=== PATIENT | male | born 1945 | race Caucasian/White ===

== ENCOUNTER 2019-03-30 11:44 | Outpatient (RCR) | payer OTHER, MEDICARE, SELFPAY ==
[2019-03-30 12:45] LABS: Basophils # 0.1 10^3/uL (0.0-0.1); Basophils % 0.5 %; Eosinophils # 0.1 10^3/uL (0.0-0.8); Eosinophils % 1.1 %; Hematocrit 30.8 % (42.0-52.0); Hemoglobin 9.2 g/dL (11.7-16.6); Lymphocytes # 1.3 10^3/uL (0.8-4.8); Lymphocytes % 14.6 %; Mean Corpuscular HGB Conc 29.9 g/dL (30.0-36.0); Mean Corpuscular Hemoglobin 26.1 pg (28.0-34.0); Mean Corpuscular Volume 87.3 fL (80-94); Mean Platelet Volume 10.4 fL (7.4-10.4); Monocytes # 0.7 10^3/uL (0.2-0.9); Neutrophils # 6.9 10^3/uL (1.8-7.7); Neutrophils % 75.3 %; Nucleated Red Blood Cells % 0 %; Platelet Count 170 10^3/cmm (130-400); Red Blood Count 3.53 10^6/uL (4.1-5.3); Red Cell Distribution Width 16.7 % (12.1-15.1); White Blood Count 9.2 10^3/uL (4.0-10.0)
[2019-03-30 13:06] LABS: Ferritin 44 ng/mL (30-400); Iron 27 ug/dL (59-158); Percent Saturation 8.9 % (20-50); Total Iron Binding Capacity 303 mg/dL; Unsaturated Iron Binding 276 ug/dL (112-347)
--- NOTE | 2019-03-30 16:27 | ONC FU_ITS ---
Maddy Briseno Patient Note Patient: Jamaal Sanchez Unit #: [id number]: 1945 Dictated By: Bev DunneDate of Visit: Mar 30, 2019 Onc MED Follow-Up/Prog Note Chief Complaint: Iron deficiency anemia due to GI blood loss History of Present Illness: Mr. Sanchez is a 73-year-old gentleman with history of iron deficiency anemia due to chronic GI blood loss. 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 As per patient in 2016, he started feeling weak and tired and found to have severe anemia. His hemoglobin was around 5 g. He was given 2 units of packed RBCs and underwent EGD and colonoscopy. The EGD showed some blood in his stomach and he was diagnosed with gave syndrome. He was referred to [facility] in [place], as per patient crop roller there told him he didn't have gave syndrome. He also underwent capsule endoscopy which showed some bleeders. He underwent cauterization of AVMs ???2. Mr. Sanchez was found to be anemic and iron deficient on his 09/15/2018 labs. His hemoglobin at that time was 10.2 and his iron saturation was 7.1% and ferritin was 22 and iron level was 22. Received 2 doses of IV replacement iron with Injectafer first on 09/24/2018 and again on 10/01/2018. and on 11/12/[address] Zaidi on 12/09/2017 and underwent double balloon endoscopy for persistent AVMs/questionable polyp, as per patient those bleeders were out of reach from upper end and a colonoscopy to evaluate lower part of small bowel and capsule endoscopy was Scheduled for 02/05/2019. Mr. Sanchez presented in December 2018 with recurrent iron deficiency anemia and was given 2 doses of Injectafer. The first one was on 02/16/2019 and the second was 02/23/2019. His Hgb on 02/16/2019 was 10.5. He is here today for post Injectafer followup. He presents weak, extremely short of breath with just minimal exertion and states he is having chest pain and his head is pounding . He states he has chest discomfort with just walking across the room. He does have a history of CAD and an several stents. He is only been taking his lisinopril approximately every other day because his blood pressure has been low. He denies any falls or syncope. He states he is just completely exhausted and feels that he probably needs some blood. He states he continues to have loose stools with blood noted in them. He has seen his crop roller recently and they are sending me to [place] and I am just waiting for an appointment there . He denies any other concerns. He has had no nausea or vomiting. He states his appetite is fair. He states his energy is just gone. He is having trouble walking out to his dog pin which is certainly new for him. His ECOG is 2. Past Medical History: Anxiety Depression Gastroesophageal reflux disease Hyperlipidemia Hypertension Insomnia Osteoarthrosis Post traumatic stress disorder Past Surgical History: Cataract excision Coronary stents Allergies: Haldol Medications: Aspirin 1 Tablet (of 81 mg) Oral daily Atorvastatin Calcium 0.5 Tablet (of 80 mg) Oral daily B-12 1 Tablet (of 1000 mcg) Oral daily Docusate Sodium 1 Capsule (of 100 mg) Tablet Oral b.i.d. Gabapentin 1 Capsule (of 300 mg) Oral t.i.d. hydroCHLOROthiazide 1 Tablet (of 25 mg) Oral daily HYDROcodone-Acetaminophen 1 Tablet (of 10-325 mg) Oral four times a day Lisinopril 1 Tablet (of 2.5 mg) Oral daily Mirtazapine 1 Tablet (of 45 mg) Oral daily Pantoprazole Sodium 1 Tablet (of 40 mg) Tablet, enteric coated Oral daily Sertraline HCl 0.5 Tablet (of 100 mg) Oral daily Family History: Mr. Sanchez's mother at age 80. Mr. Sanchez's father at age 98: congestive heart failure. Mr. Sanchez has 2 brothers: 2 . Mr. Sanchez's first brother's type ii diabetes. Another brother's type ii diabetes. He has 1 sister who is : congestive heart failure, and type ii diabetes. Social History: Mr. Sanchez is and he is retired. Mr. Sanchez quit smoking 6 years ago but had smoked 1.0 pack/day for 51 years. He has no history of drinking. Mr. Sanchez reports the following support systems: lives alone and lives in own house. His diet consists of regular meals. He indicates his activity level as: daily activities. Review Of Symptoms: Constitutional Denies fevers, chills, night sweats, excessive fatigue or weight loss. Feels no better overall and is still short of breath. He is now having chest pain and palpitations. Allergic/Immunologic No reactions. Eyes Denies significant visual changes. No diplopia. No amaurosis. ENMT Denies changes in hearing, sore throat, mouth sores, difficulty or changes in swallowing ability, and/or sinus drainage. Endocrine No diabetes, thyroid disease or hormone replacement. Denies hot flashes or night sweats. Hematologic/Lymphatic Denies easy bruising or bleeding. The patient denies any tender or palpable lymph nodes. Respiratory Has dyspnea on exertion, and chest pain with minimal exertion. He denies cough or hemoptysis. Denies orthopnea. Cardiovascular He states he is having chest pain, palpitations with minimal exertion but denies lower extremity edema or orthopnea. Gastrointestinal Denies nausea, vomiting, or constipation. He states he is having blood in his stools and they are loose. He states this is not new and he has seen his GI doctor in [place] and is now being referred to [place] but does not have an actual appointment Genitourinary (M) Denies hematuria, dysuria, increased frequency, urgency, hesitancy or incontinence. Musculoskeletal Denies joint pain, swelling or redness. No decreased range of motion. Integumentary Denies chronic rashes, inflammation, ulcerations or skin changes. Neurologic Denies headache, blurred vision, and no areas of focal weakness or numbness. Normal gait. No sensory problems. Psychiatric Denies insomnia, depression, tatianna or mood swings. Vital Signs: Performed on Mar 30, 2019 14:17 Height - 74.00 in Weight - 286.4 lbs (HIGH) BSA - 2.53 sq.m BMI - 36.77 (HIGH) Temperature - 99.2 F (HIGH) Pulse - 79 /min Respiration - 24 /min BP - 134/66 mm(hg) O2 Sat - 95 % (LOW) Pain - 7,2 - Ambulatory/capable of all self-care, unable to perform any work activities. Up and about more than 50% of waking hours. (ECOG) Physical Examination: Constitutional Alert, oriented, no acute distress. Skin pink, warm and dry. Head Normocephalic; atraumatic. Eyes Conjunctivae and sclerae are clear and without icterus. Pupils are reactive and equal. Neck Supple without masses or thyromegaly. No jugular venous distension. Hematologic/Lymphatic No petechiae or purpura. No tender or palpable lymph nodes in the cervical or supraclavicular areas. Respiratory Lungs are clear to auscultation without rhonchi or wheezing. Cardiovascular Regular rate and rhythm of heart without murmurs,clicks, gallops or rubs. Abdomen Non-tender, non-distended, no masses, ascites. Back/Spine Non-tender to palpation. Extremities No visible deformities, no cyanosis, clubbing or edema. Pulses 4+ and equal bilaterally. Musculoskeletal No tenderness or swelling, normal range of motion without obvious weakness. Integumentary No rashes or lesions. Neurologic No sensory or motor deficits, normal cerebellar function, normal gait. Psychiatric Alert and oriented times three. Coherent speech. Verbalizes understanding of our discussions today. Laboratory:Test performed on Mar 30, 2019 14:52 Ferritin 44 ng/mL % Iron Saturation 8.9 % Iron, Total 27 mcg/dL TIBC 303 mcg/dL WBC 9.2 10^9/L RBC 3.53 10^12/L HGB 9.2 g/dL HCT 30.8 % MCV 87.3 fl MCH 26.1 pg MCHC 29.9 g/dL RDW 16.7 % Platelet Count 170 10^9/L MPV 10.4 fL Neutrophils (Gran) 6.9 10^9/L Lymphocytes 1.3 10^9/L Monocytes 0.7 10^9/L Eosinophils 0.1 10^9/L Basophils 0.1 10^9/L Manual Lymphocytes 14.6 % Manual Monocytes 8.0 % Manual Eosinophils 1.1 % Manual Basophils 0.5 % NRBCs 0.0 /100 WBC 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 AVMs Status post cauterization ???2 since 2016. Intolerance to oral iron. IV iron replacement with Injectafer on 09/24/2018 and 10/01/2018. Mr. Sanchez presents today for follow-up post Injectafer. He has continued to be iron deficient and anemic. His hemoglobin has dropped from 10.5 on February 16 2019-9.2 today. He is followed with Dr. Zaidi in [place] and states that they have referred him to [facility]. He is awaiting for an appointment there. He is extremely symptomatic with his anemia today and that he is having significant shortness of breath, chest pain and palpitations head and heart pounding and fatigue. Plan: 1. Labs from today were reviewed in detail and discussed with Mr. Sanchez. A copy was given to him. WBC 9.2, hemoglobin 9.2, platelets 1 are 70,000 ANC is 6900 his iron saturation is 8.9 ferritin is 44 and his iron level is 27. He did have 2 doses of Injectafer approximately 4 weeks ago. He continues to be iron deficient. 2. We will plan to resume his Injectafer for 2 doses???1 week apart. 3. We will set him up for 1 unit of packed red blood cells due to his severe shortness of breath, chest pain, fatigue and his history of CAD. 4. We will plan to recheck his CBC and type and next next week. And then we will plan to see him back 5 weeks after his first Injectafer dose with CBC CMP and type and ask. 5. He states he has been referred to [facility] from [place] for further evaluation. He is not certain when that will happen as he does not have an appointment yet. 6. Mr. Sanchez was instructed to contact us in the interim should questions or problems arise. Signed By: Renee DunnePTam-ANTHONY, AOLEXI Hoang MD <<Signature on File>>
== END 2019-04-24 23:59 | disposition home or self-care (01) ==
LOC: ONCMED 11:44
PROVIDERS: Family Provider Internal Medicine; PCP Internal Medicine; Visit Provider Internal Medicine Hematology & Oncology
DX: D50.0 Iron deficiency anemia secondary to blood loss (chronic) (principal); K92.2 Gastrointestinal hemorrhage, unspecified; I25.10 Atherosclerotic heart disease of native coronary artery without angina pectoris; F41.8 Other specified anxiety disorders; K21.9 Gastro-esophageal reflux disease without esophagitis; E78.5 Hyperlipidemia, unspecified; I10 Essential (primary) hypertension; G47.00 Insomnia, unspecified; M19.90 Unspecified osteoarthritis, unspecified site; F43.10 Post-traumatic stress disorder, unspecified; Z79.82 Long term (current) use of aspirin; Z79.891 Long term (current) use of opiate analgesic; Z95.5 Presence of coronary angioplasty implant and graft; Z87.891 Personal history of nicotine dependence
CPT/HCPCS: 36415; 82728; 83540; 83550; 85025; 86850; 86900; 96365; 99214; J1439; P9016

== ENCOUNTER 2019-03-31 09:59 | Outpatient (RCR) | payer OTHER, MEDICARE, SELFPAY ==
[2019-03-31] MEDS: acetaminophen 325 mg Tablet 650 MG PO (10:50)
[2019-03-31] MEDS: diphenhydrAMINE 25 mg Capsule PO (10:50)
[2019-03-31] MEDS: sodium chloride 0.9% 250 ML 50 ML IV (11:00)
[2019-03-31 12:45] VITALS: BP 116/70; PULSE 70; RESP 18; TEMP 36.8; O2SAT 95
== END 2019-04-24 23:59 | disposition home or self-care (01) ==
LOC: ONCMED 09:59
PROVIDERS: Family Provider Internal Medicine; PCP Internal Medicine; Visit Provider Nurse Practitioner
DX: D50.9 Iron deficiency anemia, unspecified (principal)
CPT/HCPCS: J7050

== ENCOUNTER 2019-04-07 05:55 | Outpatient (RCR) | payer OTHER, MEDICARE, SELFPAY | END 2019-04-24 23:59 | disposition home or self-care (01) | LOC: ONCMED 05:55 | PROVIDERS: Family Provider Internal Medicine; PCP Internal Medicine; Visit Provider Nurse Practitioner | DX: D50.0 Iron deficiency anemia secondary to blood loss (chronic) (principal) | CPT/HCPCS: 96365 ==

== ENCOUNTER → 2019-04-14 16:04 | Outpatient (BNVA) | payer OTHER, MEDICARE, SELFPAY | PROVIDERS: Family Provider Internal Medicine; PCP Internal Medicine; Visit Provider Urology | DX: N40.1 Benign prostatic hyperplasia with lower urinary tract symptoms (principal) | CPT/HCPCS: 81001 ==

== ENCOUNTER 2019-05-11 | Outpatient (RCR) | payer OTHER, SELFPAY ==
--- NOTE | 2019-05-11 15:34 | ONC FU_ITS ---
Maddy Briseno Patient Note Patient: Jamaal Sanchez Unit #: [id number]: 1945 Dictated By: Bev DunneDate of Visit: May 11, 2019 Onc MED Follow-Up/Prog Note Chief Complaint: Iron deficiency anemia due to GI blood loss History of Present Illness: Mr. Sanchez is a 73-year-old gentleman with history of iron deficiency anemia due to chronic GI blood loss. 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 As per patient in 2016, he started feeling weak and tired and found to have severe anemia. His hemoglobin was around 5 g. He was given 2 units of packed RBCs and underwent EGD and colonoscopy. The EGD showed some blood in his stomach and he was diagnosed with gave syndrome. He was referred to [facility] in [place], as per patient [place] there told him he didn't have gave syndrome. He also underwent capsule endoscopy which showed some bleeders. He underwent cauterization of AVMs ???2. Mr. Sanchez was found to be anemic and iron deficient on his 09/15/2018 labs. His hemoglobin at that time was 10.2 and his iron saturation was 7.1% and ferritin was 22 and iron level was 22. Received 2 doses of IV replacement iron with Injectafer first on 09/24/2018 and again on 10/01/2018. and on 11/12/[address] Zaidi on 12/09/2017 and underwent double balloon endoscopy for persistent AVMs/questionable polyp, as per patient those bleeders were out of reach from upper end and a colonoscopy to evaluate lower part of small bowel and capsule endoscopy was Scheduled for 02/05/2019. Mr. Sanchez presented in December 2018 with recurrent iron deficiency anemia and was given 2 doses of Injectafer. The first one was on 02/16/2019 and the second was 02/23/2019. His Hgb on 02/16/2019 was 10.5. He came in March 2019 for post Injectafer followup. He presented weak, extremely short of breath with just minimal exertion and states he is having chest pain and his head is pounding . He states he has chest discomfort with just walking across the room. He does have a history of CAD and an several stents. He was just completely exhausted and feels that he probably needs some blood. He received 2 more doses on Injectafer on 03/30/2019 and 04/07/2019. He is here today for followup. He states overall he feels really good. He has not noted any blood in his stools. He states he has a good appetite. He states he is trying to watch his diet some and lose little bit of weight. His able to do all of his ADLs with some exertion but he recovers well with rest. He is now able to walk out to his dog pin without the shortness of breath and chest pain he was having before. He denies any palpitations. He denies any orthopnea. He has had no fever or chills. He denies any diarrhea or constipation. He had no rash or skin changes. He states his only complaint today is his left knee pain which is due to arthritis. He states this is chronic and ongoing. If truly no worse than what it normally is. He states he generally has injections every 3 months and is getting close to time for that. He will follow-up with the [facility] for that. He also states that he saw Dr. Durbin and Dr. Cordova put him on Flomax and he is feeling much better after that. He has also been consuming 1 teaspoon of lemon juice and 2 to 3 ounces of wine every night and feels that since doing this or the Flomax or both he is feeling much better. He states he is sleeping good. His knee pain does respond to his pain medication but states it just does not relieve it completely. He states he was originally set up for knee surgery but then they were he was found to be anemic and that is been postponed. His ECOG is 1 more so due to the limited mobility due to the knee pain. Past Medical History: Anxiety Depression Gastroesophageal reflux disease Hyperlipidemia Hypertension Insomnia Osteoarthrosis Post traumatic stress disorder Past Surgical History: Cataract excision Coronary stents Allergies: Haldol Medications: Aspirin 1 Tablet (of 81 mg) Oral daily Atorvastatin Calcium 0.5 Tablet (of 80 mg) Oral daily B-12 1 Tablet (of 1000 mcg) Oral daily Docusate Sodium 1 Capsule (of 100 mg) Tablet Oral b.i.d. Flomax 1 Tablet (of 0.4 mg) Capsule Oral daily Gabapentin 1 Capsule (of 300 mg) Oral t.i.d. hydroCHLOROthiazide 1 Tablet (of 25 mg) Oral daily HYDROcodone-Acetaminophen 1 Tablet (of 10-325 mg) Oral four times a day Lisinopril 1 Tablet (of 2.5 mg) Oral daily Mirtazapine 1 Tablet (of 45 mg) Oral daily Pantoprazole Sodium 1 Tablet (of 40 mg) Tablet, enteric coated Oral daily Sertraline HCl 0.5 Tablet (of 100 mg) Oral daily Family History: Mr. Sanchez's mother at age 80. Mr. Sanchez's father at age 98: congestive heart failure. Mr. Sanchez has 2 brothers: 2 . Mr. Sanchez's first brother's type ii diabetes. Another brother's type ii diabetes. He has 1 sister who is : congestive heart failure, and type ii diabetes. Social History: Mr. Sanchez is and he is retired. Mr. Sanchez quit smoking 6 years ago but had smoked 1.0 pack/day for 51 years. He has no history of drinking. Mr. Sanchez reports the following support systems: lives alone and lives in own house. His diet consists of regular meals. He indicates his activity level as: daily activities. Review Of Symptoms: Constitutional Denies fevers, chills, night sweats, excessive fatigue or weight loss. Feels better overall and shortness of breath is better. Allergic/Immunologic No reactions. Eyes Denies significant visual changes. No diplopia. No amaurosis. ENMT Denies changes in hearing, sore throat, mouth sores, difficulty or changes in swallowing ability, and/or sinus drainage. Endocrine No diabetes, thyroid disease or hormone replacement. Denies hot flashes or night sweats. Hematologic/Lymphatic Denies easy bruising or bleeding. The patient denies any tender or palpable lymph nodes. Respiratory He denies cough or hemoptysis. Denies orthopnea. Cardiovascular Denies anginal chest pain, palpitations or orthopnea. Gastrointestinal Denies nausea, vomiting, or constipation. He states his bowels are better and he has not had any blood that he has noticed. Genitourinary (M) Denies hematuria, dysuria, increased frequency, urgency, hesitancy or incontinence since starting Flomax per Dr Durbin. Musculoskeletal Left knee arthritis is acting up today. Pain meds help but don't relieve it completely. Almost time for knee injection . Integumentary Denies chronic rashes, inflammation, ulcerations or skin changes. Neurologic Denies headache, blurred vision, and no areas of focal weakness or numbness. Normal gait. No sensory problems. Psychiatric Denies insomnia, depression, tatianna or mood swings. Vital Signs: Performed on May 11, 2019 14:53 Height - 74.00 in Temperature - 98.0 F (LOW) Pulse - 60 /min Respiration - 18 /min BP - 140/74 mm(hg) O2 Sat - 96 % Pain - 5 Fatigue - 2,1 - No physically strenuous activity, but ambulatory and able to carry out light or sedentary work (e.g. office work, light house work). (ECOG) Physical Examination: Constitutional Alert, oriented, no acute distress. Skin pink, warm and dry. Head Normocephalic; atraumatic. Eyes Conjunctivae and sclerae are clear and without icterus. Pupils are reactive and equal. Neck Supple without masses or thyromegaly. No jugular venous distension. Hematologic/Lymphatic No petechiae or purpura. No tender or palpable lymph nodes in the cervical or supraclavicular areas. Respiratory Lungs are clear to auscultation without rhonchi or wheezing. Cardiovascular Regular rate and rhythm of heart without murmurs,clicks, gallops or rubs. Abdomen Non-tender, non-distended, no masses, ascites. Back/Spine Non-tender to palpation. Extremities No visible deformities, no cyanosis, clubbing or edema. Pulses 4+ and equal bilaterally. Musculoskeletal No tenderness or swelling, normal range of motion without obvious weakness. Integumentary No rashes or lesions. Neurologic No sensory or motor deficits, normal cerebellar function, normal gait. Psychiatric Alert and oriented times three. Coherent speech. Verbalizes understanding of our discussions today. Laboratory:Test performed on May 11, 2019 11:50 Ferritin 77 ng/mL Iron 37 ug/dL Sodium 143 mmol/L Potassium 4.2 mmol/L Chloride 106 mmol/L CO2 26 mmol/L UIBC 178 ug/dL Anion Gap 15.2 BUN 18 mg/dL Creatinine 1.1 mg/dL Cr Clearance (Est) 106.6200 mL/min Glucose 109 mg/dL Calcium 9.7 mg/dL Protein, Total 7.7 g/dL Albumin 4.0 g/dL Globulin 3.7 g/dL Bilirubin, Total 0.4 mg/dL ALT (SGPT) 17 U/L AST (SGOT) 16 U/L Alkaline Phosphatase 160 IU/L WBC 9.1 10 3/uL RBC 4.42 10 6/uL HGB 11.5 g/dL HCT 38.1 % MCV 86.2 fL MCH 26.0 pg MCHC 30.2 g/dL RDW 15.3 % Platelet Count 235 10 3/cmm MPV 10.0 fL Neutrophils 6.9 10 3/uL Lymphocytes 1.5 10 3/uL Monocytes 0.6 10 3/uL Eosinophils 0.0 10 3/uL Basophils 0.1 10 3/uL Neutrophil % 75.8 % Lymphocyte % 16.6 % Monocyte % 6.2 % Eosinophil % 0.4 % Basophils % 0.7 % Test performed on Mar 30, 2019 14:52 % Iron Saturation 8.9 % TIBC 303 mcg/dL Manual Lymphocytes 14.6 % Manual Monocytes 8.0 % Manual Eosinophils 1.1 % Manual Basophils 0.5 % NRBCs 0.0 /100 WBC 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 AVMs Status post cauterization ???2 since 2016. Intolerance to oral iron. IV iron replacement with Injectafer on 09/24/2018 and 10/01/2018. Mr. Sanchez presented in March 2019 for follow-up post Injectafer. He continued to be iron deficient and anemic. His hemoglobin had dropped from 10.5 on February 16 2019-9.2 on 03/30/2019. He is following with Dr. Zaidi in [place] and states that they have referred him to [facility]. He is awaiting for an appointment there. He was extremely symptomatic with his anemia in March with significant shortness of breath, chest pain and palpitations head and heart pounding and fatigue. He did have 1 unit of blood and received 2 doses of Injectafer in March 2019. He had had Injectafer on 02/17/2020 and 02/24/2020 prior to his March dosing. His last dose of Injectafer was on 04/07/2019. Plan: 1. Labs from today were reviewed in detail and discussed with Mr. Sanchez. A copy was given to him. WBC 9.1, hemoglobin 11.5, platelets 235,000 ANC is 6900 his iron saturation is improved from 8.9 to 17.2% today. The ferritin was 44 and is now 77 and his iron level was 27 and is 37 today. He has had a total of 4 doses of Injectafer since 02/17/2020. The last one was on 04/07/2019. 2. Clinically he is better and he thinks his bleeding is much better . He has added 1 teaspoon of lemon juice and 2-3 ounces of wine daily. 3. Flomax recently added per Dr Durbin per patient report. 4. We will plan for followup with Dr Hoang and to recheck his CBC, CMP and type/screen in 1 month. 5. He states he has been referred to [facility] from [place] for further evaluation. He is not certain when that will happen as he does not have an appointment yet. 6. Mr. Sanchez was instructed to contact us in the interim should questions or problems arise. 7. He states he does have an appointment to see Dr Campos-classifier soon. Signed By: Bev Dunne-, [facility] MEDICAL CENTERTyrese Hoang MD <<Signature on File>>
== END 2019-06-04 | disposition home or self-care (01) ==
LOC: ONCMED
PROVIDERS: PCP Internal Medicine; Visit Provider Internal Medicine Hematology & Oncology
DX: D50.0 Iron deficiency anemia secondary to blood loss (chronic) (principal); K31.811 Angiodysplasia of stomach and duodenum with bleeding; Z87.891 Personal history of nicotine dependence
CPT/HCPCS: 99214

== ENCOUNTER 2019-05-11 05:53 | Outpatient (RCR) | payer OTHER, MEDICARE, SELFPAY ==
[2019-05-11 12:21] LABS: Basophils # 0.1 10^3/uL (0.0-0.1); Basophils % 0.7 %; Eosinophils % 0.4 %; Hematocrit 38.1 % (42.0-52.0); Hemoglobin 11.5 g/dL (11.7-16.6); Lymphocytes # 1.5 10^3/uL (0.8-4.8); Lymphocytes % 16.6 %; Mean Corpuscular HGB Conc 30.2 g/dL (30.0-36.0); Mean Corpuscular Volume 86.2 fL (80-94); Monocytes # 0.6 10^3/uL (0.2-0.9); Monocytes % 6.2 %; Neutrophils # 6.9 10^3/uL (1.8-7.7); Neutrophils % 75.8 %; Nucleated Red Blood Cells % 0 %; Platelet Count 235 10^3/cmm (130-400); Red Blood Count 4.42 10^6/uL (4.1-5.3); Red Cell Distribution Width 15.3 % (12.1-15.1); White Blood Count 9.1 10^3/uL (4.0-10.0)
[2019-05-11 12:29] LABS: Alanine Aminotransferase 17 U/L (0-41); Alkaline Phosphatase 160 IU/L (40-130); Anion Gap 15.2 (5-19); Aspartate Amino Transferase 16 U/L (0-40); Blood Urea Nitrogen 18 mg/dL (8-23); Calcium 9.7 mg/dL (8.5-10.5); Carbon Dioxide 26 mmol/L (22-29); Chloride 106 mmol/L (98-107); Ferritin 77 ng/mL (30-400); Globulin 3.7 g/dL (1.3-4.6); Glucose 109 mg/dL (65-115); Iron 37 ug/dL (59-158); Percent Saturation 17.2 % (20-50); Potassium 4.2 mmol/L (3.5-5.1); Sodium 143 mmol/L (136-145); Total Bilirubin 0.4 mg/dL (0.15-1.2); Total Iron Binding Capacity 215 mcg/dl; Total Protein 7.7 g/dL (6.6-8.7); Unsaturated Iron Binding 178 ug/dL (112-347)
== END 2019-05-23 23:59 | disposition home or self-care (01) ==
LOC: ONCMED 05:53
PROVIDERS: Family Provider Internal Medicine; PCP Internal Medicine; Visit Provider Nurse Practitioner
DX: D50.0 Iron deficiency anemia secondary to blood loss (chronic) (principal); I25.10 Atherosclerotic heart disease of native coronary artery without angina pectoris; F41.8 Other specified anxiety disorders; K21.9 Gastro-esophageal reflux disease without esophagitis; E78.5 Hyperlipidemia, unspecified; I10 Essential (primary) hypertension; G47.00 Insomnia, unspecified; M19.90 Unspecified osteoarthritis, unspecified site; F43.10 Post-traumatic stress disorder, unspecified; Z79.82 Long term (current) use of aspirin; Z79.891 Long term (current) use of opiate analgesic; Z79.899 Other long term (current) drug therapy; Z95.5 Presence of coronary angioplasty implant and graft; Z87.891 Personal history of nicotine dependence
CPT/HCPCS: 36415; 80053; 82728; 83540; 83550; 85025; 99214

== ENCOUNTER 2019-06-08 06:07 | Outpatient (RCR) | payer OTHER, MEDICARE, SELFPAY ==
[2019-06-08 10:05] LABS: Basophils # 0.1 10^3/uL (0.0-0.1); Basophils % 0.7 %; Eosinophils # 0.1 10^3/uL (0.0-0.8); Eosinophils % 0.9 %; Hematocrit 39.5 % (42.0-52.0); Hemoglobin 11.9 g/dL (11.7-16.6); Lymphocytes # 1.4 10^3/uL (0.8-4.8); Lymphocytes % 15.9 %; Mean Corpuscular HGB Conc 30.1 g/dL (30.0-36.0); Mean Corpuscular Hemoglobin 25.6 pg (28.0-34.0); Mean Corpuscular Volume 85.1 fL (80-94); Monocytes # 0.6 10^3/uL (0.2-0.9); Monocytes % 6.4 %; Neutrophils # 6.7 10^3/uL (1.8-7.7); Neutrophils % 75.8 %; Nucleated Red Blood Cells % 0 %; Platelet Count 247 10^3/cmm (130-400); Red Blood Count 4.64 10^6/uL (4.1-5.3); Red Cell Distribution Width 14.7 % (12.1-15.1); White Blood Count 8.9 10^3/uL (4.0-10.0)
[2019-06-08 10:46] LABS: Alanine Aminotransferase 19 U/L (0-41); Albumin Level 4.1 g/dL (3.5-5.2); Alkaline Phosphatase 157 IU/L (40-130); Aspartate Amino Transferase 21 U/L (0-40); Blood Urea Nitrogen 13 mg/dL (8-23); Calcium 9.7 mg/dL (8.5-10.5); Carbon Dioxide 32 mmol/L (22-29); Chloride 104 mmol/L (98-107); Ferritin 42 ng/mL (30-400); Globulin 3.7 g/dL (1.3-4.6); Glucose 135 mg/dL (65-115); Iron 42 ug/dL (59-158); Osmolality Calculated 292 mOsm/kg (285-295); Percent Saturation 13.8 % (20-50); Sodium 142 mmol/L (136-145); Total Bilirubin 0.4 mg/dL (0.15-1.2); Total Iron Binding Capacity 304 mcg/dl; Total Protein 7.8 g/dL (6.6-8.7); Unsaturated Iron Binding 262 ug/dL (112-347)
--- NOTE | 2019-06-08 13:00 | ONC FU_ITS ---
Dr. Hoang follow up note Patient: Jamaal Sanchez Unit #: [id number]: 1945 Dicatated By: Tomas Hoang M.D.Date of Visit:Jun 08, 2019 Onc Med Follow-up/Prog Note History of Present Illness: Mr. Sanchez is a 73-year-old gentleman with history of iron deficiency anemia due to chronic GI blood loss. 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 As per patient in 2016, he started feeling weak and tired and found to have severe anemia. His hemoglobin was around 5 g. He was given 2 units of packed RBCs and underwent EGD and colonoscopy. The EGD showed some blood in his stomach and he was diagnosed with gave syndrome. He was referred to [facility] in [place], as per patient records management assistant there told him he didn't have gave syndrome. He also underwent capsule endoscopy which showed some bleeders. He underwent cauterization of AVMs ???2. Mr. Sanchez was found to be anemic and iron deficient on his 09/15/2018 labs. His hemoglobin at that time was 10.2 and his iron saturation was 7.1% and ferritin was 22 and iron level was 22. Received 2 doses of IV replacement iron with Injectafer first on 09/24/2018 and again on 10/01/2018. and on 11/12/[address] Zaidi on 12/09/2017 and underwent double balloon endoscopy for persistent AVMs/questionable polyp, as per patient those bleeders were out of reach from upper end and a colonoscopy to evaluate lower part of small bowel and capsule endoscopy was Scheduled for 02/05/2019. Mr. Sanchez presented in December 2018 with recurrent iron deficiency anemia and was given 2 doses of Injectafer. The first one was on 02/16/2019 and the second was 02/23/2019. His Hgb on 02/16/2019 was 10.5. He came in March 2019 for post Injectafer followup. He presented weak, extremely short of breath with just minimal exertion and states he is having chest pain and his head is pounding . He states he has chest discomfort with just walking across the room. He does have a history of CAD and an several stents. He was just completely exhausted and feels that he probably needs some blood. He received 2 more doses on Injectafer on 03/30/2019 and 04/07/2019. He states overall he feels really good. He has not noted any blood in his stools. He states he has a good appetite. He states he is trying to watch his diet some and lose little bit of weight. His able to do all of his ADLs with some exertion but he recovers well with rest. He is now able to walk out to his dog pin without the shortness of breath and chest pain he was having before. He denies any palpitations. He denies any orthopnea. He has had no fever or chills. He denies any diarrhea or constipation. He had no rash or skin changes. He states his only complaint today is his left knee pain which is due to arthritis. He states this is chronic and ongoing. If truly no worse than what it normally is. He states he generally has injections every 3 months and is getting close to time for that. He will follow-up with the [facility] for that. He also states that he saw Dr. Durbin and Dr. Cordova put him on Flomax and he is feeling much better after that. He has also been consuming 1 teaspoon of lemon juice and 2 to 3 ounces of wine every night and feels that since doing this or the Flomax or both he is feeling much better. He states he is sleeping good. His knee pain does respond to his pain medication but states it just does not relieve it completely. He states he was originally set up for knee surgery but then they were he was found to be anemic and that is been postponed. His ECOG is 1 more so due to the limited mobility due to the knee pain. Came for follow-up, patient said his records management assistant in [place] has referred him to records management assistant in [place] as bleeders in his small bowel were out of reach. And patient has appointment with records management assistant in [place] in November 2019. Patient denies any fresh blood per rectum but off and on dark tarry colored stools. No hemoptysis or hematemesis, no jaundice, no shortness of breath or palpitation at rest or on exertion. Medications: Aspirin 1 Tablet (of 81 mg) Oral daily, Atorvastatin Calcium 0.5 Tablet (of 80 mg) Oral daily, B-12 1 Tablet (of 1000 mcg) Oral daily, Docusate Sodium 1 Capsule (of 100 mg) Tablet Oral b.i.d., Flomax 1 Tablet (of 0.4 mg) Capsule Oral daily, Gabapentin 1 Capsule (of 300 mg) Oral t.i.d., hydroCHLOROthiazide 1 Tablet (of 25 mg) Oral daily, HYDROcodone-Acetaminophen 1 Tablet (of 10-325 mg) Oral four times a day, Lisinopril 1 Tablet (of 2.5 mg) Oral daily, Mirtazapine 1 Tablet (of 45 mg) Oral daily, Pantoprazole Sodium 1 Tablet (of 40 mg) Tablet, enteric coated Oral daily, Sertraline HCl 0.5 Tablet (of 100 mg) Oral daily Allergies: Haldol Review of Systems: Constitutional - Appetite is good and weight is stable. No fever, chills, hot flashes, or night sweats. Energy level is fair, ENMT - No sinus congestion/drainage. No mouth sores. No sore throat, no difficulty swallowing, Hematologic/Lymphatic - Pt reports frequent nosebleeds, Respiratory - Negative for shortness of breath and cough, Cardiovascular - No angina pain. No palpitations, Gastrointestinal - Negative for nausea and vomiting. No heartburn or acid reflux. No diarrhea. Positive for constipation and black tarry stool, Genitourinary (M) - No dysuria or hematuria. No urinary frequency. No urgency. Positive for incontinence. Positive for nocturia, Musculoskeletal - Positive for joint and back pain, Neurologic - No headache, no dizziness. Positive for numbness/tingling, Psychiatric - Positive for anxiety and depression. No insomnia. Vital Signs: Performed on Jun 08, 2019 12:22 Height - 74.00 in Weight - 278.6 lbs (LOW) BSA - 2.50 sq.m BMI - 35.77 (HIGH) Temperature - 98.6 F Pulse - 74 /min Respiration - 17 /min BP - 139/65 mm(hg) O2 Sat - 93 % (LOW) Pain - 6 Performance Status: 0 - Fully active, able to carry on all predisease activities without restrictions. (ECOG) Physical Examination: ENMT - No oral exudates, ulcers, masses, thrush or mucositis. Oropharynx clear. Tongue normal, Respiratory - Lungs are clear to auscultation without rhonchi or wheezing, Cardiovascular - Regular rate and rhythm of heart, Abdomen - Non-tender, non-distended,. Good bowel sounds. No guarding or rebound tenderness. No pulsatile masses, Extremities - no edema. Lab/Imaging: Test performed on May 11, 2019 11:50 Ferritin 77 ng/mL Iron 37 ug/dL Sodium 143 mmol/L Potassium 4.2 mmol/L Chloride 106 mmol/L CO2 26 mmol/L UIBC 178 ug/dL Anion Gap 15.2 BUN 18 mg/dL Creatinine 1.1 mg/dL Cr Clearance (Est) 106.6200 mL/min Glucose 109 mg/dL Calcium 9.7 mg/dL Protein, Total 7.7 g/dL Albumin 4.0 g/dL Globulin 3.7 g/dL Bilirubin, Total 0.4 mg/dL ALT (SGPT) 17 U/L AST (SGOT) 16 U/L Alkaline Phosphatase 160 IU/L WBC 9.1 10 3/uL RBC 4.42 10 6/uL HGB 11.5 g/dL HCT 38.1 % MCV 86.2 fL MCH 26.0 pg MCHC 30.2 g/dL RDW 15.3 % Platelet Count 235 10 3/cmm MPV 10.0 fL Neutrophils 6.9 10 3/uL Lymphocytes 1.5 10 3/uL Monocytes 0.6 10 3/uL Eosinophils 0.0 10 3/uL Basophils 0.1 10 3/uL Neutrophil % 75.8 % Lymphocyte % 16.6 % Monocyte % 6.2 % Eosinophil % 0.4 % Basophils % 0.7 % Test performed on Mar 30, 2019 14:52 % Iron Saturation 8.9 % TIBC 303 mcg/dL Manual Lymphocytes 14.6 % Manual Monocytes 8.0 % Manual Eosinophils 1.1 % Manual Basophils 0.5 % NRBCs 0.0 /100 WBC 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 AVMs Status post cauterization ???2 since 2016. Intolerance to oral iron. IV iron replacement with Injectafer on 09/24/2018 and 10/01/2018. Mr. Sanchez presented in March 2019 for follow-up post Injectafer. He continued to be iron deficient and anemic. His hemoglobin had dropped from 10.5 on February 16 2019-9.2 on 03/30/2019. He is following with Dr. Zaidi in [place] and states that they have referred him to [facility]. He is awaiting for an appointment there. He was extremely symptomatic with his anemia in March with significant shortness of breath, chest pain and palpitations head and heart pounding and fatigue. He did have 1 unit of blood and received 2 doses of Injectafer in March 2019. He had had Injectafer on 02/17/2020 and 02/24/2020 prior to his March dosing. His last dose of Injectafer was on 04/07/2019. Plan: Discussed with patient regarding his labs white blood count 8.9 hemoglobin 11.9 hematocrit 39.5 platelets 247,000 , CMP within normal limits iron studies shows iron 42, TIBC 304 ferritin 42 Clinically, patient doing reasonably well, follow-up lab showed hemoglobin in normal range iron stores in lower side of normal range. Patient is complaining of off and on dark tarry color stools e.g. upper GI bleeding, has seen records management assistant in [place] but as per patient, he was referred to [place] for further evaluation as his bleeders in small bowel were 'out of reach ' for records management assistant in [place]. We'll continue to monitor he will return to clinic in one month with CBC and iron studies, is a drop in his hemoglobin or iron stores will consider parenteral Injectafer infusion. Signed By: Tomas Hoang M.D. <<Signature on File>>
== END 2019-06-23 23:59 | disposition home or self-care (01) ==
LOC: ONCMED 06:07
PROVIDERS: Family Provider Internal Medicine; PCP Internal Medicine; Visit Provider Internal Medicine Hematology & Oncology
DX: D50.0 Iron deficiency anemia secondary to blood loss (chronic) (principal); Z79.82 Long term (current) use of aspirin; Z79.899 Other long term (current) drug therapy; Z79.891 Long term (current) use of opiate analgesic
CPT/HCPCS: 36415; 80053; 82728; 83540; 83550; 85025; G0463

== ENCOUNTER 2019-07-17 06:46 | Outpatient (RCR) | payer OTHER, MEDICARE, SELFPAY ==
[2019-07-09 20:25] LABS: Basophils # 0.1 10^3/uL (0.0-0.1); Basophils % 0.5 %; Eosinophils # 0.2 10^3/uL (0.0-0.8); Eosinophils % 1.7 %; Hematocrit 35.1 % (42.0-52.0); Hemoglobin 10.4 g/dL (11.7-16.6); Lymphocytes # 1.6 10^3/uL (0.8-4.8); Lymphocytes % 14.9 %; Mean Corpuscular HGB Conc 29.6 g/dL (30.0-36.0); Mean Corpuscular Hemoglobin 25.4 pg (28.0-34.0); Mean Corpuscular Volume 85.6 fL (80-94); Mean Platelet Volume 10.3 fL (7.4-10.4); Monocytes # 0.7 10^3/uL (0.2-0.9); Monocytes % 6.2 %; Neutrophils # 8.4 10^3/uL (1.8-7.7); Neutrophils % 76.2 %; Nucleated Red Blood Cells % 0 %; Platelet Count 256 10^3/cmm (130-400); Red Cell Distribution Width 15.5 % (12.1-15.1)
[2019-07-09 20:45] LABS: Ferritin 27 ng/mL (30-400); Iron 25 ug/dL (59-158); Percent Saturation 7.2 % (20-50); Total Iron Binding Capacity 346 mcg/dl; Unsaturated Iron Binding 321 ug/dL (112-347)
[2019-07-10] MEDS: ferric carboxy (PYXIS) 750 mg/15 mL INJ IV (13:27)
[2019-07-10] MEDS: sodium chloride 0.9% 100 mL Bag IV (13:27)
--- NOTE | 2019-07-10 16:13 | ONC FU_ITS ---
Dr. Hoang follow up note Patient: Jamaal Sanchez Unit #: [id number]: [id number] Dicatated By: Tomas Hoang M.D.Date of Visit:Jul 10, 2019 Onc Med Follow-up/Prog Note History of Present Illness: Mr. Sanchez is a 73-year-old gentleman with history of iron deficiency anemia due to chronic GI blood loss. 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 As per patient in 2016, he started feeling weak and tired and found to have severe anemia. His hemoglobin was around 5 g. He was given 2 units of packed RBCs and underwent EGD and colonoscopy. The EGD showed some blood in his stomach and he was diagnosed with gave syndrome. He was referred to [facility] in [place], as per patient pushcart peddler there told him he didn't have gave syndrome. He also underwent capsule endoscopy which showed some bleeders. He underwent cauterization of AVMs ???2. Mr. Sanchez was found to be anemic and iron deficient on his 09/15/2018 labs. His hemoglobin at that time was 10.2 and his iron saturation was 7.1% and ferritin was 22 and iron level was 22. Received 2 doses of IV replacement iron with Injectafer first on 09/24/2018 and again on 10/01/2018. and on 11/12/[address] Zaidi on 12/09/2017 and underwent double balloon endoscopy for persistent AVMs/questionable polyp, as per patient those bleeders were out of reach from upper end and a colonoscopy to evaluate lower part of small bowel and capsule endoscopy was Scheduled for 02/05/2019. Mr. Sanchez presented in December 2018 with recurrent iron deficiency anemia and was given 2 doses of Injectafer. The first one was on 02/16/2019 and the second was 02/23/2019. His Hgb on 02/16/2019 was 10.5. He came in March 2019 for post Injectafer followup. He presented weak, extremely short of breath with just minimal exertion and states he is having chest pain and his head is pounding . He states he has chest discomfort with just walking across the room. He does have a history of CAD and an several stents. He was just completely exhausted and feels that he probably needs some blood. He received 2 more doses on Injectafer on 03/30/2019 and 04/07/2019. He states overall he feels really good. He has not noted any blood in his stools. He states he has a good appetite. He states he is trying to watch his diet some and lose little bit of weight. His able to do all of his ADLs with some exertion but he recovers well with rest. He is now able to walk out to his dog pin without the shortness of breath and chest pain he was having before. He denies any palpitations. He denies any orthopnea. He has had no fever or chills. He denies any diarrhea or constipation. He had no rash or skin changes. He states his only complaint today is his left knee pain which is due to arthritis. He states this is chronic and ongoing. If truly no worse than what it normally is. He states he generally has injections every 3 months and is getting close to time for that. He will follow-up with the [facility] for that. He also states that he saw Dr. Durbin and Dr. Cordova put him on Flomax and he is feeling much better after that. He has also been consuming 1 teaspoon of lemon juice and 2 to 3 ounces of wine every night and feels that since doing this or the Flomax or both he is feeling much better. He states he is sleeping good. His knee pain does respond to his pain medication but states it just does not relieve it completely. He states he was originally set up for knee surgery but then they were he was found to be anemic and that is been postponed. His ECOG is 1 more so due to the limited mobility due to the knee pain. patient said his pushcart peddler in [place] has referred him to pushcart peddler in [place] as bleeders in his small bowel were out of reach. And patient has appointment with pushcart peddler in [place] in November 2019. Came for follow-up, denies any specific complaints, no fever or chills, no nausea or vomiting, no diarrhea constipation, no melena or hematochezia, no jaundice, no shortness of breath or palpitation at rest but generalized weakness and fatigue on exertion. Medications: Aspirin 1 Tablet (of 81 mg) Oral daily, Atorvastatin Calcium 0.5 Tablet (of 80 mg) Oral daily, B-12 1 Tablet (of 1000 mcg) Oral daily, Docusate Sodium 1 Capsule (of 100 mg) Tablet Oral b.i.d., Flomax 1 Tablet (of 0.4 mg) Capsule Oral daily, Gabapentin 1 Capsule (of 300 mg) Oral t.i.d., hydroCHLOROthiazide 1 Tablet (of 25 mg) Oral daily, HYDROcodone-Acetaminophen 1 Tablet (of 10-325 mg) Oral four times a day, Lisinopril 1 Tablet (of 2.5 mg) Oral daily, Mirtazapine 1 Tablet (of 45 mg) Oral daily, Pantoprazole Sodium 1 Tablet (of 40 mg) Tablet, enteric coated Oral daily, Sertraline HCl 0.5 Tablet (of 100 mg) Oral daily Allergies: Haldol Review of Systems: Review of Systems is not available for this patient. Vital Signs: Performed on Jul 10, 2019 12:42 Height - 74.00 in Weight - 284.6 lbs (HIGH) BSA - 2.52 sq.m BMI - 36.54 (HIGH) Temperature - 99.7 F (HIGH) Pulse - 61 /min Respiration - 18 /min BP - 138/66 mm(hg) O2 Sat - 94 % (LOW) Pain - 5 Performance Status: 0 - Fully active, able to carry on all predisease activities without restrictions. (ECOG) Physical Examination: ENMT - . No oral exudates, ulcers, masses, thrush or mucositis. Oropharynx clear. Tongue normal.no jaundice, Respiratory - Lungs are clear to auscultation, Cardiovascular - Regular rate and rhythm of heart, Abdomen - no abdominal pain or fullness, Extremities - no edema or rash. Lab/Imaging: Test performed on Jun 08, 2019 09:40 Ferritin 42 ng/mL Iron 42 mcg/dL Sodium 142 mmol/L Iron Binding Capacity (TIBC) 304 mcg/dl Potassium 4.0 mmol/L % Iron Saturation 13.8 % Chloride 104 mmol/L CO2 32 mmol/L UIBC 262 mcg/dL Anion Gap 10.0 BUN 13 mg/dL Creatinine 0.9 mg/dL Cr Clearance (Est) 126.76 mL/min Glucose 135 mg/dL Calcium 9.7 mg/dL Protein, Total 7.8 g/dL Albumin 4.1 g/dL Globulin 3.7 g/dL Bilirubin, Total 0.4 mg/dL ALT (SGPT) 19 U/L AST (SGOT) 21 U/L Alkaline Phosphatase 157 IU/L WBC 8.9 10 3/uL RBC 4.64 10 6/uL HGB 11.9 g/dL HCT 39.5 % MCV 85.1 fL MCH 25.6 pg MCHC 30.1 g/dL RDW 14.7 % Platelet Count 247 10 3/cmm MPV 10.0 fL Neutrophils 6.7 10 3/uL Lymphocytes 1.4 10 3/uL Monocytes 0.6 10 3/uL Eosinophils 0.1 10 3/uL Basophils 0.1 10 3/uL Neutrophil % 75.8 % Lymphocyte % 15.9 % Monocyte % 6.4 % Eosinophil % 0.9 % Basophils % 0.7 % Test performed on Mar 30, 2019 14:52 Manual Lymphocytes 14.6 % Manual Monocytes 8.0 % Manual Eosinophils 1.1 % Manual Basophils 0.5 % NRBCs 0.0 /100 WBC 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 AVMs Status post cauterization ???2 since 2016. Intolerance to oral iron. IV iron replacement with Injectafer on 09/24/2018 and 10/01/2018. Mr. Sanchez presented in March 2019 for follow-up post Injectafer. He continued to be iron deficient and anemic. His hemoglobin had dropped from 10.5 on February 16 2019-9.2 on 03/30/2019. He is following with Dr. Zaidi in [place] and states that they have referred him to [facility]. He is awaiting for an appointment there. He was extremely symptomatic with his anemia in March with significant shortness of breath, chest pain and palpitations head and heart pounding and fatigue. He did have 1 unit of blood and received 2 doses of Injectafer in March 2019. He had had Injectafer on 02/17/2020 and 02/24/2020 prior to his March dosing. His last dose of Injectafer was on 04/07/2019. Plan: Discussed with patient regarding his labs white blood count 11 hemoglobin 10.4 crit 35.1 platelets 256,000 and iron studies shows iron saturation 7.2 ferritin 27, iron 25 Clinically, patient is doing well with compensated anemia but now progressive drop in his hemoglobin, today 10.4 g compared to 11.9 g on 06/08/2019 and further drop in iron stores. At this point we'll proceed with Injectafer 750 mg IV today and then repeat in week and then patient return to clinic in one month after second dose of Injectafer with CBC and iron studies. Patient has been referred to gastroenterology in [place], by his pushcart peddler in [place], for further studies as far as chronic blood loss from GI tract is concern. Signed By: Tomas Hoang M.D. <<Signature on File>>
== END 2019-07-23 23:59 | disposition home or self-care (01) ==
LOC: ONCMED 06:46
PROVIDERS: Family Provider Internal Medicine; PCP Internal Medicine; Visit Provider Internal Medicine Hematology & Oncology
DX: D50.0 Iron deficiency anemia secondary to blood loss (chronic) (principal); F41.9 Anxiety disorder, unspecified; F32.9 Major depressive disorder, single episode, unspecified; K21.9 Gastro-esophageal reflux disease without esophagitis; E78.5 Hyperlipidemia, unspecified; I10 Essential (primary) hypertension; G47.00 Insomnia, unspecified; M19.90 Unspecified osteoarthritis, unspecified site; F43.12 Post-traumatic stress disorder, chronic
CPT/HCPCS: 82728; 83540; 83550; 85025; 96365; 99214; J1439

== ENCOUNTER 2019-08-21 08:05 | Outpatient (CLI) | payer OTHER, MEDICARE, SELFPAY ==
[2019-08-21 08:33] LABS: Basophils # 0.1 10^3/uL (0.0-0.1); Basophils % 0.6 %; Eosinophils # 0.1 10^3/uL (0.0-0.8); Eosinophils % 1.2 %; Hemoglobin 10.5 g/dL (11.7-16.6); Lymphocytes # 1.1 10^3/uL (0.8-4.8); Lymphocytes % 13.6 %; Mean Corpuscular Volume 86.6 fL (80-94); Mean Platelet Volume 9.8 fL (7.4-10.4); Monocytes # 0.6 10^3/uL (0.2-0.9); Monocytes % 7.4 %; Neutrophils # 6.4 10^3/uL (1.8-7.7); Neutrophils % 76.8 %; Nucleated Red Blood Cells % 0 %; Platelet Count 213 10^3/cmm (130-400); Red Blood Count 4.04 10^6/uL (4.1-5.3); White Blood Count 8.4 10^3/uL (4.0-10.0)
[2019-08-21 08:50] LABS: Ferritin 64 ng/mL (30-400); Iron 35 ug/dL (59-158); Percent Saturation 11.4 % (20-50); Total Iron Binding Capacity 305 mcg/dl; Unsaturated Iron Binding 270 ug/dL (112-347)
--- NOTE | 2019-08-21 12:29 | ONC FU_ITS ---
Dr. Hoang follow up note Patient: Jamaal Sanchez Unit #: [id number]: 1945 Dicatated By: Tomas Hoang M.D.Date of Visit:August 21, 2019 Onc Med Follow-up/Prog Note History of Present Illness: Mr. Sanchez is a 73-year-old gentleman with history of iron deficiency anemia due to chronic GI blood loss. 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 As per patient in 2016, he started feeling weak and tired and found to have severe anemia. His hemoglobin was around 5 g. He was given 2 units of packed RBCs and underwent EGD and colonoscopy. The EGD showed some blood in his stomach and he was diagnosed with gave syndrome. He was referred to [facility] in [place], as per patient dermatology sales representative there told him he didn't have gave syndrome. He also underwent capsule endoscopy which showed some bleeders. He underwent cauterization of AVMs ???2. Mr. Sanchez was found to be anemic and iron deficient on his 09/15/2018 labs. His hemoglobin at that time was 10.2 and his iron saturation was 7.1% and ferritin was 22 and iron level was 22. Received 2 doses of IV replacement iron with Injectafer first on 09/24/2018 and again on 10/01/2018. and on 11/12/[address] Zaidi on 12/09/2017 and underwent double balloon endoscopy for persistent AVMs/questionable polyp, as per patient those bleeders were out of reach from upper end and a colonoscopy to evaluate lower part of small bowel and capsule endoscopy was Scheduled for 02/05/2019. Mr. Sanchez presented in December 2018 with recurrent iron deficiency anemia and was given 2 doses of Injectafer. The first one was on 02/16/2019 and the second was 02/23/2019. His Hgb on 02/16/2019 was 10.5. He came in March 2019 for post Injectafer followup. He presented weak, extremely short of breath with just minimal exertion and states he is having chest pain and his head is pounding . He states he has chest discomfort with just walking across the room. He does have a history of CAD and an several stents. He was just completely exhausted and feels that he probably needs some blood. He received 2 more doses on Injectafer on 03/30/2019 and 04/07/2019. He states overall he feels really good. He has not noted any blood in his stools. He states he has a good appetite. He states he is trying to watch his diet some and lose little bit of weight. His able to do all of his ADLs with some exertion but he recovers well with rest. He is now able to walk out to his dog pin without the shortness of breath and chest pain he was having before. He denies any palpitations. He denies any orthopnea. He has had no fever or chills. He denies any diarrhea or constipation. He had no rash or skin changes. He states his only complaint today is his left knee pain which is due to arthritis. He states this is chronic and ongoing. If truly no worse than what it normally is. He states he generally has injections every 3 months and is getting close to time for that. He will follow-up with the [place] for that. He also states that he saw Dr. Durbin and Dr. Cordova put him on Flomax and he is feeling much better after that. He has also been consuming 1 teaspoon of lemon juice and 2 to 3 ounces of wine every night and feels that since doing this or the Flomax or both he is feeling much better. He states he is sleeping good. His knee pain does respond to his pain medication but states it just does not relieve it completely. He states he was originally set up for knee surgery but then they were he was found to be anemic and that is been postponed. His ECOG is 1 more so due to the limited mobility due to the knee pain. patient said his dermatology sales representative in [place] has referred him to dermatology sales representative in [place] as bleeders in his small bowel were out of reach. And patient has appointment with dermatology sales representative in [place] in November 2019. Came for follow-up, denies any specific complaints except generalized weakness and fatigue but no palpitation, no shortness of breath, no jaundice but darker stools, patient has follow-up appointment with gastroenterology in [place] in October 2019. Medications: Aspirin 1 Tablet (of 81 mg) Oral daily, Atorvastatin Calcium 0.5 Tablet (of 80 mg) Oral daily, B-12 1 Tablet (of 1000 mcg) Oral daily, Docusate Sodium 1 Capsule (of 100 mg) Tablet Oral b.i.d., Flomax 1 Tablet (of 0.4 mg) Capsule Oral b.i.d., Gabapentin 1 Capsule (of 300 mg) Oral t.i.d., hydroCHLOROthiazide 1 Tablet (of 25 mg) Oral daily, HYDROcodone-Acetaminophen 1 Tablet (of 10-325 mg) Oral four times a day, Lisinopril 1 Tablet (of 2.5 mg) Oral daily on Every Other Day, Mirtazapine 1 Tablet (of 45 mg) Oral daily, Pantoprazole Sodium 1 Tablet (of 40 mg) Tablet, enteric coated Oral daily, Sertraline HCl 0.5 Tablet (of 100 mg) Oral daily Allergies: Haldol Review of Systems: Constitutional - Appetite is good and weight is stable. No fever, chills, hot flashes, or night sweats. Energy level is fair, ENMT - No sinus congestion/drainage. No mouth sores. No sore throat, no difficulty swallowing, Hematologic/Lymphatic - No unusualy bruising or bleeding, Respiratory - Positive for shortness of breath. No cough, Cardiovascular - No angina pain. No palpitations, Gastrointestinal - Negative for nausea and vomiting. No heartburn. Positive for acid reflux. Positive for diarrhea. Negative for constipation. Positive for black tarry stool, Genitourinary (M) - No dysuria or hematuria. No urinary frequency. No urgency. Positive for incontinence. Positive for nocturia, Musculoskeletal - Positive for joint and back pain, Neurologic - No headache, Positive for recent dizziness. Positive for numbness/tingling in left shoulder (Pt states its muscles spams), Psychiatric - Negative for anxiety, depression and insomnia. Vital Signs: Performed on August 21, 2019 11:53 Height - 74.00 in Weight - 281.8 lbs (LOW) BSA - 2.51 sq.m BMI - 36.18 (HIGH) Temperature - 97.8 F (LOW) Pulse - 72 /min Respiration - 18 /min BP - 136/69 mm(hg) O2 Sat - 93 % (LOW) Pain - 3 Performance Status: 0 - Fully active, able to carry on all predisease activities without restrictions. (ECOG) Physical Examination: ENMT - no thrush, no mouth sores, no jaundice, Respiratory - Lungs are clear, Cardiovascular - Regular rate and rhythm of heart, Abdomen - soft, bowel sounds present, Extremities - no visible edema or rash. Lab/Imaging: Test performed on August 21, 2019 08:18 Ferritin 64 ng/mL Iron 35 mcg/dL Iron Binding Capacity (TIBC) 305 mcg/dl % Iron Saturation 11.4 % UIBC 270 mcg/dL WBC 8.4 10 3/uL RBC 4.04 10 6/uL HGB 10.5 g/dL HCT 35.0 % MCV 86.6 fL MCH 26.0 pg MCHC 30.0 g/dL RDW 17.0 % Platelet Count 213 10 3/cmm MPV 9.8 fL Neutrophils 6.4 10 3/uL Lymphocytes 1.1 10 3/uL Monocytes 0.6 10 3/uL Eosinophils 0.1 10 3/uL Basophils 0.1 10 3/uL Neutrophil % 76.8 % Lymphocyte % 13.6 % Monocyte % 7.4 % Eosinophil % 1.2 % Basophils % 0.6 % Test performed on Jun 08, 2019 09:40 Sodium 142 mmol/L Potassium 4.0 mmol/L Chloride 104 mmol/L CO2 32 mmol/L Anion Gap 10.0 BUN 13 mg/dL Creatinine 0.9 mg/dL Cr Clearance (Est) 126.76 mL/min Glucose 135 mg/dL Calcium 9.7 mg/dL Protein, Total 7.8 g/dL Albumin 4.1 g/dL Globulin 3.7 g/dL Bilirubin, Total 0.4 mg/dL ALT (SGPT) 19 U/L AST (SGOT) 21 U/L Alkaline Phosphatase 157 IU/L Test performed on Mar 30, 2019 14:52 Manual Lymphocytes 14.6 % Manual Monocytes 8.0 % Manual Eosinophils 1.1 % Manual Basophils 0.5 % NRBCs 0.0 /100 WBC 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 AVMs Status post cauterization ???2 since 2016. Intolerance to oral iron. IV iron replacement with Injectafer on 09/24/2018 and 10/01/2018. Mr. Sanchez presented in March 2019 for follow-up post Injectafer. He continued to be iron deficient and anemic. His hemoglobin had dropped from 10.5 on February 16 2019-9.2 on 03/30/2019. He is following with Dr. Zaidi in [place] and states that they have referred him to [facility]. He is awaiting for an appointment there. He was extremely symptomatic with his anemia in March with significant shortness of breath, chest pain and palpitations head and heart pounding and fatigue. He did have 1 unit of blood and received 2 doses of Injectafer in March 2019. He had had Injectafer on 02/17/2020 and 02/24/2020 prior to his March dosing. His last dose of Injectafer was on 04/07/2019. Plan: Discussed with patient regarding his labs white blood count 8.4 hemoglobin 10.5 hematocrit 35 platelets 213,000 iron saturation 11.4%, ferritin 64, iron 35, Clinically, patient is doing reasonably well now with mild symptoms due to persistent mild/moderate anemia due to iron deficiency due to chronic GI blood loss. Now being treated with parenteral iron, last time, Injectafer was given on 07/10/2019 and 07/17/2019 and follow-up labs in one month showed no significant improvement in hemoglobin as well as and iron stores indicating persistent chronic GI blood loss. At this point we'll consider repeating parenteral iron Injectafer 750 mg IV weekly ???2 and will obtain approval from [place] system prior to the infusion and the patient return to clinic 1 month after second dose with CBC and iron studies. Signed By: Tomas Hoang M.D. <<Signature on File>>
== END 2019-08-21 08:06 | disposition home or self-care (01) ==
LOC: ONCMED 08:06
PROVIDERS: PCP Internal Medicine; Visit Provider Internal Medicine Hematology & Oncology
DX: D50.0 Iron deficiency anemia secondary to blood loss (chronic) (principal); K31.811 Angiodysplasia of stomach and duodenum with bleeding; Q27.33 Arteriovenous malformation of digestive system vessel; K64.9 Unspecified hemorrhoids
CPT/HCPCS: 36415; 82728; 83540; 83550; 85025; 99214

== ENCOUNTER 2019-08-25 13:33 | Outpatient (CLI) | payer OTHER, MEDICARE, SELFPAY ==
[2019-08-25] MEDS: ferric carboxy (IVPB) 750 MG in sodium chloride 0.9% (100 ml) 100 ML 460 MG IV (14:05)
== END 2019-08-25 13:34 | disposition home or self-care (01) ==
LOC: ONCMED 13:37
PROVIDERS: PCP Internal Medicine; Visit Provider Internal Medicine Hematology & Oncology
DX: D50.0 Iron deficiency anemia secondary to blood loss (chronic) (principal)
CPT/HCPCS: 96365; J1439

== ENCOUNTER 2019-09-01 07:23 | Outpatient (RCR) | payer OTHER, MEDICARE, SELFPAY ==
[2019-09-01] MEDS: ferric carboxy (IVPB) 750 MG in sodium chloride 0.9% (100 ml) 100 ML 460 MG IV (11:07)
== END 2019-09-22 23:59 | disposition home or self-care (01) ==
LOC: ONCMED 07:23
PROVIDERS: PCP Internal Medicine; Visit Provider Nurse Practitioner
DX: D50.0 Iron deficiency anemia secondary to blood loss (chronic) (principal); F41.9 Anxiety disorder, unspecified; F32.9 Major depressive disorder, single episode, unspecified; K21.9 Gastro-esophageal reflux disease without esophagitis; E78.5 Hyperlipidemia, unspecified; I10 Essential (primary) hypertension; G47.00 Insomnia, unspecified; M19.90 Unspecified osteoarthritis, unspecified site; F43.10 Post-traumatic stress disorder, unspecified
CPT/HCPCS: 96365; J1439

== ENCOUNTER 2019-10-13 06:49 | Outpatient (RCR) | payer OTHER, MEDICARE, SELFPAY ==
[2019-10-06 13:54] LABS: Basophils # 0.1 10^3/uL (0.0-0.1); Basophils % 0.8 %; Eosinophils # 0.1 10^3/uL (0.0-0.8); Eosinophils % 1.1 %; Hematocrit 32.3 % (42.0-52.0); Hemoglobin 9.8 g/dL (11.7-16.6); Lymphocytes # 1.5 10^3/uL (0.8-4.8); Lymphocytes % 14.7 %; Mean Corpuscular HGB Conc 30.3 g/dL (30.0-36.0); Mean Corpuscular Hemoglobin 26.7 pg (28.0-34.0); Mean Platelet Volume 9.6 fL (7.4-10.4); Monocytes # 0.7 10^3/uL (0.2-0.9); Monocytes % 6.5 %; Neutrophils # 7.97 10^3/uL (1.8-7.7); Neutrophils % 76.3 %; Nucleated Red Blood Cells % 0 %; Platelet Count 272 10^3/cmm (130-400); Red Blood Count 3.67 10^6/uL (4.1-5.3); Red Cell Distribution Width 15.5 % (12.1-15.1); White Blood Count 10.4 10^3/uL (4.0-10.0)
[2019-10-06 14:12] LABS: Ferritin 83 ng/mL (30-400); Iron 33 ug/dL (59-158); Percent Saturation 11.7 % (20-50); Total Iron Binding Capacity 280 mcg/dl; Unsaturated Iron Binding 247 ug/dL (112-347)
[2019-10-06] MEDS: sodium chloride 0.9% (100 ml) 100 ML 400 ML (15:10)
--- NOTE | 2019-10-06 15:14 | ONC FU_ITS ---
Dr. Hoang follow up note Patient: Jamaal Sanchez Unit #: [id number]: [id number] Dicatated By: Tomas Hoang M.D.Date of Visit:Oct 06, 2019 Onc Med Follow-up/Prog Note History of Present Illness: Mr. Sanchez is a 73-year-old gentleman with history of iron deficiency anemia due to chronic GI blood loss. 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 As per patient in 2016, he started feeling weak and tired and found to have severe anemia. His hemoglobin was around 5 g. He was given 2 units of packed RBCs and underwent EGD and colonoscopy. The EGD showed some blood in his stomach and he was diagnosed with gave syndrome. He was referred to [facility] in [place], as per patient control and recovery special tactics there told him he didn't have gave syndrome. He also underwent capsule endoscopy which showed some bleeders. He underwent cauterization of AVMs ???2. Mr. Sanchez was found to be anemic and iron deficient on his 09/15/2018 labs. His hemoglobin at that time was 10.2 and his iron saturation was 7.1% and ferritin was 22 and iron level was 22. Received 2 doses of IV replacement iron with Injectafer first on 09/24/2018 and again on 10/01/2018. and on 11/12/[address] Zaidi on 12/09/2017 and underwent double balloon endoscopy for persistent AVMs/questionable polyp, as per patient those bleeders were out of reach from upper end and a colonoscopy to evaluate lower part of small bowel and capsule endoscopy was Scheduled for 02/05/2019. Mr. Sanchez presented in December 2018 with recurrent iron deficiency anemia and was given 2 doses of Injectafer. The first one was on 02/16/2019 and the second was 02/23/2019. His Hgb on 02/16/2019 was 10.5. He came in March 2019 for post Injectafer followup. He presented weak, extremely short of breath with just minimal exertion and states he is having chest pain and his head is pounding . He states he has chest discomfort with just walking across the room. He does have a history of CAD and an several stents. He was just completely exhausted and feels that he probably needs some blood. He received 2 more doses on Injectafer on 03/30/2019 and 04/07/2019. He states overall he feels really good. He has not noted any blood in his stools. He states he has a good appetite. He states he is trying to watch his diet some and lose little bit of weight. His able to do all of his ADLs with some exertion but he recovers well with rest. He is now able to walk out to his dog pin without the shortness of breath and chest pain he was having before. He denies any palpitations. He denies any orthopnea. He has had no fever or chills. He denies any diarrhea or constipation. He had no rash or skin changes. He states his only complaint today is his left knee pain which is due to arthritis. He states this is chronic and ongoing. If truly no worse than what it normally is. He states he generally has injections every 3 months and is getting close to time for that. He will follow-up with the [place] for that. He also states that he saw Dr. Durbin and Dr. Cordova put him on Flomax and he is feeling much better after that. He has also been consuming 1 teaspoon of lemon juice and 2 to 3 ounces of wine every night and feels that since doing this or the Flomax or both he is feeling much better. He states he is sleeping good. His knee pain does respond to his pain medication but states it just does not relieve it completely. He states he was originally set up for knee surgery but then they were he was found to be anemic and that is been postponed. His ECOG is 1 more so due to the limited mobility due to the knee pain. patient said his control and recovery special tactics in [place] has referred him to control and recovery special tactics in [place] as bleeders in his small bowel were out of reach. And patient has appointment with control and recovery special tactics in [place] in November 2019. Came for follow-up, denies any specific complaint except dark-colored stools but no fresh blood per rectum, no shortness of breath or palpitation. No jaundice, no hemoptysis met emesis, no chest pain Medications: Aspirin 1 Tablet (of 81 mg) Oral daily, Atorvastatin Calcium 0.5 Tablet (of 80 mg) Oral daily, B-12 1 Tablet (of 1000 mcg) Oral daily, Docusate Sodium 1 Capsule (of 100 mg) Tablet Oral b.i.d., Flomax 1 Tablet (of 0.4 mg) Capsule Oral b.i.d., Gabapentin 1 Capsule (of 300 mg) Oral t.i.d., hydroCHLOROthiazide 1 Tablet (of 25 mg) Oral daily, HYDROcodone-Acetaminophen 1 Tablet (of 10-325 mg) Oral four times a day, Lisinopril 1 Tablet (of 2.5 mg) Oral daily on Every Other Day, Mirtazapine 1 Tablet (of 45 mg) Oral daily, Pantoprazole Sodium 1 Tablet (of 40 mg) Tablet, enteric coated Oral daily, Sertraline HCl 0.5 Tablet (of 100 mg) Oral daily Allergies: Haldol Review of Systems: Constitutional - Appetite is good and weight is stable. No fever, chills, hot flashes, or night sweats. Energy level is fair, ENMT - No sinus congestion/drainage. No mouth sores. No sore throat, no difficulty swallowing, Hematologic/Lymphatic - No unusualy bruising or bleeding, Respiratory - Positive for shortness of breath. No cough, Cardiovascular - No angina pain. No palpitations, Gastrointestinal - Negative for nausea and vomiting. No heartburn. Positive for acid reflux. Positive for diarrhea. Negative for constipation. Positive for black tarry stool, Genitourinary (M) - No dysuria or hematuria. No urinary frequency. No urgency. Positive for incontinence. Positive for nocturia, Musculoskeletal - Positive for joint and back pain, Neurologic - No headache, Positive for recent dizziness. Positive for numbness/tingling in left shoulder (Pt states its muscles spams), Psychiatric - Negative for anxiety, depression and insomnia. Vital Signs: Performed on Oct 06, 2019 14:40 Height - 74.00 in Weight - 282.0 lbs (HIGH) BSA - 2.51 sq.m BMI - 36.21 (HIGH) Temperature - 99.1 F (HIGH) Pulse - 67 /min Respiration - 24 /min BP - 134/65 mm(hg) O2 Sat - 94 % (LOW) Pain - 0 Performance Status: 0 - Fully active, able to carry on all predisease activities without restrictions. (ECOG) Physical Examination: ENMT - No mouth sores, no thrush, no jaundice, Respiratory - Lungs are clear, Cardiovascular - Regular rate and rhythm of heart, Abdomen - Soft, bowel sounds present, Extremities - No visible edema. Lab/Imaging: Test performed on August 21, 2019 08:18 Ferritin 64 ng/mL Iron 35 mcg/dL Iron Binding Capacity (TIBC) 305 mcg/dl % Iron Saturation 11.4 % UIBC 270 mcg/dL WBC 8.4 10 3/uL RBC 4.04 10 6/uL HGB 10.5 g/dL HCT 35.0 % MCV 86.6 fL MCH 26.0 pg MCHC 30.0 g/dL RDW 17.0 % Platelet Count 213 10 3/cmm MPV 9.8 fL Neutrophils 6.4 10 3/uL Lymphocytes 1.1 10 3/uL Monocytes 0.6 10 3/uL Eosinophils 0.1 10 3/uL Basophils 0.1 10 3/uL Neutrophil % 76.8 % Lymphocyte % 13.6 % Monocyte % 7.4 % Eosinophil % 1.2 % Basophils % 0.6 % Test performed on Jun 08, 2019 09:40 Sodium 142 mmol/L Potassium 4.0 mmol/L Chloride 104 mmol/L CO2 32 mmol/L Anion Gap 10.0 BUN 13 mg/dL Creatinine 0.9 mg/dL Cr Clearance (Est) 126.76 mL/min Glucose 135 mg/dL Calcium 9.7 mg/dL Protein, Total 7.8 g/dL Albumin 4.1 g/dL Globulin 3.7 g/dL Bilirubin, Total 0.4 mg/dL ALT (SGPT) 19 U/L AST (SGOT) 21 U/L Alkaline Phosphatase 157 IU/L 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 AVMs Status post cauterization ???2 since 2016. Intolerance to oral iron. IV iron replacement with Injectafer on 09/24/2018 and 10/01/2018. Mr. Sanchez presented in March 2019 for follow-up post Injectafer. He continued to be iron deficient and anemic. His hemoglobin had dropped from 10.5 on February 16 2019-9.2 on 03/30/2019. He is following with Dr. Zaidi in [place] and states that they have referred him to [place]. He is awaiting for an appointment there. He was extremely symptomatic with his anemia in March with significant shortness of breath, chest pain and palpitations head and heart pounding and fatigue. He did have 1 unit of blood and received 2 doses of Injectafer in March 2019. He had had Injectafer on 02/17/2020 and 02/24/2020 prior to his March dosing. His last dose of Injectafer was on 04/07/2019. Plan: Discussed with patient regarding his labs white blood count 10.4 hemoglobin 9.8 hematocrit 32.3 platelets 272,000 iron saturation 11.7 iron 33, ferritin 83, TIBC 280 Clinically, patient is doing reasonably well, no new signs symptom but his follow-up labs shows persistent moderate Iron deficiency anemia in fact hemoglobin has gone down further compared to 10.5 g on August 21, 2019, since then patient has received Injectafer 750 mg IV weekly x2 in the first week of August, his iron studies shows persistent iron deficiency and the patient is having dark-colored stools indicative of chronic GI blood loss. Patient has appointment at [facility] in November 2019. Because of COVID-19, could not get it earlier. In the meantime, we will repeat his parenteral iron Injectafer 750 g IV today and then repeat in 1 week and then he will return to clinic in 1 month with a CBC and iron studies, we will continue to monitor his blood counts in case hemoglobin drops further to below 8 g, will consider blood transfusion. Signed By: Tomas Hoang M.D. <<Signature on File>>
[2019-10-06] MEDS: ferric carboxy (IVPB) 750 MG in sodium chloride 0.9% (100 ml) 100 ML 345 MG IV (15:15)
== END 2019-10-23 23:59 | disposition home or self-care (01) ==
LOC: ONCMED 06:49
PROVIDERS: PCP Internal Medicine; Visit Provider Internal Medicine Hematology & Oncology
DX: D50.0 Iron deficiency anemia secondary to blood loss (chronic) (principal); K31.819 Angiodysplasia of stomach and duodenum without bleeding; Z79.82 Long term (current) use of aspirin; Z79.891 Long term (current) use of opiate analgesic
CPT/HCPCS: 36415; 82728; 83540; 83550; 85025; 96365; 99214; J1439

== ENCOUNTER 2019-12-18 05:42 | Outpatient (RCR) | payer OTHER, MEDICARE, SELFPAY ==
[2019-11-24 12:01] LABS: Basophils # 0.1 10^3/uL (0.0-0.1); Basophils % 0.6 %; Eosinophils # 0.1 10^3/uL (0.0-0.8); Eosinophils % 1.1 %; Hematocrit 34.7 % (42.0-52.0); Hemoglobin 10.4 g/dL (11.7-16.6); Lymphocytes # 1.7 10^3/uL (0.8-4.8); Lymphocytes % 14.4 %; Mean Corpuscular Hemoglobin 26.2 pg (28.0-34.0); Mean Corpuscular Volume 87.4 fL (80-94); Mean Platelet Volume 9.7 fL (7.4-10.4); Monocytes # 0.6 10^3/uL (0.2-0.9); Monocytes % 5.5 %; Neutrophils # 8.99 10^3/uL (1.8-7.7); Neutrophils % 77.6 %; Nucleated Red Blood Cells % 0 %; Platelet Count 306 10^3/cmm (130-400); Red Blood Count 3.97 10^6/uL (4.1-5.3); Red Cell Distribution Width 15.7 % (12.1-15.1); White Blood Count 11.6 10^3/uL (4.0-10.0)
[2019-11-24 12:22] LABS: Ferritin 91 ng/mL (30-400); Iron 32 ug/dL (59-158); Percent Saturation 10.8 % (20-50); Total Iron Binding Capacity 294 mcg/dl; Unsaturated Iron Binding 262 ug/dL (112-347)
--- NOTE | 2019-11-24 15:21 | ONC FU_ITS ---
Maddy Briseno Patient Note Patient: Jamaal Sanchez Unit #: [id number]: 1945 Dictated By: Bev DunneDate of Visit: Nov 24, 2019 Onc MED Follow-Up/Prog Note Chief Complaint: Iron deficiency anemia due to GI blood loss History of Present Illness: Mr. Sanchez is a 73-year-old gentleman with history of iron deficiency anemia due to chronic GI blood loss. 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 As per patient in 2016, he started feeling weak and tired and found to have severe anemia. His hemoglobin was around 5 g. He was given 2 units of packed RBCs and underwent EGD and colonoscopy. The EGD showed some blood in his stomach and he was diagnosed with gave syndrome. He was referred to [facility] in [place], as per patient multi line claims adjuster there told him he didn't have gave syndrome. He also underwent capsule endoscopy which showed some bleeders. He underwent cauterization of AVMs ???2. Mr. Sanchez was found to be anemic and iron deficient on his 09/15/2018 labs. His hemoglobin at that time was 10.2 and his iron saturation was 7.1% and ferritin was 22 and iron level was 22. Received 2 doses of IV replacement iron with Injectafer first on 09/24/2018 and again on 10/01/2018. and on 11/12/[address] Zaidi on 12/09/2017 and underwent double balloon endoscopy for persistent AVMs/questionable polyp, as per patient those bleeders were out of reach from upper end and a colonoscopy to evaluate lower part of small bowel and capsule endoscopy was Scheduled for 02/05/2019. Mr. Sanchez presented in December 2018 with recurrent iron deficiency anemia and was given 2 doses of Injectafer. The first one was on 02/16/2019 and the second was 02/23/2019. His Hgb on 02/16/2019 was 10.5. He came in March 2019 for post Injectafer followup. He presented weak, extremely short of breath with just minimal exertion and states he is having chest pain and his head is pounding . He states he has chest discomfort with just walking across the room. He does have a history of CAD and an several stents. He was just completely exhausted and feels that he probably needs some blood. He received 2 more doses on Injectafer on 03/30/2019 and 04/07/2019. He states overall he feels really good. He has not noted any blood in his stools. He states he has a good appetite. patient said his multi line claims adjuster in [place] has referred him to multi line claims adjuster in [place] as bleeders in his small bowel were out of reach. And patient has appointment with multi line claims adjuster in [place] in November 2019. Mr. Sanchez is here today for follow-up post Injectafer. His last doses of Injectafer were on October 06, 2019 and October 13, 2019. He states he does not feel much better overall. He states he is no worse but does not feel as good as it is when I get blood . Is noted that his hemoglobin is improved today at 10.4. He states he has had some chest tightness and some belching. He states he was not sure if this was related to his heart or some acid reflux. When I asked him whether he was taking his Protonix or not, he was really uncertain. I suspect that he has not taken the Protonix but he will check in if not he will start taking it now. He states his follow-up with [facility] on December 07 with a GI doctor will see what they say about his gut. He states his neuropathy is stable. He has chronic swelling in his feet and left lower leg. He states the left lower leg just comes and goes. He has some pain with walking but states is circulation related and not new. He denies any new concerns. He denies any fever or chills. He has had no complaints of diarrhea or constipation. He states his bladder is normal for him. He states he is eating good. He states he just cannot do as much as he used to as he does get tired. He is able do all his ADLs without assistance. His ECOG is 1. Past Medical History: Anxiety Depression Gastroesophageal reflux disease Hyperlipidemia Hypertension Insomnia Osteoarthrosis Post traumatic stress disorder Past Surgical History: Cataract excision Coronary stents Allergies: Haldol Medications: Aspirin 1 Tablet (of 81 mg) Oral daily Atorvastatin Calcium 0.5 Tablet (of 80 mg) Oral daily B-12 1 Tablet (of 1000 mcg) Oral daily Docusate Sodium 1 Capsule (of 100 mg) Tablet Oral b.i.d. Flomax 1 Tablet (of 0.4 mg) Capsule Oral b.i.d. Gabapentin 1 Capsule (of 300 mg) Oral t.i.d. hydroCHLOROthiazide 1 Tablet (of 25 mg) Oral daily HYDROcodone-Acetaminophen 1 Tablet (of 10-325 mg) Oral four times a day Lisinopril 1 Tablet (of 2.5 mg) Oral daily on Every Other Day Mirtazapine 1 Tablet (of 45 mg) Oral daily Pantoprazole Sodium 1 Tablet (of 40 mg) Tablet, enteric coated Oral daily Sertraline HCl 0.5 Tablet (of 100 mg) Oral daily Family History: Mr. Sanchez's mother at age 80. Mr. Sanchez's father at age 98: congestive heart failure. Mr. Sanchez has 2 brothers: 2 . Mr. Sanchez's first brother's type ii diabetes. Another brother's type ii diabetes. He has 1 sister who is : congestive heart failure, and type ii diabetes. Social History: Mr. Sanchez is and he is retired. Mr. Sanchez quit smoking 6 years ago but had smoked 1.0 pack/day for 51 years. He has no history of drinking. Mr. Sanchez reports the following support systems: lives alone and lives in own house. His diet consists of regular meals. He indicates his activity level as: daily activities. Review Of Symptoms: Constitutional Denies fevers, chills, night sweats, excessive fatigue or weight loss. Feels some better overall and shortness of breath is stable. Allergic/Immunologic No reactions. Eyes Denies significant visual changes. No diplopia. No amaurosis. ENMT Denies changes in hearing, sore throat, mouth sores, difficulty or changes in swallowing ability, and/or sinus drainage. Endocrine No diabetes, thyroid disease or hormone replacement. Denies hot flashes or night sweats. Hematologic/Lymphatic Denies easy bruising or bleeding. The patient denies any tender or palpable lymph nodes. Respiratory He denies cough or hemoptysis. Denies orthopnea. Cardiovascular Denies anginal chest pain, palpitations or orthopnea. Gastrointestinal Denies nausea, vomiting, or constipation. He states his bowels are normal and he has not had any blood that he has noticed. Some increase in belching (? acid reflux). Genitourinary (M) Denies hematuria, dysuria, increased frequency, urgency, hesitancy or incontinence since starting Flomax per Dr Durbin. Musculoskeletal Left knee arthritis is acting up today. Pain meds help but don't relieve it completely. Integumentary Denies chronic rashes, inflammation, ulcerations or skin changes. Neurologic Denies headache, blurred vision, and no areas of focal weakness or numbness. Normal slow gait. No sensory problems. Psychiatric Denies insomnia, depression, tatianna or mood swings. Vital Signs: Performed on Nov 24, 2019 14:16 Height - 74.00 in Weight - 279.0 lbs (LOW) BSA - 2.50 sq.m BMI - 35.82 (HIGH) Temperature - 99.0 F (HIGH) Pulse - 66 /min Respiration - 20 /min BP - 152/73 mm(hg) (HIGH) O2 Sat - 98 % Pain - 6,1 - No physically strenuous activity, but ambulatory and able to carry out light or sedentary work (e.g. office work, light house work). (ECOG) Physical Examination: Constitutional Alert, oriented, no acute distress. Skin pink, warm and dry. Head Normocephalic; atraumatic. Eyes Conjunctivae and sclerae are clear and without icterus. Pupils are reactive and equal. Neck Supple without masses or thyromegaly. No jugular venous distension. Hematologic/Lymphatic No petechiae or purpura. No tender or palpable lymph nodes in the cervical or supraclavicular areas. Respiratory Lungs are clear to auscultation without rhonchi or wheezing. Cardiovascular Regular rate and rhythm of heart without murmurs,clicks, gallops or rubs. Abdomen Non-tender, non-distended, no masses, ascites. Back/Spine Non-tender to palpation. Extremities No visible deformities, no cyanosis, clubbing or edema. Pulses 4+ and equal bilaterally. Musculoskeletal No tenderness or swelling, normal range of motion without obvious weakness. Integumentary No rashes or lesions. Neurologic No sensory or motor deficits, normal cerebellar function, normal gait. Psychiatric Alert and oriented times three. Coherent speech. Verbalizes understanding of our discussions today. Laboratory:Test performed on Nov 24, 2019 11:20 Ferritin 91 ng/mL Iron 32 mcg/dL Iron Binding Capacity (TIBC) 294 mcg/dl % Iron Saturation 10.8 % UIBC 262 mcg/dL WBC 11.6 10 3/uL RBC 3.97 10 6/uL HGB 10.4 g/dL HCT 34.7 % MCV 87.4 fL MCH 26.2 pg MCHC 30.0 g/dL RDW 15.7 % Platelet Count 306 10 3/cmm MPV 9.7 fL Neutrophils 8.99 10 3/uL Lymphocytes 1.7 10 3/uL Monocytes 0.6 10 3/uL Eosinophils 0.1 10 3/uL Basophils 0.1 10 3/uL Neutrophil % 77.6 % Lymphocyte % 14.4 % Monocyte % 5.5 % Eosinophil % 1.1 % Basophils % 0.6 % NRBC % 0 % Test performed on Jun 08, 2019 09:40 Sodium 142 mmol/L Potassium 4.0 mmol/L Chloride 104 mmol/L CO2 32 mmol/L Anion Gap 10.0 BUN 13 mg/dL Creatinine 0.9 mg/dL Cr Clearance (Est) 126.76 mL/min Glucose 135 mg/dL Calcium 9.7 mg/dL Protein, Total 7.8 g/dL Albumin 4.1 g/dL Globulin 3.7 g/dL Bilirubin, Total 0.4 mg/dL ALT (SGPT) 19 U/L AST (SGOT) 21 U/L Alkaline Phosphatase 157 IU/L Impression: Microscopic hypochromic anemia due to iron deficiency due to chronic GI blood loss 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 AVMs Status post cauterization ???2 since 2016. Intolerance to oral iron. IV iron replacement with Injectafer on 09/24/2018 and 10/01/2018. Mr. Sanchez presented in March 2019 for follow-up post Injectafer. He continued to be iron deficient and anemic. His hemoglobin had dropped from 10.5 on February 16 2019-9.2 on 03/30/2019. He is following with Dr. Ziadi in [place] and states that they have referred him to [facility]. He is awaiting for an appointment there. He was extremely symptomatic with his anemia in March with significant shortness of breath, chest pain and palpitations head and heart pounding and fatigue. He did have 1 unit of blood and received 2 doses of Injectafer in March 2019. He had had Injectafer on 02/17/2020 and 02/24/2020 prior to his March dosing. He has had Injectafer on , 07/17/2019, 08/25/2019, 09/01/2019 and 10/06/2019. His last dose of Injectafer was on 10/13/2019. His Hgb has remained in the 9.8 to 11.9 range since June 08, 2019. His iron levels have ranged from 25-42 since May, despite all the Injectafer infusions. His iron saturations have ranged from 7.2-13.8 since June 08, 2019 as well. His ferritin levels have been from 27 to a high of 91. He scheduled to see the GI specialist at [facility] on December 08, 2019. Plan: 1. Today's labs were reviewed with Mr. Sanchez and a copy was given to him a copy was also provided for him to take to [facility] for his appointment there. His WBCs today are 11.6 hemoglobin is 10.4 platelets are 306,000 ANC is 9000. His iron saturation is 10.8, ferritin 91, iron level is 32 his TIBC is 94. 2. I have asked him to check to make sure he is taking his pantoprozole 40 mg daily. If not he will resume it, if he is taking it, he may increase to twice daily until he is evaluated by the GI specialist at [facility]. He will call us if he needs refills. 3. I have not made a followup visit yet as I have asked him t o call us when he returns from his evaluation at [facility] so we can formulate a plan of care at that time. 4. Mr Sanchez was encouraged to call us in the interim if questions or problems arise. Signed By: Bev Dunne-, [facility] Tomas Hoang MD <<Signature on File>>
[2019-12-18 08:29] LABS: Basophils # 0.1 10^3/uL (0.0-0.1); Basophils % 0.6 %; Eosinophils # 0.2 10^3/uL (0.0-0.8); Eosinophils % 2.3 %; Hematocrit 29.4 % (42.0-52.0); Hemoglobin 8.5 g/dL (11.7-16.6); Lymphocytes # 1.3 10^3/uL (0.8-4.8); Lymphocytes % 15.5 %; Mean Corpuscular HGB Conc 28.9 g/dL (30.0-36.0); Mean Corpuscular Hemoglobin 23.8 pg (28.0-34.0); Mean Corpuscular Volume 82.4 fL (80-94); Mean Platelet Volume 9.1 fL (7.4-10.4); Monocytes # 0.7 10^3/uL (0.2-0.9); Monocytes % 8.3 %; Neutrophils # 5.99 10^3/uL (1.8-7.7); Neutrophils % 72.5 %; Nucleated Red Blood Cells % 0 %; Platelet Count 239 10^3/cmm (130-400); Red Blood Count 3.57 10^6/uL (4.1-5.3); Red Cell Distribution Width 15.8 % (12.1-15.1); White Blood Count 8.3 10^3/uL (4.0-10.0)
[2019-12-18 08:57] LABS: Alanine Aminotransferase 19 U/L (0-41); Albumin Level 3.9 g/dL (3.5-5.2); Alkaline Phosphatase 172 IU/L (40-130); Anion Gap 12.7 (5-19); Aspartate Amino Transferase 25 U/L (0-40); Blood Urea Nitrogen 14 mg/dL (8-23); Calcium 8.7 mg/dL (8.5-10.5); Carbon Dioxide 28 mmol/L (22-29); Chloride 102 mmol/L (98-107); Ferritin 27 ng/mL (30-400); Globulin 2.9 g/dL (1.3-4.6); Glucose 197 mg/dL (65-115); Iron 24 ug/dL (59-158); Osmolality Calculated 294 mOsm/kg (285-295); Percent Saturation 8.2 % (20-50); Potassium 3.7 mmol/L (3.5-5.1); Sodium 139 mmol/L (136-145); Total Bilirubin 0.2 mg/dL (0.15-1.2); Total Iron Binding Capacity 292 mcg/dl; Total Protein 6.8 g/dL (6.6-8.7); Unsaturated Iron Binding 268 ug/dL (112-347)
[2019-12-18] MEDS: ferric carboxy (IVPB) 750 MG in sodium chloride 0.9% (100 ml) 100 ML 460 MG IV (10:52)
--- NOTE | 2019-12-18 11:04 | ONC FU_ITS ---
Dr. Hoang follow up note Patient: Jamaal Sanchez Unit #: [id number]: [id number] Dicatated By: Tomsa Hoang M.D.Date of Visit:Dec 18, 2019 Onc Med Follow-up/Prog Note History of Present Illness: Mr. Sanchez is a 73-year-old gentleman with history of iron deficiency anemia due to chronic GI blood loss. 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 As per patient in 2016, he started feeling weak and tired and found to have severe anemia. His hemoglobin was around 5 g. He was given 2 units of packed RBCs and underwent EGD and colonoscopy. The EGD showed some blood in his stomach and he was diagnosed with gave syndrome. He was referred to [facility] in [place], as per patient lockstitch front maker there told him he didn't have gave syndrome. He also underwent capsule endoscopy which showed some bleeders. He underwent cauterization of AVMs ???2. Mr. Sanchez was found to be anemic and iron deficient on his 09/15/2018 labs. His hemoglobin at that time was 10.2 and his iron saturation was 7.1% and ferritin was 22 and iron level was 22. Received 2 doses of IV replacement iron with Injectafer first on 09/24/2018 and again on 10/01/2018. and on 11/12/[address] Zaidi on 12/09/2017 and underwent double balloon endoscopy for persistent AVMs/questionable polyp, as per patient those bleeders were out of reach from upper end and a colonoscopy to evaluate lower part of small bowel and capsule endoscopy was Scheduled for 02/05/2019. Mr. Sanchez presented in December 2018 with recurrent iron deficiency anemia and was given 2 doses of Injectafer. The first one was on 02/16/2019 and the second was 02/23/2019. His Hgb on 02/16/2019 was 10.5. He came in March 2019 for post Injectafer followup. He presented weak, extremely short of breath with just minimal exertion and states he is having chest pain and his head is pounding . He states he has chest discomfort with just walking across the room. He does have a history of CAD and an several stents. He was just completely exhausted and feels that he probably needs some blood. He received 2 more doses on Injectafer on 03/30/2019 and 04/07/2019. He states overall he feels really good. He has not noted any blood in his stools. He states he has a good appetite. patient said his lockstitch front maker in [place] has referred him to lockstitch front maker in [place] as bleeders in his small bowel were out of reach. And he was seen by Dr. Ezra Craft, interventional lockstitch front maker for small bowel AVM cauterization on December 08, 2019 as per patient he had scheduled him for MRI scan of the abdomen to look for polyps or other pathology and small bowel and scheduled for that in December. And he will see him back in 6 months in the meantime, as per patient he was suggested to continue with parenteral iron on as-needed basis. Came for follow-up denies any specific complaint except generalized weakness and fatigue but no chest pain or palpitation, no shortness of breath at rest but dyspnea on exertion. Denies any fresh blood per rectum but sometime darker stools. No jaundice no hemoptysis or hematemesis. Medications: Aspirin 1 Tablet (of 81 mg) Oral daily, Atorvastatin Calcium 0.5 Tablet (of 80 mg) Oral daily, B-12 1 Tablet (of 1000 mcg) Oral daily, Docusate Sodium 1 Capsule (of 100 mg) Tablet Oral b.i.d., Flomax 1 Tablet (of 0.4 mg) Capsule Oral b.i.d., Gabapentin 1 Capsule (of 300 mg) Oral t.i.d., hydroCHLOROthiazide 1 Tablet (of 25 mg) Oral daily, HYDROcodone-Acetaminophen 1 Tablet (of 10-325 mg) Oral four times a day, Lisinopril 1 Tablet (of 2.5 mg) Oral daily on Every Other Day, Mirtazapine 1 Tablet (of 45 mg) Oral daily, Pantoprazole Sodium 1 Tablet (of 40 mg) Tablet, enteric coated Oral daily, Sertraline HCl 0.5 Tablet (of 100 mg) Oral daily Allergies: Haldol Review of Systems: Review of Systems is not available for this patient. Vital Signs: Performed on Dec 18, 2019 09:58 Height - 74.00 in Weight - 292.0 lbs (HIGH) BSA - 2.55 sq.m BMI - 37.49 (HIGH) Temperature - 99.0 F (HIGH) Pulse - 69 /min Respiration - 24 /min BP - 123/61 mm(hg) O2 Sat - 94 % (LOW) Pain - 8 Performance Status: 0 - Fully active, able to carry on all predisease activities without restrictions. (ECOG) Physical Examination: ENMT - No mouth sores, no thrush, no jaundice, Respiratory - Lungs are clear to auscultation, Cardiovascular - Regular rate and rhythm of heart, Abdomen - Soft, bowel sounds present, Extremities - No visible edema. Lab/Imaging: Test performed on Nov 24, 2019 11:20 Ferritin 91 ng/mL Iron 32 mcg/dL Iron Binding Capacity (TIBC) 294 mcg/dl % Iron Saturation 10.8 % UIBC 262 mcg/dL WBC 11.6 10 3/uL RBC 3.97 10 6/uL HGB 10.4 g/dL HCT 34.7 % MCV 87.4 fL MCH 26.2 pg MCHC 30.0 g/dL RDW 15.7 % Platelet Count 306 10 3/cmm MPV 9.7 fL Neutrophils 8.99 10 3/uL Lymphocytes 1.7 10 3/uL Monocytes 0.6 10 3/uL Eosinophils 0.1 10 3/uL Basophils 0.1 10 3/uL Neutrophil % 77.6 % Lymphocyte % 14.4 % Monocyte % 5.5 % Eosinophil % 1.1 % Basophils % 0.6 % NRBC % 0 % 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 AVMs Status post cauterization ???2 since 2016. Intolerance to oral iron. IV iron replacement with Injectafer on 09/24/2018 and 10/01/2018. Mr. Sanchez presented in March 2019 for follow-up post Injectafer. He continued to be iron deficient and anemic. His hemoglobin had dropped from 10.5 on February 16 2019-9.2 on 03/30/2019. He is following with Dr. Zaidi in [place] and states that they have referred him to [facility]. He is awaiting for an appointment there. He was extremely symptomatic with his anemia in March with significant shortness of breath, chest pain and palpitations head and heart pounding and fatigue. He did have 1 unit of blood and received 2 doses of Injectafer in March 2019. He had had Injectafer on 02/17/2020 and 02/24/2020 prior to his March dosing. He has had Injectafer on , 07/17/2019, 08/25/2019, 09/01/2019 and 10/06/2019. His last dose of Injectafer was on 10/13/2019. His Hgb has remained in the 9.8 to 11.9 range since June 08, 2019. His iron levels have ranged from 25-42 since May, despite all the Injectafer infusions. His iron saturations have ranged from 7.2-13.8 since June 08, 2019 as well. His ferritin levels have been from 27 to a high of 91. He scheduled to see the GI specialist at [facility] on December 08, 2019. Plan: Discussed with patient regarding his labs white blood count 8.3 hemoglobin 8.5 compared to 10.4 g on November 24, 2019 after Injectafer infusion and hematocrit 29.4 platelets 239,000 CMP within normal limit except glucose 197 and iron studies shows ferritin 27 compared to 91 on November 24, 2019 iron 24 iron saturation 8.2% Clinically, patient is doing reasonably well now with progressive generalized weakness and fatigue his follow-up labs shows progressive drop in his hemoglobin as well as iron stores due to chronic GI bleeding from small bowel AVMs, patient has seen interventional lockstitch front maker at [facility] and now small bowel evaluation including cauterization is under consideration patient is scheduled for MRI scan of abdomen December and he will see in 6 months. Because of symptomatic iron deficiency anemia, will proceed with Injectafer 750 mg intravenously today and then in a week then he will return to clinic in one 1 month with CBC and iron studies. We will continue to monitor his blood counts and consider Injectafer on as-needed basis. Patient was advised in case, there is a worsening of symptoms he need to call us or go to hospital. Signed By: Tomas Hoang M.D. <<Signature on File>>
== END 2019-12-23 23:59 | disposition home or self-care (01) ==
LOC: ONCMED 05:42
PROVIDERS: Nurse Practitioner; PCP Internal Medicine; Visit Provider Internal Medicine Hematology & Oncology
DX: D50.0 Iron deficiency anemia secondary to blood loss (chronic) (principal)
CPT/HCPCS: 80053; 82728; 83540; 83550; 85025; 96365; 99214; J1439

== ENCOUNTER 2019-12-28 06:19 | Outpatient (RCR) | payer OTHER, MEDICARE, SELFPAY ==
[2019-12-28] MEDS: ferric carboxy (IVPB) 750 MG in sodium chloride 0.9% (100 ml) 100 ML 460 MG IV (11:58)
== END 2020-01-23 23:59 | disposition home or self-care (01) ==
LOC: ONCMED 06:19
PROVIDERS: PCP Internal Medicine; Visit Provider Internal Medicine Hematology & Oncology
DX: D50.0 Iron deficiency anemia secondary to blood loss (chronic) (principal)
CPT/HCPCS: 96365; J1439

== ENCOUNTER 2020-02-01 05:35 | Outpatient (RCR) | payer OTHER, SELFPAY ==
[2020-01-25 12:41] LABS: Basophils # 0.1 10^3/uL (0.0-0.1); Eosinophils # 0.1 10^3/uL (0.0-0.8); Eosinophils % 0.9 %; Hemoglobin 9.3 g/dL (11.7-16.6); Lymphocytes # 1.3 10^3/uL (0.8-4.8); Lymphocytes % 16.9 %; Mean Corpuscular Hemoglobin 24.8 pg (28.0-34.0); Mean Corpuscular Volume 82.7 fL (80-94); Mean Platelet Volume 9.9 fL (7.4-10.4); Monocytes # 0.4 10^3/uL (0.2-0.9); Monocytes % 5.2 %; Neutrophils # 6.02 10^3/uL (1.8-7.7); Neutrophils % 75.9 %; Nucleated Red Blood Cells % 0 %; Platelet Count 261 10^3/cmm (130-400); Red Blood Count 3.75 10^6/uL (4.1-5.3); Red Cell Distribution Width 17.6 % (12.1-15.1); White Blood Count 7.9 10^3/uL (4.0-10.0)
[2020-01-25 12:58] LABS: Ferritin 61 ng/mL (30-400); Iron 24 ug/dL (59-158); Percent Saturation 8.1 % (20-50); Total Iron Binding Capacity 296 mcg/dl; Unsaturated Iron Binding 272 ug/dL (112-347)
--- NOTE | 2020-01-25 15:21 | ONC FU_ITS ---
Dr. Hoang follow up note Patient: Jamaal Sanchez Unit #: [id number]: 1945 Dicatated By: Tomas Hoang M.D.Date of Visit:Jan 25, 2020 Onc Med Follow-up/Prog Note History of Present Illness: Mr. Sanchez is a 74-year-old gentleman with history of iron deficiency anemia due to chronic GI blood loss. 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 As per patient in 2016, he started feeling weak and tired and found to have severe anemia. His hemoglobin was around 5 g. He was given 2 units of packed RBCs and underwent EGD and colonoscopy. The EGD showed some blood in his stomach and he was diagnosed with gave syndrome. He was referred to [facility] in [place], as per patient ambulance driver paramedic there told him he didn't have gave syndrome. He also underwent capsule endoscopy which showed some bleeders. He underwent cauterization of AVMs ???2. Mr. Sanchez was found to be anemic and iron deficient on his 09/15/2018 labs. His hemoglobin at that time was 10.2 and his iron saturation was 7.1% and ferritin was 22 and iron level was 22. Received 2 doses of IV replacement iron with Injectafer first on 09/24/2018 and again on 10/01/2018. and on 11/12/[address] Zaidi on 12/09/2017 and underwent double balloon endoscopy for persistent AVMs/questionable polyp, as per patient those bleeders were out of reach from upper end and a colonoscopy to evaluate lower part of small bowel and capsule endoscopy was Scheduled for 02/05/2019. Mr. Sanchez presented in December 2018 with recurrent iron deficiency anemia and was given 2 doses of Injectafer. The first one was on 02/16/2019 and the second was 02/23/2019. His Hgb on 02/16/2019 was 10.5. He came in March 2019 for post Injectafer followup. He presented weak, extremely short of breath with just minimal exertion and states he is having chest pain and his head is pounding . He states he has chest discomfort with just walking across the room. He does have a history of CAD and an several stents. He was just completely exhausted and feels that he probably needs some blood. He received 2 more doses on Injectafer on 03/30/2019 and 04/07/2019. He states overall he feels really good. He has not noted any blood in his stools. He states he has a good appetite. patient said his ambulance driver paramedic in [place] has referred him to ambulance driver paramedic in [place] as bleeders in his small bowel were out of reach. And he was seen by Dr. Ezra Craft, interventional ambulance driver paramedic for small bowel AVM cauterization on December 08, 2019 as per patient he had scheduled him for MRI scan of the abdomen to look for polyps or other pathology and small bowel, As per patient it was done on January 07, 2020 Came for follow-up, complaining of generalized weakness and fatigue,, palpitation on exertion, no chest pain, no fever chills, no nausea or vomiting, no hematemesis or hemoptysis, no melena or hematochezia. Patient said he has seen Dr. Vail, interventional ambulance driver paramedic at [facility], as per patient his MRI scan of abdomen was done on January 07, 2020 and he was told that he may be bleeding from there and the earliest time available for intervention is in May 2020. And he was told to continue with iron infusion on as-needed basis. Medications: Aspirin 1 Tablet (of 81 mg) Oral daily, Atorvastatin Calcium 0.5 Tablet (of 80 mg) Oral daily, B-12 1 Tablet (of 1000 mcg) Oral daily, Docusate Sodium 1 Capsule (of 100 mg) Tablet Oral b.i.d., Flomax 1 Tablet (of 0.4 mg) Capsule Oral b.i.d., Gabapentin 1 Capsule (of 300 mg) Oral t.i.d., hydroCHLOROthiazide 1 Tablet (of 25 mg) Oral daily, HYDROcodone-Acetaminophen 1 Tablet (of 10-325 mg) Oral four times a day, Lisinopril 1 Tablet (of 2.5 mg) Oral daily on Every Other Day, Mirtazapine 1 Tablet (of 45 mg) Oral daily, Pantoprazole Sodium 1 Tablet (of 40 mg) Tablet, enteric coated Oral daily, Sertraline HCl 0.5 Tablet (of 100 mg) Oral daily Allergies: Haldol Review of Systems: Constitutional - Appetite is good and weight is stable. No fever, chills, hot flashes, or night sweats. Energy level is fair, ENMT - No sinus congestion/drainage. No mouth sores. No sore throat, no difficulty swallowing, Hematologic/Lymphatic - No unusualy bruising or bleeding, Respiratory - Positive for shortness of breath. No cough, Cardiovascular - No angina pain. No palpitations, Gastrointestinal - Negative for nausea and vomiting. No heartburn. Positive for acid reflux. Positive for diarrhea. Negative for constipation, Genitourinary (M) - No dysuria or hematuria. No urinary frequency. No urgency. Positive for incontinence. Positive for nocturia, Musculoskeletal - Positive for joint and back pain, Neurologic - No headache, Positive for recent dizziness. Positive for numbness/tingling in left shoulder (Pt states its muscles spams), Psychiatric - Negative for anxiety, depression and insomnia. Vital Signs: Performed on Jan 25, 2020 14:42 Height - 74.00 in Weight - 284.2 lbs (LOW) BSA - 2.52 sq.m BMI - 36.49 (HIGH) Temperature - 99.4 F (HIGH) Pulse - 86 /min Respiration - 18 /min BP - 155/72 mm(hg) (HIGH) O2 Sat - 95 % (LOW) Pain - 7 Performance Status: 1 - No physically strenuous activity, but ambulatory and able to carry out light or sedentary work (e.g. office work, light house work). (ECOG) Physical Examination: ENMT - No mouth sores, no thrush, no jaundice, Respiratory - Lungs are clear to auscultation, Cardiovascular - Regular rate and rhythm of heart, Abdomen - Soft, bowel sounds present, Extremities - No visible edema. Lab/Imaging: Test performed on Dec 18, 2019 08:15 Ferritin 27 ng/mL Iron 24 mcg/dL Sodium 139 mmol/L Iron Binding Capacity (TIBC) 292 mcg/dl Potassium 3.7 mmol/L % Iron Saturation 8.2 % Chloride 102 mmol/L CO2 28 mmol/L UIBC 268 mcg/dL Anion Gap 12.7 BUN 14 mg/dL Creatinine 0.9 mg/dL Cr Clearance (Est) 130.82 mL/min Glucose 197 mg/dL Osmolality - Calculated 294 mOsm/kg Calcium 8.7 mg/dL Protein, Total 6.8 g/dL Albumin 3.9 g/dL Globulin 2.9 g/dL Bilirubin, Total 0.2 mg/dL ALT (SGPT) 19 U/L AST (SGOT) 25 U/L Alkaline Phosphatase 172 IU/L WBC 8.3 10 3/uL RBC 3.57 10 6/uL HGB 8.5 g/dL HCT 29.4 % MCV 82.4 fL MCH 23.8 pg MCHC 28.9 g/dL RDW 15.8 % Platelet Count 239 10 3/cmm MPV 9.1 fL Neutrophils 5.99 10 3/uL Lymphocytes 1.3 10 3/uL Monocytes 0.7 10 3/uL Eosinophils 0.2 10 3/uL Basophils 0.1 10 3/uL Neutrophil % 72.5 % Lymphocyte % 15.5 % Monocyte % 8.3 % Eosinophil % 2.3 % Basophils % 0.6 % NRBC % 0 % 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 AVMs Status post cauterization ???2 since 2016. Intolerance to oral iron. IV iron replacement with Injectafer on 09/24/2018 and 10/01/2018. Mr. Sanchez presented in March 2019 for follow-up post Injectafer. He continued to be iron deficient and anemic. His hemoglobin had dropped from 10.5 on February 16 2019-9.2 on 03/30/2019. He is following with Dr. Zaidi in [place] and states that they have referred him to [facility]. He is awaiting for an appointment there. He was extremely symptomatic with his anemia in March with significant shortness of breath, chest pain and palpitations head and heart pounding and fatigue. He did have 1 unit of blood and received 2 doses of Injectafer in March 2019. He had had Injectafer on 02/17/2020 and 02/24/2020 prior to his Elayne dosing. He has had Injectafer on , 07/17/2019, 08/25/2019, 09/01/2019 and 10/06/2019. His last dose of Injectafer was on 10/13/2019. His Hgb has remained in the 9.8 to 11.9 range since June 08, 2019. His iron levels have ranged from 25-42 since May, despite all the Injectafer infusions. His iron saturations have ranged from 7.2-13.8 since June 08, 2019 as well. His ferritin levels have been from 27 to a high of 91. He scheduled to see the GI specialist at [facility] on December 08, 2019. Plan: Discussed with patient regarding his labs white blood count 7.9 hemoglobin 9.3 g compared to 8.5 g on December 18, 2019, since then he has received weekly Injectafer x2 and today's iron studies showed iron saturation 8.1%, ferritin 61, iron 24, TIBC 296 compared to iron saturation 8.2%, ferritin 27, iron 24 on December 18, 2019 e.g. prior to Injectafer infusion. Clinically, patient is symptomatic from progressive iron deficiency anemia most likely due to persistent/recurrent bleeding from small bowel and patient has seen at [facility] and intervention with small bowel AVM cauterization was under consideration but as per patient he was told earliest it can be done in May 2020. At this point we will proceed with Injectafer 750 mg IV weekly x2 and then have him come back in a month with CBC and iron studies in the meantime patient was advised in case there is a worsening of his symptoms he need to call us as if his hemoglobin drop below 8 g, will consider blood transfusion Signed By: Tomas Hoang M.D. <<Signature on File>>
[2020-01-25] MEDS: ferric carboxy (IVPB) 750 MG in sodium chloride 0.9% (100 ml) 100 ML 460 MG IV (15:23)
[2020-02-01] MEDS: ferric carboxy (IVPB) 750 MG in sodium chloride 0.9% (100 ml) 100 ML 460 MG IV (11:23)
== END 2020-02-22 23:59 | disposition home or self-care (01) ==
LOC: ONCMED 05:35
PROVIDERS: PCP Internal Medicine; Visit Provider Internal Medicine Hematology & Oncology
DX: D50.0 Iron deficiency anemia secondary to blood loss (chronic) (principal); K31.819 Angiodysplasia of stomach and duodenum without bleeding; K64.8 Other hemorrhoids; Q27.33 Arteriovenous malformation of digestive system vessel; Z79.899 Other long term (current) drug therapy
CPT/HCPCS: 36415; 82728; 83540; 83550; 85025; 96365; 99214; J1439

== ENCOUNTER → 2020-03-16 13:58 | Outpatient (BNVA) | payer OTHER, SELFPAY | PROVIDERS: PCP Internal Medicine; Visit Provider Urology | DX: N40.1 Benign prostatic hyperplasia with lower urinary tract symptoms (principal); R39.12 Poor urinary stream; N39.41 Urge incontinence | CPT/HCPCS: 81003 ==

== ENCOUNTER 2020-03-21 05:20 | Outpatient (RCR) | payer OTHER, SELFPAY ==
[2020-03-07 13:38] LABS: Basophils # 0.1 10^3/uL (0.0-0.1); Eosinophils # 0.2 10^3/uL (0.0-0.8); Eosinophils % 1.8 %; Hematocrit 31.2 % (42.0-52.0); Hemoglobin 9.1 g/dL (11.7-16.6); Lymphocytes # 1.5 10^3/uL (0.8-4.8); Lymphocytes % 17.2 %; Mean Corpuscular HGB Conc 29.2 g/dL (30.0-36.0); Mean Corpuscular Hemoglobin 24.6 pg (28.0-34.0); Mean Corpuscular Volume 84.3 fL (80-94); Monocytes # 0.6 10^3/uL (0.2-0.9); Monocytes % 6.3 %; Neutrophils # 6.35 10^3/uL (1.8-7.7); Neutrophils % 73.4 %; Nucleated Red Blood Cells % 0 %; Platelet Count 264 10^3/cmm (130-400); Red Cell Distribution Width 16.5 % (12.1-15.1); White Blood Count 8.7 10^3/uL (4.0-10.0)
[2020-03-07 13:40] LABS: Ferritin 55 ng/mL (30-400); Iron 22 ug/dL (59-158); Percent Saturation 7.5 % (20-50); Total Iron Binding Capacity 292 mcg/dl; Unsaturated Iron Binding 270 ug/dL (112-347)
--- NOTE | 2020-03-07 15:51 | ONC FU_ITS ---
Dr. Hoang follow up note Patient: Jamaal Sanchez Unit #: [id number]: [id number] Dicatated By: Tomas Hoang M.D.Date of Visit:Mar 07, 2020 Onc Med Follow-up/Prog Note History of Present Illness: Mr. Sanchez is a 74-year-old gentleman with history of iron deficiency anemia due to chronic GI blood loss. 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 As per patient in 2016, he started feeling weak and tired and found to have severe anemia. His hemoglobin was around 5 g. He was given 2 units of packed RBCs and underwent EGD and colonoscopy. The EGD showed some blood in his stomach and he was diagnosed with gave syndrome. He was referred to [facility] in [place], as per patient furnace setter there told him he didn't have gave syndrome. He also underwent capsule endoscopy which showed some bleeders. He underwent cauterization of AVMs ???2. Mr. Sanchez was found to be anemic and iron deficient on his 09/15/2018 labs. His hemoglobin at that time was 10.2 and his iron saturation was 7.1% and ferritin was 22 and iron level was 22. Received 2 doses of IV replacement iron with Injectafer first on 09/24/2018 and again on 10/01/2018. and on 11/12/[address] Zaidi on 12/09/2017 and underwent double balloon endoscopy for persistent AVMs/questionable polyp, as per patient those bleeders were out of reach from upper end and a colonoscopy to evaluate lower part of small bowel and capsule endoscopy was Scheduled for 02/05/2019. Mr. Sanchez presented in December 2018 with recurrent iron deficiency anemia and was given 2 doses of Injectafer. The first one was on 02/16/2019 and the second was 02/23/2019. His Hgb on 02/16/2019 was 10.5. He came in March 2019 for post Injectafer followup. He presented weak, extremely short of breath with just minimal exertion and states he is having chest pain and his head is pounding . He states he has chest discomfort with just walking across the room. He does have a history of CAD and an several stents. He was just completely exhausted and feels that he probably needs some blood. He received 2 more doses on Injectafer on 03/30/2019 and 04/07/2019. He states overall he feels really good. He has not noted any blood in his stools. He states he has a good appetite. patient said his furnace setter in [place] has referred him to furnace setter in [place] as bleeders in his small bowel were out of reach. And he was seen by Dr. Ezra Craft, interventional furnace setter for small bowel AVM cauterization on December 08, 2019 as per patient he had scheduled him for MRI scan of the abdomen to look for polyps or other pathology and small bowel, As per patient it was done on January 07, 2020 Came for follow-up, complaining of generalized weakness and fatigue, dyspnea and palpitation on exertion. No hematemesis or hemoptysis, no jaundice but melena, and no fresh bleeding per rectum. No chest pain, no shortness of breath at rest. Tolerated parenteral iron in first week of January well Medications: Aspirin 1 Tablet (of 81 mg) Oral daily, Atorvastatin Calcium 0.5 Tablet (of 80 mg) Oral daily, B-12 1 Tablet (of 1000 mcg) Oral daily, Docusate Sodium 1 Capsule (of 100 mg) Tablet Oral b.i.d., Flomax 1 Tablet (of 0.4 mg) Capsule Oral b.i.d., Gabapentin 1 Capsule (of 300 mg) Oral t.i.d., hydroCHLOROthiazide 1 Tablet (of 25 mg) Oral daily, HYDROcodone-Acetaminophen 1 Tablet (of 10-325 mg) Oral four times a day, Lisinopril 1 Tablet (of 2.5 mg) Oral daily on Every Other Day, Mirtazapine 1 Tablet (of 45 mg) Oral daily, Pantoprazole Sodium 1 Tablet (of 40 mg) Tablet, enteric coated Oral daily, Sertraline HCl 0.5 Tablet (of 100 mg) Oral daily Allergies: Haldol Review of Systems: Constitutional - Appetite is good and weight is stable. No fever, chills, hot flashes, or night sweats. Energy level is poor, ENMT - No sinus congestion/drainage. No mouth sores. No sore throat, no difficulty swallowing, Hematologic/Lymphatic - No unusualy bruising or bleeding, Respiratory - Positive for shortness of breath. No cough, Cardiovascular - No angina pain. No palpitations, Gastrointestinal - Negative for nausea and vomiting. No heartburn. Positive for acid reflux. Positive for diarrhea. Negative for constipation, Genitourinary (M) - No dysuria or hematuria. No urinary frequency. No urgency. Positive for incontinence. Positive for nocturia, Musculoskeletal - Positive for joint and back pain, Neurologic - No headache, Positive for recent dizziness. Positive for numbness/tingling in left shoulder (Pt states its muscles spams), Psychiatric - Negative for anxiety, depression and insomnia. Vital Signs: Performed on Mar 07, 2020 15:17 Height - 74.00 in Weight - 279.4 lbs (LOW) BSA - 2.50 sq.m BMI - 35.87 (HIGH) Temperature - 98.8 F Pulse - 72 /min Respiration - 20 /min BP - 135/61 mm(hg) O2 Sat - 93 % (LOW) Pain - 0 Performance Status: 1 - No physically strenuous activity, but ambulatory and able to carry out light or sedentary work (e.g. office work, light house work). (ECOG) Physical Examination: ENMT - No mouth sores, no thrush, no jaundice, Respiratory - Lungs are clear to auscultation, Cardiovascular - Regular rate and rhythm of heart, Abdomen - Soft, bowel sounds present, Extremities - No visible edema or rash. Lab/Imaging: Test performed on Jan 25, 2020 12:22 Ferritin 61 ng/mL Iron 24 mcg/dL Iron Binding Capacity (TIBC) 296 mcg/dl % Iron Saturation 8.1 % UIBC 272 mcg/dL WBC 7.9 10 3/uL RBC 3.75 10 6/uL HGB 9.3 g/dL HCT 31.0 % MCV 82.7 fL MCH 24.8 pg MCHC 30.0 g/dL RDW 17.6 % Platelet Count 261 10 3/cmm MPV 9.9 fL Neutrophils 6.02 10 3/uL Lymphocytes 1.3 10 3/uL Monocytes 0.4 10 3/uL Eosinophils 0.1 10 3/uL Basophils 0.1 10 3/uL Neutrophil % 75.9 % Lymphocyte % 16.9 % Monocyte % 5.2 % Eosinophil % 0.9 % Basophils % 1.0 % NRBC % 0 % Test performed on Dec 18, 2019 08:15 Sodium 139 mmol/L Potassium 3.7 mmol/L Chloride 102 mmol/L CO2 28 mmol/L Anion Gap 12.7 BUN 14 mg/dL Creatinine 0.9 mg/dL Cr Clearance (Est) 130.82 mL/min Glucose 197 mg/dL Osmolality - Calculated 294 mOsm/kg Calcium 8.7 mg/dL Protein, Total 6.8 g/dL Albumin 3.9 g/dL Globulin 2.9 g/dL Bilirubin, Total 0.2 mg/dL ALT (SGPT) 19 U/L AST (SGOT) 25 U/L Alkaline Phosphatase 172 IU/L 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 AVMs Status post cauterization ???2 since 2016. Intolerance to oral iron. IV iron replacement with Injectafer on 09/24/2018 and 10/01/2018. Mr. Sanchez presented in March 2019 for follow-up post Injectafer. He continued to be iron deficient and anemic. His hemoglobin had dropped from 10.5 on February 16 2019-9.2 on 03/30/2019. He is following with Dr. Zaidi in [place] and states that they have referred him to [facility]. He is awaiting for an appointment there. He was extremely symptomatic with his anemia in March with significant shortness of breath, chest pain and palpitations head and heart pounding and fatigue. He did have 1 unit of blood and received 2 doses of Injectafer in March 2019. He had had Injectafer on 02/17/2020 and 02/24/2020 prior to his Elayne dosing. He has had Injectafer on , 07/17/2019, 08/25/2019, 09/01/2019 and 10/06/2019. His last dose of Injectafer was on 10/13/2019. His Hgb has remained in the 9.8 to 11.9 range since June 08, 2019. His iron levels have ranged from 25-42 since May, despite all the Injectafer infusions. His iron saturations have ranged from 7.2-13.8 since June 08, 2019 as well. His ferritin levels have been from 27 to a high of 91. He scheduled to see the GI specialist at [facility] on December 08, 2019. Plan: Discussed with patient regarding his labs white blood count 8.7 hemoglobin 9.1 hematocrit 31.2 platelets 264,000 iron studies shows iron saturation 7.5% ferritin 55, iron 22 and TIBC 292 Clinically, patient is doing reasonably well now with symptomatic iron deficiency anemia, clinically appears patient may be having significant bleeding from small bowel as in the past he responded reasonably well to parenteral iron but now no significant improvement and persistent iron deficiency, his case was discussed with furnace setter at [facility] and capsule endoscopy was under consideration to assess small bowel AVMs. Patient said he did get a call from [facility] regarding capsule endoscopy but somehow it was not scheduled. At this point we will proceed with Injectafer 750 mg IV and continue weekly x4, and return to clinic in 1 month with CBC and iron studies Patient was advised to take it easy and not to exert until unless his hemoglobin improves. Signed By: Tomas Hoang M.D. <<Signature on File>>
[2020-03-07] MEDS: ferric carboxy (IVPB) 750 MG in sodium chloride 0.9% (100 ml) 100 ML 460 MG IV (16:00)
[2020-03-14] MEDS: ferric carboxy (IVPB) 750 MG in sodium chloride 0.9% (100 ml) 100 ML 460 MG IV (13:07)
[2020-03-14 13:51] LABS: Basophils # 0.1 10^3/uL (0.0-0.1); Basophils % 0.9 %; Eosinophils # 0.1 10^3/uL (0.0-0.8); Eosinophils % 1.2 %; Hematocrit 31.9 % (42.0-52.0); Hemoglobin 9.3 g/dL (11.7-16.6); Lymphocytes # 1.3 10^3/uL (0.8-4.8); Mean Corpuscular HGB Conc 29.2 g/dL (30.0-36.0); Mean Corpuscular Hemoglobin 25.3 pg (28.0-34.0); Mean Corpuscular Volume 86.7 fL (80-94); Mean Platelet Volume 10.3 fL (7.4-10.4); Monocytes # 0.5 10^3/uL (0.2-0.9); Monocytes % 5.6 %; Neutrophils # 7.25 10^3/uL (1.8-7.7); Neutrophils % 77.9 %; Nucleated Red Blood Cells % 0 %; Platelet Count 236 10^3/cmm (130-400); Red Blood Count 3.68 10^6/uL (4.1-5.3); Red Cell Distribution Width 18.7 % (12.1-15.1); White Blood Count 9.3 10^3/uL (4.0-10.0)
[2020-03-21] MEDS: ferric carboxy (IVPB) 750 MG in sodium chloride 0.9% (100 ml) 100 ML 460 MG IV (12:35)
[2020-03-21 12:47] LABS: Basophils # 0.1 10^3/uL (0.0-0.1); Basophils % 0.6 %; Eosinophils # 0.2 10^3/uL (0.0-0.8); Eosinophils % 2.1 %; Hematocrit 34.1 % (42.0-52.0); Hemoglobin 10.1 g/dL (11.7-16.6); Lymphocytes # 1.3 10^3/uL (0.8-4.8); Mean Corpuscular HGB Conc 29.6 g/dL (30.0-36.0); Mean Corpuscular Hemoglobin 26.4 pg (28.0-34.0); Mean Corpuscular Volume 89.3 fL (80-94); Monocytes # 0.5 10^3/uL (0.2-0.9); Neutrophils # 5.99 10^3/uL (1.8-7.7); Neutrophils % 74.9 %; Nucleated Red Blood Cells % 0 %; Platelet Count 219 10^3/cmm (130-400); Red Blood Count 3.82 10^6/uL (4.1-5.3); Red Cell Distribution Width 19.9 % (12.1-15.1)
== END 2020-03-24 23:59 | disposition home or self-care (01) ==
LOC: ONCMED 05:20
PROVIDERS: Nurse Practitioner; PCP Internal Medicine; Visit Provider Internal Medicine Hematology & Oncology
DX: D50.0 Iron deficiency anemia secondary to blood loss (chronic) (principal); K31.819 Angiodysplasia of stomach and duodenum without bleeding; K64.8 Other hemorrhoids; Z79.899 Other long term (current) drug therapy
CPT/HCPCS: 82728; 83540; 83550; 85025; 96365; 99214; J1439

== ENCOUNTER 2020-03-28 12:21 | Outpatient (RCR) | payer OTHER, SELFPAY ==
[2020-03-28] MEDS: ferric carboxy (IVPB) 750 MG in sodium chloride 0.9% (100 ml) 100 ML 460 MG IV (12:55)
== END 2020-03-30 09:00 | disposition home or self-care (01) ==
LOC: ONCMED 12:21
PROVIDERS: PCP Internal Medicine; Visit Provider Internal Medicine Hematology & Oncology
DX: D50.0 Iron deficiency anemia secondary to blood loss (chronic) (principal)
CPT/HCPCS: 96365; J1439

== ENCOUNTER 2020-04-21 05:32 | Outpatient (RCR) | payer OTHER, MEDICARE, SELFPAY ==
[2020-04-05 10:47] LABS: Basophils # 0.1 10^3/uL (0.0-0.1); Basophils % 0.9 %; Eosinophils # 0.1 10^3/uL (0.0-0.8); Eosinophils % 0.9 %; Hemoglobin 10.7 g/dL (11.7-16.6); Lymphocytes # 0.7 10^3/uL (0.8-4.8); Lymphocytes % 10.5 %; Mean Corpuscular HGB Conc 30.6 g/dL (30.0-36.0); Mean Corpuscular Hemoglobin 27.8 pg (28.0-34.0); Mean Corpuscular Volume 90.9 fL (80-94); Mean Platelet Volume 9.6 fL (7.4-10.4); Monocytes # 0.5 10^3/uL (0.2-0.9); Monocytes % 6.7 %; Neutrophils # 5.69 10^3/uL (1.8-7.7); Neutrophils % 80.7 %; Nucleated Red Blood Cells % 0 %; Platelet Count 166 10^3/cmm (130-400); Red Blood Count 3.85 10^6/uL (4.1-5.3); Red Cell Distribution Width 18.6 % (12.1-15.1)
[2020-04-05 11:25] LABS: Ferritin 546 ng/mL (30-400); Iron 56 ug/dL (59-158); Percent Saturation 21.7 % (20-50); Total Iron Binding Capacity 257 mcg/dl; Unsaturated Iron Binding 201 ug/dL (112-347)
--- NOTE | 2020-04-05 13:16 | ONC FU_ITS ---
Dr. Hoang follow up note Patient: Jamaal Sanchez Unit #: [id number]: 1945 Dicatated By: Tomas Hoang M.D.Date of Visit:Apr 05, 2020 Onc Med Follow-up/Prog Note History of Present Illness: Mr. Sanchez is a 74-year-old gentleman with history of iron deficiency anemia due to chronic GI blood loss. 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 As per patient in 2016, he started feeling weak and tired and found to have severe anemia. His hemoglobin was around 5 g. He was given 2 units of packed RBCs and underwent EGD and colonoscopy. The EGD showed some blood in his stomach and he was diagnosed with gave syndrome. He was referred to [facility] in [place], as per patient truck guard there told him he didn't have gave syndrome. He also underwent capsule endoscopy which showed some bleeders. He underwent cauterization of AVMs ???2. Mr. Sanchez was found to be anemic and iron deficient on his 09/15/2018 labs. His hemoglobin at that time was 10.2 and his iron saturation was 7.1% and ferritin was 22 and iron level was 22. Received 2 doses of IV replacement iron with Injectafer first on 09/24/2018 and again on 10/01/2018. and on 11/12/[address] Zaidi on 12/09/2017 and underwent double balloon endoscopy for persistent AVMs/questionable polyp, as per patient those bleeders were out of reach from upper end and a colonoscopy to evaluate lower part of small bowel and capsule endoscopy was Scheduled for 02/05/2019. Mr. Sanchez presented in December 2018 with recurrent iron deficiency anemia and was given 2 doses of Injectafer. The first one was on 02/16/2019 and the second was 02/23/2019. His Hgb on 02/16/2019 was 10.5. He came in March 2019 for post Injectafer followup. He presented weak, extremely short of breath with just minimal exertion and states he is having chest pain and his head is pounding . He states he has chest discomfort with just walking across the room. He does have a history of CAD and an several stents. He was just completely exhausted and feels that he probably needs some blood. He received 2 more doses on Injectafer on 03/30/2019 and 04/07/2019. He states overall he feels really good. He has not noted any blood in his stools. He states he has a good appetite. patient said his truck guard in [place] has referred him to truck guard in [place] as bleeders in his small bowel were out of reach. And he was seen by Dr. Ezra Craft, interventional truck guard for small bowel AVM cauterization on December 08, 2019 as per patient he had scheduled him for MRI scan of the abdomen to look for polyps or other pathology and small bowel, As per patient it was done on January 07, 2020 on parenteral Injectafer since December 18, 2019 initially he was given every 2 weeks but since March 07, 2020 he received weekly x4 and last dose was given on March 28, 2020 Came for follow-up, denies any specific complaints except generalized weakness and fatigue but much better now, less dyspnea on exertion. No chest pain, no palpitation, no fever chills, no nausea or vomiting, no melena or hematochezia. No jaundice, tolerated parenteral Injectafer well Medications: Aspirin 1 Tablet (of 81 mg) Oral daily, Atorvastatin Calcium 0.5 Tablet (of 80 mg) Oral daily, B-12 1 Tablet (of 1000 mcg) Oral daily, Docusate Sodium 1 Capsule (of 100 mg) Tablet Oral b.i.d., Flomax 1 Tablet (of 0.4 mg) Capsule Oral b.i.d., Gabapentin 1 Capsule (of 300 mg) Oral t.i.d., hydroCHLOROthiazide 1 Tablet (of 25 mg) Oral daily, HYDROcodone-Acetaminophen 1 Tablet (of 10-325 mg) Oral four times a day, Lisinopril 1 Tablet (of 2.5 mg) Oral daily on Every Other Day, Mirtazapine 1 Tablet (of 45 mg) Oral daily, Pantoprazole Sodium 1 Tablet (of 40 mg) Tablet, enteric coated Oral daily, Sertraline HCl 0.5 Tablet (of 100 mg) Oral daily Allergies: Haldol Review of Systems: Review of Systems is not available for this patient. Vital Signs: Performed on Apr 05, 2020 12:50 Height - 74.00 in Weight - 285.4 lbs (HIGH) BSA - 2.53 sq.m BMI - 36.64 (HIGH) Temperature - 99.4 F (HIGH) Pulse - 76 /min Respiration - 22 /min BP - 142/54 mm(hg) (HIGH) O2 Sat - 95 % (LOW) Pain - 6 Performance Status: 1 - No physically strenuous activity, but ambulatory and able to carry out light or sedentary work (e.g. office work, light house work). (ECOG) Physical Examination: ENMT - No mouth sores, no thrush, no jaundice, Respiratory - Lungs are clear to auscultation, Cardiovascular - Regular rate and rhythm of heart, Abdomen - Soft, bowel sounds present, Extremities - No visible edema. Lab/Imaging: Test performed on Mar 21, 2020 12:25 WBC 8.0 10 3/uL RBC 3.82 10 6/uL HGB 10.1 g/dL HCT 34.1 % MCV 89.3 fL MCH 26.4 pg MCHC 29.6 g/dL RDW 19.9 % Platelet Count 219 10 3/cmm MPV 10.0 fL Neutrophils 5.99 10 3/uL Lymphocytes 1.3 10 3/uL Monocytes 0.5 10 3/uL Eosinophils 0.2 10 3/uL Basophils 0.1 10 3/uL Neutrophil % 74.9 % Lymphocyte % 16.0 % Monocyte % 6.0 % Eosinophil % 2.1 % Basophils % 0.6 % NRBC % 0 % Test performed on Mar 07, 2020 13:04 Ferritin 55 ng/mL Iron 22 mcg/dL Iron Binding Capacity (TIBC) 292 mcg/dl % Iron Saturation 7.5 % UIBC 270 mcg/dL Test performed on Dec 18, 2019 08:15 Sodium 139 mmol/L Potassium 3.7 mmol/L Chloride 102 mmol/L CO2 28 mmol/L Anion Gap 12.7 BUN 14 mg/dL Creatinine 0.9 mg/dL Cr Clearance (Est) 130.82 mL/min Glucose 197 mg/dL Osmolality - Calculated 294 mOsm/kg Calcium 8.7 mg/dL Protein, Total 6.8 g/dL Albumin 3.9 g/dL Globulin 2.9 g/dL Bilirubin, Total 0.2 mg/dL ALT (SGPT) 19 U/L AST (SGOT) 25 U/L Alkaline Phosphatase 172 IU/L 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 AVMs Status post cauterization ???2 since 2016. Intolerance to oral iron. IV iron replacement with Injectafer on 09/24/2018 and 10/01/2018. Mr. Sanchez presented in March 2019 for follow-up post Injectafer. He continued to be iron deficient and anemic. His hemoglobin had dropped from 10.5 on February 16 2019-9.2 on 03/30/2019. He is following with Dr. Zaidi in [place] and states that they have referred him to [facility]. He is awaiting for an appointment there. He was extremely symptomatic with his anemia in March with significant shortness of breath, chest pain and palpitations head and heart pounding and fatigue. He did have 1 unit of blood and received 2 doses of Injectafer in March 2019. He had had Injectafer on 02/17/2020 and 02/24/2020 prior to his Elayne dosing. He has had Injectafer on , 07/17/2019, 08/25/2019, 09/01/2019 and 10/06/2019. His last dose of Injectafer was on 10/13/2019. His Hgb has remained in the 9.8 to 11.9 range since June 08, 2019. His iron levels have ranged from 25-42 since May, despite all the Injectafer infusions. His iron saturations have ranged from 7.2-13.8 since June 08, 2019 as well. His ferritin levels have been from 27 to a high of 91. He scheduled to see the GI specialist at [place] on December 08, 2019. Plan: Discussed with patient regarding his labs white blood count 7 hemoglobin 10.7 hematocrit 35 platelets 166,000 iron saturation 21.7% compared to 7.5% on March 07, 2020 ferritin 546 compared to 55 previously iron 56 compared to 22 previously Clinically, patient is doing reasonably well, his hemoglobin and iron stores have improved with parenteral Injectafer. Overall feeling much better, more energetic, will continue to monitor and he will return to clinic in 2 weeks with CBC and iron studies if there is a drop, will consider weekly parenteral iron again. Signed By: Tomas Hoang M.D. <<Signature on File>>
[2020-04-21 14:27] LABS: Basophils # 0.1 10^3/uL (0.0-0.1); Basophils % 0.6 %; Eosinophils # 0.1 10^3/uL (0.0-0.8); Eosinophils % 0.3 %; Hematocrit 35.2 % (42.0-52.0); Hemoglobin 10.9 g/dL (11.7-16.6); Lymphocytes # 1.5 10^3/uL (0.8-4.8); Lymphocytes % 10.7 %; Mean Corpuscular Hemoglobin 27.5 pg (28.0-34.0); Mean Corpuscular Volume 88.7 fL (80-94); Mean Platelet Volume 9.7 fL (7.4-10.4); Monocytes # 0.9 10^3/uL (0.2-0.9); Monocytes % 6.2 %; Neutrophils # 11.72 10^3/uL (1.8-7.7); Neutrophils % 81.6 %; Nucleated Red Blood Cells % 0 %; Platelet Count 311 10^3/cmm (130-400); Red Blood Count 3.97 10^6/uL (4.1-5.3); Red Cell Distribution Width 16.2 % (12.1-15.1); White Blood Count 14.4 10^3/uL (4.0-10.0)
[2020-04-21 14:50] LABS: Ferritin 259 ng/mL (30-400); Iron 51 ug/dL (59-158); Percent Saturation 18.4 % (20-50); Total Iron Binding Capacity 276 mcg/dl; Unsaturated Iron Binding 225 ug/dL (112-347)
--- NOTE | 2020-04-22 10:40 | ONC FU_ITS ---
Dr. Hoang follow up note Patient: Jamaal Sanchez Unit #: [id number]: [id number] Dicatated By: Tomas Hoang M.D.Date of Visit:Apr 21, 2020 Onc Med Follow-up/Prog Note History of Present Illness: Mr. Sanchez is a 74-year-old gentleman with history of iron deficiency anemia due to chronic GI blood loss. 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 As per patient in 2016, he started feeling weak and tired and found to have severe anemia. His hemoglobin was around 5 g. He was given 2 units of packed RBCs and underwent EGD and colonoscopy. The EGD showed some blood in his stomach and he was diagnosed with gave syndrome. He was referred to [facility] in [place], as per patient assembly inspector helper there told him he didn't have gave syndrome. He also underwent capsule endoscopy which showed some bleeders. He underwent cauterization of AVMs ???2. Mr. Sanchez was found to be anemic and iron deficient on his 09/15/2018 labs. His hemoglobin at that time was 10.2 and his iron saturation was 7.1% and ferritin was 22 and iron level was 22. Received 2 doses of IV replacement iron with Injectafer first on 09/24/2018 and again on 10/01/2018. and on 11/12/[address] Zaidi on 12/09/2017 and underwent double balloon endoscopy for persistent AVMs/questionable polyp, as per patient those bleeders were out of reach from upper end and a colonoscopy to evaluate lower part of small bowel and capsule endoscopy was Scheduled for 02/05/2019. Mr. Sanchez presented in December 2018 with recurrent iron deficiency anemia and was given 2 doses of Injectafer. The first one was on 02/16/2019 and the second was 02/23/2019. His Hgb on 02/16/2019 was 10.5. He came in March 2019 for post Injectafer followup. He presented weak, extremely short of breath with just minimal exertion and states he is having chest pain and his head is pounding . He states he has chest discomfort with just walking across the room. He does have a history of CAD and an several stents. He was just completely exhausted and feels that he probably needs some blood. He received 2 more doses on Injectafer on 03/30/2019 and 04/07/2019. He states overall he feels really good. He has not noted any blood in his stools. He states he has a good appetite. patient said his assembly inspector helper in [place] has referred him to assembly inspector helper in [place] as bleeders in his small bowel were out of reach. And he was seen by Dr. Ezra Craft, interventional assembly inspector helper for small bowel AVM cauterization on December 08, 2019 as per patient he had scheduled him for MRI scan of the abdomen to look for polyps or other pathology and small bowel, As per patient it was done on January 07, 2020 on parenteral Injectafer since December 18, 2019 initially he was given every 2 weeks but since March 07, 2020 he received weekly x4 and last dose was given on March 28, 2020 Came for follow-up, denies any specific complaint, more energetic, as per patient bleeding per rectum is also slowing down, no jaundice, no hemoptysis or hematemesis, no shortness of breath at rest or with mild exertion. And said he supposed to see interventional gastrologist at [place] in May 2020. Tolerating Injectafer well, otherwise Medications: Aspirin 1 Tablet (of 81 mg) Oral daily, Atorvastatin Calcium 0.5 Tablet (of 80 mg) Oral daily, B-12 1 Tablet (of 1000 mcg) Oral daily, Docusate Sodium 1 Capsule (of 100 mg) Tablet Oral b.i.d., Flomax 1 Tablet (of 0.4 mg) Capsule Oral b.i.d., Gabapentin 1 Capsule (of 300 mg) Oral t.i.d., hydroCHLOROthiazide 1 Tablet (of 25 mg) Oral daily, HYDROcodone-Acetaminophen 1 Tablet (of 10-325 mg) Oral four times a day, Lisinopril 1 Tablet (of 2.5 mg) Oral daily on Every Other Day, Mirtazapine 1 Tablet (of 45 mg) Oral daily, Pantoprazole Sodium 1 Tablet (of 40 mg) Tablet, enteric coated Oral daily, Sertraline HCl 0.5 Tablet (of 100 mg) Oral daily Allergies: Haldol Review of Systems: Constitutional - Appetite is good and weight is stable. No fever, chills, hot flashes, or night sweats. Energy level is poor, ENMT - No sinus congestion/drainage. No mouth sores. No sore throat, no difficulty swallowing, Hematologic/Lymphatic - No unusualy bruising or bleeding, Respiratory - Positive for shortness of breath. No cough, Cardiovascular - No angina pain. No palpitations, Gastrointestinal - Negative for nausea and vomiting. No heartburn. Positive for acid reflux. Positive for diarrhea. Negative for constipation, Genitourinary (M) - No dysuria or hematuria. No urinary frequency. No urgency. Positive for incontinence. Positive for nocturia, Musculoskeletal - Positive for joint and back pain, Neurologic - No headache, Positive for recent dizziness. Positive for numbness/tingling in left shoulder (Pt states its muscles spams), Psychiatric - Negative for anxiety, depression and insomnia. Vital Signs: Performed on Apr 21, 2020 16:22 Height - 74.00 in Weight - 287.0 lbs (HIGH) BSA - 2.53 sq.m BMI - 36.85 (HIGH) Temperature - 97.3 F (LOW) Pulse - 72 /min Respiration - 18 /min BP - 196/89 mm(hg) (HIGH) O2 Sat - 94 % (LOW) Pain - 9 Performance Status: 1 - No physically strenuous activity, but ambulatory and able to carry out light or sedentary work (e.g. office work, light house work). (ECOG) Physical Examination: ENMT - No mouth sores, no thrush, no jaundice, Respiratory - Lungs are clear to auscultation, Cardiovascular - Regular rate and rhythm of heart, Abdomen - Soft, bowel sounds present, Extremities - No visible edema. Lab/Imaging: Test performed on Apr 05, 2020 10:36 Ferritin 546 ng/mL Iron 56 mcg/dL Iron Binding Capacity (TIBC) 257 mcg/dl % Iron Saturation 21.7 % UIBC 201 mcg/dL WBC 7.0 10 3/uL RBC 3.85 10 6/uL HGB 10.7 g/dL HCT 35.0 % MCV 90.9 fL MCH 27.8 pg MCHC 30.6 g/dL RDW 18.6 % Platelet Count 166 10 3/cmm MPV 9.6 fL Neutrophils 5.69 10 3/uL Lymphocytes 0.7 10 3/uL Monocytes 0.5 10 3/uL Eosinophils 0.1 10 3/uL Basophils 0.1 10 3/uL Neutrophil % 80.7 % Lymphocyte % 10.5 % Monocyte % 6.7 % Eosinophil % 0.9 % Basophils % 0.9 % NRBC % 0 % Test performed on Dec 18, 2019 08:15 Sodium 139 mmol/L Potassium 3.7 mmol/L Chloride 102 mmol/L CO2 28 mmol/L Anion Gap 12.7 BUN 14 mg/dL Creatinine 0.9 mg/dL Cr Clearance (Est) 130.82 mL/min Glucose 197 mg/dL Osmolality - Calculated 294 mOsm/kg Calcium 8.7 mg/dL Protein, Total 6.8 g/dL Albumin 3.9 g/dL Globulin 2.9 g/dL Bilirubin, Total 0.2 mg/dL ALT (SGPT) 19 U/L AST (SGOT) 25 U/L Alkaline Phosphatase 172 IU/L 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 AVMs Status post cauterization ???2 since 2016. Intolerance to oral iron. IV iron replacement with Injectafer on 09/24/2018 and 10/01/2018. Mr. Sanchez presented in March 2019 for follow-up post Injectafer. He continued to be iron deficient and anemic. His hemoglobin had dropped from 10.5 on February 16 2019-9.2 on 03/30/2019. He is following with Dr. Zaidi in [place] and states that they have referred him to [place]. He is awaiting for an appointment there. He was extremely symptomatic with his anemia in March with significant shortness of breath, chest pain and palpitations head and heart pounding and fatigue. He did have 1 unit of blood and received 2 doses of Injectafer in March 2019. He had had Injectafer on 02/17/2020 and 02/24/2020 prior to his Elayne dosing. He has had Injectafer on , 07/17/2019, 08/25/2019, 09/01/2019 and 10/06/2019. His last dose of Injectafer was on 10/13/2019. His Hgb has remained in the 9.8 to 11.9 range since June 08, 2019. His iron levels have ranged from 25-42 since May, despite all the Injectafer infusions. His iron saturations have ranged from 7.2-13.8 since June 08, 2019 as well. His ferritin levels have been from 27 to a high of 91. He scheduled to see the GI specialist at [place] in may Plan: Discussed with patient regarding his labs white blood count 14.4 hemoglobin 10.9 compared to 10.1 on March 21, 2020 and platelets 311 iron studies shows iron saturation 18.4%, low, ferritin 259 compared to 546 on April 05, 2020 iron 51, low. Clinically, patient doing reasonably well, now tolerating Injectafer well with improvement in his iron deficiency anemia, repeat lab work-up shows further improvement in his hemoglobin but further drop in his iron stores e.g. ferritin dropped to 259 from 546 2 weeks ago and now iron and iron saturation is in low range. At this point we will proceed with Injectafer 750 mg x 1 and then he will return to clinic in 3 weeks with CBC and iron studies. Signed By: Tomas Hoang M.D. <<Signature on File>>
== END 2020-04-24 23:59 | disposition home or self-care (01) ==
LOC: ONCMED 05:32
PROVIDERS: PCP Internal Medicine; Visit Provider Internal Medicine Hematology & Oncology
DX: D50.0 Iron deficiency anemia secondary to blood loss (chronic) (principal); K31.811 Angiodysplasia of stomach and duodenum with bleeding; K64.9 Unspecified hemorrhoids; Z79.899 Other long term (current) drug therapy
CPT/HCPCS: 36415; 82728; 83540; 83550; 85025; 99214

== ENCOUNTER 2020-05-02 05:33 | Outpatient (RCR) | payer OTHER, MEDICARE, SELFPAY ==
[2020-04-25] MEDS: ferric carboxy (IVPB) 750 MG in sodium chloride 0.9% (100 ml) 100 ML 460 MG IV (11:30)
[2020-05-02] MEDS: ferric carboxy (IVPB) 750 MG in sodium chloride 0.9% (100 ml) 100 ML 460 MG IV (11:48)
== END 2020-05-22 23:59 | disposition home or self-care (01) ==
LOC: ONCMED 05:33
PROVIDERS: PCP Internal Medicine; Visit Provider Internal Medicine Hematology & Oncology
DX: D50.0 Iron deficiency anemia secondary to blood loss (chronic) (principal)
CPT/HCPCS: 96365; J1439

== ENCOUNTER 2020-06-06 05:32 | Outpatient (RCR) | payer OTHER, MEDICARE, SELFPAY ==
[2020-05-30 11:17] LABS: Basophils # 0.1 10^3/uL (0.0-0.1); Basophils % 0.8 %; Eosinophils # 0.1 10^3/uL (0.0-0.8); Eosinophils % 0.9 %; Hematocrit 35.2 % (42.0-52.0); Lymphocytes % 11.7 %; Mean Corpuscular HGB Conc 31.3 g/dL (30.0-36.0); Mean Corpuscular Hemoglobin 27.8 pg (28.0-34.0); Mean Corpuscular Volume 89.1 fL (80-94); Mean Platelet Volume 9.9 fL (7.4-10.4); Monocytes # 0.5 10^3/uL (0.2-0.9); Monocytes % 6.1 %; Neutrophils # 6.95 10^3/uL (1.8-7.7); Neutrophils % 79.8 %; Nucleated Red Blood Cells % 0 %; Platelet Count 214 10^3/cmm (130-400); Red Blood Count 3.95 10^6/uL (4.1-5.3); Red Cell Distribution Width 14.6 % (12.1-15.1); White Blood Count 8.7 10^3/uL (4.0-10.0)
[2020-05-30 11:39] LABS: Ferritin 204 ng/mL (30-400); Iron 41 ug/dL (59-158); Percent Saturation 15.6 % (20-50); Total Iron Binding Capacity 262 mcg/dl; Unsaturated Iron Binding 221 ug/dL (112-347)
[2020-05-30] MEDS: ferric carboxy (IVPB) 750 MG in sodium chloride 0.9% (100 ml) 100 ML 460 MG IV (13:38)
--- NOTE | 2020-05-30 16:44 | ONC FU_ITS ---
Dr. Hoang follow up note Patient: Jamaal Sanchez Unit #: [id number]: 1945 Dicatated By: Tomas Hoang M.D.Date of Visit:May 30, 2020 Onc Med Follow-up/Prog Note History of Present Illness: Mr. Sanchez is a 74-year-old gentleman with history of iron deficiency anemia due to chronic GI blood loss. 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 As per patient in 2016, he started feeling weak and tired and found to have severe anemia. His hemoglobin was around 5 g. He was given 2 units of packed RBCs and underwent EGD and colonoscopy. The EGD showed some blood in his stomach and he was diagnosed with gave syndrome. He was referred to [facility] in [place], as per patient meat service team member there told him he didn't have gave syndrome. He also underwent capsule endoscopy which showed some bleeders. He underwent cauterization of AVMs ???2. Mr. Sanchez was found to be anemic and iron deficient on his 09/15/2018 labs. His hemoglobin at that time was 10.2 and his iron saturation was 7.1% and ferritin was 22 and iron level was 22. Received 2 doses of IV replacement iron with Injectafer first on 09/24/2018 and again on 10/01/2018. and on 11/12/[address] Zaidi on 12/09/2017 and underwent double balloon endoscopy for persistent AVMs/questionable polyp, as per patient those bleeders were out of reach from upper end and a colonoscopy to evaluate lower part of small bowel and capsule endoscopy was Scheduled for 02/05/2019. Mr. Sanchez presented in December 2018 with recurrent iron deficiency anemia and was given 2 doses of Injectafer. The first one was on 02/16/2019 and the second was 02/23/2019. His Hgb on 02/16/2019 was 10.5. He came in March 2019 for post Injectafer followup. He presented weak, extremely short of breath with just minimal exertion and states he is having chest pain and his head is pounding . He states he has chest discomfort with just walking across the room. He does have a history of CAD and an several stents. He was just completely exhausted and feels that he probably needs some blood. He received 2 more doses on Injectafer on 03/30/2019 and 04/07/2019. He states overall he feels really good. He has not noted any blood in his stools. He states he has a good appetite. patient said his meat service team member in [place] has referred him to meat service team member in [place] as bleeders in his small bowel were out of reach. And he was seen by Dr. Ezra Craft, interventional meat service team member for small bowel AVM cauterization on December 08, 2019 as per patient he had scheduled him for MRI scan of the abdomen to look for polyps or other pathology and small bowel, As per patient it was done on January 07, 2020 on parenteral Injectafer since December 18, 2019 initially he was given every 2 weeks but since March 07, 2020 he received weekly x4 and last dose was given on March 28, 2020 Again repeated on April 25 and May 02, 2020 Came for follow-up, denies any specific complaint except bilateral knee pain since COVID-19 vaccine,, no fever chills, no nausea or vomiting no diarrhea or constipation slight right leg swelling now improving, using walking stick but overall feeling much better more energetic denies any melena hematochezia denies any hemoptysis hematemesis denies any shortness of breath or palpitation at rest or on mild exertion Medications: Aspirin 1 Tablet (of 81 mg) Oral daily, Atorvastatin Calcium 0.5 Tablet (of 80 mg) Oral daily, B-12 1 Tablet (of 1000 mcg) Oral daily, Docusate Sodium 1 Capsule (of 100 mg) Tablet Oral b.i.d., Flomax 1 Tablet (of 0.4 mg) Capsule Oral b.i.d., Gabapentin 1 Capsule (of 300 mg) Oral t.i.d., hydroCHLOROthiazide 1 Tablet (of 25 mg) Oral daily, HYDROcodone-Acetaminophen 1 Tablet (of 10-325 mg) Oral four times a day, Lisinopril 1 Tablet (of 2.5 mg) Oral daily on Every Other Day, Mirtazapine 1 Tablet (of 45 mg) Oral daily, Pantoprazole Sodium 1 Tablet (of 40 mg) Tablet, enteric coated Oral daily, Sertraline HCl 0.5 Tablet (of 100 mg) Oral daily Allergies: Haldol Review of Systems: Review of Systems is not available for this patient. Vital Signs: Performed on May 30, 2020 13:11 Height - 74.00 in Weight - 280 lbs (LOW) BSA - 2.51 sq.m BMI - 35.95 (HIGH) Temperature - 99.6 F (HIGH) Pulse - 74 /min Respiration - 20 /min BP - 129/72 mm(hg) O2 Sat - 93 % (LOW) Pain - 7 Fatigue - 0 Performance Status: 1 - No physically strenuous activity, but ambulatory and able to carry out light or sedentary work (e.g. office work, light house work). (ECOG) Physical Examination: ENMT - No mouth sores, no thrush, no jaundice, Respiratory - Lungs are clear to auscultation, Cardiovascular - Regular rate and rhythm of heart, Abdomen - Soft, bowel sounds present, Extremities - Trace edema right leg mild discomfort in bilateral knees with some puffiness. Lab/Imaging: Test performed on Apr 21, 2020 13:50 Ferritin 259 ng/mL Iron 51 mcg/dL Iron Binding Capacity (TIBC) 276 mcg/dl % Iron Saturation 18.4 % UIBC 225 mcg/dL WBC 14.4 10 3/uL RBC 3.97 10 6/uL HGB 10.9 g/dL HCT 35.2 % MCV 88.7 fL MCH 27.5 pg MCHC 31.0 g/dL RDW 16.2 % Platelet Count 311 10 3/cmm MPV 9.7 fL Neutrophils 11.72 10 3/uL Lymphocytes 1.5 10 3/uL Monocytes 0.9 10 3/uL Eosinophils 0.1 10 3/uL Basophils 0.1 10 3/uL Neutrophil % 81.6 % Lymphocyte % 10.7 % Monocyte % 6.2 % Eosinophil % 0.3 % Basophils % 0.6 % NRBC % 0 % Test performed on Dec 18, 2019 08:15 Sodium 139 mmol/L Potassium 3.7 mmol/L Chloride 102 mmol/L CO2 28 mmol/L Anion Gap 12.7 BUN 14 mg/dL Creatinine 0.9 mg/dL Cr Clearance (Est) 130.82 mL/min Glucose 197 mg/dL Osmolality - Calculated 294 mOsm/kg Calcium 8.7 mg/dL Protein, Total 6.8 g/dL Albumin 3.9 g/dL Globulin 2.9 g/dL Bilirubin, Total 0.2 mg/dL ALT (SGPT) 19 U/L AST (SGOT) 25 U/L Alkaline Phosphatase 172 IU/L Impression: Microscopic hypochromic anemia due to iron deficiency due to chronic GI blood loss 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 AVMs Status post cauterization ???2 since 2016. Intolerance to oral iron. IV iron replacement with Injectafer on 09/24/2018 and 10/01/2018. Mr. Sanchez presented in March 2019 for follow-up post Injectafer. He continued to be iron deficient and anemic. His hemoglobin had dropped from 10.5 on February 16 2019-9.2 on 03/30/2019. He is following with Dr. Zaidi in [place] and states that they have referred him to [facility]. He is awaiting for an appointment there. He was extremely symptomatic with his anemia in March with significant shortness of breath, chest pain and palpitations head and heart pounding and fatigue. He did have 1 unit of blood and received 2 doses of Injectafer in March 2019. He had had Injectafer on 02/17/2020 and 02/24/2020 prior to his March dosing. He has had Injectafer on , 07/17/2019, 08/25/2019, 09/01/2019 and 10/06/2019. His last dose of Injectafer was on 10/13/2019. His Hgb has remained in the 9.8 to 11.9 range since June 08, 2019. His iron levels have ranged from 25-42 since May, despite all the Injectafer infusions. His iron saturations have ranged from 7.2-13.8 since June 08, 2019 as well. His ferritin levels have been from 27 to a high of 91. He scheduled to see the GI specialist at [place] in may Plan: Discussed with patient regarding his labs white blood count 8.7 hemoglobin 11 g hematocrit 35.2 platelets 214,000 iron saturation 15.6% which is low, iron 41 again, low, ferritin 204 Clinically, patient is doing well, tolerating Injectafer well but persistent iron deficiency as iron studies shows low iron saturation and iron but ferritin normal range could be due to acute phase reactant, at this point we will proceed with Injectafer 750 and then repeat in 1 week then he will return to clinic 1 month after second dose of Injectafer with CBC and iron studies. Patient is scheduled to see meat service team member for follow-up at [place] in the last week of May 2020 Signed By: Tomas Hoang M.D. <<Signature on File>>
[2020-06-06] MEDS: ferric carboxy (IVPB) 750 MG in sodium chloride 0.9% (100 ml) 100 ML 460 MG IV (11:53)
== END 2020-06-22 23:59 | disposition home or self-care (01) ==
LOC: ONCMED 05:32
PROVIDERS: Internal Medicine Hematology & Oncology; PCP Internal Medicine; Visit Provider Nurse Practitioner
DX: D50.0 Iron deficiency anemia secondary to blood loss (chronic) (principal); K31.819 Angiodysplasia of stomach and duodenum without bleeding; K64.9 Unspecified hemorrhoids; Z79.899 Other long term (current) drug therapy
CPT/HCPCS: 82728; 83540; 83550; 85025; 96365; 99214; J1439

== ENCOUNTER 2020-07-25 12:52 | Outpatient (CLI) | payer OTHER, MEDICARE, SELFPAY ==
--- NOTE | 2020-07-25 13:16 | USCV_ITS ---
Jamaal Sanchez Age: 74 Gender: M : 1945 Exam Date: 07/25/2020 13:34 Ordering Phys: Dane Clancy MD ([email or web address]) Technologist: Johnny Harris [place] [facility] [place]: CAD Risk Factors: Previous Vascular Surgery: Right Brachial BP: / Left Brachial BP: / Right Left Velocity (cm/s) Spectral Plaque Velocity (cm/s) Spectral Plaque Syst/Diast Broadening Syst/Diast Broadening 79.40/ 16.50 Prox CCA 113.80/ 19.70 83.00/ 17.00 Mid CCA 126.00/ 16.30 92.60/ 17.60 Distal CCA 85.30 / 14.90 121.20/18.60 Prox ICA 119.20/ 13.50 110.60/20.00 Mid ICA 119.20/ 14.90 97.20/ 16.00 Distal ICA 94.80 / 19.00 170.50 ECA 128.70 1.31 ICA/CCA 0.95 Antegrade Vertebral Antegrade 30.40/ 4.60 cm/s 73.10/ 16.30 cm/s Tri Subclavian Tri 95.70 163.0 0 FINDINGS Mild to moderate plaques at the bifurcations bilaterally. Intimal thickening in the common carotid arteries bilaterally. Antegrade flow in the vertebral arteries bilaterally. Normal Doppler flow velocities in the external carotid and subclavian arteries bilaterally CONCLUSIONS Mild to moderate plaques at the bifurcations bilaterally with velocity elevation, consistent with less than 50% stenosis. Intimal thickening in the common carotid arteries bilaterally. No significant stenosis in the external carotid, vertebral and subclavian arteries, based on the velocity measurements Dr Dane Clancy MD [facility] (Electronically Signed) Final Date: 27 Jul 2020 07:59 S
== END 2020-07-25 12:53 | disposition home or self-care (01) ==
PROVIDERS: PCP Internal Medicine; Visit Provider Internal Medicine Cardiovascular Disease
DX: I65.23 Occlusion and stenosis of bilateral carotid arteries (principal); I25.10 Atherosclerotic heart disease of native coronary artery without angina pectoris
CPT/HCPCS: 93880

== ENCOUNTER 2020-08-01 10:27 | Outpatient (CLI) | payer OTHER, MEDICARE, SELFPAY ==
[2020-08-01 11:18] LABS: Basophils # 0.1 10^3/uL (0.0-0.1); Basophils % 0.7 %; Eosinophils # 0.1 10^3/uL (0.0-0.8); Eosinophils % 0.7 %; Hematocrit 36.7 % (42.0-52.0); Hemoglobin 11.1 g/dL (11.7-16.6); Lymphocytes # 1.2 10^3/uL (0.8-4.8); Lymphocytes % 11.6 %; Mean Corpuscular HGB Conc 30.2 g/dL (30.0-36.0); Mean Corpuscular Hemoglobin 26.4 pg (28.0-34.0); Mean Corpuscular Volume 87.2 fL (80-94); Mean Platelet Volume 9.6 fL (7.4-10.4); Monocytes # 0.7 10^3/uL (0.2-0.9); Monocytes % 6.9 %; Neutrophils # 8.23 10^3/uL (1.8-7.7); Neutrophils % 79.5 %; Nucleated Red Blood Cells % 0 %; Platelet Count 219 10^3/cmm (130-400); Red Blood Count 4.21 10^6/uL (4.1-5.3); Red Cell Distribution Width 14.5 % (12.1-15.1); White Blood Count 10.3 10^3/uL (4.0-10.0)
[2020-08-01 11:31] LABS: Ferritin 102 ng/mL (30-400); Iron 41 ug/dL (59-158); Percent Saturation 12.2 % (20-50); Total Iron Binding Capacity 336 mcg/dl; Unsaturated Iron Binding 295 ug/dL (112-347)
--- NOTE | 2020-08-01 14:44 | ONC FU_ITS ---
Dr. Hoang follow up note Patient: Jamaal Sanchez Unit #: [id number]: 1945 Dicatated By: Tomas Hoang M.D.Date of Visit:August 01, 2020 Onc Med Follow-up/Prog Note History of Present Illness: Mr. Sanchez is a 74-year-old gentleman with history of iron deficiency anemia due to chronic GI blood loss. 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 As per patient in 2016, he started feeling weak and tired and found to have severe anemia. His hemoglobin was around 5 g. He was given 2 units of packed RBCs and underwent EGD and colonoscopy. The EGD showed some blood in his stomach and he was diagnosed with gave syndrome. He was referred to [facility] in [place], as per patient general medical practitioner there told him he didn't have gave syndrome. He also underwent capsule endoscopy which showed some bleeders. He underwent cauterization of AVMs ???2. Mr. Sanchez was found to be anemic and iron deficient on his 09/15/2018 labs. His hemoglobin at that time was 10.2 and his iron saturation was 7.1% and ferritin was 22 and iron level was 22. Received 2 doses of IV replacement iron with Injectafer first on 09/24/2018 and again on 10/01/2018. and on 11/12/[address] Zaidi on 12/09/2017 and underwent double balloon endoscopy for persistent AVMs/questionable polyp, as per patient those bleeders were out of reach from upper end and a colonoscopy to evaluate lower part of small bowel and capsule endoscopy was Scheduled for 02/05/2019. Mr. Sanchez presented in December 2018 with recurrent iron deficiency anemia and was given 2 doses of Injectafer. The first one was on 02/16/2019 and the second was 02/23/2019. His Hgb on 02/16/2019 was 10.5. He came in March 2019 for post Injectafer followup. He presented weak, extremely short of breath with just minimal exertion and states he is having chest pain and his head is pounding . He states he has chest discomfort with just walking across the room. He does have a history of CAD and an several stents. He was just completely exhausted and feels that he probably needs some blood. He received 2 more doses on Injectafer on 03/30/2019 and 04/07/2019. He states overall he feels really good. He has not noted any blood in his stools. He states he has a good appetite. patient said his general medical practitioner in [place] has referred him to general medical practitioner in [place] as bleeders in his small bowel were out of reach. And he was seen by Dr. Ezra Craft, interventional general medical practitioner for small bowel AVM cauterization on December 08, 2019 as per patient he had scheduled him for MRI scan of the abdomen to look for polyps or other pathology and small bowel, As per patient it was done on January 07, 2020 And showed extensive colonic diverticulosis without evidence of acute diverticulitis. No other findings to explain patient's symptoms. Of note, this exam is suboptimal for detection of small polyps follow-up subtle angiodysplasia on parenteral Injectafer since December 18, 2019 initially he was given every 2 weeks but since March 07, 2020 he received weekly x4 and last dose was given on March 28, 2020 Again repeated on April 25 and May 02, 2020 And then continued on a weekly basis x2 in May 2020 Came for follow-up, denies any specific complaint except off and on bloatedness after heavy meal but no melena or hematochezia, no hemoptysis hematemesis, no jaundice, no shortness of breath, no palpitation, as per patient physician from [place] told him that he has bleeding mass or polyps in the small bowel for which he is scheduled for biopsy on September 12, 2020 at [place]. Medications: Aspirin 1 Tablet (of 81 mg) Oral daily, Atorvastatin Calcium 0.5 Tablet (of 80 mg) Oral daily, B-12 1 Tablet (of 1000 mcg) Oral daily, Docusate Sodium 1 Capsule (of 100 mg) Tablet Oral b.i.d., Flomax 1 Tablet (of 0.4 mg) Capsule Oral b.i.d., Gabapentin 1 Capsule (of 300 mg) Oral t.i.d., hydroCHLOROthiazide 1 Tablet (of 25 mg) Oral daily, HYDROcodone-Acetaminophen 1 Tablet (of 10-325 mg) Oral four times a day, Lisinopril 1 Tablet (of 2.5 mg) Oral daily on Every Other Day, Mirtazapine 1 Tablet (of 45 mg) Oral daily, Pantoprazole Sodium 1 Tablet (of 40 mg) Tablet, enteric coated Oral daily, Sertraline HCl 0.5 Tablet (of 100 mg) Oral daily Allergies: Haldol Review of Systems: Review of Systems is not available for this patient. Vital Signs: Vitals are not available for this patient. Performance Status: 1 - No physically strenuous activity, but ambulatory and able to carry out light or sedentary work (e.g. office work, light house work). (ECOG) Physical Examination: ENMT - No visible edema no mouth sores, no thrush, Respiratory - Lungs are clear to auscultation, Cardiovascular - Regular rate and rhythm of heart, Abdomen - Soft, bowel sounds present, Extremities - No visible edema. Lab/Imaging: Test performed on Apr 21, 2020 13:50 Ferritin 259 ng/mL Iron 51 mcg/dL Iron Binding Capacity (TIBC) 276 mcg/dl % Iron Saturation 18.4 % UIBC 225 mcg/dL WBC 14.4 10 3/uL RBC 3.97 10 6/uL HGB 10.9 g/dL HCT 35.2 % MCV 88.7 fL MCH 27.5 pg MCHC 31.0 g/dL RDW 16.2 % Platelet Count 311 10 3/cmm MPV 9.7 fL Neutrophils 11.72 10 3/uL Lymphocytes 1.5 10 3/uL Monocytes 0.9 10 3/uL Eosinophils 0.1 10 3/uL Basophils 0.1 10 3/uL Neutrophil % 81.6 % Lymphocyte % 10.7 % Monocyte % 6.2 % Eosinophil % 0.3 % Basophils % 0.6 % NRBC % 0 % 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 AVMs Status post cauterization ???2 since 2016. Intolerance to oral iron. IV iron replacement with Injectafer on 09/24/2018 and 10/01/2018.Then continued off and on in February 2020 done weekly x4 in May 2020 Mr. Sanchez presented in March 2019 for follow-up post Injectafer. He continued to be iron deficient and anemic. His hemoglobin had dropped from 10.5 on February 16 2019-9.2 on 03/30/2019. He is following with Dr. Zaidi in [place] and states that they have referred him to [place]. He is awaiting for an appointment there. He was extremely symptomatic with his anemia in March with significant shortness of breath, chest pain and palpitations head and heart pounding and fatigue. He did have 1 unit of blood and received 2 doses of Injectafer in March 2019. He had had Injectafer on 02/17/2020 and 02/24/2020 prior to his March dosing. He has had Injectafer on , 07/17/2019, 08/25/2019, 09/01/2019 and 10/06/2019. His last dose of Injectafer was on 10/13/2019. His Hgb has remained in the 9.8 to 11.9 range since June 08, 2019. His iron levels have ranged from 25-42 since May, despite all the Injectafer infusions. His iron saturations have ranged from 7.2-13.8 since June 08, 2019 as well. His ferritin levels have been from 27 to a high of 91. He scheduled to see the GI specialist at [place] in may Plan: Discussed with patient regarding his labs white blood count 10.3 hemoglobin 11.1 hematocrit 36.7 platelets 219,000 iron studies shows iron saturation 12.2% ferritin 102, iron 41 Clinically, patient is doing reasonably well, with mild normocytic anemia with normal ferritin and low iron saturation, will continue to monitor return to clinic in 2 weeks with CBC and iron studies if there is a further drop in his hemoglobin will consider weekly Injectafer, patient, now being evaluated at [place] for possible small bowel polyp/mass biopsy, as per patient scheduled for September 12, 2020 As far as bloatedness with large meals concerned, patient was advised to try small meals but more often if recurred, may refer him to GI for evaluation Signed By: Tomas Hoang M.D. <<Signature on File>>
== END 2020-08-01 10:28 | disposition home or self-care (01) ==
PROVIDERS: PCP Internal Medicine; Visit Provider Internal Medicine Hematology & Oncology
DX: D50.0 Iron deficiency anemia secondary to blood loss (chronic) (principal); K31.819 Angiodysplasia of stomach and duodenum without bleeding; Z79.899 Other long term (current) drug therapy
CPT/HCPCS: 82728; 83540; 83550; 85025; 99214

== ENCOUNTER 2020-08-24 12:30 | Outpatient (CLI) | payer OTHER, MEDICARE, SELFPAY ==
[2020-08-24 13:39] LABS: Basophils # 0.1 10^3/uL (0.0-0.1); Basophils % 0.8 %; Eosinophils # 0.1 10^3/uL (0.0-0.8); Eosinophils % 1.2 %; Hematocrit 35.4 % (42.0-52.0); Hemoglobin 10.4 g/dL (11.7-16.6); Lymphocytes # 1.4 10^3/uL (0.8-4.8); Lymphocytes % 13.4 %; Mean Corpuscular HGB Conc 29.4 g/dL (30.0-36.0); Mean Corpuscular Hemoglobin 24.9 pg (28.0-34.0); Mean Corpuscular Volume 84.9 fL (80-94); Mean Platelet Volume 9.8 fL (7.4-10.4); Monocytes # 0.7 10^3/uL (0.2-0.9); Monocytes % 6.3 %; Neutrophils # 8.25 10^3/uL (1.8-7.7); Neutrophils % 77.7 %; Nucleated Red Blood Cells % 0 %; Platelet Count 277 10^3/cmm (130-400); Red Blood Count 4.17 10^6/uL (4.1-5.3); Red Cell Distribution Width 14.7 % (12.1-15.1); White Blood Count 10.6 10^3/uL (4.0-10.0)
[2020-08-24 14:04] LABS: Ferritin 43 ng/mL (30-400); Iron 30 ug/dL (59-158); Percent Saturation 9.4 % (20-50); Total Iron Binding Capacity 319 mcg/dl; Unsaturated Iron Binding 289 ug/dL (112-347)
[2020-08-24] MEDS: sodium chloride 0.9% 100 mL Bag IV (16:45)
[2020-08-24] MEDS: ferric carboxy (PYXIS) 750 mg/15 mL INJ IV (16:45)
--- NOTE | 2020-08-24 16:47 | ONC FU_ITS ---
Dr. Hoang follow up note Patient: Jamaal Sanchez Unit #: [id number]: 1945 Dicatated By: Tomas Hoang M.D.Date of Visit:Aug 24, 2020 Onc Med Follow-up/Prog Note History of Present Illness: Mr. Sanchez is a 74-year-old gentleman with history of iron deficiency anemia due to chronic GI blood loss. 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 As per patient in 2016, he started feeling weak and tired and found to have severe anemia. His hemoglobin was around 5 g. He was given 2 units of packed RBCs and underwent EGD and colonoscopy. The EGD showed some blood in his stomach and he was diagnosed with gave syndrome. He was referred to [facility] in [place], as per patient custom clothier there told him he didn't have gave syndrome. He also underwent capsule endoscopy which showed some bleeders. He underwent cauterization of AVMs ???2. Mr. Sanchez was found to be anemic and iron deficient on his 09/15/2018 labs. His hemoglobin at that time was 10.2 and his iron saturation was 7.1% and ferritin was 22 and iron level was 22. Received 2 doses of IV replacement iron with Injectafer first on 09/24/2018 and again on 10/01/2018. and on 11/12/[address] Zaidi on 12/09/2017 and underwent double balloon endoscopy for persistent AVMs/questionable polyp, as per patient those bleeders were out of reach from upper end and a colonoscopy to evaluate lower part of small bowel and capsule endoscopy was Scheduled for 02/05/2019. Mr. Sanchez presented in December 2018 with recurrent iron deficiency anemia and was given 2 doses of Injectafer. The first one was on 02/16/2019 and the second was 02/23/2019. His Hgb on 02/16/2019 was 10.5. He came in March 2019 for post Injectafer followup. He presented weak, extremely short of breath with just minimal exertion and states he is having chest pain and his head is pounding . He states he has chest discomfort with just walking across the room. He does have a history of CAD and an several stents. He was just completely exhausted and feels that he probably needs some blood. He received 2 more doses on Injectafer on 03/30/2019 and 04/07/2019. He states overall he feels really good. He has not noted any blood in his stools. He states he has a good appetite. patient said his custom clothier in [place] has referred him to custom clothier in [place] as bleeders in his small bowel were out of reach. And he was seen by Dr. Ezra Craft, interventional custom clothier for small bowel AVM cauterization on December 08, 2019 as per patient he had scheduled him for MRI scan of the abdomen to look for polyps or other pathology and small bowel, As per patient it was done on January 07, 2020 And showed extensive colonic diverticulosis without evidence of acute diverticulitis. No other findings to explain patient's symptoms. Of note, this exam is suboptimal for detection of small polyps follow-up subtle angiodysplasia on parenteral Injectafer since December 18, 2019 initially he was given every 2 weeks but since March 07, 2020 he received weekly x4 and last dose was given on March 28, 2020 Again repeated on April 25 and May 02, 2020 And then continued on a weekly basis x2 in May 2020 Came for follow-up, denies any specific complaint except generalized weakness and fatigue, patient said he had episode of dark-colored stools but no fresh blood per rectum, no hemoptysis hematemesis, no jaundice, no shortness of breath or chest pain at rest but mild to moderate dyspnea on exertion. Tolerating parenteral iron well, he is scheduled for further evaluation regarding chronic blood loss from small bowel at [facility] and now going there on September 12, 2020 Medications: Aspirin 1 Tablet (of 81 mg) Oral daily, Atorvastatin Calcium 0.5 Tablet (of 80 mg) Oral daily, B-12 1 Tablet (of 1000 mcg) Oral daily, Docusate Sodium 1 Capsule (of 100 mg) Tablet Oral b.i.d., Flomax 1 Tablet (of 0.4 mg) Capsule Oral b.i.d., Gabapentin 1 Capsule (of 300 mg) Oral t.i.d., hydroCHLOROthiazide 1 Tablet (of 25 mg) Oral daily, HYDROcodone-Acetaminophen 1 Tablet (of 10-325 mg) Oral four times a day, Lisinopril 1 Tablet (of 2.5 mg) Oral daily on Every Other Day, Mirtazapine 1 Tablet (of 45 mg) Oral daily, Pantoprazole Sodium 1 Tablet (of 40 mg) Tablet, enteric coated Oral daily, Sertraline HCl 0.5 Tablet (of 100 mg) Oral daily Allergies: Haldol Review of Systems: Review of Systems is not available for this patient. Vital Signs: Performed on Aug 24, 2020 15:41 Height - 74.00 in Weight - 289.2 lbs (HIGH) BSA - 2.54 sq.m BMI - 37.13 (HIGH) Temperature - 97.8 F (LOW) Pulse - 70 /min Respiration - 18 /min BP - 140/57 mm(hg) O2 Sat - 93 % (LOW) Pain - 5 Fatigue - 0 Performance Status: 1 - No physically strenuous activity, but ambulatory and able to carry out light or sedentary work (e.g. office work, light house work). (ECOG) Physical Examination: ENMT - No mouth sores, no thrush, no jaundice, Respiratory - Lungs are clear to auscultation, Cardiovascular - Regular rate and rhythm of heart , Abdomen - Soft, bowel sounds present, Extremities - No visible edema or rash. Lab/Imaging: Test performed on Apr 21, 2020 13:50 Ferritin 259 ng/mL Iron 51 mcg/dL Iron Binding Capacity (TIBC) 276 mcg/dl % Iron Saturation 18.4 % UIBC 225 mcg/dL WBC 14.4 10 3/uL RBC 3.97 10 6/uL HGB 10.9 g/dL HCT 35.2 % MCV 88.7 fL MCH 27.5 pg MCHC 31.0 g/dL RDW 16.2 % Platelet Count 311 10 3/cmm MPV 9.7 fL Neutrophils 11.72 10 3/uL Lymphocytes 1.5 10 3/uL Monocytes 0.9 10 3/uL Eosinophils 0.1 10 3/uL Basophils 0.1 10 3/uL Neutrophil % 81.6 % Lymphocyte % 10.7 % Monocyte % 6.2 % Eosinophil % 0.3 % Basophils % 0.6 % NRBC % 0 % 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 AVMs Status post cauterization ???2 since 2016. Intolerance to oral iron. IV iron replacement with Injectafer on 09/24/2018 and 10/01/2018.Then continued off and on in February 2020 done weekly x4 in May 2020 Mr. Sanchez presented in March 2019 for follow-up post Injectafer. He continued to be iron deficient and anemic. His hemoglobin had dropped from 10.5 on February 16 2019-9.2 on 03/30/2019. He is following with Dr. Zaidi in [place] and states that they have referred him to [facility]. He is awaiting for an appointment there. He was extremely symptomatic with his anemia in March with significant shortness of breath, chest pain and palpitations head and heart pounding and fatigue. He did have 1 unit of blood and received 2 doses of Injectafer in March 2019. He had had Injectafer on 02/17/2020 and 02/24/2020 prior to his Elayne dosing. He has had Injectafer on , 07/17/2019, 08/25/2019, 09/01/2019 and 10/06/2019. His last dose of Injectafer was on 10/13/2019. His Hgb has remained in the 9.8 to 11.9 range since June 08, 2019. His iron levels have ranged from 25-42 since May, despite all the Injectafer infusions. His iron saturations have ranged from 7.2-13.8 since June 08, 2019 as well. His ferritin levels have been from 27 to a high of 91. He scheduled to see the GI specialist at [facility] in may Plan: 7.1 g on August 01iscussed with patient regarding his labs white blood count 10.6 hemoglobin 10.4 g hematocrit 35.4 platelets 277,000 compared to, iron studies shows iron saturation 9.4%, ferritin 43 compared to 102 on August 01, 2020, iron 30, TIBC 319 Clinically, patient is doing reasonably well now with progressive iron deficiency anemia due to chronic GI blood loss, now being evaluated at [facility] in [place], will proceed with his next weekly dose of Injectafer 750 mg intravenously today then he will return to clinic in 1 week for another dose then we will see him 3 weeks with CBC and iron studies. Signed By: Tomas Hoang M.D. <<Signature on File>>
== END 2020-08-24 12:31 | disposition home or self-care (01) ==
LOC: ONCMED 12:31
PROVIDERS: PCP Internal Medicine; Visit Provider Internal Medicine Hematology & Oncology
DX: D50.8 Other iron deficiency anemias (principal); Q27.33 Arteriovenous malformation of digestive system vessel; K31.819 Angiodysplasia of stomach and duodenum without bleeding; Z79.899 Other long term (current) drug therapy
CPT/HCPCS: 36415; 82728; 83540; 83550; 85025; 96365; 99215; J1439

== ENCOUNTER → 2020-09-19 14:04 | Outpatient (BNVA) | payer OTHER, SELFPAY | PROVIDERS: PCP Internal Medicine; Referring Provider Family Medicine; Visit Provider Podiatrist Foot & Ankle Surgery | DX: M19.072 Primary osteoarthritis, left ankle and foot (principal); M77.32 Calcaneal spur, left foot; M79.671 Pain in right foot | CPT/HCPCS: 77077 ==

== ENCOUNTER 2020-09-22 10:21 | Outpatient (CLI) | payer OTHER, SELFPAY ==
[2020-09-22 10:51] LABS: Basophils # 0.1 10^3/uL (0.0-0.1); Basophils % 1.1 %; Eosinophils # 0.1 10^3/uL (0.0-0.8); Eosinophils % 0.9 %; Hematocrit 36.3 % (42.0-52.0); Hemoglobin 10.9 g/dL (11.7-16.6); Lymphocytes # 1.2 10^3/uL (0.8-4.8); Lymphocytes % 12.2 %; Mean Corpuscular Hemoglobin 25.2 pg (28.0-34.0); Mean Platelet Volume 9.9 fL (7.4-10.4); Monocytes # 0.7 10^3/uL (0.2-0.9); Monocytes % 7.6 %; Neutrophils # 7.37 10^3/uL (1.8-7.7); Neutrophils % 77.7 %; Nucleated Red Blood Cells % 0 %; Platelet Count 226 10^3/cmm (130-400); Red Blood Count 4.32 10^6/uL (4.1-5.3); Red Cell Distribution Width 16.1 % (12.1-15.1); White Blood Count 9.5 10^3/uL (4.0-10.0)
[2020-09-22 11:45] LABS: Ferritin 60 ng/mL (30-400); Iron 37 ug/dL (59-158); Percent Saturation 11.2 % (20-50); Total Iron Binding Capacity 330 mcg/dl; Unsaturated Iron Binding 293 ug/dL (112-347)
[2020-09-22 12:43] LABS: Folate Level 7.7 ng/mL (4.5-32.2)
--- NOTE | 2020-09-22 14:44 | ONC FU_ITS ---
Dr. Hoang follow up note Patient: Jamaal Sanchez Unit #: [id number]: 1945 Dicatated By: Tomas Hoang M.D.Date of Visit:Sep 22, 2020 Onc Med Follow-up/Prog Note History of Present Illness: Mr. Sanchez is a 74-year-old gentleman with history of iron deficiency anemia due to chronic GI blood loss. 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 As per patient in 2016, he started feeling weak and tired and found to have severe anemia. His hemoglobin was around 5 g. He was given 2 units of packed RBCs and underwent EGD and colonoscopy. The EGD showed some blood in his stomach and he was diagnosed with gave syndrome. He was referred to [facility] in [place], as per patient aquaculture farmer there told him he didn't have gave syndrome. He also underwent capsule endoscopy which showed some bleeders. He underwent cauterization of AVMs ???2. Mr. Sanchez was found to be anemic and iron deficient on his 09/15/2018 labs. His hemoglobin at that time was 10.2 and his iron saturation was 7.1% and ferritin was 22 and iron level was 22. Received 2 doses of IV replacement iron with Injectafer first on 09/24/2018 and again on 10/01/2018. and on 11/12/[address] Zaidi on 12/09/2017 and underwent double balloon endoscopy for persistent AVMs/questionable polyp, as per patient those bleeders were out of reach from upper end and a colonoscopy to evaluate lower part of small bowel and capsule endoscopy was Scheduled for 02/05/2019. Mr. Sanchez presented in December 2018 with recurrent iron deficiency anemia and was given 2 doses of Injectafer. The first one was on 02/16/2019 and the second was 02/23/2019. His Hgb on 02/16/2019 was 10.5. He came in March 2019 for post Injectafer followup. He presented weak, extremely short of breath with just minimal exertion and states he is having chest pain and his head is pounding . He states he has chest discomfort with just walking across the room. He does have a history of CAD and an several stents. He was just completely exhausted and feels that he probably needs some blood. He received 2 more doses on Injectafer on 03/30/2019 and 04/07/2019. He states overall he feels really good. He has not noted any blood in his stools. He states he has a good appetite. patient said his aquaculture farmer in [place] has referred him to aquaculture farmer in [place] as bleeders in his small bowel were out of reach. And he was seen by Dr. Ezra Craft, interventional aquaculture farmer for small bowel AVM cauterization on December 08, 2019 as per patient he had scheduled him for MRI scan of the abdomen to look for polyps or other pathology and small bowel, As per patient it was done on January 07, 2020 And showed extensive colonic diverticulosis without evidence of acute diverticulitis. No other findings to explain patient's symptoms. Of note, this exam is suboptimal for detection of small polyps follow-up subtle angiodysplasia on parenteral Injectafer since December 18, 2019 initially he was given every 2 weeks but since March 07, 2020 he received weekly x4 and last dose was given on March 28, 2020 Again repeated on April 25 and May 02, 2020 And then continued on a weekly basis x2 in Maynd then on August 24, 2020 Came for follow-up, denies any specific complaints, no melena or hematochezia, no nausea or vomiting, no diarrhea constipation, no jaundice as per patient last week he went to [place] where he underwent EGD with push enteroscopy for small bowel AVM cauterization, as per patient it was not successful so now rescheduled for another attempt next week and as per patient he may be referred to [facility] if needed for small bowel AVMs management. Medications: Aspirin 1 Tablet (of 81 mg) Oral daily, Atorvastatin Calcium 0.5 Tablet (of 80 mg) Oral daily, B-12 1 Tablet (of 1000 mcg) Oral daily, Docusate Sodium 1 Capsule (of 100 mg) Tablet Oral b.i.d., Flomax 1 Tablet (of 0.4 mg) Capsule Oral b.i.d., Gabapentin 1 Capsule (of 300 mg) Oral t.i.d., hydroCHLOROthiazide 1 Tablet (of 25 mg) Oral daily, HYDROcodone-Acetaminophen 1 Tablet (of 10-325 mg) Oral four times a day, Lisinopril 1 Tablet (of 2.5 mg) Oral daily on Every Other Day, Mirtazapine 1 Tablet (of 45 mg) Oral daily, Pantoprazole Sodium 1 Tablet (of 40 mg) Tablet, enteric coated Oral daily, Sertraline HCl 0.5 Tablet (of 100 mg) Oral daily Allergies: Haldol Review of Systems: Review of Systems is not available for this patient. Vital Signs: Performed on Sep 22, 2020 13:36 Height - 74.00 in Weight - 286.8 lbs (LOW) BSA - 2.53 sq.m BMI - 36.82 (HIGH) Temperature - 98.2 F (LOW) Pulse - 76 /min Respiration - 18 /min BP - 148/74 mm(hg) (HIGH) O2 Sat - 94 % (LOW) Pain - 6 Fatigue - 7 Performance Status: 0 - Fully active, able to carry on all predisease activities without restrictions. (ECOG) Physical Examination: ENMT - No mouth sores, no thrush, no jaundice, Respiratory - Lungs are clear to auscultation, Cardiovascular - Regular rate and rhythm of heart, Abdomen - Soft, bowel sounds present, Extremities - No visible edema. Lab/Imaging: Test performed on Apr 21, 2020 13:50 Ferritin 259 ng/mL Iron 51 mcg/dL Iron Binding Capacity (TIBC) 276 mcg/dl % Iron Saturation 18.4 % UIBC 225 mcg/dL WBC 14.4 10 3/uL RBC 3.97 10 6/uL HGB 10.9 g/dL HCT 35.2 % MCV 88.7 fL MCH 27.5 pg MCHC 31.0 g/dL RDW 16.2 % Platelet Count 311 10 3/cmm MPV 9.7 fL Neutrophils 11.72 10 3/uL Lymphocytes 1.5 10 3/uL Monocytes 0.9 10 3/uL Eosinophils 0.1 10 3/uL Basophils 0.1 10 3/uL Neutrophil % 81.6 % Lymphocyte % 10.7 % Monocyte % 6.2 % Eosinophil % 0.3 % Basophils % 0.6 % NRBC % 0 % 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 AVMs Status post cauterization ???2 since 2016. Intolerance to oral iron. IV iron replacement with Injectafer on 09/24/2018 and 10/01/2018.Then continued off and on in February 2020 done weekly x4 in May 2020 Mr. Sanchez presented in March 2019 for follow-up post Injectafer. He continued to be iron deficient and anemic. His hemoglobin had dropped from 10.5 on February 16 2019-9.2 on 03/30/2019. He is following with Dr. Zaidi in [place] and states that they have referred him to [place]. He is awaiting for an appointment there. He was extremely symptomatic with his anemia in March with significant shortness of breath, chest pain and palpitations head and heart pounding and fatigue. He did have 1 unit of blood and received 2 doses of Injectafer in March 2019. He had had Injectafer on 02/17/2020 and 02/24/2020 prior to his Elayne dosing. He has had Injectafer on , 07/17/2019, 08/25/2019, 09/01/2019 and 10/06/2019. His last dose of Injectafer was on 10/13/2019. His Hgb has remained in the 9.8 to 11.9 range since June 08, 2019. His iron levels have ranged from 25-42 since May, despite all the Injectafer infusions. His iron saturations have ranged from 7.2-13.8 since June 08, 2019 as well. His ferritin levels have been from 27 to a high of 91. He scheduled to see the GI specialist at [place] in may Plan: Discussed with patient regarding his labs white blood count 9.5 hemoglobin 10.9 g compared to 10.4 g hematocrit 36.3 platelets 226,000 iron studies showed iron saturation 11.2% compared to 9.4% ferritin 60 compared to 43 previously iron 37 TIBC 330 Clinically, patient doing reasonably well, no new signs symptoms, tolerating parenteral iron on as-needed basis well patient was scheduled to receive 2 weekly dose of Injectafer in the first week of August 2020 but patient received 1 dose only, with that his hemoglobin has improved to 10.9 g compared to 10.4 previously, iron stores stable but still on the low side of normal, will proceed with Injectafer 750 mg weekly x2 and then return to clinic in 1 month with CBC and iron studies As far as small bowel AVM is concerned, patient is being treated at [place], as per patient he recently underwent EGD/push enteroscopy for cauterization and now rescheduled for another attempt next week. Signed By: Tomas Hoang M.D. <<Signature on File>>
== END 2020-09-22 10:22 | disposition home or self-care (01) ==
PROVIDERS: PCP Internal Medicine; Visit Provider Internal Medicine Hematology & Oncology
DX: D50.0 Iron deficiency anemia secondary to blood loss (chronic) (principal); Z87.19 Personal history of other diseases of the digestive system; K55.21 Angiodysplasia of colon with hemorrhage; Z79.899 Other long term (current) drug therapy
CPT/HCPCS: 36415; 82728; 82746; 83540; 83550; 85025; 99214

== ENCOUNTER 2020-10-04 06:30 | Outpatient (CLI) | payer OTHER, MEDICARE, SELFPAY ==
[2020-10-04] MEDS: ferric carboxy (IVPB) 750 MG in sodium chloride 0.9% (100 ml) 100 ML 460 MG IV (11:30)
== END 2020-10-04 06:31 | disposition home or self-care (01) ==
PROVIDERS: PCP Family Medicine; Visit Provider Nurse Practitioner
DX: D50.9 Iron deficiency anemia, unspecified (principal)
CPT/HCPCS: 96365; J1439

== ENCOUNTER → 2020-10-05 14:54 | Outpatient (BNVA) | payer OTHER, MEDICARE, SELFPAY | PROVIDERS: PCP Family Medicine; Visit Provider Urology | DX: R39.12 Poor urinary stream (principal); N40.1 Benign prostatic hyperplasia with lower urinary tract symptoms | CPT/HCPCS: 81003 ==

== ENCOUNTER 2020-10-06 08:02 | Outpatient (CLI) | payer OTHER, MEDICARE, SELFPAY ==
[2020-10-06 08:36] VITALS: BMI 36.6
--- NOTE | 2020-10-06 08:44 | ECG_ITS ---
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 Interpretive Statements NAME OF STUDY: LEXISCAN SESTAMIBI STRESS TEST INDICATION: ASHD PROCEDURE: At the baseline, the EKG revealed sinus bradycardia at a rate of 58 bpm. Incomplete right bundle branch block.. The baseline blood pressure was 167/74 mm Hg with a heart rate of 55 beats/min. Lexiscan was infused over a period of 20 seconds. A total of 0.4 milligrams of Lexiscan was infused. The stress phase was continued for a total of 5 minutes. Heart rate at the end of the stress phase was 67 with a blood pressure 167/74. The EKG at the peak infusion revealed no significant changes. Sestamibi was injected 20 seconds after the Lexiscan infusion. Blood pressure at the end of the recovery phase was 158/75 with a heart rate of 68 per minute. CONCLUSION: 1. No significant EKG changes with the LexiScan infusion 2. No LexiScan induced chest pain or cardiac arrhythmia 3. Normal blood pressure and heart rate response 4. Sestamibi/sestamibi perfusion scan pending; see separate report. Electronically Signed On 10-13-2020 7:06:21 CDT by Dane Clancy M.D. [id number]
--- NOTE | 2020-10-06 08:44 | NMCV_ITS ---
NM lucina perf SPECT r/s* [id number] Jamaal Sanchez Age: 74 Gender: M : 1945 Exam Date: 10/06/2020 08:44 Ordering Phys: Dane Clancy MD ([email or web address]) Technologist: GRISELDA Villarreal Exam Location: [facility] Indications: SHORTNESS OF BREATH STRESS TEST Please see separate stress test report in [facility] for full findings IMAGE PROTOCOL Rest/Stress 1 Lexiscan Day Radiopharmaceutical Dose (mCi) Administration Site Administered by Rest: Tc-99m 10.9 IV - left GRISELDA De Leon Sestamiozzy antecubital Stress:Tc-99m 32.4 IV GRISELDA Villarreal Sestamiozzy Rest: 06-Oct-2020 60 Discovery 630 Stress: 06-Oct-2020 30 Discovery 630 0.4mg Lexiscan. Images obtained in supine and prone position. SPECT RESULTS Technical Quality: Excellent Raw Data Analysis: Normal Image Corrections: No attenuation or motion correction applied Summed Stress Score: 0 Summed Rest Score: 2 Summed Difference Score: 0 PERFUSION FINDINGS A small area of decreased tracer uptake was noted in the inferior wall region, with no significant reversibility. FUNCTIONAL RESULTS (calculated via Gated SPECT) Stress Image LV EF (%): 74 Stress EDV (mL):136 TID: 0.87 Stress ESV (mL):35 FUNCTIONAL FINDINGS: Segmental wall motion analysis revealing no gross wall motion normalities. IMPRESSIONS 1. Myocardial perfusion imaging revealing small area of persistent decreased tracer uptake in the inferior wall region, suggestive of myocardial scarring versus attenuation artifact. 2. Normal LV ejection fraction 74%. 3. LV wall motion analysis revealing no gross wall motion normalities. 4. Normal LV volume No significant coronary ischemia, based on the above findings. Dr Dane Clancy MD [facility] (Electronically Signed) Final Date: 07 October 2020 08:54 S
[2020-10-06] MEDS: regadenoson 0.4 Mg/5 ml Syringe IVP (11:09)
[2020-10-06 11:23] VITALS: BP 158/75; PULSE 66
== END 2020-10-06 08:03 | disposition home or self-care (01) ==
PROVIDERS: PCP Family Medicine; Visit Provider Internal Medicine Cardiovascular Disease
DX: I25.10 Atherosclerotic heart disease of native coronary artery without angina pectoris (principal); R06.02 Shortness of breath
CPT/HCPCS: 78452; 93017; A9500; J2785

== ENCOUNTER 2020-10-11 06:14 | Outpatient (CLI) | payer OTHER, MEDICARE, SELFPAY ==
[2020-10-11] MEDS: ferric carboxy (IVPB) 750 MG in sodium chloride 0.9% (100 ml) 100 ML 460 MG IV (11:00)
== END 2020-10-11 06:15 | disposition home or self-care (01) ==
LOC: ONCMED 06:16
PROVIDERS: PCP Family Medicine; Visit Provider Nurse Practitioner
DX: D50.9 Iron deficiency anemia, unspecified (principal)
CPT/HCPCS: 96365; J1439

== ENCOUNTER 2020-11-02 10:05 | Outpatient (CLI) | payer OTHER, MEDICARE, SELFPAY ==
[2020-11-02 10:26] LABS: Basophils # 0.1 10^3/uL (0.0-0.1); Eosinophils # 0.1 10^3/uL (0.0-0.8); Eosinophils % 0.6 %; Hematocrit 38.2 % (42.0-52.0); Hemoglobin 11.4 g/dL (11.7-16.6); Lymphocytes # 1.1 10^3/uL (0.8-4.8); Lymphocytes % 11.6 %; Mean Corpuscular HGB Conc 29.8 g/dL (30.0-36.0); Mean Corpuscular Hemoglobin 26.4 pg (28.0-34.0); Mean Corpuscular Volume 88.4 fL (80-94); Mean Platelet Volume 9.8 fL (7.4-10.4); Monocytes # 0.6 10^3/uL (0.2-0.9); Monocytes % 6.5 %; Neutrophils # 7.54 10^3/uL (1.8-7.7); Nucleated Red Blood Cells % 0 %; Platelet Count 195 10^3/cmm (130-400); Red Blood Count 4.32 10^6/uL (4.1-5.3); Red Cell Distribution Width 18.8 % (12.1-15.1); White Blood Count 9.4 10^3/uL (4.0-10.0)
[2020-11-02 10:43] LABS: Ferritin 153 ng/mL (30-400); Iron 48 ug/dL (59-158); Total Iron Binding Capacity 282 mcg/dl; Unsaturated Iron Binding 234 ug/dL (112-347)
--- NOTE | 2020-11-02 13:25 | ONC FU_ITS ---
Dr. Hoang follow up note Patient: Jamaal Sanchez Unit #: [id number]: 1945 Dicatated By: Tomas Hoang M.D.Date of Visit:Nov 02, 2020 Onc Med Follow-up/Prog Note History of Present Illness: Mr. Sanchez is a 75-year-old gentleman with history of iron deficiency anemia due to chronic GI blood loss. 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 As per patient in 2016, he started feeling weak and tired and found to have severe anemia. His hemoglobin was around 5 g. He was given 2 units of packed RBCs and underwent EGD and colonoscopy. The EGD showed some blood in his stomach and he was diagnosed with gave syndrome. He was referred to [facility] in [place], as per patient acetone button paster there told him he didn't have gave syndrome. He also underwent capsule endoscopy which showed some bleeders. He underwent cauterization of AVMs ???2. Mr. Sanchez was found to be anemic and iron deficient on his 09/15/2018 labs. His hemoglobin at that time was 10.2 and his iron saturation was 7.1% and ferritin was 22 and iron level was 22. Received 2 doses of IV replacement iron with Injectafer first on 09/24/2018 and again on 10/01/2018. and on 11/12/[address] Zaidi on 12/09/2017 and underwent double balloon endoscopy for persistent AVMs/questionable polyp, as per patient those bleeders were out of reach from upper end and a colonoscopy to evaluate lower part of small bowel and capsule endoscopy was Scheduled for 02/05/2019. Mr. Sanchez presented in December 2018 with recurrent iron deficiency anemia and was given 2 doses of Injectafer. The first one was on 02/16/2019 and the second was 02/23/2019. His Hgb on 02/16/2019 was 10.5. He came in March 2019 for post Injectafer followup. He presented weak, extremely short of breath with just minimal exertion and states he is having chest pain and his head is pounding . He states he has chest discomfort with just walking across the room. He does have a history of CAD and an several stents. He was just completely exhausted and feels that he probably needs some blood. He received 2 more doses on Injectafer on 03/30/2019 and 04/07/2019. He states overall he feels really good. He has not noted any blood in his stools. He states he has a good appetite. patient said his acetone button paster in [place] has referred him to acetone button paster in [place] as bleeders in his small bowel were out of reach. And he was seen by Dr. Ezra Craft, interventional acetone button paster for small bowel AVM cauterization on December 08, 2019 as per patient he had scheduled him for MRI scan of the abdomen to look for polyps or other pathology and small bowel, As per patient it was done on January 07, 2020 And showed extensive colonic diverticulosis without evidence of acute diverticulitis. No other findings to explain patient's symptoms. 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 No fever chills, no nausea or vomiting, no shortness of breath at rest no palpitation, no chest pain, tolerating parenteral iron well, denies any hematochezia but off and on dark stools Medications: Aspirin 1 Tablet (of 81 mg) Oral daily, Atorvastatin Calcium 0.5 Tablet (of 80 mg) Oral daily, B-12 1 Tablet (of 1000 mcg) Oral daily, Docusate Sodium 1 Capsule (of 100 mg) Tablet Oral b.i.d., Flomax 1 Tablet (of 0.4 mg) Capsule Oral b.i.d., Gabapentin 1 Capsule (of 300 mg) Oral t.i.d., hydroCHLOROthiazide 1 Tablet (of 25 mg) Oral daily, HYDROcodone-Acetaminophen 1 Tablet (of 10-325 mg) Oral four times a day, Lisinopril 1 Tablet (of 2.5 mg) Oral daily on Every Other Day, Mirtazapine 1 Tablet (of 45 mg) Oral daily, Pantoprazole Sodium 1 Tablet (of 40 mg) Tablet, enteric coated Oral daily, Sertraline HCl 0.5 Tablet (of 100 mg) Oral daily Allergies: Haldol Review of Systems: Review of Systems is not available for this patient. Vital Signs: Vitals are not available for this patient. Performance Status: 0 - Fully active, able to carry on all predisease activities without restrictions. (ECOG) Physical Examination: ENMT - No mouth sores, no thrush, no jaundice, Respiratory - Lungs are clear to auscultation, Cardiovascular - Regular rate and rhythm of heart, Abdomen - Soft, bowel sounds present, Extremities - No visible edema. Lab/Imaging: Most recent lab results are not available for this patient. 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 AVMs Status post cauterization ???2 since 2016. Intolerance to oral iron. IV iron replacement with Injectafer on 09/24/2018 and 10/01/2018.Then continued off and on in February 2020 done weekly x4 in May 2020 Mr. Sanchez presented in March 2019 for follow-up post Injectafer. He continued to be iron deficient and anemic. His hemoglobin had dropped from 10.5 on February 16 2019-9.2 on 03/30/2019. He is following with Dr. Zaidi in [place] and states that they have referred him to [place]. He is awaiting for an appointment there. He was extremely symptomatic with his anemia in March with significant shortness of breath, chest pain and palpitations head and heart pounding and fatigue. He did have 1 unit of blood and received 2 doses of Injectafer in March 2019. He had had Injectafer on 02/17/2020 and 02/24/2020 prior to his March dosing. He has had Injectafer on , 07/17/2019, 08/25/2019, 09/01/2019 and 10/06/2019. His last dose of Injectafer was on 10/13/2019. His Hgb has remained in the 9.8 to 11.9 range since June 08, 2019. His iron levels have ranged from 25-42 since May, despite all the Injectafer infusions. His iron saturations have ranged from 7.2-13.8 since June 08, 2019 as well. His ferritin levels have been from 27 to a high of 91. He scheduled to see the GI specialist at [place] in may Plan: . Discussed with patient regarding his labs white blood count 9.4 hemoglobin 11.4 g compared to 10.9 g on September 22, 2020, hematocrit 38.2 platelets 195,000 iron studies shows iron saturation 17% compared to 11.2% prior to Injectafer infusion, ferritin 153, iron 48 Clinically, patient is doing reasonably well, his follow-up CBC shows improvement in his iron deficiency anemia and iron stores but still shows deficiency, at this point we will proceed with Injectafer 750 mg IV weekly x2 As per patient, he is scheduled for surgical evaluation for possible resection of involved small bowel segment causing chronic GI bleeding due to AVMs Return to clinic 2 weeks after surgical intervention with CBC and iron studies Signed By: Tomas Hoang M.D. <<Signature on File>>
[2020-11-02] MEDS: ferric carboxy (IVPB) 750 MG in sodium chloride 0.9% (100 ml) 100 ML 460 MG IV (14:35)
== END 2020-11-02 10:06 | disposition home or self-care (01) ==
LOC: ONCMED 10:08
PROVIDERS: PCP Family Medicine; Visit Provider Internal Medicine Hematology & Oncology
DX: D50.0 Iron deficiency anemia secondary to blood loss (chronic) (principal); K31.819 Angiodysplasia of stomach and duodenum without bleeding; Z79.899 Other long term (current) drug therapy
CPT/HCPCS: 36415; 82728; 83540; 83550; 85025; 96365; 99215; J1439

== ENCOUNTER 2020-11-09 06:22 | Outpatient (CLI) | payer OTHER, MEDICARE, SELFPAY ==
[2020-11-09] MEDS: ferric carboxy (IVPB) 750 MG in sodium chloride 0.9% (100 ml) 100 ML 460 MG IV (14:10)
== END 2020-11-09 06:23 | disposition home or self-care (01) ==
LOC: ONCMED 06:24
PROVIDERS: PCP Family Medicine; Visit Provider Nurse Practitioner
DX: D50.9 Iron deficiency anemia, unspecified (principal); Z79.899 Other long term (current) drug therapy
CPT/HCPCS: 96365; J1439

== ENCOUNTER 2020-12-07 11:11 | Outpatient (CLI) | payer OTHER, MEDICARE, SELFPAY ==
[2020-12-07 13:45] LABS: Basophils # 0.1 10^3/uL (0.0-0.1); Basophils % 0.8 %; Eosinophils # 0.2 10^3/uL (0.0-0.8); Eosinophils % 1.8 %; Hematocrit 39.9 % (42.0-52.0); Hemoglobin 12.6 g/dL (11.7-16.6); Lymphocytes # 1.1 10^3/uL (0.8-4.8); Lymphocytes % 11.3 %; Mean Corpuscular HGB Conc 31.6 g/dL (30.0-36.0); Mean Corpuscular Hemoglobin 28.3 pg (28.0-34.0); Mean Corpuscular Volume 89.7 fl (80-94); Mean Platelet Volume 9.7 fL (7.4-10.4); Monocytes # 0.8 10^3/uL (0.2-0.9); Neutrophils # 7.46 10^3/uL (1.8-7.7); Neutrophils % 77.2 %; Nucleated Red Blood Cells % 0 %; Platelet Count 228 10^3/cmm (130-400); Red Blood Count 4.45 10^6/uL (4.1-5.3); Red Cell Distribution Width 16.5 % (12.1-15.1); White Blood Count 9.7 10^3/uL (4.0-10.0)
[2020-12-07 14:20] LABS: Ferritin 373 ng/mL (30-400); Iron 46 ug/dL (59-158); Total Iron Binding Capacity 242 mcg/dl; Unsaturated Iron Binding 196 ug/dL (112-347)
--- NOTE | 2020-12-08 08:15 | ONC FU_ITS ---
Dr. Hoang follow up note Patient: Jamaal Sanchez Unit #: [id number]: 1945 Dicatated By: Tomas Hoang M.D.Date of Visit:Dec 07, 2020 Onc Med Follow-up/Prog Note History of Present Illness: Mr. Sanchez is a 75-year-old gentleman with history of iron deficiency anemia due to chronic GI blood loss. 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 As per patient in 2016, he started feeling weak and tired and found to have severe anemia. His hemoglobin was around 5 g. He was given 2 units of packed RBCs and underwent EGD and colonoscopy. The EGD showed some blood in his stomach and he was diagnosed with gave syndrome. He was referred to [facility] in [place], as per patient sales agent trading stamps there told him he didn't have gave syndrome. He also underwent capsule endoscopy which showed some bleeders. He underwent cauterization of AVMs ???2. Mr. Sanchez was found to be anemic and iron deficient on his 09/15/2018 labs. His hemoglobin at that time was 10.2 and his iron saturation was 7.1% and ferritin was 22 and iron level was 22. Received 2 doses of IV replacement iron with Injectafer first on 09/24/2018 and again on 10/01/2018. and on 11/12/[address] Zaidi on 12/09/2017 and underwent double balloon endoscopy for persistent AVMs/questionable polyp, as per patient those bleeders were out of reach from upper end and a colonoscopy to evaluate lower part of small bowel and capsule endoscopy was Scheduled for 02/05/2019. Mr. Snachez presented in December 2018 with recurrent iron deficiency anemia and was given 2 doses of Injectafer. The first one was on 02/16/2019 and the second was 02/23/2019. His Hgb on 02/16/2019 was 10.5. He came in March 2019 for post Injectafer followup. He presented weak, extremely short of breath with just minimal exertion and states he is having chest pain and his head is pounding . He states he has chest discomfort with just walking across the room. He does have a history of CAD and an several stents. He was just completely exhausted and feels that he probably needs some blood. He received 2 more doses on Injectafer on 03/30/2019 and 04/07/2019. He states overall he feels really good. He has not noted any blood in his stools. He states he has a good appetite. patient said his sales agent trading stamps in [place] has referred him to sales agent trading stamps in [place] as bleeders in his small bowel were out of reach. And he was seen by Dr. Ezra Craft, interventional sales agent trading stamps for small bowel AVM cauterization on December 08, 2019 as per patient he had scheduled him for MRI scan of the abdomen to look for polyps or other pathology and small bowel, As per patient it was done on January 07, 2020 And showed extensive colonic diverticulosis without evidence of acute diverticulitis. No other findings to explain patient's symptoms. Of note, this exam is suboptimal for detection of small polyps follow-up subtle angiodysplasia on parenteral Injectafer since December 18, 2019 initially he was given every 2 weeks but since March 07, 2020 he received weekly x4 and last dose was given on March 28, 2020 Again repeated on April 25 and May 02, 2020 And then continued on a weekly basis x2 in Maynd then on August 24, 2020 Came for follow-up, denies any specific complaints, no fever chills, no nausea or vomiting, no diarrhea or constipation, patient underwent partial small bowel resection for persistent AVMs on November 30, 2020 at [facility]. Tolerated procedure well, now recovering from surgery. Denies any melena or hematochezia denies any hemoptysis or hematemesis denies any fever or chills Medications: Aspirin 1 Tablet (of 81 mg) Oral daily, Atorvastatin Calcium 0.5 Tablet (of 80 mg) Oral daily, B-12 1 Tablet (of 1000 mcg) Oral daily, Docusate Sodium 1 Capsule (of 100 mg) Tablet Oral b.i.d., Flomax 1 Tablet (of 0.4 mg) Capsule Oral b.i.d., Gabapentin 1 Capsule (of 300 mg) Oral t.i.d., hydroCHLOROthiazide 1 Tablet (of 25 mg) Oral daily, HYDROcodone-Acetaminophen 1 Tablet (of 10-325 mg) Oral four times a day, Mirtazapine 1 Tablet (of 45 mg) Oral daily, Pantoprazole Sodium 1 Tablet (of 40 mg) Tablet, enteric coated Oral daily, Sertraline HCl 0.5 Tablet (of 100 mg) Oral daily Allergies: Haldol Review of Systems: Review of Systems is not available for this patient. Vital Signs: Performed on Dec 07, 2020 15:03 Height - 74.00 in Weight - 278.6 lbs (LOW) BSA - 2.50 sq.m BMI - 35.77 (HIGH) Temperature - 98.2 F (LOW) Pulse - 79 /min Respiration - 18 /min BP - 152/76 mm(hg) (HIGH) O2 Sat - 93 % (LOW) Pain - 9 Fatigue - 10 Performance Status: 0 - Fully active, able to carry on all predisease activities without restrictions. (ECOG) Physical Examination: ENMT - No mouth sores, no thrush, no jaundice, no cervical lymphadenopathy, Respiratory - Lungs are clear to auscultation, Cardiovascular - Regular rate and rhythm of heart without murmurs, gallops or rubs, Abdomen - Soft, bowel sounds present status post recent surgery for small bowel AVM, Extremities - No visible edema. Lab/Imaging: Most recent lab results are not available for this patient. 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 AVMs Status post cauterization ???2 since 2016. Intolerance to oral iron. IV iron replacement with Injectafer on 09/24/2018 and 10/01/2018.Then continued off and on in February 2020 done weekly x4 in May 2020 Mr. Sanchez presented in March 2019 for follow-up post Injectafer. He continued to be iron deficient and anemic. His hemoglobin had dropped from 10.5 on February 16 2019-9.2 on 03/30/2019. He is following with Dr. Zaidi in [place] and states that they have referred him to [facility]. He is awaiting for an appointment there. He was extremely symptomatic with his anemia in March with significant shortness of breath, chest pain and palpitations head and heart pounding and fatigue. He did have 1 unit of blood and received 2 doses of Injectafer in March 2019. He had had Injectafer on 02/17/2020 and 02/24/2020 prior to his March dosing. He has had Injectafer on , 07/17/2019, 08/25/2019, 09/01/2019 and 10/06/2019. His last dose of Injectafer was on 10/13/2019. His Hgb has remained in the 9.8 to 11.9 range since June 08, 2019. His iron levels have ranged from 25-42 since May, despite all the Injectafer infusions. His iron saturations have ranged from 7.2-13.8 since June 08, 2019 as well. His ferritin levels have been from 27 to a high of 91. He scheduled to see the GI specialist at [facility] in may Plan: Discussed with patient regarding his labs white blood count 9.7 hemoglobin 12.6 hematocrit 39.9 platelets 228,000 iron studies shows iron saturation 19% ferritin 373 iron 46 Clinically, patient is doing well with no new signs symptom, his follow-up CBC shows hemoglobin normal range, patient recently underwent partial small bowel resection for persistent, bleeding AVMs, now recovering well from the surgery., His iron stores on the lower side of normal. Considering his body weight patient has underlying sleep apnea, normalizing iron stores and absence of active bleeding, may cause reactive polycythemia so at this point his hemoglobin in normal range, iron stores with mild deficiency, will monitor him, return to clinic in 1 month with CBC and iron stores, and continue to monitor as long as hemoglobin is in the normal range and no significant drop in his iron stores. Signed By: Tomas Hoang M.D. <<Signature on File>>
== END 2020-12-07 11:12 | disposition home or self-care (01) ==
PROVIDERS: PCP Family Medicine; Visit Provider Internal Medicine Hematology & Oncology
DX: D50.0 Iron deficiency anemia secondary to blood loss (chronic) (principal); K31.811 Angiodysplasia of stomach and duodenum with bleeding; Z79.82 Long term (current) use of aspirin; Z79.899 Other long term (current) drug therapy
CPT/HCPCS: 82728; 83540; 83550; 85025; 96365; 99215

== ENCOUNTER 2020-12-09 14:55 | Emergency (ER) | payer OTHER, MEDICARE, SELFPAY ==
[2020-12-09] VITALS (48 sets, daily range): BP systolic 130–162; BP diastolic 59–88; PULSE 61–82; RESP 4–25; TEMP 36.4; O2SAT 88–97; BMI 35.2
--- NOTE | 2020-12-09 15:36 | ECG_ITS ---
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 Measurements Intervals [place] Rate: 70 P: -24 DE: 159 QRS: 31 QRSD: 96 T: 82 QT: 396 QTc: 427 Interpretive Statements SINUS RHYTHM WITH OCCASIONAL VENTRICULAR PREMATURE COMPLEXES POSSIBLE RIGHT VENTRICULAR CONDUCTION DELAY [RSR (QR) IN V1/V2] NONSPECIFIC T-WAVE ABNORMALITY Compared to ECG 08/29/2018 14:55:01 Ventricular premature complex(es) now present T-wave abnormality now present Electronically Signed On 12-09-2020 18:23:52 CDT by Shayy Hoang M.D. [id number]
--- NOTE | 2020-12-09 15:42 | W.ED.WEAKNES ---
HPI - Weakness General: Chief complaint: Weakness Stated complaint: WEAK, BROWN VOMIT Time Seen by Provider: 12/09/20 15:35 History of Present Illness: HPI Narrative: Patient is a 75-year-old male with a past medical history of COPD hypertension coronary disease small bowel AVM. He is status post small bowel resection with reanastomosis on the eighth of this month at [facility]. He is here with complaints of weakness and vomiting. Also shortness of breath. He stated last night he had episode of vomiting. Stated it was brown material. Since then he has not been able to eat or drink any fluids. Has had mild generalized abdominal pain. Did have a bowel movement yesterday and a small one today. Of note he is required some oxygen since he has been here to keep him at appropriate saturations. Was placed on 2 L of oxygen as he was 90% triage Denies fevers chills c chest pain diarrhea constipation altered mental status rash. Review of Systems General: Reports: 10 or more systems reviewed and unremarkable except in HPI and below PFSH ED PFSH: Medical History Anemia Benign prostatic hyperplasia with lower urinary tract symptoms Bilateral carotid artery stenosis 12/2018 Minimal plaques at the bifurcation and internal carotid arteries bilaterally. No significant stenosis, based on the above findings. CAD (coronary artery disease) COPD (chronic obstructive pulmonary disease) GERD (gastroesophageal reflux disease) H/O: GI bleed Hypertension Mixed hyperlipidemia Osteoarthritis Presence of arterial stent PTSD (post-traumatic stress disorder) Family History Family/Other Diabetes CAD (coronary artery disease) Cancer Father , at age 98 CHF (congestive heart failure) CAD (coronary artery disease) Mother , at age 80 Stroke Brother Diabetes Sister Diabetes Denies family history of Clotting disorder Dementia Chronic kidney disease (CKD) Suicide Anesthesia complication Bleeding disorder Lung disease Social History Alcohol intake: never Marital status: Current occupational status: retired History of recent travel: No Physical Exam Const: COMMON NORMALS: no acute distress, average body habitus, patient oriented x3, no limitations, healthy appearing, alert and well nourished HENMT: COMMON NORMALS: normocephalic, atraumatic, hearing grossly normal bilaterally, external ears normal, EAC's normal, TM's normal bilaterally, Normal external nose present, Normal nasal mucous membranes and turbinates present, moist oral mucous membranes, oropharynx normal, dentition normal and gingiva normal HEAD & SCALP: normocephalic and atraumatic NOSE: Normal external nose present and Normal nasal mucous membranes and turbinates present EXTERNAL EAR: Yes external ears normal EXTERNAL AUDITORY CANAL: EAC's normal TYMPANIC MEMBRANE: TM's normal bilaterally Eye: COMMON NORMALS: Equal, round and reactive pupils present and EOMs intact bilaterally PUPIL: Yes Equal, round and reactive pupils present Neck/C-Spine: COMMON NORMALS: no JVD Resp: COMMON NORMALS: normal respiratory effort, No retractions, No use of accessory muscles and clear to auscultation bilaterally AUSCULTATION: clear to auscultation bilaterally Cardio: COMMON NORMALS: no JVD, regular rate, regular rhythm, S1 normal heart sound present, S2 normal heart sound present, No gallops present (Cardio), No clicks present (Cardio), No murmurs present (Cardio), No rub (Cardio) and Peripheral pulses 2+ throughout RATE: regular rate RHYTHM: regular rhythm HEART SOUNDS: S1 normal heart sound present and S2 normal heart sound present PERIPHERAL PULSES: Peripheral pulses 2+ throughout GI: INSPECTION: Yes abdominal wall ecchymosis, No Abdominal wall edema, Yes abdominal distension, No central obesity, Yes scar (Surgical scar clean dry and intact), No visible herniation and Yes other AUSCULTATION: Yes normoactive bowel sounds and Yes High-pitched bowel sounds present PALPATION: Yes Tenderness to palpation present (GI), No Guarding due to palpation present (GI) and No Rigid due to palpation PERCUSSION: normal to percussion Extremity: COMMON NORMALS: normal to inspection, full ROM and capillary refill normal Neuro: COMMON NORMALS: patient oriented x3 SENSORIUM/ORIENTATION: Yes alert Psych: COMMON NORMALS: mental status grossly normal, Normal thought process present, cooperative, normal affect, speech normal, activity/motor behavior normal, denies hallucinations, denies homicidal ideation and denies suicidal ideation SPEECH: Yes normal speech THOUGHT PROCESS: Normal thought process present Course ED course: Patient has a small bowel obstruction high-grade close to the anastomosis. Will place an NG tube per surgery place him HOWELL start him on lactated Ringer's. Dr. Durant has accepted and will transfer him by air. Patient is currently stable on requiring small amount of oxygen vital signs are normal he is stable to a stay in the floor for now Vital Signs: Vital signs: Vital Signs Temperature 97.5 F L 12/09/20 15:04 Pulse Rate 73 12/09/20 18:15 Respiratory Rate 18 12/09/20 18:15 Blood Pressure 135/62 12/09/20 18:15 Pulse Oximetry 94 12/09/20 18:15 MDM - Weakness MDM Narrative: Medical decision making narrative: Patient is a 75-year-old male status post bowel resection with nausea vomiting and hypoxia. [place] includes postoperative complication bowel obstruction failure reanastomosis abscess pneumonia pulmonary embolism Patient's Wells score is 1.5. This is based upon his recent surgery. Do not think that this is PE well score puts him at [place]annon low risk. We will get a CT abdomen pelvis is as well as chest to look for any post surgical issues or pneumonia causing his increase in oxygen requirement. He states he uses a CPAP at home and is laying flat so his pickwickian body habitus may have something to do with him needing some oxygen while he is here. Does not have any fever vital signs are normal other than nodding some oxygen will get basic labs on him EKG and troponin Lab Data: Labs: Lab Results 12/09/20 12/09/20 12/09/20 Range/Units 15:30 15:30 15:30 WBC 14.6 H (4.0-10.0) 10^3/ uL RBC 4.90 (4.1-5.3) 10^6/u L Hgb 13.6 (11.7-16.6) g/dL Hct 43.2 (42.0-52.0) % MCV 88.2 (80-94) fl MCH 27.8 L (28.0-34.0) pg MCHC 31.5 (30.0-36.0) g/dL RDW 16.3 H (12.1-15.1) % Plt Count 250 (130-400) 10^3/c mm MPV 9.6 (7.4-10.4) fL Neut % (Auto) 89.6 % Lymph % (Auto) 3.4 % [place] % (Auto) 6.2 % Eos % (Auto) 0.3 % Baso % (Auto) 0.2 % Neut # (Auto) 13.04 H (1.8-7.7) 10^3/u L Lymph # (Auto) 0.5 L (0.8-4.8) 10^3/u L [place] # (Auto) 0.9 (0.2-0.9) 10^3/u L Eos # (Auto) 0.1 (0.0-0.8) 10^3/u L Baso # (Auto) 0.0 (0.0-0.1) 10^3/u L Nucleated RBC % (a uto) 0 % Nucleated RBCs # 0.0 /100WBC Sodium 142 (136-145) mmol/L Potassium 3.9 (3.5-5.1) mmol/L Chloride 99 (98-107) mmol/L Carbon Dioxide 29 (22-29) mmol/L Anion Gap 17.9 (5-19) BUN 23 (8-23) mg/dL Creatinine 1.0 (0.7-1.2) mg/dL GFR Calculation Not Reportable Glucose 173 H (65-115) mg/dL Calculated Osmolal ity 302 H (285-295) mOsm/k g Lactate Cancelled Calcium 9.3 (8.5-10.5) mg/dL Magnesium 2.4 H (1.7-2.3) mg/dL Total Bilirubin 0.5 (0.15-1.2) mg/dL AST 16 (0-40) U/L ALT 17 (0-41) U/L Alkaline Phosphata se 160 H (40-130) IU/L Troponin T Baselin e (0-15) ng/L Troponin T 120 Min [place] (0-15) ng/L Total Protein 6.9 (6.6-8.7) g/dL Albumin 4.2 (3.5-5.2) g/dL Globulin 2.7 (1.3-4.6) g/dL 12/09/20 12/09/20 12/09/20 Range/Units 15:30 16:28 17:23 WBC (4.0-10.0) 10^3/ uL RBC (4.1-5.3) 10^6/u L Hgb (11.7-16.6) g/dL Hct (42.0-52.0) % MCV (80-94) fl MCH (28.0-34.0) pg MCHC (30.0-36.0) g/dL RDW (12.1-15.1) % Plt Count (130-400) 10^3/c mm MPV (7.4-10.4) fL Neut % (Auto) % Lymph % (Auto) % [place] % (Auto) % Eos % (Auto) % Baso % (Auto) % Neut # (Auto) (1.8-7.7) 10^3/u L Lymph # (Auto) (0.8-4.8) 10^3/u L [place] # (Auto) (0.2-0.9) 10^3/u L Eos # (Auto) (0.0-0.8) 10^3/u L Baso # (Auto) (0.0-0.1) 10^3/u L Nucleated RBC % (a uto) % Nucleated RBCs # /100WBC Sodium (136-145) mmol/L Potassium (3.5-5.1) mmol/L Chloride (98-107) mmol/L Carbon Dioxide (22-29) mmol/L Anion Gap (5-19) BUN (8-23) mg/dL Creatinine (0.7-1.2) mg/dL GFR Calculation Glucose (65-115) mg/dL Calculated Osmolal ity (285-295) mOsm/k g Lactate 1.6 1.6 Calcium (8.5-10.5) mg/dL Magnesium (1.7-2.3) mg/dL Total Bilirubin (0.15-1.2) mg/dL AST (0-40) U/L ALT (0-41) U/L Alkaline Phosphata se (40-130) IU/L Troponin T Baselin e 13 (0-15) ng/L Troponin T 120 Min [place] (0-15) ng/L Total Protein (6.6-8.7) g/dL Albumin (3.5-5.2) g/dL Globulin (1.3-4.6) g/dL 12/09/20 Range/Units 17:51 WBC (4.0-10.0) 10^3/ uL RBC (4.1-5.3) 10^6/u L Hgb (11.7-16.6) g/dL Hct (42.0-52.0) % MCV (80-94) fl MCH (28.0-34.0) pg MCHC (30.0-36.0) g/dL RDW (12.1-15.1) % Plt Count (130-400) 10^3/c mm MPV (7.4-10.4) fL Neut % (Auto) % Lymph % (Auto) % [place] % (Auto) % Eos % (Auto) % Baso % (Auto) % Neut # (Auto) (1.8-7.7) 10^3/u L Lymph # (Auto) (0.8-4.8) 10^3/u L [place] # (Auto) (0.2-0.9) 10^3/u L Eos # (Auto) (0.0-0.8) 10^3/u L Baso # (Auto) (0.0-0.1) 10^3/u L Nucleated RBC % (a uto) % Nucleated RBCs # /100WBC Sodium (136-145) mmol/L Potassium (3.5-5.1) mmol/L Chloride (98-107) mmol/L Carbon Dioxide (22-29) mmol/L Anion Gap (5-19) BUN (8-23) mg/dL Creatinine (0.7-1.2) mg/dL GFR Calculation Glucose (65-115) mg/dL Calculated Osmolal ity (285-295) mOsm/k g Lactate Calcium (8.5-10.5) mg/dL Magnesium (1.7-2.3) mg/dL Total Bilirubin (0.15-1.2) mg/dL AST (0-40) U/L ALT (0-41) U/L Alkaline Phosphata se (40-130) IU/L Troponin T Baselin e (0-15) ng/L Troponin T 120 Min [place] 12.98 (0-15) ng/L Total Protein (6.6-8.7) g/dL Albumin (3.5-5.2) g/dL Globulin (1.3-4.6) g/dL Discharge Plan Discharge Patient Disposition: Xfer Short-Term Hosp Clinical Impression: SBO (small bowel obstruction) Condition: Stable Referrals: Shawna England MD [Primary Care Provider] - Coding Level of Care Code ED Osteopathic Medicine Teacher for Chg Fwd Exam Comprehensive
[2020-12-09 15:44] LABS: Basophils % 0.2 %; Eosinophils # 0.1 10^3/uL (0.0-0.8); Eosinophils % 0.3 %; Hematocrit 43.2 % (42.0-52.0); Hemoglobin 13.6 g/dL (11.7-16.6); Lymphocytes # 0.5 10^3/uL (0.8-4.8); Lymphocytes % 3.4 %; Mean Corpuscular HGB Conc 31.5 g/dL (30.0-36.0); Mean Corpuscular Hemoglobin 27.8 pg (28.0-34.0); Mean Corpuscular Volume 88.2 fl (80-94); Mean Platelet Volume 9.6 fL (7.4-10.4); Monocytes # 0.9 10^3/uL (0.2-0.9); Monocytes % 6.2 %; Neutrophils # 13.04 10^3/uL (1.8-7.7); Neutrophils % 89.6 %; Nucleated Red Blood Cells % 0 %; Platelet Count 250 10^3/cmm (130-400); Red Cell Distribution Width 16.3 % (12.1-15.1); White Blood Count 14.6 10^3/uL (4.0-10.0)
--- NOTE | 2020-12-09 15:48 | CTR_ITS ---
PROCEDURE INFORMATION: Exam: CT Chest With Contrast; Diagnostic Exam date and time: 12/09/2020 3:48 PM Age: 75 years old Clinical indication: Nausea and vomiting; Shortness of breath; Prior surgery; Surgery date: 3-7 days post-operative; Surgery type: Sb resection 11/30 w reanastamosis 12/07; Patient HX: C/O n/v weakness and SOB; Additional info: Small bowel resection/reanastamosis 12/07 - vomiting, o2 req, PT unable to tolerate oral contrast TECHNIQUE: Imaging protocol: Diagnostic computed tomography of the chest with contrast. Total images: 571 Radiation optimization: All CT scans at this facility use at least one of these dose optimization techniques: automated exposure control; mA and/or kV adjustment per patient size (includes targeted exams where dose is matched to clinical indication); or iterative reconstruction. Contrast material: OMNI 300; Contrast volume: 95 ml; Contrast route: INTRAVENOUS (IV); COMPARISON: CR Chest 1 [place] [id number] 08/29/2018 3:31 PM RADIATION DOSE METRICS: Total DLP (mGy-cm): 2738.71 FINDINGS: Thyroid: Small left thyroid nodules all measuring under 5 mm. No follow-up recommended. Lungs: No visible active interstitial or alveolar airspace disease. Pleural spaces: No pneumothorax. No pleural effusion. Heart: No cardiomegaly. No visible pericardial effusion. Moderately advanced coronary artery disease. Mediastinal space: Small simple fluid collection superoposterior mediastinum measuring approximately 46 mm x 28 mm x 29 mm probable enteric cyst. Doubt of clinical significance. Aorta: The thoracic aorta is nonaneurysmal. No visible intimal flap or dissection. Mild arteriosclerosis. Lymph nodes: Few benign-appearing mediastinal hilar lymph nodes. Calcified complexes of antecedent granulomatous disease. No findings raising suspicion for active mediastinal or hilar lymphadenopathy. Bones/joints: No visible active or acute osseous pathology. Old bilateral rib fractures. Mild scoliotic curvature. Degenerative disease of the mid and distal thoracic spine with spondylosis deformans. Soft tissues: Male gynecomastia. Other findings: Obesity. IMPRESSION: 1. No visible evidence of acute cardiopulmonary/cardiothoracic pathologic process. 2. Moderately advanced coronary artery disease. 3. Male gynecomastia. 4. Evidence of antecedent granulomatous disease. COMMENTS: Consistent with the [employer]'s Incidental Findings Committee white paper (J Am Ayla Radiol 2015): In patients aged 35 years and older with an incidental thyroid nodule equal to or greater than 1.[address], MRI or extrathyroidal US, further evaluation with dedicated thyroid US is recommended for patients with normal life expectancy and without comorbidities. For smaller nodules without suspicious features, no further evaluation or follow up is recommended. PROCEDURE INFORMATION: Exam: CT Abdomen And Pelvis With Contrast Exam date and time: 12/09/2020 3:48 PM Age: 75 years old Clinical indication: Nausea and vomiting; Shortness of breath; Prior surgery; Surgery date: 3-7 days post-operative; Surgery type: Sb resection 11/30 w reanastamosis 12/07; Patient HX: C/O n/v weakness and SOB; Additional info: Small bowel resection/reanastamosis 12/07 - vomiting, o2 req, PT unable to tolerate oral contrast TECHNIQUE: Imaging protocol: Computed tomography of the abdomen and pelvis with contrast. Radiation optimization: All CT scans at this facility use at least one of these dose optimization techniques: automated exposure control; mA and/or kV adjustment per patient size (includes targeted exams where dose is matched to clinical indication); or iterative reconstruction. Contrast material: OMNI 300; Contrast volume: 95 ml; Contrast route: INTRAVENOUS (IV); COMPARISON: CR Chest 1 [place] [id number] 08/29/2018 3:31 PM RADIATION DOSE METRICS: Total DLP (mGy-cm): 2738.71 FINDINGS: Liver: Hepatomegaly. No visible hepatic mass or cystic structure. Gallbladder and bile ducts: Normal. No calcified stones. No ductal dilation. Pancreas: Pancreas is unremarkable. No visible pancreatic ductal ectasia. Spleen: Spleen unremarkable. Adrenal glands: Adrenal glands unremarkable. Kidneys and ureters: No hydronephrosis or perinephric fluid. No visible nephrolithiasis. Stomach and bowel: Distended fluid-filled proximal small bowel loops with associated asynchronous air-fluid levels with concern for moderately high-grade distal small-bowel obstruction. Decompressed ileal bowel loops. Transition zone appears to be mid anterior abdomen distal jejunal bowel loop (series 3, image 57). Transition zone near the anastomotic sutures. Suspected adhesions as etiology. Moderately distended stomach. Diverticulosis coli, primarily the sigmoid colon, without visible evidence of acute diverticulitis. Appendix: The appendix is visualized and appears noninflamed. Intraperitoneal space: Tiny amount of free fluid in the pouch of Ap. Small amount of perihepatic and perisplenic ascites. Mild mesenteric edema at the operative bed site. No visible loculated fluid collection to suggest the presence of an abscess, seroma, or hematoma. No visible pneumoperitoneum. Vasculature: Portal vein patent. The abdominal aorta is nonaneurysmal. Mild arterial sclerotic disease. Lymph nodes: No visible enlarged lymph nodes. Urinary bladder: Urinary bladder unremarkable. Reproductive: Mild prostate hypertrophy. Bones/joints: No visible active or acute osseous pathology. Soft tissues: Suggestion of a recent infraumbilical laparotomy/laparoscopy site. Supraumbilical laparoscopic instrument entrance site also identified. Obesity. CT/CT chest abd pel w con* IMPRESSION: 1. Distended fluid-filled proximal small bowel loops with associated asynchronous air-fluid levels with concern for moderately high-grade distal small-bowel obstruction. 2. Transition zone appears to be mid anterior abdomen distal jejunal bowel loop (series 3, image 57). Transition zone near the anastomotic sutures. Suspected adhesions as etiology. 3. Small amount of perihepatic and perisplenic ascites with a tiny amount of free fluid the pouch of Percy. 4. Mild mesenteric edema at the operative bed site. 5. Other nonurgent, nonemergent, chronic, postoperative, and age related findings as detailed in text above. Radiation Dose CTDIVOL = (mGy): DLP = 2738.71~2738.71 (mGy-cm)
[2020-12-09] MEDS: ondansetron 2 mg/ML SDV 2 mL 4 MG IVP ×2 (15:49→21:18)
[2020-12-09] MEDS: morphine 4 mg/mL SDV 1 mL IVP ×2 (16:07→21:18)
--- NOTE | 2020-12-09 16:13 | PC.PHAR ---
pt states he takes care of his own medications-pts [facility] med [facility] has lisinopril 2.5mg daily as active pt states this has been dced pt states not taken for 3-4 months-pt states he takes gabapentin 300mg bid pts va med list has 300mg tid-pt states since he had surgery he has norco 10-325mg states he was told to take 1/2 tab bid pts [facility] med list has 1 tab po qid prn-notes are made in the pharmacy comments
[2020-12-09 16:16] LABS: Troponin(5th) Baseline 13 ng/L (0-15)
[2020-12-09 16:17] LABS: Alanine Aminotransferase 17 U/L (0-41); Albumin Level 4.2 g/dL (3.5-5.2); Alkaline Phosphatase 160 IU/L (40-130); Anion Gap 17.9 (5-19); Aspartate Amino Transferase 16 U/L (0-40); Blood Urea Nitrogen 23 mg/dL (8-23); Calcium 9.3 mg/dL (8.5-10.5); Carbon Dioxide 29 mmol/L (22-29); Chloride 99 mmol/L (98-107); Globulin 2.7 g/dL (1.3-4.6); Glucose 173 mg/dL (65-115); Magnesium 2.4 mg/dL (1.7-2.3); Osmolality Calculated 302 mOsm/kg (285-295); Potassium 3.9 mmol/L (3.5-5.1); Sodium 142 mmol/L (136-145); Total Bilirubin 0.5 mg/dL (0.15-1.2); Total Protein 6.9 g/dL (6.6-8.7)
[2020-12-09 16:51] LABS: Lactate (Lactic Acid level) 1.6 mmol/L (0.5-2.2)
[2020-12-09] MEDS: iohexol 300 mg/mL 100 mL Btl IV (17:11)
--- NOTE | 2020-12-09 17:36 | ECG_ITS ---
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 Measurements Intervals [place] Rate: 70 P: -24 ND: 159 QRS: 31 QRSD: 96 T: 82 QT: 396 QTc: 427 Interpretive Statements SINUS RHYTHM WITH OCCASIONAL VENTRICULAR PREMATURE COMPLEXES POSSIBLE RIGHT VENTRICULAR CONDUCTION DELAY [RSR (QR) IN V1/V2] NONSPECIFIC T-WAVE ABNORMALITY Compared to ECG 08/29/2018 14:55:01 Ventricular premature complex(es) now present T-wave abnormality now present Electronically Signed On 12-10-2020 8:38:58 CDT by Shayy Hoang M.D. [id number]
[2020-12-09 17:41] LABS: Lactate (Lactic Acid level) 1.6 mmol/L (0.5-2.2)
[2020-12-09 18:18] LABS: Reflex Lactate Order REFLEX LACTIC ORDERD
[2020-12-09] MEDS: lactated ringers 1,000 ML 125 ML IV (18:24)
[2020-12-09 18:29] LABS: Troponin 5 2HR 12.98 ng/L (0-15)
--- NOTE | 2020-12-09 18:32 | XRR_ITS ---
PROCEDURE INFORMATION: Exam: XR Chest Exam date and time: 12/09/2020 6:32 PM Age: 75 years old Clinical indication: Device placement; Ng tube; Additional info: Post ng TECHNIQUE: Imaging protocol: XR of the chest. Views: 1 view. Total images: 1 COMPARISON: CT chest abd pel w con* 12/09/2020 5:05 PM FINDINGS: Tubes, catheters and devices: Feeding tube tip below the diaphragm tip at the level of the body of the stomach. Lungs: No visible active interstitial or alveolar airspace disease. Calcified granulomas of antecedent disease. Pleural spaces: Unremarkable. No pleural effusion. No pneumothorax. Heart/Mediastinum: Unremarkable. No cardiomegaly. Bones/joints: Unremarkable. XR/XR chest 1V portable [id number] IMPRESSION: Feeding tube tip below the diaphragm tip at the level of the body of the stomach.
[2020-12-09 18:35] LABS: Troponin 5 2HR Delta -0.02 ABS# (0-10)
[2020-12-09 19:00] LABS: SARS Covid-2 Antigen Negative (Negative)
--- NOTE | 2020-12-09 21:36 | ECG_ITS ---
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 Measurements Intervals [place] Rate: 75 P: -29 LA: 161 QRS: 21 QRSD: 95 T: 75 QT: 375 QTc: 421 Interpretive Statements SINUS RHYTHM POSSIBLE RIGHT VENTRICULAR CONDUCTION DELAY [RSR (QR) IN V1/V2] NONSPECIFIC T-WAVE ABNORMALITY Compared to ECG 12/09/2020 15:51:45 Ventricular premature complex(es) no longer present T-wave abnormality still present Electronically Signed On 12-10-2020 8:38:41 CDT by Shayy Hoang M.D. [id number]
== END 2020-12-09 22:16 | disposition short-term general hospital (02) ==
PROVIDERS: Emergency Provider Family Medicine; PCP Family Medicine
DX: K56.609 Unspecified intestinal obstruction, unspecified as to partial versus complete obstruction (principal); I25.10 Atherosclerotic heart disease of native coronary artery without angina pectoris; J44.9 Chronic obstructive pulmonary disease, unspecified; I10 Essential (primary) hypertension; E78.2 Mixed hyperlipidemia; Z20.822 Contact with and (suspected) exposure to COVID-19
CPT/HCPCS: 36415; 71045; 71260; 74177; 80053; 83605; 83735; 84484; 85025; 87426; 93005; 96361; 96374; 96375; 96376; 99285; J2270; J2405; Q9967

== ENCOUNTER 2020-12-23 12:36 | Inpatient (IN) | payer OTHER, MEDICARE, SELFPAY ==
[2020-12-23] VITALS (7 sets, daily range): BP systolic 117–159; BP diastolic 53–73; PULSE 64–72; RESP 17–28; TEMP 36.2–36.7; O2SAT 87–95; BMI 34.0
--- NOTE | 2020-12-23 12:46 | W.ED.NAVMDI ---
HPI - Nausea/Vomiting/Diarrhea General: Chief complaint: Nausea/Vomiting/Diarrhea Stated complaint: N/V Time Seen by Provider: 12/23/20 12:46 History of Present Illness: HPI Narrative: Mr. Sanchez is a 75-year-old gentleman with history of CAD, hypertension, hyperlipidemia, and recent hospitalization with surgical resection of small bowel obstruction who presents emergency department due to nausea, vomiting, generalized malaise, shortness of breath. Symptom onset was gradual approximately 5 days ago. Since that time he has had increased intensity of symptoms. Cough is nonproductive. He does endorse increased oxygen requirement from his baseline which is rare use of oxygen at home. He has had multiple episodes of nonbloody emesis. He does have decreased stool output however he is still passing gas. He has generalized abdominal discomfort which is aching in quality. Symptoms are worse with exertion and movement. No other new specific changes in health, exacerbating, or alleviating factors identified. Review of Systems General: Reports: 10 or more systems reviewed and unremarkable except in HPI and below PFSH ED PFSH: Medical History Anemia Benign prostatic hyperplasia with lower urinary tract symptoms Bilateral carotid artery stenosis 12/2018 Minimal plaques at the bifurcation and internal carotid arteries bilaterally. No significant stenosis, based on the above findings. CAD (coronary artery disease) COPD (chronic obstructive pulmonary disease) GERD (gastroesophageal reflux disease) H/O: GI bleed Hypertension Mixed hyperlipidemia Osteoarthritis Presence of arterial stent PTSD (post-traumatic stress disorder) Family History Family/Other Diabetes CAD (coronary artery disease) Cancer Father , at age 98 CHF (congestive heart failure) CAD (coronary artery disease) Mother , at age 80 Stroke Brother Diabetes Sister Diabetes Denies family history of Clotting disorder Dementia Chronic kidney disease (CKD) Suicide Anesthesia complication Bleeding disorder Lung disease Social History Alcohol intake: never Marital status: Current occupational status: retired History of recent travel: No Physical Exam Narrative: EXAM NARRATIVE: GENERAL/CONSTITUTIONAL -moderately ill-appearing. No acute distress. Eyes - PERRL, no conjunctival injection ENMT - Atraumatic external nose and ears. Dry mucous membranes NECK - supple. trachea midline CARDIOVASCULAR - regular rate and rhythm. Peripheral pulses 2+ and equal RESPIRATORY -coarse to auscultation bilaterally. No retractions or accessory muscle use. ABDOMEN/GI - generalized tenderness to palpation. Nondistended. No tenderness to percussion or evidence of peritonitis. Surgical incisions appear well-healing, skin glue overlying. MSK - Extremities without obvious deformity or tenderness to palpation SKIN - Warm, Dry NEURO - alert and appropriately oriented. Cranial nerve II through XII intact as tested moves all extremities equally. PSYCH - Appropriate mood and affect Course ED course: - Patient was seen and evaluated by me at bedside - Patient placed on cardiac monitors, IV access obtained - Initial evaluation notable for somewhat ill appearance, otherwise exam as noted, no acute distress. -Symptom treatment ordered - Labs notable for No leukocytosis, metabolic panel near baseline. Given squamous epithelial contamination urinalysis not concerning for urinary tract infection. Covid positive. - Imaging notable for no acute postsurgical complication appreciated on CT abdomen pelvis, chest x-ray with likely Covid pneumonia. - Upon serial reexamination after treatment the patient was mildly improved - Based on patient history, evaluation, labs, and imaging as interpreted the most likely cause of the patient's condition is Covid pneumonia with increased oxygen requirement and the patient with significant recent comorbidities. - The results of ED evaluation were discussed with the patient including plan for admission due to requirement for level of care not available if discharged to prevent significant worsening/deterioration. -Hospitalist service contacted and agreed admit the patient. - Patient was admitted without further deterioration or significant events. Vital Signs: Vital signs: Vital Signs Temperature 98.4 F 12/24/20 11:58 Pulse Rate 60 12/24/20 11:58 Respiratory Rate 16 12/24/20 11:58 Blood Pressure 137/71 12/24/20 11:58 Pulse Oximetry 92 12/24/20 11:58 MDM - Nausea/Vomiting/Diarrhea Medical Records: Attestation: I reviewed the patient's medical records. Lab Data: Attestation: I reviewed the patient's lab results. Labs: Lab Results 12/23/20 12/23/20 12/23/20 13:02 13:02 13:02 WBC 7.3 10^3/uL 10^3/ uL (4.0-10.0) RBC 4.56 10^6/uL 10^6 /uL (4.1-5.3) Hgb 12.5 g/dL g/dL (11.7-16.6) Hct 38.5 % L % (42.0-52.0) MCV 84.4 fl fl (80-94) MCH 27.4 pg L pg (28.0-34.0) MCHC 32.5 g/dL g/dL (30.0-36.0) RDW 15.4 % H % (12.1-15.1) Plt Count 228 10^3/cmm 10^3 /cmm (130-400) MPV 9.4 fL fL (7.4-10.4) Neut % (Auto) 82.4 % % Lymph % (Auto) 8.3 % % Archer % (Auto) 8.8 % % Eos % (Auto) 0.0 % % Baso % (Auto) 0.1 % % Neut # (Auto) 6.02 10^3/uL 10^3 /uL (1.8-7.7) Lymph # (Auto) 0.6 10^3/uL L 10^ 3/uL (0.8-4.8) Archer # (Auto) 0.6 10^3/uL 10^3/ uL (0.2-0.9) Eos # (Auto) 0.0 10^3/uL 10^3/ uL (0.0-0.8) Baso # (Auto) 0.0 10^3/uL 10^3/ uL (0.0-0.1) Nucleated RBC % (a uto) 0 % % Nucleated RBCs # 0.0 /100WBC /100W BC Sodium 134 mmol/L L mmol /L (136-145) Potassium 3.0 mmol/L L mmol /L (3.5-5.1) Chloride 94 mmol/L L mmol/ L (98-107) Carbon Dioxide 28 mmol/L mmol/L (22-29) Anion Gap 15.0 (5-19) BUN 16 mg/dL mg/dL (8-23) Creatinine 0.8 mg/dL mg/dL (0.7-1.2) GFR Calculation Not Reportable Glucose 139 mg/dL H mg/dL (65-115) Calculated Osmolal ity 281 mOsm/kg L mOs m/kg (285-295) Lactic Acid 0.9 mmol/L mmol/L (0.5-2.2) Calcium 8.7 mg/dL mg/dL (8.5-10.5) Total Bilirubin 0.6 mg/dL mg/dL (0.15-1.2) AST 40 U/L U/L (0-40) ALT 37 U/L U/L (0-41) Alkaline Phosphata se 110 IU/L IU/L (40-130) Troponin T Baselin e Troponin T 120 Min [place] Delta Troponin T C-Reactive Protein Total Protein 6.8 g/dL g/dL (6.6-8.7) Albumin 3.4 g/dL L g/dL (3.5-5.2) Globulin 3.4 g/dL g/dL (1.3-4.6) Lipase 49 U/L U/L (13-60) Procalcitonin Urine Color Urine Appearance Urine pH Ur Specific Gravit y Urine Protein Urine Glucose (UA) Urine Ketones Urine Blood Urine Nitrate Urine Bilirubin Urine Urobilinogen Ur Leukocyte Margaret ase Urine RBC Urine WBC Ur Squamous Epith Cells Ur Renal Epithelia l Cell Amorphous Sediment Urine Bacteria Hyaline Casts Urine Mucus SARS-CoV-2 Ag (Rap id) 12/23/20 12/23/20 12/23/20 13:02 13:02 13:32 WBC RBC Hgb Hct MCV MCH MCHC RDW Plt Count MPV Neut % (Auto) Lymph % (Auto) Archer % (Auto) Eos % (Auto) Baso % (Auto) Neut # (Auto) Lymph # (Auto) Archer # (Auto) Eos # (Auto) Baso # (Auto) Nucleated RBC % (a uto) Nucleated RBCs # Sodium Potassium Chloride Carbon Dioxide Anion Gap BUN Creatinine GFR Calculation Glucose Calculated Osmolal ity Lactic Acid Calcium Total Bilirubin AST ALT Alkaline Phosphata se Troponin T Baselin e 19 ng/L H ng/L (0-15) Troponin T 120 Min [place] Delta Troponin T C-Reactive Protein 90.3 mg/L H mg/L (0.0-4.9) Total Protein Albumin Globulin Lipase Procalcitonin 0.11 ng/mL ng/mL (0-0.5) Urine Color Dark yellow (Yellow) Urine Appearance Hazy A (CLEAR) Urine pH 5 (5-7) Ur Specific Gravit y 1.015 (1.005-1.030) Urine Protein 1+ H (Negative) Urine Glucose (UA) Norm (Normal) Urine Ketones 1+ H (Negative) Urine Blood Neg (Negative) Urine Nitrate Negative (Negative) Urine Bilirubin 1+ H (Negative) Urine Urobilinogen 1 mg/dL H mg/dL (Negative) Ur Leukocyte Margaret ase Negative (Negative) Urine RBC 0-4 /hpf H /hpf (0-2) Urine WBC 0-4 /hpf H /hpf (0-5) Ur Squamous Epith Cells 5-10 /hpf H /hpf (0-5) Ur Renal Epithelia l Cell 0 /hpf /hpf Amorphous Sediment Not Reportable Urine Bacteria 1+ /hpf H /hpf (NONE) Hyaline Casts 0-4 /lpf H /lpf Urine Mucus 3+ /hpf /hpf SARS-CoV-2 Ag (Rap id) 12/23/20 12/23/20 13:32 15:12 WBC RBC Hgb Hct MCV MCH MCHC RDW Plt Count MPV Neut % (Auto) Lymph % (Auto) Archer % (Auto) Eos % (Auto) Baso % (Auto) Neut # (Auto) Lymph # (Auto) Archer # (Auto) Eos # (Auto) Baso # (Auto) Nucleated RBC % (a uto) Nucleated RBCs # Sodium Potassium Chloride Carbon Dioxide Anion Gap BUN Creatinine GFR Calculation Glucose Calculated Osmolal ity Lactic Acid Calcium Total Bilirubin AST ALT Alkaline Phosphata se Troponin T Baselin e Troponin T 120 Min [place] 18.83 ng/L H ng/L (0-15) Delta Troponin T -0.17 ABS# L ABS# (0-10) C-Reactive Protein Total Protein Albumin Globulin Lipase Procalcitonin Urine Color Urine Appearance Urine pH Ur Specific Gravit y Urine Protein Urine Glucose (UA) Urine Ketones Urine Blood Urine Nitrate Urine Bilirubin Urine Urobilinogen Ur Leukocyte Margaret ase Urine RBC Urine WBC Ur Squamous Epith Cells Ur Renal Epithelia l Cell Amorphous Sediment Urine Bacteria Hyaline Casts Urine Mucus SARS-CoV-2 Ag (Rap id) Positive H (Negative) EKG Data^: EKG 1: Attestation: I personally reviewed and interpreted this EKG as follows: EKG interpretation date: 12/23/20 EKG interpretation time: 13:21 Interpretation: Twelve-lead EKG shows a regular rhythm at a rate of 68. RI interval 167. QRS duration 87. QTc 415. Normal [place]. Interpretation: Sinus rhythm. Discharge Plan Discharge Patient Disposition: Admitted As Inpatient Admit Provider: Jason Roman Coding Level of Care Code ED Cutter In for Maxi Clayton
[2020-12-23 13:07] LABS: Basophils % 0.1 %; Hematocrit 38.5 % (42.0-52.0); Hemoglobin 12.5 g/dL (11.7-16.6); Lymphocytes # 0.6 10^3/uL (0.8-4.8); Lymphocytes % 8.3 %; Mean Corpuscular HGB Conc 32.5 g/dL (30.0-36.0); Mean Corpuscular Hemoglobin 27.4 pg (28.0-34.0); Mean Corpuscular Volume 84.4 fl (80-94); Mean Platelet Volume 9.4 fL (7.4-10.4); Monocytes # 0.6 10^3/uL (0.2-0.9); Monocytes % 8.8 %; Neutrophils # 6.02 10^3/uL (1.8-7.7); Neutrophils % 82.4 %; Nucleated Red Blood Cells % 0 %; Platelet Count 228 10^3/cmm (130-400); Red Blood Count 4.56 10^6/uL (4.1-5.3); Red Cell Distribution Width 15.4 % (12.1-15.1); White Blood Count 7.3 10^3/uL (4.0-10.0)
--- NOTE | 2020-12-23 13:07 | ECG_ITS ---
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 Measurements Intervals [place] Rate: 68 P: 97 MO: 167 QRS: 41 QRSD: 87 T: 67 QT: 397 QTc: 424 Interpretive Statements SINUS RHYTHM Compared to ECG 12/09/2020 19:00:53 T-wave abnormality no longer present Electronically Signed On 12-23-2020 21:05:13 CDT by Panda Rubio M.D. [id number]
--- NOTE | 2020-12-23 13:07 | XR_ITS ---
WS: [id number] Exam: XR chest 1V portable [id number] Date/Time of Exam: 12/23/2020 1:07 PM Reason For Exam: hypoxemia Comparison 12/09/2020. Pulmonary infiltrates are noted throughout both lungs. Heart size is normal for technique. The medias tinum is not widened. The lungs are fully inflated. No pleural effusions. Regional bony elements are intact. XR/XR chest 1V portable [id number] IMPRESSION: 1. Widespread bilateral pulmonary infiltrates suggesting pneumonia.
--- NOTE | 2020-12-23 13:07 | CT_ITS ---
WS: [id number] CT ABDOMEN AND PELVIS WITH CONTRAST HISTORY: n/v/d post op TECHNIQUE: Imaging performed of the abdomen and pelvis with IV contrast. Single phase imaging of the abdomen. Coronal and sagittal reformats are submitted. All CT scans at [facility] use at [facility] st one of these dose optimization techniques: automated exposure control; mA and/or kV adjustment per patient size (includes targeted exams where dose is matched to clinical indication); or iterative re construction. IV CONTRAST: Omnipaque 300; 95 mL IV. Oral contrast: No DLP: 2.17 mGy.cm COMPARISON: 12/09/2020 Lower thorax: Scattered ill-defined opacifications at the lung bases are new since 12/09/2020. Heart i s normal size. No hiatal hernia. Liver/biliary system: Normal size liver with hepatic steatosis. Gallbladder: Mildly contracted gallbladder. No adjacent inflammation or bile duct dilatation. Pancreas: Normal size pancreas and pancreatic duct. No adjacent inflammation. Spleen: Normal size spleen. No mass or infarct. Adrenal glands: Normal. Right kidney: Mild perinephric stranding. No obstruction or solid mass. Left kidney: Mild perinephric stranding with no obstruction or solid mass. Aorta: Mild atherosclerosis with no aneurysm. Lymphadenopathy: None. Free fluid: None. GI tract: Small bowel anastomotic sutures are identified. There is some very minimal wall thickening near the anastomotic sutures but no obstruction. No small bowel or colon obstruction. Numerous divert icula throughout the visualized colon. Marked thickening of the sigmoid with narrowing of the lumen. Extensive diverticular disease with no acute diverticulitis. Abdominal wall: Fat containing umbilical hernia. Pelvis: No free fluid or adenopathy within the pelvis. Minimal prostate gland encroaching into the ur inary bladder. Bones: Mild LEFT curvature lumbar spine. No fractures. CT/CT abdomen pelvis w con* [id number] IMPRESSION: 1. Bilateral lower lobe scattered ill-defined opacifications. Consistent with pneumonitis. New since 12/09/2020. 2. No small bowel obstruction. 3. Extensive diverticulosis without acute diverticulitis.
[2020-12-23] MEDS: sodium chloride 0.9% 1,000 ML 999 ML IV (13:12)
[2020-12-23] MEDS: ondansetron 2 mg/ML SDV 2 mL 4 MG IVP (13:12)
--- NOTE | 2020-12-23 13:21 | PC.NURSE ---
PATIENT EKG PERFORMED BY THIS NURSE AND HANDED TO PROVIDER.
[2020-12-23 13:26] LABS: Lactic Sepsis W/Reflex 0.9 mmol/L (0.5-2.2)
[2020-12-23 13:31] LABS: Alanine Aminotransferase 37 U/L (0-41); Albumin Level 3.4 g/dL (3.5-5.2); Alkaline Phosphatase 110 IU/L (40-130); Aspartate Amino Transferase 40 U/L (0-40); Blood Urea Nitrogen 16 mg/dL (8-23); Calcium 8.7 mg/dL (8.5-10.5); Carbon Dioxide 28 mmol/L (22-29); Chloride 94 mmol/L (98-107); Globulin 3.4 g/dL (1.3-4.6); Glucose 139 mg/dL (65-115); Lipase 49 U/L (13-60); Osmolality Calculated 281 mOsm/kg (285-295); Sodium 134 mmol/L (136-145); Total Bilirubin 0.6 mg/dL (0.15-1.2); Total Protein 6.8 g/dL (6.6-8.7); Troponin(5th) Baseline 19 ng/L (0-15)
[2020-12-23] MEDS: potassium chloride oral liq 20 mEq/15 mL UDC 40 MEQ PO (13:38)
[2020-12-23 13:46] LABS: Add Urine Microscopic? YES; Bilirubin Urine 1+ (Negative); Blood Urine Neg (Negative); Glucose Urine UA Norm (Normal); Ketones Urine 1+ (Negative); Leukocyte Esterase Urine Negative (Negative); Nitrate Urine Negative (Negative); Protein Urine 1+ (Negative); Specific Gravity, Urine 1.015 (1.005-1.030); Urine Appearance Hazy (CLEAR); Urine Color Dark Yellow (Yellow); Urobilinogen Urine 1 mg/dL (Negative); pH Urine 5 (5-7)
[2020-12-23 13:47] LABS: Add Urine Culture? No; Bacteria Urine 1+ /hpf; Hyaline Casts Urine 0-4 /lpf; Mucus Urine 3+ /hpf; RBC Urine 0-4 /hpf (0-2); Renal Epithelial Cells Urine 0 /hpf; WBC Urine 0-4 /hpf (0-5)
[2020-12-23 13:59] LABS: SARS Covid-2 Antigen Positive (Negative)
[2020-12-23 14:16] LABS: C Reactive Protein 90.3 mg/L (0.0-4.9)
[2020-12-23 14:22] LABS: Procalcitonin 0.11 ng/mL (0-0.5)
--- NOTE | 2020-12-23 14:25 | PC.NURSE ---
ENTERED PATIENT ROOM. PATIENT HAD THROWN UP. PATIENT AND FLOOR CLEANED. PATIENT GIVEN NEW BLANKET. PHYSICIAN NOTIFIED.
[2020-12-23 15:47] LABS: Troponin 5 2HR 18.83 ng/L (0-15)
[2020-12-23 15:53] LABS: Troponin 5 2HR Delta -0.17 ABS# (0-10)
[2020-12-23] MEDS: iohexol 300 mg/mL 100 mL Btl IV (15:53)
--- NOTE | 2020-12-23 16:09 | PC.NURSE ---
PATIENT COMFORTABLE IN BED. PATIENT STATES THAT HE IS HUNGRY, BUT KNOWS HE ISN'T HOLDING ANYTHING DOWN. NURSE OFFERED BLAND FOODS AND PATIENT REFUSED. PATIENT HAS NO FURTHER NEEDS AT THIS TIME.
[2020-12-23] MEDS: lidocaine 1% 5 ML in potassium chloride premix 100 ML 25 ML IV (16:30)
--- NOTE | 2020-12-23 19:07 | ECG_ITS ---
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
[2020-12-23] MEDS: remdesivir 200 MG in sodium chloride 0.9% (100 ml) 60 ML 100 MG IV (19:32)
[2020-12-23] MEDS: enoxaparin 40 mg/0.4 mL Syringe SUBCUT (19:34)
[2020-12-23] MEDS: cefTRIAXone 1,000 MG in sodium chloride 0.9% (plus) 50 ML 100 MG IV (19:38)
[2020-12-23] MEDS: dexamethasone 4 mg/mL INJ 6 MG IVP (19:38)
[2020-12-23] MEDS: polyethylene glycol 3350 Pkt 17 gm PO (20:09)
[2020-12-23] MEDS: mirtazapine 15 mg Tablet 45 MG PO (20:09)
[2020-12-23] MEDS: azithromycin 500 MG in sodium chloride 0.9% 250 ML 250 MG IV (20:10)
[2020-12-23] MEDS: atorvastatin 40 mg Tablet PO (20:10)
--- NOTE | 2020-12-23 20:24 | PM.HP ---
Providers/Chief Complaint Admitting Physician: Jason Roman MD Primary Care Provider: Shawna England MD Chief Complaint: N/V History of Present Illness 75-year-old male with a past medical history of COPD on 2ls home oxygen , hypertension coronary disease small bowel AVM, status post small bowel resection with reanastomosis on the eighth of this month at [facility] came in with c/o progressively worsening shortness of breath,non productive cough, weakness, generalized malaise, nausea,non bloody vomiting, symptoms started 5 days back. Upon arrival in the Er he was worked up for above mention complain. Pertinent Imaging Studies: CT abdomen pelvis w con:No small bowel obstruction. Extensive diverticulosis without acute diverticulitis. Xray chest : Extensive b/l air space disease Pertinent Labs : WBC: 7.3 H&H: 12/38 PLT: 228 Serum Na: 134, Serum K: 3 BUN/SCR: 16/0.8 Procalcitonin: Normal Ddimer; LDH, ESR: CRP:90.3, Rapid COVID Antigen :Positive Review of Systems Card: Denies: palpitations, edema, swelling of feet/ankles, dyspnea on exertion, orthopnea or leg pain with exertion Resp: Denies: wheezing or pain on inspiration GI: Denies: abdominal pain, diarrhea or constipation : Denies: flank pain or difficulty urinating Musc: Denies: back pain, extremity pain or extremity swelling Neuro: Denies: difficulty walking or confusion Medications/Allergies Home Medications Medication Instructions Recorded Confirmed Last Taken Type aspirin 81 mg tablet,delayed 81 mg PO QAM tab 04/07/19 12/23/20 12/22/20 History release docusate sodium 100 mg capsule 100 mg PO DAILY PRN cap 04/07/19 12/23/20 Unknown History mirtazapine 45 mg tablet 45 mg PO BEDTIME tab 04/07/19 12/23/20 12/22/20 History sertraline 100 mg tablet 100 mg PO QAM tab 04/07/19 12/23/20 12/22/20 History atorvastatin 80 mg tablet 40 mg PO BEDTIME 04/14/19 12/23/20 12/22/20 History gabapentin 300 mg capsule 300 mg PO BID 04/14/19 12/23/20 12/09/20 07:00 History pantoprazole 40 mg tablet,delayed 40 mg PO DAILY 04/14/19 12/23/20 12/22/20 History release metoprolol tartrate 25 mg tablet 12.5 mg PO BID 30 Days #30 tab 08/31/19 12/23/20 12/22/20 Rx hydrocodone 10 mg-acetaminophen 1 tab PO QID PRN 03/16/20 12/23/20 12/09/20 History 325 mg tablet albuterol sulfate [ProAir HFA] 2 puff INHALATION Q4H PRN 12/09/20 12/23/20 Unknown History chlorthalidone 25 mg PO QAM 12/09/20 12/23/20 12/22/20 History cholecalciferol (vitamin D3) 50 mcg PO DAILY 12/09/20 12/23/20 12/22/20 History [Vitamin D3] cyanocobalamin (vitamin B-12) 25 mcg PO DAILY 12/09/20 12/23/20 12/22/20 History [Vitamin B-12] finasteride 5 mg PO QAM 12/09/20 12/23/20 12/22/20 History polyethylene glycol 3350 [Miralax] 17 g PO BEDTIME 12/09/20 12/23/20 12/22/20 History tamsulosin 0.4 mg PO BID 12/09/20 12/23/20 12/22/20 History calcium carbonate [Calcium 500] 500 mg PO DAILY 12/23/20 12/23/20 12/22/20 History potassium chloride 20 meq PO DAILY 12/23/20 12/23/20 12/22/20 History Allergies Allergy/AdvReac Type Severity Reaction Status Date / Time haloperidol [From Haldol] Allergy NA Verified 12/09/20 16:07 PFSH Acute PFSH: Medical History Anemia Benign prostatic hyperplasia with lower urinary tract symptoms Bilateral carotid artery stenosis 12/2018 Minimal plaques at the bifurcation and internal carotid arteries bilaterally. No significant stenosis, based on the above findings. CAD (coronary artery disease) COPD (chronic obstructive pulmonary disease) GERD (gastroesophageal reflux disease) H/O: GI bleed Hypertension Mixed hyperlipidemia Osteoarthritis Presence of arterial stent PTSD (post-traumatic stress disorder) Family History Family/Other Diabetes CAD (coronary artery disease) Cancer Father , at age 98 CHF (congestive heart failure) CAD (coronary artery disease) Mother , at age 80 Stroke Brother Diabetes Sister Diabetes Denies family history of Clotting disorder Dementia Chronic kidney disease (CKD) Suicide Anesthesia complication Bleeding disorder Lung disease Social History Alcohol intake: never Marital status: Current occupational status: retired History of recent travel: No Vitals/I&O/Wt Last Vital Signs Temp 97.4 F L 12/23/20 17:51 Pulse 64 12/23/20 17:51 Resp 28 H 12/23/20 17:51 BP 153/73 12/23/20 17:51 Pulse Ox 89 L 12/23/20 17:51 12/23/20 12/23/20 12/23/20 06:59 14:59 22:59 Intake Total 1110 / 1110 Balance 1110 / 1110 Weight last 48 hrs Weight 120.202 kg Physical Exam Const: COMMON NORMALS: patient oriented x3 HENMT: COMMON NORMALS: normocephalic and atraumatic HEAD & SCALP: normocephalic and atraumatic EXTERNAL EAR: Yes external ears normal Eye: GENERAL EYE: appearance normal, both eyes and all related structures Resp: COMMON NORMALS: clear to auscultation bilaterally AUSCULTATION: clear to auscultation bilaterally Cardio: COMMON NORMALS: regular rate, regular rhythm, S1 normal heart sound present, S2 normal heart sound present, No gallops present (Cardio), No murmurs present (Cardio), No rub (Cardio) and Peripheral pulses 2+ throughout RATE: regular rate RHYTHM: regular rhythm HEART SOUNDS: S1 normal heart sound present and S2 normal heart sound present PERIPHERAL PULSES: Peripheral pulses 2+ throughout GI: COMMON NORMALS: Normal to inspection, nondistended, normoactive bowel sounds present, Soft to palpation, non-tender, No hepatosplenomegaly present and no masses AUSCULTATION: Yes normoactive bowel sounds PALPATION: Yes Soft to palpation and Yes No hepatosplenomegaly present RECTAL EXAM: Yes deferred Extremity: COMMON NORMALS: no clubbing, cyanosis or edema and no pedal edema Neuro: COMMON NORMALS: patient oriented x3 Data : 12/23/20 13:02 12/23/20 13:02 A&P Assessment and plan (1) Pneumonia due to COVID-19 virus: Pneumonia due COVID -19 Virus : On COVID Protocol ESR CRP Ferritin LDH Didimer Procal Remdesivir for 5 days Dexamaethasone 6 mg I.V Daily Empirically on Cef and Azithromycin Ascorbic acid zinc Advair Inhaler Albuterol Inhaler I/S and Flutter Valve Status: Acute (2) CAD (coronary artery disease): Status: Acute Qualifiers: Associated angina: without angina Coronary Disease-Associated Artery/Lesion type: [place] artery [place] vs. transplanted heart: [place] heart Qualified Code(s): I25.10 - Atherosclerotic heart disease of [place] coronary artery without angina pectoris (3) Hypertension: Status: Acute Qualifiers: Hypertension type: essential hypertension Qualified Code(s): I10 - Essential (primary) hypertension (4) Bilateral carotid artery stenosis: Status: Acute (5) Benign prostatic hyperplasia with lower urinary tract symptoms: Status: Acute Qualifiers: Lower urinary tract symptom detail: weak urinary stream Qualified Code(s): N40.1 - Benign prostatic hyperplasia with lower urinary tract symptoms; R39.12 - Poor urinary stream (6) COPD (chronic obstructive pulmonary disease): Status: Acute Attestations Medical Necessity Statement*: Patient needs to be in hospital for the management of COVID PNA.Anticipated LOS greater then 2 midnights. Coding Level of Care Code Acute Tire Stripper for [facility] Fwd Exam Detailed Diagnoses Pneumonia due to COVID-19 virus U07.1; J12.82 CAD (coronary artery disease) I25.10 Associated angina: without angina Coronary Disease-Associated Artery/Lesion type: [place] artery [place] vs. transplanted heart: [place] heart Hypertension I10 Hypertension type: essential hypertension Bilateral carotid artery stenosis I65.23 Benign prostatic hyperplasia with lower urinary tract symptoms N40.1; R39.12 Lower urinary tract symptom detail: weak urinary stream COPD (chronic obstructive pulmonary disease) J44.9
[2020-12-23] MEDS: oxyCODONE-APAP 5-325 mg Tablet 1 TAB PO (23:29)
[2020-12-24] VITALS (12 sets, daily range): BP systolic 126–143; BP diastolic 60–76; PULSE 55–89; RESP 16–20; TEMP 36.5–36.9; O2SAT 90–97
[2020-12-24] MEDS: aspirin 81 mg EC Tablet PO (05:29)
[2020-12-24] MEDS: finasteride 5 mg Tablet PO (05:29)
[2020-12-24] MEDS: sertraline 100 mg Tablet PO (05:29)
[2020-12-24] MEDS: chlorthalidone 25 mg Tablet PO (05:29)
[2020-12-24 05:46] LABS: Hematocrit 38.7 % (42.0-52.0); Hemoglobin 12.3 g/dL (11.7-16.6); Lymphocytes # 0.4 10^3/uL (0.8-4.8); Lymphocytes % 9.1 %; Mean Corpuscular HGB Conc 31.8 g/dL (30.0-36.0); Mean Corpuscular Hemoglobin 27.4 pg (28.0-34.0); Mean Corpuscular Volume 86.2 fl (80-94); Mean Platelet Volume 9.8 fL (7.4-10.4); Monocytes # 0.3 10^3/uL (0.2-0.9); Monocytes % 6.6 %; Neutrophils # 3.69 10^3/uL (1.8-7.7); Neutrophils % 83.6 %; Nucleated Red Blood Cells % 0 %; Platelet Count 227 10^3/cmm (130-400); Red Blood Count 4.49 10^6/uL (4.1-5.3); Red Cell Distribution Width 15.3 % (12.1-15.1); White Blood Count 4.4 10^3/uL (4.0-10.0)
[2020-12-24 06:02] LABS: Alanine Aminotransferase 38 U/L (0-41); Albumin Level 3.2 g/dL (3.5-5.2); Alkaline Phosphatase 110 IU/L (40-130); Anion Gap 14.7 (5-19); Aspartate Amino Transferase 40 U/L (0-40); Blood Urea Nitrogen 16 mg/dL (8-23); Carbon Dioxide 29 mmol/L (22-29); Chloride 101 mmol/L (98-107); Globulin 3.9 g/dL (1.3-4.6); Glucose 169 mg/dL (65-115); Magnesium 2.2 mg/dL (1.7-2.3); Osmolality Calculated 297 mOsm/kg (285-295); Potassium 3.7 mmol/L (3.5-5.1); Sodium 141 mmol/L (136-145); Total Bilirubin 0.4 mg/dL (0.15-1.2); Total Protein 7.1 g/dL (6.6-8.7)
[2020-12-24 06:14] LABS: NT Pro B Type Natriuretic Pept 487 pg/mL (0-450)
[2020-12-24] MEDS: cholecalciferol (vitamin D3) 1,000 unit Tablet 2000 UNIT PO (09:09)
[2020-12-24] MEDS: ascorbic acid 500 mg Tablet 1000 MG PO ×2 (09:09→17:53)
[2020-12-24] MEDS: zinc gluconate 50 mg Tablet PO (09:10)
[2020-12-24] MEDS: tamsulosin 0.4 mg Capsule PO ×2 (09:10→17:53)
[2020-12-24] MEDS: pantoprazole DR 40 mg Tablet PO (09:10)
[2020-12-24] MEDS: metoprolol tartrate 25 mg Tablet 12.5 MG PO ×2 (09:10→17:53)
[2020-12-24] MEDS: gabapentin 300 mg Capsule PO ×2 (09:10→17:53)
[2020-12-24 09:32] LABS: Glucose Point of Care 150 mg/dL (70-110)
--- NOTE | 2020-12-24 13:08 | PM.PN ---
Subjective Subjective: Interval history: Patient was seen and examined this morning shortness of breath has improved, though he still continues to complain of generalized weakness. He has been afebrile. His other vitals and labs have been reviewed. Medications: Reviewed: Yes Vitals/I&O/Wt Last Vital Signs Temp 98.4 F 12/24/20 11:58 Pulse 60 12/24/20 11:58 Resp 16 12/24/20 11:58 BP 137/71 12/24/20 11:58 Pulse Ox 92 12/24/20 11:58 12/23/20 12/24/20 12/24/20 22:59 06:59 14:59 Intake Total 1465 / 1465 300 / 1765 Output Total 770 / 770 325 / 325 Balance 1465 / 1465 -470 / 995 -325 / -325 Weight last 48 hrs Weight 120.202 kg Weight 120.202 kg Physical Exam Const: COMMON NORMALS: patient oriented x3 HENMT: COMMON NORMALS: normocephalic, atraumatic and external ears normal HEAD & SCALP: normocephalic and atraumatic EXTERNAL EAR: Yes external ears normal Eye: GENERAL EYE: appearance normal, both eyes and all related structures Resp: COMMON NORMALS: clear to auscultation bilaterally AUSCULTATION: clear to auscultation bilaterally Cardio: COMMON NORMALS: regular rate, regular rhythm, S1 normal heart sound present, S2 normal heart sound present, No gallops present (Cardio), No murmurs present (Cardio), No rub (Cardio) and Peripheral pulses 2+ throughout RATE: regular rate RHYTHM: regular rhythm HEART SOUNDS: S1 normal heart sound present and S2 normal heart sound present PERIPHERAL PULSES: Peripheral pulses 2+ throughout GI: COMMON NORMALS: Normal to inspection, nondistended, normoactive bowel sounds present, Soft to palpation, non-tender, No hepatosplenomegaly present and no masses AUSCULTATION: Yes normoactive bowel sounds PALPATION: Yes Soft to palpation and Yes No hepatosplenomegaly present RECTAL EXAM: Yes deferred Extremity: COMMON NORMALS: no clubbing, cyanosis or edema and no pedal edema Neuro: COMMON NORMALS: patient oriented x3 Data : 12/24/20 05:30 12/24/20 05:30 A&P Assessment and plan (1) Pneumonia due to COVID-19 virus: Pneumonia due COVID -19 Virus : On COVID Protocol ESR: CRP Ferritin LDH Didimer : Procal:0.11 proBNP:487 Remdesivir for 5 days Dexamaethasone 6 mg I.V Daily Empirically on Cef and Azithromycin Ascorbic acid zinc Advair Inhaler Albuterol Inhaler I/S and Flutter Valve Status: Acute (2) Hypertension: Continue Chlorthalidone 25mg po daily Status: Acute Qualifiers: Hypertension type: essential hypertension Qualified Code(s): I10 - Essential (primary) hypertension (3) COPD (chronic obstructive pulmonary disease): Status: Acute (4) CAD (coronary artery disease): Status: Acute Qualifiers: Associated angina: without angina Coronary Disease-Associated Artery/Lesion type: [place] artery [place] vs. transplanted heart: [place] heart Qualified Code(s): I25.10 - Atherosclerotic heart disease of [place] coronary artery without angina pectoris (5) Bilateral carotid artery stenosis: Status: Acute (6) Benign prostatic hyperplasia with lower urinary tract symptoms: Status: Acute Qualifiers: Lower urinary tract symptom detail: weak urinary stream Qualified Code(s): N40.1 - Benign prostatic hyperplasia with lower urinary tract symptoms; R39.12 - Poor urinary stream Attestations Medical Necessity Statement*: Patient is to be in the hospital for management of Covid pneumonia. 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 transplanted heart: [place] heart Bilateral carotid artery stenosis I65.23 Benign prostatic hyperplasia with lower urinary tract symptoms N40.1; R39.12 Lower urinary tract symptom detail: weak urinary stream
[2020-12-24] MEDS: oxyCODONE-APAP 5-325 mg Tablet 1 TAB PO ×2 (15:34→20:30)
[2020-12-24] MEDS: remdesivir 100 MG in sodium chloride 0.9% (100 ml) 80 ML IV (18:04)
[2020-12-24] MEDS: cefTRIAXone 1,000 MG in sodium chloride 0.9% (plus) 50 ML 100 MG IV (20:29)
[2020-12-24] MEDS: mirtazapine 15 mg Tablet 45 MG PO (20:30)
[2020-12-24] MEDS: atorvastatin 40 mg Tablet PO (20:30)
[2020-12-24] MEDS: enoxaparin 40 mg/0.4 mL Syringe SUBCUT (20:30)
[2020-12-24] MEDS: polyethylene glycol 3350 Pkt 17 gm PO (20:30)
[2020-12-24] MEDS: dexamethasone 4 mg/mL INJ 6 MG IVP (20:30)
[2020-12-24] MEDS: azithromycin 500 MG in sodium chloride 0.9% 250 ML 250 MG IV (20:32)
[2020-12-25] VITALS (8 sets, daily range): BP systolic 126–146; BP diastolic 63–81; PULSE 49–86; RESP 17–20; TEMP 36.4–36.8; O2SAT 89–93
[2020-12-25] MEDS: finasteride 5 mg Tablet PO (05:38)
[2020-12-25] MEDS: chlorthalidone 25 mg Tablet PO (05:38)
[2020-12-25] MEDS: aspirin 81 mg EC Tablet PO (05:38)
[2020-12-25] MEDS: sertraline 100 mg Tablet PO (05:38)
[2020-12-25 05:49] LABS: Hematocrit 37.4 % (42.0-52.0); Lymphocytes # 0.4 10^3/uL (0.8-4.8); Lymphocytes % 9.2 %; Mean Corpuscular HGB Conc 32.1 g/dL (30.0-36.0); Mean Corpuscular Hemoglobin 27.8 pg (28.0-34.0); Mean Corpuscular Volume 86.6 fl (80-94); Mean Platelet Volume 9.7 fL (7.4-10.4); Monocytes # 0.3 10^3/uL (0.2-0.9); Monocytes % 5.5 %; Neutrophils # 3.85 10^3/uL (1.8-7.7); Neutrophils % 84.6 %; Nucleated Red Blood Cells % 0 %; Platelet Count 230 10^3/cmm (130-400); Red Blood Count 4.32 10^6/uL (4.1-5.3); Red Cell Distribution Width 14.8 % (12.1-15.1); White Blood Count 4.6 10^3/uL (4.0-10.0)
[2020-12-25 06:19] LABS: Alanine Aminotransferase 38 U/L (0-41); Albumin Level 3.1 g/dL (3.5-5.2); Alkaline Phosphatase 100 IU/L (40-130); Anion Gap 14.6 (5-19); Aspartate Amino Transferase 35 U/L (0-40); Blood Urea Nitrogen 20 mg/dL (8-23); C Reactive Protein 40.1 mg/L (0.0-4.9); Carbon Dioxide 28 mmol/L (22-29); Chloride 100 mmol/L (98-107); Fibrinogen 610 mg/dL (174-498); Globulin 3.3 g/dL (1.3-4.6); Glucose 176 mg/dL (65-115); Osmolality Calculated 295 mOsm/kg (285-295); Potassium 3.6 mmol/L (3.5-5.1); Sodium 139 mmol/L (136-145); Total Bilirubin 0.3 mg/dL (0.15-1.2); Total Protein 6.4 g/dL (6.6-8.7)
[2020-12-25 06:24] LABS: D Dimer 0.52 ug/mIFEU (0-0.59)
[2020-12-25 06:57] LABS: Ferritin 1946 ng/mL (30-400)
[2020-12-25] MEDS: zinc gluconate 50 mg Tablet PO (09:20)
[2020-12-25] MEDS: cholecalciferol (vitamin D3) 1,000 unit Tablet 2000 UNIT PO (09:20)
[2020-12-25] MEDS: ascorbic acid 500 mg Tablet 1000 MG PO ×2 (09:20→18:23)
[2020-12-25] MEDS: pantoprazole DR 40 mg Tablet PO (09:20)
[2020-12-25] MEDS: metoprolol tartrate 25 mg Tablet 12.5 MG PO ×2 (09:20→18:23)
[2020-12-25] MEDS: benzonatate 100 mg Capsule PO (09:20)
[2020-12-25] MEDS: tamsulosin 0.4 mg Capsule PO ×2 (09:20→18:23)
[2020-12-25] MEDS: gabapentin 300 mg Capsule PO ×2 (09:24→18:23)
--- NOTE | 2020-12-25 13:29 | PC.NURSE ---
AT APPROX. 1315 PT PRESSED CALL LIGHT, PT HAD TAKEN OFF HIS NC AND STATED HE GOT UP WITH OUT IT. OBTAINED A SET OF VS, PTS O2 WAS 92 ON 4L. PT STATED HIS REASON FOR GETTING UP WAS THAT THE TOLD HIM TO. I EDUCATED HIM THAT WE NEEDED TO HELP HIM AND NEEDED TO LEAVE HIS NC IN. PT VERBALIZED UNDERSTANDING. RN ASKED PT PRIOR TO LEAVING IF HE NEEDED ANYTHING ELSE OR WAS HURTING. 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 RN LEFT ROOM TO GET SCISSORS TO REMOVE THE DEPENDS FOR PT. VICE PRESIDENT INDUSTRIAL RELATIONS IN ROOM WITH PT, PT STATED THAT HE HAD REQUESTED PAIN MEDS 10-12 TIMES AND HAD NOT HAD ANY. PT HAD NOT REQUESTED MEDS AT ALL UNTIL RN LEFT ROOM.
--- NOTE | 2020-12-25 13:38 | P.PN_ITS ---
Subjective Subjective: Interval history: Patient was seen and examined this morning , continues to complain of generalized weakness, shortness of breath is slightly improved. Appetite has improved. Says that he still feels very weak and is not ready to go home. Medications: Reviewed: Yes Vitals/I&O/Wt Last Vital Signs Temp 98.3 F 12/25/20 12:00 Pulse 53 L 12/25/20 12:00 Resp 18 12/25/20 12:00 BP 138/81 12/25/20 12:00 Pulse Ox 90 12/25/20 12:00 12/24/20 12/25/20 12/25/20 22:59 06:59 14:59 Intake Total 980 / 1460 200 / 1660 Output Total 400 / 400 Balance 980 / 1135 200 / 1335 -400 / -400 Weight last 48 hrs Weight 120.202 kg Physical Exam Const: COMMON NORMALS: patient oriented x3 HENMT: COMMON NORMALS: normocephalic, atraumatic and external ears normal HEAD & SCALP: normocephalic and atraumatic EXTERNAL EAR: Yes external ears normal Eye: GENERAL EYE: appearance normal, both eyes and all related structures Resp: COMMON NORMALS: clear to auscultation bilaterally AUSCULTATION: clear to auscultation bilaterally Cardio: COMMON NORMALS: regular rate, regular rhythm, S1 normal heart sound present, S2 normal heart sound present, No gallops present (Cardio), No murmurs present (Cardio), No rub (Cardio) and Peripheral pulses 2+ throughout RATE: regular rate RHYTHM: regular rhythm HEART SOUNDS: S1 normal heart sound present and S2 normal heart sound present PERIPHERAL PULSES: Peripheral pulses 2+ throughout GI: COMMON NORMALS: Normal to inspection, nondistended, normoactive bowel sounds present, Soft to palpation, non-tender, No hepatosplenomegaly present and no masses AUSCULTATION: Yes normoactive bowel sounds PALPATION: Yes Soft to palpation and Yes No hepatosplenomegaly present RECTAL EXAM: Yes deferred Extremity: COMMON NORMALS: no clubbing, cyanosis or edema and no pedal edema Neuro: COMMON NORMALS: patient oriented x3 Data : 12/25/20 05:16 12/25/20 05:16 A&P Assessment and plan (1) Pneumonia due to COVID-19 virus: Pneumonia due COVID -19 Virus : On COVID Protocol ESR: CRP:90-40 Ferritin: 1946 LDH: Didimer :0.52 Procal:0.11 proBNP:487 Remdesivir for 5 days Dexamaethasone 6 mg I.V Daily Empirically on Cef and Azithromycin Ascorbic acid zinc Advair Inhaler Albuterol Inhaler I/S and Flutter Valve Status: Acute (2) Hypertension: Continue Chlorthalidone 25mg po daily Status: Acute Qualifiers: Hypertension type: essential hypertension Qualified Code(s): I10 - Esse ntial (primary) hypertension (3) COPD (chronic obstructive pulmonary disease): Status: Acute (4) CAD (coronary artery disease): Status: Acute Qualifiers: Associated angina: without angina Coronary Disease-Associated Artery/Lesion type: [place] artery [place] vs. transplanted heart: [place] heart Qualified Code(s): I25.10 - Atherosclerotic heart disease of [place] coronary artery without angina pectoris (5) Bilateral carotid artery stenosis: Status: Acute (6) Benign prostatic hyperplasia with lower urinary tract symptoms: Status: Acute Qualifiers: Lower urinary tract symptom detail: weak urinary stream Qualified Cod e(s): N40.1 - Benign prostatic hyperplasia with lower urinary tract symptoms; R39.12 - Poor urinary stream Attestations Medical Necessity Statement*: Patient needs to be in hospital for management of Covid pneumonia Coding Level of Care Code Acute Surg Rn for [facility] Fwd Exam Detailed Diagnoses Pneumonia due to COVID-19 virus U07.1; J12.82 Hypertension I10 Hypertension type: essential hypertension COPD (chronic obstructive pulmonary disease) J44.9 CAD (coronary artery disease) I25.10 Associated angina: without angina Coronary Disease-Associated Artery/Lesion type: [place] artery [place] vs. transplanted heart: [place] heart Bilateral carotid artery stenosis I65.23 Benign prostatic hyperplasia with lower urinary tract symptoms N40.1; R39.12 Lower urinary tract symptom detail: weak urinary stream
[2020-12-25] MEDS: sennosides-docusate Tablet 1 TAB PO ×2 (13:57→18:23)
[2020-12-25] MEDS: oxyCODONE-APAP 5-325 mg Tablet 1 TAB PO ×2 (13:57→20:00)
[2020-12-25] MEDS: remdesivir 100 MG in sodium chloride 0.9% (100 ml) 80 ML IV (18:25)
[2020-12-25] MEDS: dexamethasone 4 mg/mL INJ 6 MG IVP (19:33)
[2020-12-25] MEDS: cefTRIAXone 1,000 MG in sodium chloride 0.9% (plus) 50 ML 100 MG IV (19:33)
[2020-12-25] MEDS: enoxaparin 40 mg/0.4 mL Syringe SUBCUT (19:34)
[2020-12-25] MEDS: mirtazapine 15 mg Tablet 45 MG PO (20:00)
[2020-12-25] MEDS: atorvastatin 40 mg Tablet PO (20:00)
[2020-12-25] MEDS: azithromycin 500 MG in sodium chloride 0.9% 250 ML 250 MG IV (20:01)
[2020-12-25] MEDS: polyethylene glycol 3350 Pkt 17 gm PO (20:01)
[2020-12-26] VITALS (12 sets, daily range): BP systolic 132–153; BP diastolic 64–72; PULSE 48–69; RESP 17–22; TEMP 36.5–37.2; O2SAT 88–94
[2020-12-26] MEDS: oxyCODONE-APAP 5-325 mg Tablet 1 TAB PO ×4 (00:40→23:36)
--- NOTE | 2020-12-26 04:45 | PC.NURSE ---
i reported low pulse 58 to nurse
[2020-12-26] MEDS: aspirin 81 mg EC Tablet PO (05:40)
[2020-12-26] MEDS: chlorthalidone 25 mg Tablet PO (05:40)
[2020-12-26] MEDS: finasteride 5 mg Tablet PO (05:40)
[2020-12-26] MEDS: sertraline 100 mg Tablet PO (05:40)
--- NOTE | 2020-12-26 05:41 | PC.NURSE ---
Patient AAOx4, slept most of night, vss, remained in bed repositioning self. No new events over night. No needs at this time. Minimal c/o pain controlled with ordered pain medication in MAY. WIll report and handoff patient to oncoming nurse at shift change.
[2020-12-26 06:02] LABS: Hematocrit 35.7 % (42.0-52.0); Hemoglobin 11.4 g/dL (11.7-16.6); Lymphocytes # 0.4 10^3/uL (0.8-4.8); Lymphocytes % 7.9 %; Mean Corpuscular HGB Conc 31.9 g/dL (30.0-36.0); Mean Corpuscular Hemoglobin 27.4 pg (28.0-34.0); Mean Corpuscular Volume 85.8 fl (80-94); Mean Platelet Volume 9.8 fL (7.4-10.4); Monocytes # 0.4 10^3/uL (0.2-0.9); Monocytes % 7.5 %; Neutrophils # 4.34 10^3/uL (1.8-7.7); Nucleated Red Blood Cells % 0 %; Platelet Count 266 10^3/cmm (130-400); Red Blood Count 4.16 10^6/uL (4.1-5.3); Red Cell Distribution Width 14.9 % (12.1-15.1); White Blood Count 5.2 10^3/uL (4.0-10.0)
[2020-12-26 06:11] LABS: D Dimer 0.37 ug/mIFEU (0-0.59)
[2020-12-26 06:21] LABS: Alanine Aminotransferase 36 U/L (0-41); Albumin Level 3.1 g/dL (3.5-5.2); Alkaline Phosphatase 99 IU/L (40-130); Anion Gap 13.6 (5-19); Aspartate Amino Transferase 27 U/L (0-40); Blood Urea Nitrogen 23 mg/dL (8-23); C Reactive Protein 14.9 mg/L (0.0-4.9); Calcium 8.7 mg/dL (8.5-10.5); Carbon Dioxide 28 mmol/L (22-29); Chloride 103 mmol/L (98-107); Globulin 3.1 g/dL (1.3-4.6); Glucose 178 mg/dL (65-115); Osmolality Calculated 300 mOsm/kg (285-295); Potassium 3.6 mmol/L (3.5-5.1); Sodium 141 mmol/L (136-145); Total Bilirubin 0.2 mg/dL (0.15-1.2); Total Protein 6.2 g/dL (6.6-8.7)
[2020-12-26 06:41] LABS: Ferritin 1352 ng/mL (30-400)
[2020-12-26] MEDS: cholecalciferol (vitamin D3) 1,000 unit Tablet 2000 UNIT PO (08:56)
[2020-12-26] MEDS: gabapentin 300 mg Capsule PO ×2 (08:56→18:01)
[2020-12-26] MEDS: ascorbic acid 500 mg Tablet 1000 MG PO ×2 (08:56→18:01)
[2020-12-26] MEDS: zinc gluconate 50 mg Tablet PO (08:56)
[2020-12-26] MEDS: tamsulosin 0.4 mg Capsule PO ×2 (08:57→18:01)
[2020-12-26] MEDS: sennosides-docusate Tablet 1 TAB PO ×2 (08:57→18:01)
[2020-12-26] MEDS: pantoprazole DR 40 mg Tablet PO (08:57)
[2020-12-26] MEDS: metoprolol tartrate 25 mg Tablet 12.5 MG PO ×2 (08:57→18:01)
--- NOTE | 2020-12-26 10:37 | PC.SOCIAL ---
IMM UPdate Page 2 of [facility] updated and reviewed. Initialed, timed and dated and copy left in chart.
--- NOTE | 2020-12-26 14:49 | PC.RESP ---
sent pulmonary rehab information
--- NOTE | 2020-12-26 16:45 | PM.PN ---
Subjective Subjective: Interval history: Patient was seen this morning, currently on 4 L, nurses tell me that when he takes off his oxygen, he does desat into the low eighties, currently he denies any chest pain, no shortness of breath, tells me that he sat up in the chair yesterday, Vitals/I&O/Wt Last Vital Signs Temp 97.8 F 12/26/20 11:23 Pulse 58 L 12/26/20 11:23 Resp 18 12/26/20 15:52 BP 145/71 12/26/20 11:23 Pulse Ox 92 12/26/20 15:52 12/26/20 12/26/20 12/26/20 06:59 14:59 22:59 Intake Total 240 / 980 720 / 720 Output Total 400 / 800 Balance -160 / 180 720 / 720 Physical Exam Const: COMMON NORMALS: no acute distress and patient oriented x3 Resp: COMMON NORMALS: normal respiratory effort, No retractions, No use of accessory muscles and clear to auscultation bilaterally AUSCULTATION: clear to auscultation bilaterally Cardio: COMMON NORMALS: regular rate, regular rhythm, S1 normal heart sound present and S2 normal heart sound present RATE: regular rate RHYTHM: regular rhythm HEART SOUNDS: S1 normal heart sound present and S2 normal heart sound present GI: COMMON NORMALS: Normal to inspection, nondistended, normoactive bowel sounds present, Soft to palpation and non-tender PALPATION: Yes Soft to palpation Extremity: COMMON NORMALS: no pedal edema Neuro: COMMON NORMALS: patient oriented x3 Psych: COMMON NORMALS: mental status grossly normal Data : 12/26/20 05:48 12/26/20 05:48 A&P Assessment and plan (1) Pneumonia due to COVID-19 virus: Pneumonia due COVID -19 Virus : On COVID Protocol Remdesivir for 5 days Dexamaethasone 6 mg I.V Daily Empirically on ceftriaxone azithromycin Ascorbic acid zinc Advair Inhaler Albuterol Inhaler I/S and Flutter Valve Monitor respiratory status closely DVT prophylaxis Lovenox, monitor hemoglobin closely as has a history of GI bleeds Status: Acute (2) Hypertension: Continue Chlorthalidone 25mg po daily Status: Acute Qualifiers: Hypertension type: essential hypertension Qualified Code(s): I10 - Essential (primary) hypertension (3) COPD (chronic obstructive pulmonary disease): Status: Acute (4) CAD (coronary artery disease): Status: Acute Qualifiers: Coronary Disease-Associated Artery/Lesion type: [place] artery [place] vs. transplanted heart: [place] heart Associated angina: without angina Qualified Code(s): I25.10 - Atherosclerotic heart disease of [place] coronary artery without angina pectoris (5) Bilateral carotid artery stenosis: Status: Acute (6) Benign prostatic hyperplasia with lower urinary tract symptoms: Status: Acute Qualifiers: Lower urinary tract symptom detail: weak urinary stream Qualified Code(s): N40.1 - Benign prostatic hyperplasia with lower urinary tract symptoms; R39.12 - Poor urinary stream Additional A&P Information History of iron deficiency anemia, secondary to chronic GI blood loss, has history of gastric antral vascular ectasia, 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 transplanted heart: [place] heart Associated angina: without angina Bilateral carotid artery stenosis I65.23 Benign prostatic hyperplasia with lower urinary tract symptoms N40.1; R39.12 Lower urinary tract symptom detail: weak urinary stream
[2020-12-26] MEDS: remdesivir 100 MG in sodium chloride 0.9% (100 ml) 80 ML IV (18:01)
[2020-12-26] MEDS: enoxaparin 40 mg/0.4 mL Syringe SUBCUT (19:28)
[2020-12-26] MEDS: cefTRIAXone 1,000 MG in sodium chloride 0.9% (plus) 50 ML 100 MG IV (19:28)
[2020-12-26] MEDS: dexamethasone 4 mg/mL INJ 6 MG IVP (19:29)
[2020-12-26] MEDS: azithromycin 500 MG in sodium chloride 0.9% 250 ML 250 MG IV (20:06)
[2020-12-26] MEDS: atorvastatin 40 mg Tablet PO (20:06)
[2020-12-26] MEDS: mirtazapine 15 mg Tablet 45 MG PO (20:06)
[2020-12-26] MEDS: polyethylene glycol 3350 Pkt 17 gm PO (20:07)
[2020-12-27] VITALS (12 sets, daily range): BP systolic 103–148; BP diastolic 64–79; PULSE 57–78; RESP 17–20; TEMP 36.5–37.1; O2SAT 82–95
[2020-12-27] MEDS: finasteride 5 mg Tablet PO (05:16)
[2020-12-27] MEDS: sertraline 100 mg Tablet PO (05:16)
[2020-12-27] MEDS: oxyCODONE-APAP 5-325 mg Tablet 1 TAB PO ×2 (05:16→18:06)
[2020-12-27] MEDS: aspirin 81 mg EC Tablet PO (05:16)
[2020-12-27] MEDS: chlorthalidone 25 mg Tablet PO (05:23)
[2020-12-27 05:53] LABS: Basophils % 0.2 %; Hematocrit 36.8 % (42.0-52.0); Hemoglobin 11.9 g/dL (11.7-16.6); Lymphocytes # 0.4 10^3/uL (0.8-4.8); Lymphocytes % 6.8 %; Mean Corpuscular HGB Conc 32.3 g/dL (30.0-36.0); Mean Corpuscular Hemoglobin 27.7 pg (28.0-34.0); Mean Corpuscular Volume 85.8 fl (80-94); Mean Platelet Volume 9.5 fL (7.4-10.4); Monocytes # 0.3 10^3/uL (0.2-0.9); Monocytes % 4.6 %; Neutrophils # 5.67 10^3/uL (1.8-7.7); Neutrophils % 87.6 %; Nucleated Red Blood Cells % 0 %; Platelet Count 258 10^3/cmm (130-400); Red Blood Count 4.29 10^6/uL (4.1-5.3); White Blood Count 6.5 10^3/uL (4.0-10.0)
[2020-12-27 06:09] LABS: D Dimer 0.36 ug/mIFEU (0-0.59)
[2020-12-27 06:46] LABS: NT Pro B Type Natriuretic Pept 364 pg/mL (0-450); Procalcitonin 0.08 ng/mL (0-0.5)
[2020-12-27 06:57] LABS: Alanine Aminotransferase 31 U/L (0-41); Albumin Level 3.2 g/dL (3.5-5.2); Alkaline Phosphatase 98 IU/L (40-130); Anion Gap 16.4 (5-19); Aspartate Amino Transferase 21 U/L (0-40); Blood Urea Nitrogen 18 mg/dL (8-23); C Reactive Protein 9.1 mg/L (0.0-4.9); Calcium 8.8 mg/dL (8.5-10.5); Carbon Dioxide 26 mmol/L (22-29); Chloride 98 mmol/L (98-107); Ferritin 964 ng/mL (30-400); Globulin 2.9 g/dL (1.3-4.6); Glucose 178 mg/dL (65-115); Magnesium 1.8 mg/dL (1.7-2.3); Osmolality Calculated 290 mOsm/kg (285-295); Phosphorus 2.6 mg/dL (2.5-4.5); Potassium 3.4 mmol/L (3.5-5.1); Sodium 137 mmol/L (136-145); Total Bilirubin 0.2 mg/dL (0.15-1.2); Total Protein 6.1 g/dL (6.6-8.7)
--- NOTE | 2020-12-27 07:00 | XR_ITS ---
WS: [id number] XR chest 1V portable [id number] REASON FOR EXAM: sob FINDINGS: Compared to the previous examination of 12/23/2020 the extensive diffuse infiltrates are less dense in dicating partial resolution. There are no new abnormalities. XR/XR chest 1V portable [id number] IMPRESSION: Resolving diffuse bilateral pulmonary infiltrates.
[2020-12-27] MEDS: ascorbic acid 500 mg Tablet 1000 MG PO ×2 (09:08→18:04)
[2020-12-27] MEDS: tamsulosin 0.4 mg Capsule PO ×2 (09:08→18:04)
[2020-12-27] MEDS: pantoprazole DR 40 mg Tablet PO (09:08)
[2020-12-27] MEDS: metoprolol tartrate 25 mg Tablet 12.5 MG PO ×2 (09:08→18:04)
[2020-12-27] MEDS: sennosides-docusate Tablet 1 TAB PO ×2 (09:08→18:04)
[2020-12-27] MEDS: zinc gluconate 50 mg Tablet PO (09:08)
[2020-12-27] MEDS: gabapentin 300 mg Capsule PO ×2 (09:08→18:04)
[2020-12-27] MEDS: cholecalciferol (vitamin D3) 1,000 unit Tablet 2000 UNIT PO (09:08)
--- NOTE | 2020-12-27 10:17 | PC.CHAP ---
Pastoral Care Encounter/Spiritual Assessment Type of Contact [] Declined client account manager visit [] Patient/Family/Request visit [] Outpatient visit [] Follow-up visit [] Physician referral [] Code/Alert [] Routine visit [] Staff referral [] Actively dying [] Patient sleeping [] Family support [] [] Out of room [] Palliative care [] [] Receiving care in room [] Pre-surgical visit [] Trauma [] Long length of stay [] ICU visit [x] Other: Isolation Relational/Emotional Strength [] Patient feels connected with others/family/visitors/staff [] Distress [] Loneliness/isolation [] Abandonment Spirituality of Patient [] Person of Joana [] Attends Hindu of their Joana [] Believes in Prayer [] Reads Bible or Religion materials [] There are Spiritual issues to be addressed Barrel 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 Outside Interventions [] Prayer [] Active listening [] Non-anxious presence [] Spiritual/emotional support [] Crisis/trauma care [] Spiritual counseling [] Bereavement support [] Provided bereavement packet [] Provided Bible/devotional materials [] Provided toy/stuffed animal, coloring book to patient or family member [] Provided Communion [] Anointing/[employer] [] Salvation [] Completed spiritual assessment [] Other: Impact on Illness or Injury [] Angry [] Fearful [] Anxious [] Often cries [] Exhaustion [] Unable to work [] Unable to attend yarsanism [] Unable to walk/stand [] Unable to read [] Unable to drive [] Unable to eat/drink [] Unable to sleep [] Unable to be with family [] Patient intubated [] Other: Summary Time spent with patient
--- NOTE | 2020-12-27 12:03 | P.DS_ITS ---
Discharge Providers Date of Admission: 12/23/20 17:05 Date of Discharge: December 27, 2020 Attending Provider at Admission: Jason Roman MD Attending Provider at Discharge: Jer Ramachandran MD Primary Care Provider: Shawna England MD Diagnoses at Discharge Discharge Diagnosis (1) Pneumonia due to COVID-19 virus: Status: Acute (2) Hypertension: Status: Acute Qualifiers: Hypertension type: essential hypertension Qualified Code(s): I10 - Essential (primary) hypertension (3) COPD (chronic obstructive pulmonary disease): Status: Acute (4) CAD (coronary artery disease): Status: Acute Qualifiers: Coronary Disease-Associated Artery/Lesion type: [place] artery [place] vs. transplanted heart: [place] heart Associated angina: without angina Qualified Code(s): I25.10 - Atherosclerotic heart disease of [place] coronary artery without angina pectoris (5) Bilateral carotid artery stenosis: Status: Acute Permanent problem details: 12/2018 Minimal plaques at the bifurcation and internal carotid arteries bilaterally. No significant stenosis, based on the above findings. (6) Benign prostatic hyperplasia with lower urinary tract symptoms: Status: Acute Qualifiers: Lower urinary tract symptom detail: weak urinary stream Qualified Code(s): N40.1 - Benign prostatic hyperplasia with lower urinary tract symptoms; R39.12 - Poor urinary stream Reason for Visit Reason for Visit: N/V Hospital Course Hospital Course This is a 75-year-old male with a past medical history of COPD on 2 L, hypertension, CAD, history of small bowel AV malformations, history of small bowel resection with reanastomosis on the eighth of this month [facility], who presents to [facility] due to worsening shortness of breath, cough, weakness, malaise Patient was admitted to [facility] for acute hypoxic respiratory failure sec to COVID-19 pneumonia, received remdesivir, Decadron, broad-spectrum antibiotic therapy, inhaler therapy, oxygen therapy, clinically monitored. Patient clinically improved, weaned down to 4 L, ambulating without significant symptomatology, discharged home on 4 L. On discharge I discharged him on albuterol, Advair, doxycycline, Tessalon Perles, vitamin C, zinc, vitamin D. In terms of his anticoagulation for hypercoagulability associated with COVID-19, patient has a history of iron deficiency anemia secondary to chronic GI blood loss, patient remained ambulatory during his hospitalization, patient is to continue home aspirin, after discussing the risks and benefits of anticoagulation, we have elected to not pursue anticoagulation, as currently the risks of bleeding outweigh the benefit at this current time. Nonetheless he does have a increased risk of hypercoagulability, advised to continue aspirin, continue to be ambulatory and monitor signs for DVT or PE if so go to emergency room Patient was advised to continue to self isolate, socially distance, facemask, hand wash, continue to self isolate for 14 days since symptom onset. Follow-up with primary care provider about discussion of COVID-19 vaccination, likely within a month or sooner depending on symptomatology improvement. Physical Exam Const: COMMON NORMALS: no acute distress and patient oriented x3 Resp: COMMON NORMALS: normal respiratory effort, No retractions, No use of accessory muscles and clear to auscultation bilaterally AUSCULTATION: clear to auscultation bilaterally Cardio: COMMON NORMALS: regular rate, regular rhythm, S1 normal heart sound present and S2 normal heart sound present RATE: regular rate RHYTHM: regular rhythm HEART SOUNDS: S1 normal heart sound present and S2 normal heart sound present GI: COMMON NORMALS: Normal to inspection, nondistended, normoactive bowel sounds present, Soft to palpation and non-tender PALPATION: Yes Soft to p alpation Extremity: COMMON NORMALS: no pedal edema Neuro: COMMON NORMALS: patient oriented x3 Psych: COMMON NORMALS: mental status grossly normal Discharge Data Data Completed and Pending: Completed Studies During Hospitalization Category Date Time Status CT abdomen pelvis w con* [id number] Urge nt Cat Scan 12/23/20 13:07 Completed XR chest 1V robin ble [id number] Routine Exams 12/27/20 07:00 Completed XR chest 1V robin ble [id number] Urgent Exams 12/23/20 13:07 Completed Pending at discharge Category Date Time Status C Reactive Protei n AM LABS Lab 12/28/20 04:00 Ordered C Reactive Protei n AM LABS Lab 12/29/20 04:00 Ordered Complete Blood Co unt w/Auto AM LABS Lab 12/28/20 04:00 Ordered Complete Blood Co unt w/Auto AM LABS Lab 12/29/20 04:00 Ordered Comprehensive Met abolic Panel AM LA BS Lab 12/28/20 04:00 Ordered Comprehensive Met abolic Panel AM LA BS Lab 12/29/20 04:00 Ordered Erythrocyte Sedim entation Rate AM L ABS Lab 12/25/20 05:16 Received Erythrocyte Sedim entation Rate AM L ABS Lab 12/26/20 05:48 Received Erythrocyte Sedim entation Rate AM L ABS Lab 12/27/20 05:43 Received Magnesium AM LABS Lab 12/28/20 04:00 Ordered Magnesium AM LABS Lab 12/29/20 04:00 Ordered NT Pro B Type Marcia riuretic Pept QAM Lab 12/28/20 06:00 Ordered NT Pro B Type Marcia riuretic Pept QAM Lab 12/29/20 06:00 Ordered Phosphorus AM LAB S Lab 12/28/20 04:00 Ordered Phosphorus AM LAB S Lab 12/29/20 04:00 Ordered Procalcitonin AM LABS Lab 12/28/20 04:00 Ordered Procalcitonin AM LABS Lab 12/29/20 04:00 Ordered Labs from last 24 hours 12/27/20 12/27/20 12/27/20 05:43 05:43 05:43 WBC 6.5 RBC 4.29 Hgb 11.9 Hct 36.8 L MCV 85.8 MCH 27.7 L MCHC 32.3 RDW 15.0 Plt Count 258 MPV 9.5 Neut % (Auto) 87.6 Lymph % (Auto) 6.8 [place] % (Auto) 4.6 Eos % (Auto) 0.0 Baso % (Auto) 0.2 Neut # (Auto) 5.67 Lymph # (Auto) 0.4 L [place] # (Auto) 0.3 Eos # (Auto) 0.0 Baso # (Auto) 0.0 Nucleated RBC % (a uto) 0 Nucleated RBCs # 0.0 ESR D-Dimer 0.36 Sodium 137 Potassium 3.4 L Chloride 98 Carbon Dioxide 26 Anion Gap 16.4 BUN 18 Creatinine 0.6 L GFR Calculation Not Reportable Glucose 178 H Calculated Osmolal ity 290 Calcium 8.8 Phosphorus 2.6 Magnesium 1.8 Ferritin 964 H Total Bilirubin 0.2 AST 21 ALT 31 Alkaline Phosphata se 98 C-Reactive Protein 9.1 H NT-Pro-B Natriuret Pep 364 Total Protein 6.1 L Albumin 3.2 L Globulin 2.9 Procalcitonin 0.08 12/27/20 05:43 WBC RBC Hgb Hct MCV MCH MCHC RDW Plt Count MPV Neut % (Auto) Lymph % (Auto) [place] % (Auto) Eos % (Auto) Baso % (Auto) Neut # (Auto) Lymph # (Auto) [place] # (Auto) Eos # (Auto) Baso # (Auto) Nucleated RBC % (a uto) Nucleated RBCs # ESR Pending D-Dimer Sodium Potassium Chloride Carbon Dioxide Anion Gap BUN Creatinine GFR Calculation Glucose Calculated Osmolal ity Calcium Phosphorus Magnesium Ferritin Total Bilirubin AST ALT Alkaline Phosphata se C-Reactive Protein NT-Pro-B Natriuret Pep Total Protein Albumin Globulin Procalcitonin Vitals: Last Vital Signs Temp 98.4 F 12/27/20 07:46 Pulse 64 12/27/20 09:15 Resp 17 12/27/20 09:15 BP 148/72 12/27/20 07:46 Pulse Ox 88 L 12/27/20 11:39 Discharge Plan Discharge Patient Disposition: Home Condition: Stable Prescriptions: New Advair Diskus 250-50 mcg/dose Blister With Device 1 inh inhalation BID 30 Days Qty: 60 RF: 0 benzonatate 100 mg Capsule 100 mg PO TID PRN (Reason: Cough) 15 Days Qty: 45 RF: 0 zinc gluconate 50 mg Tablet 50 mg PO DAILY 30 Days Qty: 30 RF: 0 doxycycline hyclate 100 mg capsule 100 mg PO BID 3 Days Qty: 6 RF: 0 Continued atorvastatin 80 mg tablet 40 mg PO BEDTIME RF: 0 gabapentin 300 mg capsule 300 mg PO BID RF: 0 pantoprazole 40 mg tablet,delayed release (DR/EC) 40 mg PO DAILY RF: 0 sertraline 100 mg tablet 100 mg PO QAM RF: 0 docusate sodium 100 mg capsule 100 mg PO DAILY PRN (Reason: Constipation) RF: 0 aspirin [Adult Low Dose Aspirin] 81 mg tablet,delayed release (DR/EC) 81 mg PO QAM RF: 0 mirtazapine 45 mg tablet 45 mg PO BEDTIME RF: 0 metoprolol tartrate 25 mg tablet 12.5 mg PO BID 30 Days Qty: 30 RF: 5 hydrocodone-acetaminophen 10-325 mg tablet 1 tab PO QID PRN (Reason: Pain) RF: 0 Calcium 500 500 mg calcium (1,250 mg) Tablet 500 mg PO DAILY RF: 0 potassium chloride 20 mEq Tablet Extended Release 20 meq PO DAILY RF: 0 ProAir HFA 90 mcg/actuation Hfa Aerosol Inhaler 2 puff INHALATION Q4H PRN (Reason: Shortness Of Breath) 30 Days Qty: 8.5 RF: 0 polyethylene glycol 3350 [Miralax] 17 gram/dose Powder 17 g PO BEDTIME RF: 0 cholecalciferol (vitamin D3) [Vitamin D3] 50 mcg (2,000 unit) Capsule 50 mcg PO DAILY RF: 0 chlorthalidone 25 mg tablet 25 mg PO QAM RF: 0 tamsulosin 0.4 mg capsule 0.4 mg PO BID RF: 0 finasteride 5 mg tablet 5 mg PO QAM RF: 0 Vitamin B-12 25 mcg Tablet 25 mcg PO DAILY RF: 0 Discharge Orders: Discharge Order (Routine); Ordered 12/27/20 Ordered By: Jer Ramachandran Other Ambulatory Orders: DME: Oxygen (Order) Location: None Selected Ordered By: Jer Ramachandran Referrals: HOME [Other] Shawna England MD [Primary Care Provider] - 1 week Patient Instructions: Opioid Safety Activity Restrictions/Additional Instructions: -Please continue to ambulate, as you are at increased risk of developing blood clots -Continue aspirin -If you develop calf pain, calf swelling, or sudden onset shortness of breath or bloody cough go to the emergency room or call 911 -Continue to self isolate, socially distance, facemask, for at least 14 days since symptom onset -Use oxygen as prescribed -Discussed with primary care provider about COVID-19 vaccination Discharge Attestations Time Spent in Discharge Care*: less than 30 min Quality Metrics Clinical Quality Measures During this hospital stay, did patient experience: None Coding Level of Care Code Acute [facility] note Diagnoses Pneumonia due to COVID-19 virus U07.1; J12.82 Hypertension I10 Hypertension type: essential hypertension COPD (chronic obstructive pulmonary disease) J44.9 CAD (coronary artery disease) I25.10 Coronary Disease-Associated Artery/Lesion type: [place] artery [place] vs. transplanted heart: [place] heart Associated angina: without angina Bilateral carotid artery stenosis I65.23 Benign prostatic hyperplasia with lower urinary tract symptoms N40.1; R39.12 Lower urinary tract symptom detail: weak urinary stream
[2020-12-27] MEDS: remdesivir 100 MG in sodium chloride 0.9% (100 ml) 80 ML IV (12:13)
--- NOTE | 2020-12-27 15:16 | PC.NURSE ---
Patient states that his daughter can not come and pick him up today that she will not be available until tomorrow at 9 am. Patient states, I do not want to leave and come back so another night here is better for me.
--- NOTE | 2020-12-27 16:29 | PC.OT ---
OT EVALUATION NOT ATTEMPTED DUE TO SCHEDULED DISCHARGE.
--- NOTE | 2020-12-27 19:02 | PC.NURSE ---
Report to Lashonda TREVIÑO at this time.
[2020-12-27] MEDS: enoxaparin 40 mg/0.4 mL Syringe SUBCUT (21:14)
[2020-12-27] MEDS: dexamethasone 4 mg/mL INJ 6 MG IVP (21:15)
[2020-12-27] MEDS: azithromycin 250 mg Tablet 500 MG PO (21:16)
[2020-12-27] MEDS: cefTRIAXone 1,000 MG in sodium chloride 0.9% (plus) 50 ML 100 MG IV (21:17)
[2020-12-27] MEDS: atorvastatin 40 mg Tablet PO (21:17)
[2020-12-27] MEDS: mirtazapine 15 mg Tablet 45 MG PO (21:20)
[2020-12-28] VITALS: BP 142/68; PULSE 64; RESP 18; TEMP 36.4; O2SAT 91
[2020-12-28 04:00] VITALS: BP 142/68; PULSE 64; RESP 18; TEMP 36.4; O2SAT 91
[2020-12-28 05:41] LABS: Eosinophils % 0.1 %; Hematocrit 36.3 % (42.0-52.0); Hemoglobin 11.6 g/dL (11.7-16.6); Lymphocytes # 0.4 10^3/uL (0.8-4.8); Lymphocytes % 5.5 %; Mean Corpuscular Hemoglobin 27.1 pg (28.0-34.0); Mean Corpuscular Volume 84.8 fl (80-94); Mean Platelet Volume 9.9 fL (7.4-10.4); Monocytes # 0.4 10^3/uL (0.2-0.9); Monocytes % 5.3 %; Neutrophils # 6.14 10^3/uL (1.8-7.7); Neutrophils % 87.3 %; Nucleated Red Blood Cells % 0 %; Platelet Count 266 10^3/cmm (130-400); Red Blood Count 4.28 10^6/uL (4.1-5.3); Red Cell Distribution Width 14.9 % (12.1-15.1)
[2020-12-28] MEDS: finasteride 5 mg Tablet PO (05:50)
[2020-12-28] MEDS: chlorthalidone 25 mg Tablet PO (05:50)
[2020-12-28] MEDS: aspirin 81 mg EC Tablet PO (05:50)
[2020-12-28] MEDS: sertraline 100 mg Tablet PO (05:50)
[2020-12-28 06:21] LABS: NT Pro B Type Natriuretic Pept 282 pg/mL (0-450)
[2020-12-28 06:32] LABS: Alanine Aminotransferase 27 U/L (0-41); Albumin Level 3.2 g/dL (3.5-5.2); Alkaline Phosphatase 100 IU/L (40-130); Anion Gap 15.7 (5-19); Aspartate Amino Transferase 17 U/L (0-40); Blood Urea Nitrogen 22 mg/dL (8-23); C Reactive Protein 12.5 mg/L (0.0-4.9); Carbon Dioxide 25 mmol/L (22-29); Chloride 101 mmol/L (98-107); Globulin 3.2 g/dL (1.3-4.6); Glucose 201 mg/dL (65-115); Magnesium 1.9 mg/dL (1.7-2.3); Osmolality Calculated 295 mOsm/kg (285-295); Phosphorus 2.4 mg/dL (2.5-4.5); Potassium 3.7 mmol/L (3.5-5.1); Sodium 138 mmol/L (136-145); Total Bilirubin 0.2 mg/dL (0.15-1.2); Total Protein 6.4 g/dL (6.6-8.7)
[2020-12-28 08:00] VITALS: BP 130/68; PULSE 70; RESP 18; TEMP 36.7; O2SAT 94
[2020-12-28] MEDS: tamsulosin 0.4 mg Capsule PO (08:03)
[2020-12-28] MEDS: zinc gluconate 50 mg Tablet PO (08:03)
[2020-12-28] MEDS: sennosides-docusate Tablet 1 TAB PO (08:03)
[2020-12-28] MEDS: pantoprazole DR 40 mg Tablet PO (08:03)
[2020-12-28] MEDS: gabapentin 300 mg Capsule PO (08:03)
[2020-12-28] MEDS: ascorbic acid 500 mg Tablet 1000 MG PO (08:03)
[2020-12-28] MEDS: metoprolol tartrate 25 mg Tablet 12.5 MG PO (08:03)
[2020-12-28] MEDS: benzonatate 100 mg Capsule PO (08:03)
[2020-12-28] MEDS: cholecalciferol (vitamin D3) 1,000 unit Tablet 2000 UNIT PO (08:03)
--- NOTE | 2020-12-28 08:45 | PC.NURSE ---
Spoke to patient's daughter who states she is half way here an will pick him uo this morning.
--- NOTE | 2020-12-28 09:11 | PC.SOCIAL ---
IMM update IMM updated with patient. Verbalized an understanding. Copy Pg 2 provided. Initialled, dated, timed and placed in chart.
--- NOTE | 2020-12-28 09:45 | PC.NURSE ---
IV removed intact. Patient tolerated well. Patient is A&Ox3. Respirations even and non-labored on 3 liters NC. Reviewed patient discharge with patient at this time. Patient medications were brought to him from our [facility] pharmacy. Patient verbalized understanding of how to take the medications and follow up appointments. Patient was wheel chaired to daughters car.
[2020-12-28 10:07] VITALS: BP 130/68; PULSE 70; RESP 18; TEMP 36.7; O2SAT 94
[2020-12-28 13:23] LABS: Erythrocyte Sedimentation Rate 6 mm/hr (0-10)
[2020-12-28 13:25] LABS: Erythrocyte Sedimentation Rate 6 mm/hr (0-10)
[2020-12-28 13:27] LABS: Erythrocyte Sedimentation Rate 6 mm/hr (0-10)
--- NOTE | 2020-12-30 11:04 | PC.SOCIAL ---
discharge follow up call made, multiple calls made yesterday and today, unable to reach patient. message left.
== END 2020-12-28 09:45 | disposition home or self-care (01) | DRG 177 ==
LOC: ER 14:30 → MEDSURG 17:41
PROVIDERS: Physician Assistant; Admitting Provider Internal Medicine; Emergency Provider Emergency Medicine; PCP Family Medicine; Visit Provider Family Medicine
DX: U07.1 COVID-19 (principal); J12.82 Pneumonia due to coronavirus disease 2019; I25.10 Atherosclerotic heart disease of native coronary artery without angina pectoris; Z95.5 Presence of coronary angioplasty implant and graft; I10 Essential (primary) hypertension; E78.2 Mixed hyperlipidemia; D50.0 Iron deficiency anemia secondary to blood loss (chronic); N40.1 Benign prostatic hyperplasia with lower urinary tract symptoms; R39.12 Poor urinary stream; J44.9 Chronic obstructive pulmonary disease, unspecified; K21.9 Gastro-esophageal reflux disease without esophagitis; M19.90 Unspecified osteoarthritis, unspecified site; F43.10 Post-traumatic stress disorder, unspecified; Z99.81 Dependence on supplemental oxygen; Z90.49 Acquired absence of other specified parts of digestive tract; K57.90 Diverticulosis of intestine, part unspecified, without perforation or abscess without bleeding; Z79.51 Long term (current) use of inhaled steroids; Z79.891 Long term (current) use of opiate analgesic
CPT/HCPCS: 36415; 36416; 71045; 74177; 80053; 81001; 82728; 82962; 83605; 83690; 83735; 83880; 84100; 84145; 84484; 85025; 85378; 85384; 85651; 86140; 87426; 92610; 93005; 94640; 96365; 96366; 96372; 96375; 99285; J0456; J0696; J1100; J1650; J2405; J3480; J7030; J7050; Q0144; Q9967

== ENCOUNTER 2021-01-04 11:00 | Outpatient (CLI) | payer OTHER, SELFPAY ==
[2021-01-04 11:22] LABS: Basophils # 0.1 10^3/uL (0.0-0.1); Basophils % 0.4 %; Eosinophils # 0.2 10^3/uL (0.0-0.8); Eosinophils % 1.5 %; Hematocrit 39.9 % (42.0-52.0); Hemoglobin 12.9 g/dL (11.7-16.6); Lymphocytes # 1.3 10^3/uL (0.8-4.8); Lymphocytes % 8.4 %; Mean Corpuscular HGB Conc 32.3 g/dL (30.0-36.0); Mean Corpuscular Hemoglobin 27.8 pg (28.0-34.0); Mean Platelet Volume 9.5 fL (7.4-10.4); Monocytes # 1.2 10^3/uL (0.2-0.9); Monocytes % 7.9 %; Neutrophils # 12.42 10^3/uL (1.8-7.7); Nucleated Red Blood Cells % 0 %; Platelet Count 255 10^3/cmm (130-400); Red Blood Count 4.64 10^6/uL (4.1-5.3); Red Cell Distribution Width 15.2 % (12.1-15.1); White Blood Count 15.4 10^3/uL (4.0-10.0)
[2021-01-04 12:05] LABS: Ferritin 490 ng/mL (30-400); Iron 58 ug/dL (59-158); Percent Saturation 30.3 % (20-50); Total Iron Binding Capacity 191 mcg/dl; Unsaturated Iron Binding 133 ug/dL (112-347)
--- NOTE | 2021-01-04 17:37 | ONC FU_ITS ---
Dr. Hoang follow up note Patient: Jamaal Sanchez Unit #: [id number]: [id number] Dicatated By: Tomas Hoang M.D.Date of Visit:Jan 04, 2021 Onc Med Follow-up/Prog Note History of Present Illness: Mr. Sanchez is a 75-year-old gentleman with history of iron deficiency anemia due to chronic GI blood loss. 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 As per patient in 2016, he started feeling weak and tired and found to have severe anemia. His hemoglobin was around 5 g. He was given 2 units of packed RBCs and underwent EGD and colonoscopy. The EGD showed some blood in his stomach and he was diagnosed with gave syndrome. He was referred to [facility] in [place], as per patient rn clinician there told him he didn't have gave syndrome. He also underwent capsule endoscopy which showed some bleeders. He underwent cauterization of AVMs ???2. Mr. Sanchez was found to be anemic and iron deficient on his 09/15/2018 labs. His hemoglobin at that time was 10.2 and his iron saturation was 7.1% and ferritin was 22 and iron level was 22. Received 2 doses of IV replacement iron with Injectafer first on 09/24/2018 and again on 10/01/2018. and on 11/12/[address] Zaidi on 12/09/2017 and underwent double balloon endoscopy for persistent AVMs/questionable polyp, as per patient those bleeders were out of reach from upper end and a colonoscopy to evaluate lower part of small bowel and capsule endoscopy was Scheduled for 02/05/2019. Mr. Sanchez presented in December 2018 with recurrent iron deficiency anemia and was given 2 doses of Injectafer. The first one was on 02/16/2019 and the second was 02/23/2019. His Hgb on 02/16/2019 was 10.5. He came in March 2019 for post Injectafer followup. He presented weak, extremely short of breath with just minimal exertion and states he is having chest pain and his head is pounding . He states he has chest discomfort with just walking across the room. He does have a history of CAD and an several stents. He was just completely exhausted and feels that he probably needs some blood. He received 2 more doses on Injectafer on 03/30/2019 and 04/07/2019. He states overall he feels really good. He has not noted any blood in his stools. He states he has a good appetite. patient said his rn clinician in [place] has referred him to rn clinician in [place] as bleeders in his small bowel were out of reach. And he was seen by Dr. Ezra Craft, interventional rn clinician for small bowel AVM cauterization on December 08, 2019 as per patient he had scheduled him for MRI scan of the abdomen to look for polyps or other pathology and small bowel, As per patient it was done on January 07, 2020 And showed extensive colonic diverticulosis without evidence of acute diverticulitis. No other findings to explain patient's symptoms. Of note, this exam is suboptimal for detection of small polyps follow-up subtle angiodysplasia on parenteral Injectafer since December 18, 2019 initially he was given every 2 weeks but since March 07, 2020 he received weekly x4 and last dose was given on March 28, 2020 Again repeated on April 25 and May 02, 2020 And then continued on a weekly basis x2 in Maynd then on August 24, 2020 patient underwent partial small bowel resection for persistent AVMs on November 30, 2020 at [place]. Came for follow-up, denies any specific complaint except generalized weakness and fatigue, as per patient since his last visit, he was admitted to hospital with bowel obstruction, he was airlifted to [facility] where he underwent EGD and there was a swelling around recently done small bowel resection anastomosis site, as per patient he was treated with supportive care and his symptoms improved and then patient developed Covid infection, now on home oxygen. Denies any hemoptysis or hematemesis denies any melena or hematochezia denies any jaundice denies any abdominal pain, denies any nausea or vomiting Medications: Aspirin 1 Tablet (of 81 mg) Oral daily, Atorvastatin Calcium 0.5 Tablet (of 80 mg) Oral daily, B-12 1 Tablet (of 1000 mcg) Oral daily, Docusate Sodium 1 Capsule (of 100 mg) Tablet Oral b.i.d., Flomax 1 Tablet (of 0.4 mg) Capsule Oral b.i.d., Gabapentin 1 Capsule (of 300 mg) Oral t.i.d., hydroCHLOROthiazide 1 Tablet (of 25 mg) Oral daily, HYDROcodone-Acetaminophen 1 Tablet (of 10-325 mg) Oral four times a day, Mirtazapine 1 Tablet (of 45 mg) Oral daily, Pantoprazole Sodium 1 Tablet (of 40 mg) Tablet, enteric coated Oral daily, Sertraline HCl 0.5 Tablet (of 100 mg) Oral daily Allergies: Haldol Review of Systems: Review of Systems is not available for this patient. Vital Signs: Performed on Jan 04, 2021 12:51 Height - 74.00 in Weight - 260.6 lbs (LOW) BSA - 2.43 sq.m BMI - 33.46 (HIGH) Temperature - 98.9 F (HIGH) Pulse - 101 /min (HIGH) Respiration - 22 /min BP - 141/75 mm(hg) (HIGH) O2 Sat - 91 % (LOW) Pain - 0 Fatigue - 0 Performance Status: 1 - No physically strenuous activity, but ambulatory and able to carry out light or sedentary work (e.g. office work, light house work). (ECOG) Physical Examination: ENMT - No mouth sores, no thrush, no jaundice, Respiratory - Poor air entry otherwise clear, Cardiovascular - Regular rate and rhythm of heart, Abdomen - Soft, bowel sounds present, Extremities - No visible edema. Lab/Imaging: Most recent lab results are not available for this patient. 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 AVMs Status post cauterization ???2 since 2015. Intolerance to oral iron. IV iron replacement with Injectafer on 09/24/2018 and 10/01/2018.Then continued off and on in February 2020 done weekly x4 in May 2020 Mr. Sanchez presented in March 2019 for follow-up post Injectafer. He continued to be iron deficient and anemic. His hemoglobin had dropped from 10.5 on February 16 2019-9.2 on 03/30/2019. He is following with Dr. Zaidi in [place] and states that they have referred him to [place]. He is awaiting for an appointment there. He was extremely symptomatic with his anemia in March with significant shortness of breath, chest pain and palpitations head and heart pounding and fatigue. He did have 1 unit of blood and received 2 doses of Injectafer in March 2019. He had had Injectafer on 02/17/2020 and 02/24/2020 prior to his March dosing. He has had Injectafer on , 07/17/2019, 08/25/2019, 09/01/2019 and 10/06/2019. His last dose of Injectafer was on 10/13/2019. His Hgb has remained in the 9.8 to 11.9 range since June 08, 2019. His iron levels have ranged from 25-42 since May, despite all the Injectafer infusions. His iron saturations have ranged from 7.2-13.8 since June 08, 2019 as well. His ferritin levels have been from 27 to a high of 91. He scheduled to see the GI specialist at [facility] in may Plan: Discussed with patient regarding his labs white blood count 15.4 hemoglobin 12.9 g compared to 12.6 g previously hematocrit 39.9 platelets 255,000 iron studies shows iron saturation 30.3% compared to 19% previously ferritin 490 compared to 373 previously iron 58 TIBC 191 Clinically, patient doing well, his follow-up labs shows resolution of iron deficiency anemia, no clinical signs symptom suggestive of gross bleeding from small bowel AVMs since he underwent small bowel resection. At this point no more hematological recommendation rather observation, patient will continue to follow-up with his PMD and we will see him on as-needed basis Signed By: Tomas Hoang M.D. <<Signature on File>>
== END 2021-01-04 11:01 | disposition home or self-care (01) ==
LOC: ONCMED 11:01
PROVIDERS: PCP Family Medicine; Visit Provider Internal Medicine Hematology & Oncology
DX: K31.819 Angiodysplasia of stomach and duodenum without bleeding (principal); D50.0 Iron deficiency anemia secondary to blood loss (chronic); Z79.899 Other long term (current) drug therapy
CPT/HCPCS: 36415; 82728; 83540; 83550; 85025; 99214

== ENCOUNTER → 2021-01-31 16:05 | Outpatient (BNVA) | payer OTHER, SELFPAY | PROVIDERS: PCP Family Medicine; Visit Provider Internal Medicine Cardiovascular Disease | DX: I11.0 Hypertensive heart disease with heart failure (principal); I50.33 Acute on chronic diastolic (congestive) heart failure; I25.10 Atherosclerotic heart disease of native coronary artery without angina pectoris; R06.02 Shortness of breath; E78.2 Mixed hyperlipidemia; I65.23 Occlusion and stenosis of bilateral carotid arteries; R60.9 Edema, unspecified | CPT/HCPCS: 80048; 83880 ==

== ENCOUNTER → 2021-04-11 15:50 | Outpatient (BNVA) | payer MEDICARE, OTHER, SELFPAY | PROVIDERS: PCP Family Medicine; Visit Provider Internal Medicine Cardiovascular Disease | DX: R06.02 Shortness of breath (principal); I50.33 Acute on chronic diastolic (congestive) heart failure | CPT/HCPCS: 80048; 83880 ==

== ENCOUNTER → 2021-06-19 13:53 | Outpatient (BNVA) | payer OTHER, SELFPAY | PROVIDERS: PCP Family Medicine; Visit Provider Urology | DX: N40.1 Benign prostatic hyperplasia with lower urinary tract symptoms (principal); R39.12 Poor urinary stream | CPT/HCPCS: 81003 ==

== ENCOUNTER → 2021-08-16 12:33 | Outpatient (BNVA) | payer OTHER, SELFPAY | PROVIDERS: PCP Family Medicine; Visit Provider Internal Medicine Pulmonary Disease | DX: R06.02 Shortness of breath (principal); J44.9 Chronic obstructive pulmonary disease, unspecified; G47.33 Obstructive sleep apnea (adult) (pediatric); I25.10 Atherosclerotic heart disease of native coronary artery without angina pectoris; R06.09 Other forms of dyspnea; U09.9 Post COVID-19 condition, unspecified; R23.8 Other skin changes; Z87.891 Personal history of nicotine dependence | CPT/HCPCS: 85025; 85049; 85384; 85610; 85730; 99214 ==

== ENCOUNTER 2021-08-24 10:28 | Outpatient (RCR) | payer OTHER, SELFPAY | END 2021-09-21 23:59 | disposition home or self-care (01) | LOC: PULRHB 10:28 | PROVIDERS: PCP Family Medicine; Visit Provider Nurse Practitioner | DX: R06.02 Shortness of breath (principal); R06.00 Dyspnea, unspecified | CPT/HCPCS: 94626 ==

== ENCOUNTER 2021-10-23 06:00 | Outpatient (RCR) | payer OTHER, SELFPAY | END 2021-11-22 23:59 | disposition home or self-care (01) | LOC: PULRHB 06:00 | PROVIDERS: PCP Family Medicine; Visit Provider Nurse Practitioner | DX: J44.9 Chronic obstructive pulmonary disease, unspecified (principal); I25.10 Atherosclerotic heart disease of native coronary artery without angina pectoris; R06.09 Other forms of dyspnea; U09.9 Post COVID-19 condition, unspecified; R23.8 Other skin changes; E66.9 Obesity, unspecified; Z68.37 Body mass index [BMI] 37.0-37.9, adult; M25.561 Pain in right knee; M25.562 Pain in left knee; Z87.891 Personal history of nicotine dependence | CPT/HCPCS: 99214 ==

== ENCOUNTER 2021-11-07 10:16 | Outpatient (CLI) | payer OTHER, SELFPAY ==
--- NOTE | 2021-11-07 13:47 | PFTS_ITS ---
Date of Study:11/07/21 Date of Dictation: MECHANICS: Forced vital capacity (FVC) is reduced. Forced expiratory volume in one second (FEV1) is reduced. FEV1/FVC is normal. FLOW VOLUME LOOP: Narrow. LUNG VOLUMES: Not measured DIFFUSING CAPACITY FOR CARBON MONOXIDE: Moderately reduced. INTERPRETATION: The postbronchodilator spirometry is consistent with moderate restriction. There is no significant postbronchodilator response. Lung volumes are not measured. Gas exchange (DLCO) is moderately reduced. MTDD
== END 2021-11-07 10:17 | disposition home or self-care (01) ==
LOC: RT 10:17
PROVIDERS: PCP Family Medicine; Visit Provider Internal Medicine Pulmonary Disease
DX: R06.02 Shortness of breath (principal); J44.9 Chronic obstructive pulmonary disease, unspecified
CPT/HCPCS: 94060; 94618; 94729; J7611

== ENCOUNTER → 2021-11-09 10:59 | Outpatient (BNVA) | payer OTHER, SELFPAY | PROVIDERS: PCP Family Medicine; Visit Provider Internal Medicine Cardiovascular Disease | DX: I25.10 Atherosclerotic heart disease of native coronary artery without angina pectoris (principal); G47.33 Obstructive sleep apnea (adult) (pediatric); I10 Essential (primary) hypertension; J44.9 Chronic obstructive pulmonary disease, unspecified; E78.2 Mixed hyperlipidemia; Z87.891 Personal history of nicotine dependence | CPT/HCPCS: 99214 ==

== ENCOUNTER 2021-12-19 12:07 | Outpatient (CLI) | payer OTHER, SELFPAY ==
--- NOTE | 2021-12-19 13:00 | CT_ITS ---
WS: [id number] LDCT LUNG CANCER SCREENING TECHNIQUE: Noncontrast CT of the chest with coronal and sagittal reformatted images. CLINICAL INFORMATION: lung screenin COMPARISON: CT December 09, 2020 DLP: 73.99 mGy.cm DIvol: Mean CTDIvol: 1.60 (mGy) All CT scans at [facility] use at least one of these dose optimization techniques: automat ed exposure control; mA and/or kV adjustment per patient size (includes targeted exams where dose is matched to clinical indication); or iterative reconstruction. FINDINGS: Normal caliber thoracic aorta. Coronary calcification. No mediastinal or hilar lymphadenopathy. Sligh tly spiculated Noncalcified nodule RIGHT lower lobe measuring 10 mm adjacent to the diaphragm. This a ppears new since December 09, 2020 No axillary lymphadenopathy. Adrenal glands are normal. Normal GE junction. . No focal pneumonia or p leural fluid. Slight bibasilar atelectasis. Calcified granuloma RIGHT upper lobe. Chronic appearing a nterior wedging in the upper thoracic spine. Anterior hypertrophic changes thoracic spine with ankylo sis. CT/CT lung screening [id number] IMPRESSION: 10 mm solid nodule RIGHT lower lobe adjacent to the diaphragm. Evaluation with PET/CT. LUNG-RADS: 4B-Suspicious FOLLOW UP: PET/CT recommended
== END 2021-12-19 12:08 | disposition home or self-care (01) ==
LOC: RAD 12:09
PROVIDERS: PCP Family Medicine; Visit Provider Internal Medicine Pulmonary Disease
DX: Z87.891 Personal history of nicotine dependence (principal); Z12.2 Encounter for screening for malignant neoplasm of respiratory organs
CPT/HCPCS: 71271

== ENCOUNTER → 2022-01-11 08:56 | Outpatient (BNVA) | payer OTHER, SELFPAY | PROVIDERS: PCP Family Medicine; Visit Provider Internal Medicine Pulmonary Disease | DX: R06.09 Other forms of dyspnea (principal); J44.9 Chronic obstructive pulmonary disease, unspecified; I25.10 Atherosclerotic heart disease of native coronary artery without angina pectoris; U09.9 Post COVID-19 condition, unspecified; R91.1 Solitary pulmonary nodule; Z87.891 Personal history of nicotine dependence; G47.33 Obstructive sleep apnea (adult) (pediatric) | CPT/HCPCS: 99214 ==

== ENCOUNTER → 2022-05-03 12:30 | Outpatient (BNVA) | payer OTHER, SELFPAY | PROVIDERS: PCP Family Medicine; Visit Provider Internal Medicine Cardiovascular Disease | DX: I25.10 Atherosclerotic heart disease of native coronary artery without angina pectoris (principal); E78.2 Mixed hyperlipidemia; I10 Essential (primary) hypertension; G47.33 Obstructive sleep apnea (adult) (pediatric); Z87.891 Personal history of nicotine dependence | CPT/HCPCS: 99214 ==

== ENCOUNTER 2022-05-11 09:36 | Emergency (ER) | payer MEDICARE, OTHER, SELFPAY ==
[2022-05-11 09:48] VITALS: BP 164/72; PULSE 65; RESP 14; TEMP 36.8; O2SAT 92; BMI 35.9
--- NOTE | 2022-05-11 09:53 | W.ED.EXTPRO ---
HPI - Extremity Problem General: Chief complaint: Extremity Problem,Nontraumatic Stated complaint: left knee pain Time Seen by Provider: 05/11/22 09:41 Source: patient Mode of arrival: ambulatory Limitations: no limitations History of Present Illness: Patient is a 76-year-old male who presents to ED today with a complaint of left knee pain. Patient states he has had pain in the knee for several years. He at one point was recommended for a total knee replacement but states he ended up having some other health issues (small bowel tumor/resection, lung nodule, heart issues) and states it got put on the back burner . Patient has been seeing a provider in [place] for intra-articular knee injections but states they are no longer helping. He reports feeling a crunching sensation in the knee with ambulation. Patient states his pain today is worse following an injection about a week ago. He has not noticed any redness, swelling, warmth. MD Complaint: joint pain Onset (ago): year(s) Pain Consistency: constant Location: left and knee Radiation: none Relieving factors: rest Exacerbating factors: range of motion, weight bearing and walking Associated symptoms: Reports no associated symptoms; Deny fever(s) Review of Systems Const: Denies: fever(s), chills, body aches, fatigue or malaise Musc: Reports: joint pain (L knee); Denies: extremity pain, extremity swelling, joint swelling, joint redness or joint warmth Neuro: Denies: numbness in extremities, weakness in extremities or sensory changes PFSH ED PFSH: Medical History Anemia Benign prostatic hyperplasia with lower urinary tract symptoms Bilateral carotid artery stenosis 12/2018 Minimal plaques at the bifurcation and internal carotid arteries bilaterally. No significant stenosis, based on the above findings. CAD (coronary artery disease) COPD (chronic obstructive pulmonary disease) GERD (gastroesophageal reflux disease) H/O: GI bleed Hypertension Mixed hyperlipidemia Osteoarthritis Presence of arterial stent PTSD (post-traumatic stress disorder) Surgical History S/P small bowel resection Family History Family/Other Diabetes CAD (coronary artery disease) Cancer Father , at age 98 CHF (congestive heart failure) CAD (coronary artery disease) Mother , at age 80 Stroke Brother Diabetes Sister Diabetes Denies family history of Clotting disorder Dementia Chronic kidney disease (CKD) Suicide Anesthesia complication Bleeding disorder Lung disease Social History Smoking and tobacco status: former smoker Quit status (tobacco): has quit using tobacco Year quit tobacco: 2012 Former quit date comment: 1.5 ppd X 52 years Second hand smoke exposure: Yes Smoking risk assessment/counseling performed?: No Alcohol intake: never Adopted: No Marital status: Current occupational status: retired Physical Exam Const: COMMON NORMALS: no acute distress, patient oriented x3, no limitations and alert GENERAL APPEARANCE: cooperative NUTRITIONAL APPEARANCE: overweight ORIENTATION/CONSCIOUSNESS: Yes awake, Yes oriented to person, Yes oriented to place and Yes oriented to time Extremity: COMMON NORMALS: capillary refill normal, no joint enlargement, no clubbing, cyanosis or edema, no calf tenderness and no pedal edema GENERAL: Yes normal exam except as noted LEFT LOWER EXTREMITY: Yes knee joint (no swelling, redness, warmth present) Left knee: Yes inspection (arthritic ), Yes ROM (full but painful ROM) and Yes neurovascular exam (normal) Neuro: COMMON NORMALS: patient oriented x3, moves all extremities, no focal motor deficits and no sensory deficits noted SENSORIUM/ORIENTATION: Yes alert, Yes oriented to person, Yes oriented to place and Yes oriented to time Course Vital Signs: Vital signs: Vital Signs Temperature 98.3 F 05/11/22 09:48 Pulse Rate 65 05/11/22 09:48 Respiratory Rate 14 05/11/22 09:48 Blood Pressure 164/72 05/11/22 09:48 Pulse Oximetry 92 05/11/22 09:48 Oxygen Delivery Me thod 05/11/22 09:48 MDM - Extremity (Nontraumatic) Medical Decision Making Pt here with acute on chronic pain associated with osteoarthritis of L knee. He is requesting referral to orthopedics for evaluation for total knee arthroplasty. Case management referral placed. Patient already takes hydrocodone 10mg 4x daily for chronic back pain. He can continue this. Lab Data Radiology Impressions Knee X-Ray 05/11/22 10:01 Impression: Mild osteoarthritis of the left knee. Kellgren-Devan Classification: grade 2 (minimal): definite osteophytes and possible joint space narrowing Discharge Plan Discharge Patient Disposition: Home Clinical Impression: Osteoarthritis of left knee Qualifiers: Osteoarthritis type: primary Qualified Code(s): M17.12 - Unilateral primary osteoarthritis, left knee Condition: Stable Prescriptions: No Action atorvastatin 80 mg tablet 40 mg PO BEDTIME pantoprazole 40 mg tablet,delayed release (DR/EC) 40 mg PO DAILY gabapentin 300 mg capsule 300 mg PO BID Rx Instructions: 1 tab qam 3 tab qpm sertraline 100 mg tablet 100 mg PO QAM docusate sodium 100 mg capsule 100 mg PO DAILY PRN (Reason: Constipation) aspirin [Adult Low Dose Aspirin] 81 mg tablet,delayed release (DR/EC) 81 mg PO QAM mirtazapine 45 mg tablet 45 mg PO BEDTIME metoprolol tartrate 25 mg tablet 12.5 mg PO BID 30 Days Qty: 30 5RF hydrocodone-acetaminophen 10-325 mg tablet 1 tab PO QID PRN (Reason: Pain) Spiriva with HandiHaler 18 mcg capsule, w/inhalation device 1 cap inhalation DAILY Qty: 30 3RF Rx Instructions: puncture 1 cap using device; one dose = 2 inhalations fluticasone propion-salmeterol [Wixela Inhub] 250-50 mcg/dose blister with device 1 inh inhalation BID Qty: 60 3RF finasteride 5 mg tablet 5 mg PO QAM Qty: 90 3RF Calcium 500 500 mg calcium (1,250 mg) Tablet 500 mg PO DAILY ProAir HFA 90 mcg/actuation Hfa Aerosol Inhaler 2 puff INHALATION Q4H PRN (Reason: Shortness Of Breath) 30 Days Qty: 8.5 0RF polyethylene glycol 3350 [Miralax] 17 gram/dose Powder 17 g PO BEDTIME cholecalciferol (vitamin D3) [Vitamin D3] 50 mcg (2,000 unit) Capsule 50 mcg PO DAILY chlorthalidone 25 mg tablet 25 mg PO QAM tamsulosin 0.4 mg capsule 0.4 mg PO BID cyanocobalamin (vitamin B-12) 25 mcg Tablet 25 mcg PO DAILY Discharge Orders: Discharge ED (Routine); Ordered 05/11/22 Ordered By: Karen Pham Referrals: Shawna England MD [Primary Care Provider] - Patient Instructions: Osteoarthritis (DC) Coding Level of Care Code ED Forensic Specialist for Chg Fwmathieu
--- NOTE | 2022-05-11 10:01 | XR_ITS ---
WS: [id number] Left knee, 4 views, 05/11/2022 Clinical Data: pain Comparison: None. Findings: No fractures or dislocations are seen. There is medial joint compartment narrowing with a spur of the medial femoral condyle. There is posterior left patellar spurring. The soft tissues are unremarkable . XR/XR knee LT 3V* [id number] Impression: Mild osteoarthritis of the left knee. Kellgren-Devan Classification: grade 2 (minimal): definite osteophytes and p ossible joint space narrowing
--- NOTE | 2022-05-11 10:05 | PC.PHAR ---
waiting for [facility] to fax med list
--- NOTE | 2022-05-25 08:49 | DCPLANNER ---
Addendum entered by Francy Mckinney 05/31/22 07:29: community engagement manager received the following message from ortho regarding follow up appointment: spoke to patient - he said he is already set up to see Dr. Haskins Original Note: community engagement manager had message to schedule a followup appointment for patient with ortho. community engagement manager sent patients information to the front office staff at ortho. Patients information will be printed and reviewed. Clinic will call patient with appointment information.
== END 2022-05-11 10:37 | disposition home or self-care (01) ==
PROVIDERS: Emergency Provider Physician Assistant; PCP Family Medicine
DX: M17.12 Unilateral primary osteoarthritis, left knee (principal); Z79.82 Long term (current) use of aspirin; Z87.891 Personal history of nicotine dependence; I25.10 Atherosclerotic heart disease of native coronary artery without angina pectoris; J44.9 Chronic obstructive pulmonary disease, unspecified; I10 Essential (primary) hypertension; E78.2 Mixed hyperlipidemia
CPT/HCPCS: 73562; 99283

== ENCOUNTER → 2022-05-31 14:33 | Outpatient (BNVA) | payer OTHER, SELFPAY | PROVIDERS: PCP Family Medicine; Visit Provider Internal Medicine Pulmonary Disease | DX: J44.9 Chronic obstructive pulmonary disease, unspecified (principal); I25.10 Atherosclerotic heart disease of native coronary artery without angina pectoris; R06.09 Other forms of dyspnea; U09.9 Post COVID-19 condition, unspecified; R91.1 Solitary pulmonary nodule; Z87.891 Personal history of nicotine dependence; G47.33 Obstructive sleep apnea (adult) (pediatric) | CPT/HCPCS: 99214 ==

== ENCOUNTER → 2022-06-18 12:32 | Outpatient (BNVA) | payer OTHER, SELFPAY | PROVIDERS: PCP Family Medicine; Visit Provider Urology | DX: N40.1 Benign prostatic hyperplasia with lower urinary tract symptoms (principal) | CPT/HCPCS: 51798; 81003; 99213 ==

== ENCOUNTER 2022-06-21 12:57 | Outpatient (CLI) | payer OTHER, SELFPAY ==
--- NOTE | 2022-06-21 13:30 | CT_ITS ---
WS: [id number] CT chest wo con [id number] HISTORY: 6 month f/u lung nodule TECHNIQUE: Axial imaging performed through the thorax. Coronal and sagittal reformats are submitted. All CT scans at [facility] use at least one of these dose optimization techniques: automated exposure control; mA and/or kV adjustment per patient size (includes targeted exams where dose is mat ched to clinical indication); or iterative reconstruction. CONTRAST: None DLP: 631.81 mGy.cm COMPARISON: PET/CT 12/30/2021. Prior lung screening CT 12/19/2021 Lungs and central airway: PET/CT negative nodule at the RIGHT lung base is slightly spiculated but un changed significantly in size. Nodule measures 9 x 6 mm. No pneumonia. No additional nodules. Pleura: Normal. No pleural effusion. Heart and pericardium: Mild cardiomegaly with no pericardial effusion. Mediastinum and marion: Benign mediastinal and hilar lymph nodes. No enlarging lymph nodes. Fluid colle ction in the superior medial mediastinum conforms to the space. This is probably related to pericardi al recess. Unchanged over several prior years. Vessels: Mild atherosclerosis aorta. Pulmonary artery slightly dilated at 4.0 cm. Chest wall and lower neck: No soft tissue masses. Upper abdomen: No adrenal mass. Visualized liver is negative. Osseous structures: Large anterior bridging osteophytes throughout the mid to lower thoracic spine. M ild anterior wedging of what is probably the T4 vertebral body from a remote minimal compression frac ture. CT/CT chest wo con [id number] IMPRESSION: 1. PET/CT negative RIGHT basilar lung nodule measures 9 x 6 mm and is unchange d in size. Nodule is very slightly spiculated. Suggest continued 6 month noncon trast chest CT follow-up to document long-term stability. 2. No pneumonia or additional masses. 3. Mild pulmonary hypertension. 4. Mild cardiomegaly.
== END 2022-06-21 12:58 | disposition home or self-care (01) ==
LOC: RAD 12:58
PROVIDERS: PCP Family Medicine; Visit Provider Internal Medicine Pulmonary Disease
DX: R91.1 Solitary pulmonary nodule (principal); I51.7 Cardiomegaly; I27.20 Pulmonary hypertension, unspecified
CPT/HCPCS: 71250

== ENCOUNTER → 2022-07-31 10:44 | Outpatient (BNVA) | payer MEDICARE, OTHER, SELFPAY | PROVIDERS: PCP Family Medicine; Visit Provider Podiatrist Foot & Ankle Surgery | DX: E11.8 Type 2 diabetes mellitus with unspecified complications (principal); G62.9 Polyneuropathy, unspecified; Z79.84 Long term (current) use of oral hypoglycemic drugs | CPT/HCPCS: 99213 ==

== ENCOUNTER 2022-11-02 11:43 | Emergency (ER) | payer OTHER, SELFPAY ==
[2022-11-02 11:51] VITALS: BP 154/77; PULSE 58; RESP 16; TEMP 36.7; O2SAT 95; BMI 34.7
[2022-11-02 12:09] VITALS: BP 136/67; PULSE 56; RESP 18; O2SAT 86
[2022-11-02 12:12] VITALS: O2SAT 94
--- NOTE | 2022-11-02 12:23 | XR_ITS ---
WS: [id number] XR chest 1V portable [id number] REASON FOR EXAM: COPD, intermit SOB FINDINGS: Moderate tortuosity and ectasia of the thoracic aorta. Mild cardiomegaly. Calcified granulomas disease in both hemithoraces. Moderate elevation of the right hemidiaphragm. No acute pulmonary parenchymal or pleural abnormality. Moderate osteoarthritis in the shoulder joints and significant degenerative spondylosis in the mid an d lower thoracic spine. IMPRESSION: No acute chest abnormality. Mild cardiomegaly.
[2022-11-02 12:33] LABS: Basophils # 0.1 10^3/uL (0.0-0.1); Basophils % 0.6 %; Eosinophils # 0.2 10^3/uL (0.0-0.8); Eosinophils % 1.7 %; Hematocrit 40.9 % (42.0-52.0); Hemoglobin 13.1 g/dL (11.7-16.6); Lymphocytes # 1.3 10^3/uL (0.8-4.8); Lymphocytes % 13.3 %; Mean Corpuscular Hemoglobin 27.3 pg (28.0-34.0); Mean Corpuscular Volume 85.4 fl (80-94); Mean Platelet Volume 10.4 fL (7.4-10.4); Monocytes # 0.6 10^3/uL (0.2-0.9); Monocytes % 6.5 %; Neutrophils # 7.34 10^3/uL (1.8-7.7); Neutrophils % 77.4 %; Nucleated Red Blood Cells % 0 %; Platelet Count 249 10^3/cmm (130-400); Red Blood Count 4.79 10^6/uL (4.1-5.3); Red Cell Distribution Width 14.7 % (12.1-15.1); White Blood Count 9.5 10^3/uL (4.0-10.0)
--- NOTE | 2022-11-02 12:56 | W.ED.SOB ---
HPI - SOB/Dyspnea General: Chief Complaint: Shortness of Breath/Dyspnea Stated Complaint: SOB Time Seen by Provider: 11/02/22 11:44 Source: patient Mode of arrival: ambulatory Limitations: no limitations History of Present Illness: HPI Narrative: 77yo male presents with concerns of a low heart rate this morning. Patient states he has had increasing shortness of breath over the past several months. Reports that he does have COPD, but does not use oxygen at home. Patient denies any fever, chills, body aches, difficulty breathing, chest pain, abdominal pain, vomiting, diarrhea. Associated symptoms: Deny abdominal pain, chest pain, fever(s) or vomiting Review of Systems Const: Denies: fever(s), chills or body aches Card: Denies: chest pain Resp: Reports: dyspnea (intermittent x 1 month) GI: Denies: abdominal pain, vomiting or diarrhea Neuro: Denies: headache(s) PFS ED PFSH: Medical History Anemia Benign prostatic hyperplasia with lower urinary tract symptoms Bilateral carotid artery stenosis 12/2018 Minimal plaques at the bifurcation and internal carotid arteries bilaterally. No significant stenosis, based on the above findings. CAD (coronary artery disease) COPD (chronic obstructive pulmonary disease) GERD (gastroesophageal reflux disease) H/O: GI bleed Hypertension Mixed hyperlipidemia Osteoarthritis Presence of arterial stent PTSD (post-traumatic stress disorder) Surgical History S/P small bowel resection Family History Family/Other Diabetes CAD (coronary artery disease) Cancer Father , at age 98 CHF (congestive heart failure) CAD (coronary artery disease) Mother , at age 80 Stroke Brother Diabetes Sister Diabetes Denies family history of Clotting disorder Dementia Chronic kidney disease (CKD) Suicide Anesthesia complication Bleeding disorder Lung disease Social History Smoking and tobacco status: former smoker Quit status (tobacco): has quit using tobacco Year quit tobacco: 2012 Former quit date comment: 1.5 ppd X 52 years Second hand smoke exposure: Yes Smoking risk assessment/counseling performed?: No Alcohol intake: never Substance/Drug Use: never Adopted: No Marital status: Current occupational status: retired Physical Exam Const: COMMON NORMALS: no acute distress, patient oriented x3 and alert GENERAL APPEARANCE: cooperative ORIENTATION/CONSCIOUSNESS: Yes awake HENMT: COMMON NORMALS: normocephalic, atraumatic and external ears normal HEAD & SCALP: normocephalic and atraumatic EXTERNAL EAR: Yes external ears normal MOUTH: lip normal Eye: GENERAL EYE: appearance normal, both eyes and all related structures Neck/C-Spine: COMMON NORMALS: full ROM Chest: CHEST: Yes Symmetrical chest wall rise Resp: COMMON NORMALS: normal respiratory effort EFFORT & INSPECTION: No respiratory distress Cardio: COMMON NORMALS: regular rate RATE: regular rate GI: COMMON NORMALS: Soft to palpation PALPATION: Yes Soft to palpation Extremity: COMMON NORMALS: full ROM Neuro: COMMON NORMALS: patient oriented x3 SENSORIUM/ORIENTATION: Yes alert Psych: COMMON NORMALS: cooperative Course Reevaluation(s): Reevaluation #1: Discussed current findings with patient. Decreased oxygen rate to 0.5 L. Discussed with patient stopping his metoprolol due to the low heart rate, patient advised he would prefer his data operations director changed his medications. BNP added, cardiomegaly noted on CXR Time: 13:05 Reevaluation #2: Patient has been on room air and is noted to have room air saturations of 93 to 94%. His heart rate is noted to be variable between the low 50s to low 60s. Discussed with patient his intermittent shortness of breath is likely related to his COPD and the low heart rate related to his use of metoprolol. Time: 14:50 Vital Signs: Vital signs: Vital Signs Temperature 98.0 F 11/02/22 11:51 Pulse Rate 56 L 11/02/22 12:09 Respiratory Rate 18 11/02/22 12:09 Blood Pressure 136/67 11/02/22 12:09 Pulse Oximetry 94 11/02/22 12:12 Oxygen Delivery Me thod Nasal Cannula 11/02/22 12:12 Oxygen Flow Rate 2 11/02/22 12:12 MDM - SOB/Dyspnea Medical Decision Making 77yo male here with concerns of a low heart rate this morning and increasing shortness of breath over the past month. Patient reports a history of COPD, but does not use oxygen at home. Patient denies recent illness, cough, difficulty breathing, chest pain, abdominal pain, any other concern at this time. Patient is nontoxic in appearance. Vital signs are stable. Nursing did note patient room air oxygen saturation decreased to 86% while ambulating to the exam room. He was placed on 2 L nasal cannula with a room air saturation of 95%. CBC is grossly unremarkable. CMP with a glucose of 130, otherwise unremarkable. proBNP noted to be 295. Chest x-ray with no acute findings. Discussed findings with patient. Advised that his intermittent shortness of breath is likely related to his COPD. Plan to treat for COPD exacerbation as he does states that he is coughing up more stuff. Discussed with patient his low heart rate is potentially related to metoprolol. Discussed with patient holding the metoprolol, he request to speak with his data operations director prior to changing his medications. Recommend he call the data operations director as soon as possible. Advised to return to the emergency department for worsening symptoms, difficulty breathing, chest pain, and as needed Differential Diagnosis Likely acute exacerbation of chronic obstructive airways disease, congestive heart failure and community acquired pneumonia Lab Data I reviewed the patient's lab results. 11/02/22 12:00 11/02/22 13:05 Labs/Radiology: Laboratory Results WBC 9.5 10^3/uL (4.0-10.0) 11/02/22 12:00 RBC 4.79 10^6/uL (4.1-5.3) 11/02/22 12:00 Hgb 13.1 g/dL (11.7-16.6) 11/02/22 12:00 Hct 40.9 % (42.0-52.0) L 11/02/22 12:00 MCV 85.4 fl (80-94) 11/02/22 12:00 MCH 27.3 pg (28.0-34.0) L 11/02/22 12:00 MCHC 32.0 g/dL (30.0-36.0) 11/02/22 12:00 RDW 14.7 % (12.1-15.1) 11/02/22 12:00 Plt Count 249 10^3/cmm (130-400) 11/02/22 12:00 MPV 10.4 fL (7.4-10.4) 11/02/22 12:00 Neut % (Auto) 77.4 % 11/02/22 12:00 Lymph % (Auto) 13.3 % 11/02/22 12:00 Grimes % (Auto) 6.5 % 11/02/22 12:00 Eos % (Auto) 1.7 % 11/02/22 12:00 Baso % (Auto) 0.6 % 11/02/22 12:00 Neut # (Auto) 7.34 10^3/uL (1.8-7.7) 11/02/22 12:00 Lymph # (Auto) 1.3 10^3/uL (0.8-4.8) 11/02/22 12:00 Grimes # (Auto) 0.6 10^3/uL (0.2-0.9) 11/02/22 12:00 Eos # (Auto) 0.2 10^3/uL (0.0-0.8) 11/02/22 12:00 Baso # (Auto) 0.1 10^3/uL (0.0-0.1) 11/02/22 12:00 Nucleated RBC % (auto) 0 % 11/02/22 12:00 Nucleated RBCs # 0.0 /100WBC 11/02/22 12:00 Sodium 142 mmol/L (136-145) 11/02/22 13:05 Potassium 4.0 mmol/L (3.5-5.1) 11/02/22 13:05 Chloride 102 mmol/L (98-107) 11/02/22 13:05 Carbon Dioxide 28 mmol/L (22-29) 11/02/22 13:05 Anion Gap 16.0 (5-19) 11/02/22 13:05 BUN 14 mg/dL (8-23) 11/02/22 13:05 Creatinine 1.0 mg/dL (0.7-1.2) 11/02/22 13:05 GFR Calculation Not Reportable 11/02/22 13:05 Glucose 130 mg/dL (65-115) H 11/02/22 13:05 Calculated Osmolality 296 mOsm/kg (285-295) H 11/02/22 13:05 Calcium 8.9 mg/dL (8.5-10.5) 11/02/22 13:05 Total Bilirubin 0.4 mg/dL (0.15-1.2) 11/02/22 13:05 AST 13 U/L (0-40) 11/02/22 13:05 ALT 13 U/L (0-41) 11/02/22 13:05 Alkaline Phosphatase 131 U/L (40-130) H 11/02/22 13:05 NT-Pro-B Natriuret Pep 295 pg/mL (0-450) 11/02/22 13:05 Total Protein 6.4 g/dL (6.6-8.7) L 11/02/22 13:05 Albumin 4.0 g/dL (3.5-5.2) 11/02/22 13:05 Globulin 2.4 g/dL (1.3-4.6) 11/02/22 13:05 Discharge Plan Discharge Condition: Stable Prescriptions: No Action atorvastatin 80 mg tablet 40 mg PO BEDTIME pantoprazole 40 mg tablet,delayed release (DR/EC) 40 mg PO DAILY gabapentin 300 mg capsule 300 mg PO BID Rx Instructions: 1 tab qam and 3 tab qpm sertraline 100 mg tablet 100 mg PO QAM docusate sodium 100 mg capsule 100 mg PO DAILY PRN (Reason: Constipation) aspirin [Adult Low Dose Aspirin] 81 mg tablet,delayed release (DR/EC) 81 mg PO QAM mirtazapine 45 mg tablet 45 mg PO BEDTIME metoprolol tartrate 25 mg tablet 12.5 mg PO BID 30 Days Qty: 30 5RF hydrocodone-acetaminophen 10-325 mg tablet 1 tab PO QID PRN (Reason: Pain) Spiriva with HandiHaler 18 mcg capsule, w/inhalation device 1 cap inhalation DAILY Qty: 30 3RF Rx Instructions: puncture 1 cap using device; one dose = 2 inhalations metformin 500 mg tablet 500 mg PO DAILY fluticasone propion-salmeterol [Wixela Inhub] 250-50 mcg/dose blister with device 1 inh inhalation BID Qty: 60 3RF (DME) Custom Copolymer inserts 1 Pair See Rx Instructions .Route .MEDSUPPLY Qty: 1 0RF Rx Instructions: As directed finasteride 5 mg tablet 5 mg PO QAM Qty: 90 3RF albuterol sulfate [ProAir HFA] 90 mcg/actuation Hfa Aerosol Inhaler 2 puff INHALATION Q4H PRN (Reason: Shortness Of Breath) 30 Days Qty: 8.5 0RF polyethylene glycol 3350 [Miralax] 17 gram/dose Powder 17 g PO BEDTIME cholecalciferol (vitamin D3) [Vitamin D3] 50 mcg (2,000 unit) Capsule 50 mcg PO DAILY chlorthalidone 25 mg tablet 25 mg PO QAM tamsulosin 0.4 mg capsule 0.4 mg PO BID cyanocobalamin (vitamin B-12) 50 mcg Tablet 25 mcg PO DAILY Calcium 500 500 mg calcium (1,250 mg) Tablet 500 mg PO DAILY Rx Instructions: IN EVENING Vitamin C 500 mg Tablet 500 mg PO DAILY Fish Oil 60-90-500 mg Capsule 1 cap PO DAILY Referrals: Shawna England MD [Primary Care Provider] - Coding Level of Care Code ED Armhole Presser for Maxi Clayton
[2022-11-02 13:52] LABS: Alanine Aminotransferase 13 U/L (0-41); Alkaline Phosphatase 131 U/L (40-130); Aspartate Amino Transferase 13 U/L (0-40); Blood Urea Nitrogen 14 mg/dL (8-23); Calcium 8.9 mg/dL (8.5-10.5); Carbon Dioxide 28 mmol/L (22-29); Chloride 102 mmol/L (98-107); Globulin 2.4 g/dL (1.3-4.6); Glucose 130 mg/dL (65-115); NT Pro B Type Natriuretic Pept 295 pg/mL (0-450); Osmolality Calculated 296 mOsm/kg (285-295); Sodium 142 mmol/L (136-145); Total Bilirubin 0.4 mg/dL (0.15-1.2); Total Protein 6.4 g/dL (6.6-8.7)
== END 2022-11-02 15:29 | disposition home or self-care (01) ==
PROVIDERS: Emergency Provider Nurse Practitioner; PCP Family Medicine
DX: R06.02 Shortness of breath (principal); Z79.82 Long term (current) use of aspirin; Z79.84 Long term (current) use of oral hypoglycemic drugs; Z87.891 Personal history of nicotine dependence; I25.10 Atherosclerotic heart disease of native coronary artery without angina pectoris; J44.9 Chronic obstructive pulmonary disease, unspecified; I10 Essential (primary) hypertension; E78.2 Mixed hyperlipidemia
CPT/HCPCS: 12345; 36415; 71045; 80053; 83880; 85025; 99284

== ENCOUNTER → 2022-11-14 14:38 | Outpatient (BNVA) | payer OTHER, SELFPAY | PROVIDERS: PCP Family Medicine; Visit Provider Internal Medicine Cardiovascular Disease | DX: R07.9 Chest pain, unspecified (principal); N18.9 Chronic kidney disease, unspecified; R55 Syncope and collapse; R06.02 Shortness of breath; J44.9 Chronic obstructive pulmonary disease, unspecified; I25.10 Atherosclerotic heart disease of native coronary artery without angina pectoris; E78.2 Mixed hyperlipidemia; I10 Essential (primary) hypertension; I65.23 Occlusion and stenosis of bilateral carotid arteries; G47.33 Obstructive sleep apnea (adult) (pediatric) | CPT/HCPCS: 93005; 99214 ==

== ENCOUNTER 2022-11-28 12:27 | Outpatient (CLI) | payer OTHER, SELFPAY ==
--- NOTE | 2022-11-28 14:00 | USCV_ITS ---
Jamaal Sanchez Age: 77 Gender: M : 1945 Exam Date: 11/28/2022 13:25 Ordering Phys: Dane Clancy MD ([email or web address]) Technologist: Liudmila Rogers [place] [facility] [place] RECHECK CCA STENOSIS Risk Factors: Unknown Previous Vascular Surgery: Stents Right Brachial BP: / Left Brachial BP: / Right Left Velocity (cm/s) Spectral Plaque Velocity (cm/s) Spectral Plaque Syst/Diast Broadening Syst/Diast Broadening 102.20/16.90 Prox CCA 119.80/ 16.70 80.70/ 18.80 Mid CCA 74.70 / 13.80 38.10/ 8.50 Distal CCA 61.90 / 18.70 80.70/ 14.80 Prox ICA 67.80 / 17.70 53.60/ 18.90 Mid ICA 73.70 / 19.60 70.90/ 17.30 Distal ICA 68.80 / 22.60 121.00 ECA 103.10 1.00 ICA/CCA 0.99 Antegrade Vertebral Antegrade 50.60/ 9.80 cm/s 55.00/ 17.70 cm/s Bi Subclavian Bi 112.0 172.8 0 0 FINDINGS velocities have decreased compared to 2020 CONCLUSIONS Right ICA stenosis <50%. Mild calcified atheromatous plaque right carotid bulb/ICA. Left ICA stenosis <50%. Mild calcified atheromatous plaque left carotid bulb/ICA. Intimal thickening in the common carotid arteries and internal carotid arteries bilaterally. Normal antegrade Doppler flow noted in the right vertebral artery. Normal antegrade Doppler flow noted in the left vertebral artery. Carloz Elias MD (Electronically Signed) Final Date: 30 November 2022 15:54 S
== END 2022-11-28 12:28 | disposition home or self-care (01) ==
PROVIDERS: PCP Family Medicine; Visit Provider Internal Medicine Cardiovascular Disease
DX: I65.23 Occlusion and stenosis of bilateral carotid arteries (principal); I77.9 Disorder of arteries and arterioles, unspecified; R55 Syncope and collapse
CPT/HCPCS: 93880

== ENCOUNTER → 2022-11-29 11:52 | Outpatient (BNVA) | payer OTHER, SELFPAY | PROVIDERS: PCP Family Medicine; Visit Provider Internal Medicine Pulmonary Disease | DX: J44.9 Chronic obstructive pulmonary disease, unspecified (principal); I25.10 Atherosclerotic heart disease of native coronary artery without angina pectoris; U09.9 Post COVID-19 condition, unspecified; R91.1 Solitary pulmonary nodule; Z87.891 Personal history of nicotine dependence; G47.33 Obstructive sleep apnea (adult) (pediatric); Z12.2 Encounter for screening for malignant neoplasm of respiratory organs; E66.9 Obesity, unspecified; Z68.34 Body mass index [BMI] 34.0-34.9, adult; I10 Essential (primary) hypertension | CPT/HCPCS: 99214 ==

== ENCOUNTER → 2022-12-19 13:01 | Outpatient (BNVA) | payer MEDICARE, OTHER, SELFPAY | PROVIDERS: PCP Family Medicine; Visit Provider Podiatrist Foot & Ankle Surgery | DX: G62.9 Polyneuropathy, unspecified (principal); E11.42 Type 2 diabetes mellitus with diabetic polyneuropathy; L60.3 Nail dystrophy; Z79.84 Long term (current) use of oral hypoglycemic drugs | CPT/HCPCS: 99213 ==

== ENCOUNTER 2022-12-22 09:34 | Emergency (ER) | payer OTHER, SELFPAY ==
--- NOTE | 2022-12-22 09:37 | XRR_ITS ---
PROCEDURE INFORMATION: Exam: XR Chest Exam date and time: 12/22/2022 10:06 AM Age: 77 years old Clinical indication: Cough and dyspnea; Prior surgery; Surgery date: 6+ months; Surgery type: Stents; Additional info: Dyspnea/cough TECHNIQUE: Imaging protocol: Radiologic exam of the chest. Views: 1 view. COMPARISON: CR XR chest 1V portable [id number] 11/02/2022 12:35 PM FINDINGS: Lungs: Unremarkable. No consolidation. Pleural spaces: Unremarkable. No pleural effusion. No pneumothorax. Heart/Mediastinum: Unremarkable. No cardiomegaly. Bones/joints: There is an old right 5th rib fracture again seen. XR/XR chest 1V portable [id number] IMPRESSION: No evidence of acute pulmonary process.
[2022-12-22 09:50] VITALS: BP 111/67; PULSE 72; RESP 18; TEMP 36.6; O2SAT 92; BMI 34.7
[2022-12-22 09:56] VITALS: BP 134/69; O2SAT 93
[2022-12-22 10:08] LABS: Basophils % 0.4 %; Eosinophils % 0.1 %; Hematocrit 40.5 % (37-53); Lymphocytes # 0.9 10^3/uL (0.8-4.8); Lymphocytes % 8.6 %; Mean Corpuscular HGB Conc 32.3 g/dL (30-55); Mean Corpuscular Hemoglobin 27.1 pg (27-33); Mean Corpuscular Volume 83.9 fl (82-101); Mean Platelet Volume 9.2 fL (7.4-10.4); Monocytes % 9.7 %; Neutrophils # 8.27 10^3/uL (1.8-7.7); Neutrophils % 80.8 %; Nucleated Red Blood Cells % 0 %; Platelet Count 128 10^3/cmm (157-399); Red Blood Count 4.83 10^6/uL (3.85-5.65); Red Cell Distribution Width 15.1 % (12.1-15.1); White Blood Count 10.23 10^3/uL (3.29-11.43)
[2022-12-22 10:50] VITALS: PULSE 62; RESP 18; O2SAT 97
[2022-12-22] MEDS: ipratropium-albuterol 3 mL Neb INHALATION (10:56)
[2022-12-22 11:00] VITALS: PULSE 63
--- NOTE | 2022-12-22 11:05 | PC.PHAR ---
[facility] UNAVAILABLE ON WEEKENDS, SO I SPOKE TO PATIENT. HE STATES HIS MED LIST HAS NOT CHANGED EXCEPT THEY HAVE ADDED METFORMIN 500 MG 1/2 TABLET IN AM AND 1/2 TABLET IN PM. I HAVE UPDATED HIS MED LIST ACCORDING TO HIM.
[2022-12-22] MEDS: dexamethasone 10 mg/mL INJ IM (11:17)
[2022-12-22 11:56] VITALS: O2SAT 91; O2SAT 95
--- NOTE | 2022-12-22 12:18 | ED_ITS ---
HPI - General Adult General: Chief complaint: General Medical Stated complaint: cough Time Seen by Provider: 12/22/22 09:36 Source: patient Mode of arrival: ambulatory History of Present Illness: 77-year-old male with a history of COPD presents emergency room with cough congestion shortness of breath. Denies any chest pain no fever sweats or chills had a set moderately increased productive cough no vomiting or diarrhea. No f ever no anosmia. He has not used anything for symptoms. He does have albuterol at home has not used any of that. He quit smoking several years ago. Onset (ago): day(s) Severity: mild Relieving factors: none Exacerbating factors: none Associated symptoms: Reports dyspnea; Deny chest pain, confusion, cough, diaphoresis, decreased appetite, fevers/chi lls, headache(s), malaise, nausea, rash, palpitations, seizures, short of breath, syncope, vomiting or weakness Treatments prior to arrival: none Review of Systems Const: Denies: fever(s), chills, malaise or diaphoresis ENMT: Denies: throat pain, ear or mastoid pain, nasal discharge or nasal congestion Card: Denies: chest pain, palpitations or syncope Resp: Reports: dyspnea, productive cough and wheezing; Denies: non-productive cough GI: Denies: abdominal pain, nausea or vomiting : Denies: flank pain, dysuria, urinary frequency or urinary urgency Skin/Breast: Denies: rash Neuro: Denies: headache(s) or confusion PFSH ED PFSH: Medical History Anemia Benign prostatic hyperplasia with lower urinary tract symptoms Bilateral carotid artery stenosis CAD (coronary artery disease) COPD (chronic obstructive pulmonary disease) GERD (gastroesophageal reflux disease) H/O: GI bleed Hypertension Mixed hyperlipidemia Osteoarthritis Presence of arterial stent PTSD (post-traumatic stress disorder) Surgical History S/P small bowel resection Family History Family/Other Diabetes CAD (coronary artery disease) Cancer Father , at age 98 CHF (congestive heart failure) CAD (coronary artery disease) Mother , at age 80 Stroke Brother Diabetes Sister Diabetes Denies family history of Clotting disorder Dementia Chronic kidney disease (CKD) Suicide Anesthesia complication Bleeding disorder Lung disease Social History Smoking and tobacco status: former smoker Quit status (tobacco): has quit using tobacco Year quit tobacco: 2012 Former quit date comment: 1.5 ppd X 52 years Second hand smoke exposure: Yes Smoking risk assessment/counseling performed?: No Alcohol intake: never Substance/Drug Use: never Adopted: No Marital status: Current occupational status: retired Physical Exam Const: GENERAL APPEARANCE: cooperative and comfortable ORIENTATION/CONSCIOUSNESS: Yes awake, Yes oriented to person, Yes oriented to place and Yes oriented to time HENMT: COMMON NORMALS: normocephalic, atraumatic and hearing grossly normal bilaterally HEAD & SCALP: normocephalic and atraumatic Resp: COMMON NORMALS: normal respiratory effort, No retractions, No use of accessory muscles and clear to auscultation bilaterally AUSCULTATION: clear to auscultation bilaterally Cardio: COMMON NORMALS: regular rate, regular rhythm and No murmurs present (Cardio) RATE: regular rate RHYTHM: regular rhythm GI: COMMON NORMALS: Soft to palpation and No hepatosplenomegaly present AUSCULTATION: Yes normoactive bowel sounds PALPATION: Yes Soft to palpation, No Tenderness to palpation present (GI), No Guarding due to palpation present (GI) and Yes No hepatosplenomegaly present : COMMON NORMALS: Yes no CVA tenderness BLADDER/KIDNEY EXAM: Yes no CVA tenderness Back/Pelvis: COMMON NORMALS: no CVA tenderness Extremity: COMMON NORMALS: normal to inspection, capillary refill normal, no clubbing, cyanosis or edema, no calf tenderness and no pedal edema Neuro: SENSORIUM/ORIENTATION: Yes oriented to person, Yes oriented to place and Yes oriented to time Skin: COMMON NORMALS: no rashes or lesions noted GENERAL SKIN EXAM: no rash es or lesions noted Course Vital Signs: Vital signs: Vital Signs Temperature 97.9 F 12/22/22 09:50 Pulse Rate 63 12/22/22 11:00 Respiratory Rate 18 12/22/22 10:50 Blood Pressure 134/69 12/22/22 09:56 Pulse Oximetry 95 12/22/22 11:56 Oxygen Delivery Me thod Room Air 12/22/22 10:50 MDM - General Adult Medical Decision Making Acute exacerbation COPD we did ambulate him and do home O2 sats he was satting 99% while walking does not qualify for O2 will discharge home on a steroid taper encourage aggressive use of albuterol and started on a course of doxycycline. Recheck if not improving Medical Records I reviewed the patient's medical records. Lab Data I reviewed the patient's lab results. 12/22/22 10:00 Radiology Impressions Chest X-Ray 12/22/22 09:37 IMPRESSION: No evidence of acute pulmonary process. Laboratory Results WBC 10.23 10^3/uL (3.29-11.43) 12/22/22 10:00 RBC 4.83 10^6/uL (3.85-5.65) 12/22/22 10:00 Hgb 13.10 g/dL (11.27-16.99) 12/22/22 10:00 Hct 40.5 % (37-53) 12/22/22 10:00 MCV 83.9 fl (82-101) 12/22/22 10:00 MCH 27.1 pg (27-33) 12/22/22 10:00 MCHC 32.3 g/dL (30-55) 12/22/22 10:00 RDW 15.1 % (12.1-15.1) 12/22/22 10:00 Plt Count 128 10^3/cmm (157-399) L 12/22/22 10:00 MPV 9.2 fL (7.4-10.4) 12/22/22 10:00 Neut % (Auto) 80.8 % 12/22/22 10:00 Lymph % (Auto) 8.6 % 12/22/22 10:00 [place] % (Auto) 9.7 % 12/22/22 10:00 Eos % (Auto) 0.1 % 12/22/22 10:00 Baso % (Auto) 0.4 % 12/22/22 10:00 Neut # (Auto) 8.27 10^3/uL (1.8-7.7) H 12/22/22 10:00 Lymph # (Auto) 0.9 10^3/uL (0.8-4.8) 12/22/22 10:00 [place] # (Auto) 1.0 10^3/uL (0.2-0.9) H 12/22/22 10:00 Eos # (Auto) 0.0 10^3/uL (0.0-0.8) 12/22/22 10:00 Baso # (Auto) 0.0 10^3/uL (0.0-0.1) 12/22/22 10:00 Nucleated RBC % (auto) 0 % 12/22/22 10:00 Nucleated RBCs # 0.0 /100WBC 12/22/22 10:00 All radiology interpretation(s) finalized by discharge Discharge Plan Discharge Patient Disposition: Home Clinical Impression: Acute exacerbation of chronic obstructive pulmonary disease Condition: Stable Prescriptions: New doxycycline hyclate 100 mg capsule 100 mg PO BID 10 Days Qty: 20 0RF prednisone 20 mg tablet 20 mg PO TID Qty: 15 0RF Rx Instructions: 1 p.o. 3 times daily x3 days, 1 p.o. twice daily x2 days, 1 p.o. daily x2 days albuterol sulfate 90 mcg/actuation HFA aerosol inhaler 2 inh INHALATION Q4H PRN (Reason: shortness of breath or wheezing) Qty: 18 0RF No Action atorvastatin 80 mg tablet 40 mg PO BEDTIME pantoprazole 40 mg tablet,delayed release (DR/EC) 40 mg PO DAILY gabapentin 300 mg capsule 300 mg PO BID Rx Instructions: 1 tab qam and 3 tab qpm sertraline 100 mg tablet 100 mg PO QAM docusate sodium 100 mg capsule 100 mg PO DAILY PRN (Reason: Constipation) aspirin [Adult Low Dose Aspirin] 81 mg tablet,delayed release (DR/EC) 81 mg PO QAM mirtazapine 45 mg tablet 45 mg PO BEDTIME metoprolol tartrate 25 mg tablet 12.5 mg PO BID 30 Days Qty: 30 5RF hydrocodone-acetaminophen 10-325 mg tablet 1 tab PO QID PRN (Reason: Pain) Spiriva with HandiHaler 18 mcg capsule, w/inhalation device 1 cap inhalation DAILY Qty: 30 3RF Rx Instructions: puncture 1 cap using device; one dose = 2 inhalations metformin 500 mg tablet See Rx Instructions .ROUTE .COMPLEX Rx Instructions: 250 mg orally in the morning and 250 mg in the evening fluticasone propion-salmeterol [Wixela Inhub] 250-50 mcg/dose blister with device 1 inh inhalation BID Qty: 60 3RF (DME) Custom Copolymer inserts 1 Pair See Rx Instructions .Route .MEDSUPPLY Qty: 1 0RF Rx Instructions: As directed finasteride 5 mg tablet 5 mg PO QAM Qty: 90 3RF albuterol sulfate [ProAir HFA] 90 mcg/actuation Hfa Aerosol Inhaler 2 puff INHALATION Q4H PRN (Reason: Shortness Of Breath) 30 Days Qty: 8.5 0RF polyethylene glycol 3350 [Miralax] 17 gram/dose Powder 17 g PO BEDTIME cholecalciferol (vitamin D3) [Vitamin D3] 50 mcg (2,000 unit) Capsule 50 mcg PO DAILY chlorthalidone 25 mg tablet 25 mg PO QAM tamsulosin 0.4 mg capsule 0.4 mg PO BID cyanocobalamin (vitamin B-12) 50 mcg Tablet 25 mcg PO DAILY calcium carbonate [Calcium 500] 500 mg calcium (1,250 mg) Tablet 500 mg PO DAILY Rx Instructions: IN EVENING ascorbic acid (vitamin C) [Vitamin C] 500 mg Tablet 500 mg PO DAILY omega [id number]-fish oil [Fish Oil] 60-90-500 mg Capsule 1 cap PO DAILY Discharge Orders: Discharge ED (Routine); Ordered 12/22/22 Ordered By: Trent Redd Referrals: Shawna England MD [Primary Care Provider] - Discharge Diet: Usual diet Discharge Activity: Increase activity as tolerated Patient Instructions: COPD (Chronic Obstructive Pulmonary Disease) (ED), Opioid Safety, Pain Management Coding Level of Care Code ED File Clerk Data Entry for Maxi Clayton
== END 2022-12-22 12:21 | disposition home or self-care (01) ==
PROVIDERS: Emergency Provider Family Medicine; PCP Family Medicine
DX: J44.1 Chronic obstructive pulmonary disease with (acute) exacerbation (principal); Z79.82 Long term (current) use of aspirin; Z79.84 Long term (current) use of oral hypoglycemic drugs; Z87.891 Personal history of nicotine dependence; I25.10 Atherosclerotic heart disease of native coronary artery without angina pectoris; I10 Essential (primary) hypertension; E78.2 Mixed hyperlipidemia
CPT/HCPCS: 36415; 71045; 85025; 94640; 96372; 99284; J1100

== ENCOUNTER 2022-12-25 09:54 | Outpatient (CLI) | payer OTHER, MEDICARE, SELFPAY ==
--- NOTE | 2022-12-25 11:00 | CT_ITS ---
WS: [id number] CT CHEST TECHNIQUE: Noncontrast CT of the chest with coronal and sagittal reformatted images. CLINICAL INFORMATION: 6 month f/u COMPARISON: CT chest 06/21/2022 DLP: 704.[address] scans at [facility] use at least one of these dose optimization techniques: automated e xposure control; mA and/or kV adjustment per patient size (includes targeted exams where dose is matc hed to clinical indication); or iterative reconstruction. FINDINGS: Slightly spiculated RIGHT lower lobe nodule adjacent to the diaphragm is unchanged measurin g 9 mm. Recommend continued surveillance with 6 to 12-month follow-up. Previous PET/CT did not demons trate FDG activity. Stable prominent main pulmonary arteries. Stable cardiomegaly. Moderate chronic emphysematous changes . No acute pulmonary infiltrates. Normal caliber thoracic aorta. Mild aortic calcification. Mild stacia nary calcification. Small LEFT thyroid nodule. No axillary lymphadenopathy. No mediastinal or hilar l ymphadenopathy. Adrenal glands are normal. Partially visualized hepatomegaly. Splenic artery calcification. Hypertrop hic changes thoracic spine. IMPRESSION: 1. Previously described 9 mm nodule in RIGHT lower lobe with slight spiculation adjacent to the diap hragm is unchanged. Recommend continued surveillance with 6 to 12-month follow-up chest CT. 2. No new suspicious pulmonary parenchymal abnormalities. 3. Stable mild pulmonary arterial hypertension and mild cardiomegaly. 4. No other suspicious findings.
== END 2022-12-25 09:55 | disposition home or self-care (01) ==
PROVIDERS: PCP Family Medicine; Visit Provider Internal Medicine Pulmonary Disease
DX: R91.1 Solitary pulmonary nodule (principal); I27.20 Pulmonary hypertension, unspecified; I51.7 Cardiomegaly
CPT/HCPCS: 71250

== ENCOUNTER → 2023-05-23 13:31 | Outpatient (BNVA) | payer OTHER, SELFPAY | PROVIDERS: PCP Family Medicine; Visit Provider Internal Medicine Cardiovascular Disease | DX: I25.10 Atherosclerotic heart disease of native coronary artery without angina pectoris (principal); I65.23 Occlusion and stenosis of bilateral carotid arteries; I10 Essential (primary) hypertension; E78.2 Mixed hyperlipidemia; R23.8 Other skin changes; R00.1 Bradycardia, unspecified; Z87.891 Personal history of nicotine dependence | CPT/HCPCS: 99214 ==

== ENCOUNTER → 2023-05-30 13:16 | Outpatient (BNVA) | payer OTHER, SELFPAY | PROVIDERS: PCP Family Medicine; Visit Provider Internal Medicine Pulmonary Disease | DX: J44.9 Chronic obstructive pulmonary disease, unspecified (principal); I25.10 Atherosclerotic heart disease of native coronary artery without angina pectoris; R06.09 Other forms of dyspnea; U09.9 Post COVID-19 condition, unspecified; R91.1 Solitary pulmonary nodule; G47.33 Obstructive sleep apnea (adult) (pediatric); Z99.89 Dependence on other enabling machines and devices; Z87.891 Personal history of nicotine dependence; I10 Essential (primary) hypertension | CPT/HCPCS: 99214 ==

== ENCOUNTER 2023-06-05 16:15 | Inpatient (IN) | payer OTHER, SELFPAY ==
--- NOTE | 2023-06-05 16:24 | ECG_ITS ---
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 Measurements Intervals [place] Rate: 64 P: 66 MO: 146 QRS: 31 QRSD: 102 T: 73 QT: 395 QTc: 408 Interpretive Statements SINUS RHYTHM POSSIBLE RIGHT VENTRICULAR CONDUCTION DELAY [RSR (QR) IN V1/V2] Compared to ECG 11/14/2022 14:50:31 Ectopic atrial rhythm no longer present Electronically Signed On 06-06-2023 15:17:49 CDT by Oliver Bourgeois M.D. [id number] f
--- NOTE | 2023-06-05 16:24 | XRR_ITS ---
PROCEDURE INFORMATION: Exam: XR Chest Exam date and time: 06/05/2023 4:52 PM Age: 77 years old Clinical indication: Dyspnea; Prior surgery; Surgery date: 6+ months; Surgery type: Heart stents TECHNIQUE: Imaging protocol: Radiologic exam of the chest. Views: 1 view. Other technique: BEDSIDE AP CHEST COMPARISON: 1. CT chest wo con [id number] 12/25/2022 11:14 AM 2. Chest radiograph 12/22/22. 3. PET/CT 12/30/21. 4. Chest/abdomen/pelvis CT 12/09/20. FINDINGS: Lungs: Mild air-space opacities at right lower lung have developed. Previously identified, noncalcified, spiculated nodule at posterobasal right lower lobe on CTs is not well visualized on radiograph. Pleural spaces: No definite pleural effusions or pneumothorax. Heart/Mediastinum: Normal. Bones/joints: There is minimal right mid thoracic curvature or scoliosis. Degenerative disc disease of mid-lower thoracic spine is present. Right acromioclavicular joint remains dislocated. There is mild osteoarthritis of left acromioclavicular joint. XR/XR chest 1V portable [id number] IMPRESSION: 1. Interval development of mild air-space opacities at right lower lung, suggesting atelectasis, aspiration, or pneumonia. Previously identified, noncalcified, spiculated nodule at posterobasal right lower lobe on CTs not well visualized on radiograph, but remains suspicious for lung carcinoma given CT characteristics. 2. Chronic, right acromioclavicular joint dislocation.
[2023-06-05 16:26] VITALS: BP 137/68; PULSE 66; RESP 20; TEMP 36.6; O2SAT 91
--- NOTE | 2023-06-05 17:15 | ED_ITS ---
Documented by User: Trent Redd DO 06/06/23 05:48 HPI - SOB/Dyspnea 2 General: Chief Complaint: Shortness of Breath/Dyspnea Stated Complaint: sob Time Seen by Provider: 06/05/23 17:14 Source: patient Mode of arrival: ambulatory History of Present Illness: HPI Narrative: 77-year-old male presents emergency room with complaints of left lower quadrant abdominal pain and black tarry stools. He he was seen about a week ago and given ciprofloxacin and Flagyl for diverticulitis. He has a history of anemia in the past is also required blood transfusions. Denies any increase in NSAIDs has not had any hematemesis no hematochezia. Denies chest pain he has had a little bit of change shortness of breath and slightly productive cough. Patient presented to the ER he had a baseline O2 sat of 88% in the room and is slightly tachypneic at a rate of 20 breaths/min he improved to the mid 90s with 2 L/min of oxygen. MD elicited complaint: shortness of breath and cough Pertinent past history: COPD Onset (ago): day(s) Context: recent illness Severity: mild Exacerbating factors: exertion and coughing Relieving factors: oxygen and rest Known history of: COPD Associated symptoms: Reports abdominal pain, chest congestion, cough and nausea; Deny chest pain, diaphoresis, dizziness, extremity pain, fever(s), hemoptysis, lightheadedness, myalgias, orthopnea, palpitations, paresthesias, polydipsia, polyuria, rash, sense of impending doom, syncope or vomiting Treatment prior to arrival: none Review of Systems 2 Const: Denies: fever(s), chills or diaphoresis Card: Denies: chest pain, palpitations, lightheadedness, syncope or orthopnea Resp: Reports: chest congestion; Denies: dyspnea or hemoptysis GI: Reports: abdominal pain, nausea and melena; Denies: vomiting : Denies: dysuria, urinary frequency or urinary urgency Musc: Denies: neck pain, back pain or extremity pain Skin/Breast: Denies: rash Neuro: Denies: dizziness Endo: Denies: polyuria or polydipsia PFSH ED 2 PFSH: Medical History Anemia Presence of arterial stent COPD (chronic obstructive pulmonary disease) Osteoarthritis PTSD (post-traumatic stress disorder) GERD (gastroesophageal reflux disease) CAD (coronary artery disease) Mixed hyperlipidemia Hypertension Bilateral carotid artery stenosis H/O: GI bleed Benign prostatic hyperplasia with lower urinary tract symptoms Surgical History S/P small bowel resection Family History Family/Other Diabetes CAD (coronary artery disease) Cancer Father , at age 98 Congestive heart failure (CHF) CAD (coronary artery disease) Mother , at age 80 Stroke Brother Diabetes Sister Diabetes Denies family history of Clotting disorder Dementia Chronic kidney disease (CKD) Suicide Anesthesia complication Bleeding disorder Lung disease Social History Smoking and tobacco/nicotine status: former use of tobacco/nicotine Quit status (tobacco/nicotine): has quit using Year quit tobacco: 2012 Former quit date comment: 1.5 ppd X 52 years Second hand smoke exposure: Yes Alcohol intake: never Substance/Drug Use: never Adopted: No Marital status: Current occupational status: retired Physical Exam 2 Const: GENERAL APPEARANCE: cooperative and comfortable O RIENTATION/CONSCIOUSNESS: Yes awake, Yes oriented to person, Yes oriented to place and Yes oriented to time HENMT: COMMON NORMALS: normocephalic, atraumatic and hearing grossly normal bilaterally HEAD & SCALP: normocephalic and atraumatic Resp: COMMON NORMALS: normal respiratory effort, No retractions, No use of accessory muscles and clear to auscultation bilaterally AUSCULTATION: clear to auscultation bilaterally Cardio: COMMON NORMALS: regular rate, regular rhythm and No murmurs present (Cardio) RATE: regular rate RHYTHM: regular rhythm GI: COMMON NORMALS: No hepatosplenomegaly present AUSCULTATION: Yes normoactive bowel sounds PALPATION: Yes Tenderness to palpation present (GI) Details: LLQ, No Guarding due to palpation present (GI) and Yes No hepatosplenomegaly present Extremity: COMMON NORMALS: normal to inspection, capillary refill normal, no clubbing, cyanosis or edema, no calf tenderness and no pedal edema Neuro: SENSORIUM/ORIENTATION: Yes oriented to person, Yes oriented to place and Yes oriented to time Skin: COMMON NORMALS: no rashes or lesions noted GENERAL SKIN EXAM: no rashes or lesions noted Course 2 Vital Signs: Vital signs: Vital Signs Temperature 97.8 F 06/06/23 04:00 Pulse Rate 54 L 06/06/23 04:00 Respiratory Rate 18 06/06/23 04:00 Blood Pressure 126/56 06/06/23 04:00 Pulse Oximetry 93 06/06/23 04:00 Oxygen Delivery Me thod Nasal Cannula 06/06/23 04:00 Oxygen Flow Rate 2 06/05/23 19:35 MDM - SOB/Dyspnea Medical Decision Making Care signed out to Dr. Vann at change of shift. See final notes for diagnosis and disposition. I have discussed the patient's case with the on-coming physician <Dr. Redd> and they have assumed care of the patient. We have discussed the current lab/radiographic results that have been resulted and the pending tests. Lab Data 06/05/23 17:27 06/05/23 17:27 Labs/Radiology: Radiology Impressions Chest X-Ray 06/05/23 16:24 IMPRESSION: 1. Interval development of mild air-space opacities at right lower lung, suggesting atelectasis, aspiration, or pneumonia. Previously identified, noncalcified, spiculated nodule at posterobasal right lower lobe on CTs not well visualized on radiograph, but remains suspicious for lung carcinoma given CT characteristics. 2. Chronic, right acromioclavicular joint dislocation. Abdomen/Pelvis CT 06/05/23 17:24 IMPRESSION: 1. 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 S/P resection with reanastomosis involving loop of small bowel at right mid abdomen. Colonic ileus or diarrhea. Moderate colonic diverticula. Mild inflammation at proximal-mid sigmoid colon, suspicious for acute diverticulitis. As always, if not recently performed, colonoscopy after bout resolves would be helpful to exclude malignancy presenting as diverticulitis. 2. Slightly increased, < 1 cm, noncalcified, spiculated nodule at posterobasal right lower lobe from 12/09/20, suspicious for T1 primary lung carcinoma based on CT characteristics. A few, < 4 mm, noncalcified nodules at periphery of medial right middle lobe and superior lingula of left upper lobe, unchanged from 12/25/22 and new from 12/09/20. 3. Mildly enlarged median lobe of prostate indenting bladder base. 4. Atherosclerosis and coronary artery disease. THIS REPORT CONTAINS FINDINGS THAT MAY BE CRITICAL TO PATIENT CARE. The findings were verbally communicated via telephone conference with TRENT REDD at 06/05/2023, 6:39 PM CDT. The findings were acknowledged and understood. Laboratory Results WBC 9.75 10^3/uL (3.29-11.43) 06/05/23: RBC 4.71 10^6/uL (3.85-5.65) 06/05/23 17: Hgb 13.00 g/dL (11.27-16.99) 06/05/23: Hct 40.2 % (37-53) 06/05/23: MCV 85.4 fl (82-101) 06/05/23: MCH 27.6 pg (27-33) 06/05/23: MCHC 32.3 g/dL (30-55) 06/05/23: RDW 14.9 % (12.1-15.1) 06/05/23: Plt Count 195 10^3/cmm (157-399) 06/05/23: MPV 9.9 fL (7.4-10.4) 06/05/23: Neut % (Auto) 75.1 % 06/05/23: Lymph % (Auto) 15.6 % 06/05/23: [place] % (Auto) 6.2 % 06/05/23: Eos % (Auto) 2.1 % 06/05/23: Baso % (Auto) 0.6 % 06/05/23: Neut # (Auto) 7.33 10^3/uL (1.8-7.7) 06/05/23: Lymph # (Auto) 1.5 10^3/uL (0.8-4.8) 06/05/23: [place] # (Auto) 0.6 10^3/uL (0.2-0.9) 06/05/23: Eos # (Auto) 0.2 10^3/uL (0.0-0.8) 03/13/24 17:27 Baso # (Auto) 0.1 10^3/uL (0.0-0.1) 06/05/23 17: Nucleated RBC % (auto) 0 % 06/05/23 17: Nucleated RBCs # 0.0 /100WBC 06/05/23 17:27 D-Dimer 0.54 ug/mLFEU (0-0.59) 06/05/23 17:27 Sodium 145 mmol/L (136-145) 06/05/23 17:27 Potassium 3.4 mmol/L (3.5-5.1) L 06/05/23 17:27 Chloride 106 mmol/L (98-107) 06/05/23 17: Carbon Dioxide 26 mmol/L (22-29) 06/05/23 17:27 Anion Gap 16.4 (5-19) 06/05/23 17:27 BUN 20 mg/dL (8-23) 06/05/23 17:27 Creatinine 1.1 mg/dL (0.7-1.2) 06/05/23 17:27 GFR Calculation Not Reportable 06/05/23 17:27 Glucose 133 mg/dL (65-115) H 06/05/23 17:27 Calculated Osmolality 305 mOsm/kg (285-295) H 06/05/23 17:27 Lactic Acid 1.5 mmol/L (0.5-2.2) 06/05/23 17:35 Calcium 9.5 mg/dL (8.5-10.5) 06/05/23 17: Magnesium 1.8 mg/dL (1.7-2.3) 06/05/23 17:27 Total Bilirubin 0.3 mg/dL (0.15-1.2) 06/05/23 17:27 AST 15 U/L (0-40) 06/05/23 17:27 ALT 13 U/L (0-41) 06/05/23 17:27 Alkaline Phosphatase 121 U/L (40-130) 06/05/23 17:27 Total Protein 7.0 g/dL (6.6-8.7) 06/05/23 17:27 Albumin 4.0 g/dL (3.5-5.2) 06/05/23 17:27 Globulin 3.0 g/dL (1.3-4.6) 06/05/23 17:27 Lipase 22 U/L (13-60) 06/05/23 17:27 Procalcitonin 0.10 ng/mL (0-0.5) 06/05/23 17:27 Discharge Plan Discharge Patient Disposition: Admitted As Inpatient Admit Provider: Pooja Dc Clinical Impression: Diverticulitis Abdominal pain Qualifiers: Abdominal location: left lower quadrant Qualified Code(s): R10.32 - Left lower quadrant pain Pneumonia Qualifiers: Pneumonia type: due to unspecified organism Laterality: right Lung location: l ower lobe of lung Qualified Code(s): J18.9 - Pneumonia, unspecified organism Condition: Stable Coding Level of Care Code ED Bpm Solution Architect for Chg Fwd Documented by User: Ariel Vann MD 06/05/23 19:38 HPI - SOB/Dyspnea 2 General: Chief Complaint: Shortness of Breath/Dyspnea Stated Complaint: sob Time Seen by Provider: 06/05/23 17:14 PFSH ED 2 PFSH: Medical History Anemia Presence of arterial stent COPD (chronic obstructive pulmonary disease) Osteoarthritis PTSD (post-traumatic stress disorder) GERD (gastroesophageal reflux disease) CAD (coronary artery disease) Mixed hyperlipidemia Hypertension Bilateral carotid artery stenosis H/O: GI bleed Benign prostatic hyperplasia with lower urinary tract symptoms Surgical History S/P small bowel resection Family History Family/Other Diabetes CAD (coronary artery disease) Cancer Father , at age 98 Congestive heart failure (CHF) CAD (coronary artery disease) Mother , at age 80 Stroke Brother Diabetes Sister Diabetes Denies family history of Clotting disorder Dementia Chronic kidney disease (CKD) Suicide Anesthesia complication Bleeding disorder Lung disease Social History Smoking and tobacco/nicotine status: former use of tobacco/nicotine Quit status (tobacco/nicotine): has quit using Year quit tobacco: 2012 Former quit date comment: 1.5 ppd X 52 years Second hand smoke exposure: Yes Alcohol intake: never Substance/Drug Use: never Adopted: No Marital status: Current occupational status: retired Course 2 Reevaluation(s): Reevaluation #1: I discussed the laboratory and radiographic findings with the patient I discussed the concern for pneumonia and his continued oxygen requirement which is new on this admission. Given the patient's continued diverticulitis after 7 days of antibiotics I did contact the hospital physician Dr. Dc to request admission to the hospital for additional evaluation treatment and care. The patient was in agreement with this plan of care. Time: 19:37 Vital Signs: Vital signs: Vital Signs Temperature 97.8 F 06/06/23 04:00 Pulse Rate 54 L 06/06/23 04:00 Respiratory Rate 18 06/06/23 04:00 Blood Pressure 126/56 06/06/23 04:00 Pulse Oximetry 93 06/06/23 04:00 Oxygen Delivery Me thod Nasal Cannula 06/06/23 04:00 Oxygen Flow Rate 2 06/05/23 19:35 MDM - SOB/Dyspnea Medical Decision Making I have discussed the patient's case with the on-coming physician <Dr. Redd> and they have assumed care of the patient. We have discussed the current lab/radiographic results that have been resulted and the pending tests. Medical Records I reviewed the patient's medical records. Lab Data I reviewed the patient's lab results. 06/05/23 17:27 06/05/23 17:27 Labs/Radiology: Radiology Impressions Chest X-Ray 06/05/23 16:24 IMPRESSION: 1. Interval development of mild air-space opacities at right lower lung, suggesting atelectasis, aspiration, or pneumonia. Previously identified, noncalcified, spiculated nodule at posterobasal right lower lobe on CTs not well visualized on radiograph, but remains suspicious for lung carcinoma given CT characteristics. 2. Chronic, right acromioclavicular joint dislocation. Abdomen/Pelvis CT 06/05/23 17:24 IMPRESSION: 1. 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 S/P resection with reanastomosis involving loop of small bowel at right mid abdomen. Colonic ileus or diarrhea. Moderate colonic diverticula. Mild inflammation at proximal-mid sigmoid colon, suspicious for acute diverticulitis. As always, if not recently performed, colonoscopy after bout resolves would be helpful to exclude malignancy presenting as diverticulitis. 2. Slightly increased, < 1 cm, noncalcified, spiculated nodule at posterobasal right lower lobe from 12/09/20, suspicious for T1 primary lung carcinoma based on CT characteristics. A few, < 4 mm, noncalcified nodules at periphery of medial right middle lobe and superior lingula of left upper lobe, unchanged from 12/25/22 and new from 12/09/20. 3. Mildly enlarged median lobe of prostate indenting bladder base. 4. Atherosclerosis and coronary artery disease. THIS REPORT CONTAINS FINDINGS THAT MAY BE CRITICAL TO PATIENT CARE. The findings were verbally communicated via telephone conference with TRENT REDD at 06/05/2023, 6:39 PM CDT. The findings were acknowledged and understood. Laboratory Results WBC 9.75 10^3/uL (3.29-11.43) 06/05/23 17: RBC 4.71 10^6/uL (3.85-5.65) 06/05/23 17: Hgb 13.00 g/dL (11.27-16.99) 06/05/23 17: Hct 40.2 % (37-53) 06/05/23 17: MCV 85.4 fl (82-101) 06/05/23 17: MCH 27.6 pg (27-33) 06/05/23 17: MCHC 32.3 g/dL (30-55) 06/05/23 17: RDW 14.9 % (12.1-15.1) 06/05/23 17: Plt Count 195 10^3/cmm (157-399) 06/05/23 17: MPV 9.9 fL (7.4-10.4) 06/05/23 17: Neut % (Auto) 75.1 % 06/05/23 17: Lymph % (Auto) 15.6 % 06/05/23 17: [place] % (Auto) 6.2 % 06/05/23 17: Eos % (Auto) 2.1 % 06/05/23 17: Baso % (Auto) 0.6 % 06/05/23 17: Neut # (Auto) 7.33 10^3/uL (1.8-7.7) 06/05/23 17: Lymph # (Auto) 1.5 10^3/uL (0.8-4.8) 06/05/23 17: [place] # (Auto) 0.6 10^3/uL (0.2-0.9) 06/05/23 17: Eos # (Auto) 0.2 10^3/uL (0.0-0.8) 06/05/23 17: Baso # (Auto) 0.1 10^3/uL (0.0-0.1) 06/05/23 17: Nucleated RBC % (auto) 0 % 06/05/23: Nucleated RBCs # 0.0 /100WBC 06/05/23 17: D-Dimer 0.54 ug/mLFEU (0-0.59) 06/05/23 17:27 Sodium 145 mmol/L (136-145) 06/05/23 17:27 Potassium 3.4 mmol/L (3.5-5.1) L 06/05/23 17:27 Chloride 106 mmol/L (98-107) 06/05/23 17: Carbon Dioxide 26 mmol/L (22-29) 06/05/23 17:27 Anion Gap 16.4 (5-19) 06/05/23 17:27 BUN 20 mg/dL (8-23) 06/05/23 17:27 Creatinine 1.1 mg/dL (0.7-1.2) 06/05/23 17:27 GFR Calculation Not Reportable 06/05/23 17:27 Glucose 133 mg/dL (65-115) H 06/05/23 17:27 Calculated Osmolality 305 mOsm/kg (285-295) H 06/05/23 17:27 Lactic Acid 1.5 mmol/L (0.5-2.2) 06/05/23 17:35 Calcium 9.5 mg/dL (8.5-10.5) 06/05/23 17:27 Magnesium 1.8 mg/dL (1.7-2.3) 06/05/23 17:27 Total Bilirubin 0.3 mg/dL (0.15-1.2) 06/05/23 17:27 AST 15 U/L (0-40) 06/05/23 17:27 ALT 13 U/L (0-41) 06/05/23 17:27 Alkaline Phosphatase 121 U/L (40-130) 06/05/23 17:27 Total Protein 7.0 g/dL (6.6-8.7) 06/05/23 17:27 Albumin 4.0 g/dL (3.5-5.2) 06/05/23 17:27 Globulin 3.0 g/dL (1.3-4.6) 06/05/23 17:27 Lipase 22 U/L (13-60) 06/05/23 17:27 Procalcitonin 0.10 ng/mL (0-0.5) 06/05/23 17:27 All radiology interpretation(s) finalized by discharge Discharge Plan Discharge Patient Disposition: Admitted As Inpatient Admit Provider: Pooja Dc Clinical Impression: Diverticulitis Abdominal pain Qualifiers: Abdominal location: left lower quadrant Qualified Code(s): R10.32 - Left lower quadrant pain Pneumonia Qualifiers: Pneumonia type: due to unspecified organism Laterality: right Lung location: l ower lobe of lung Qualified Code(s): J18.9 - Pneumonia, unspecified organism Condition: Stable Coding Level of Care Code ED Bpm Solution Architect for Maxi Clayton
--- NOTE | 2023-06-05 17:24 | CTR_ITS ---
PROCEDURE INFORMATION: Exam: CT Abdomen And Pelvis Without Contrast Exam date and time: 06/05/2023 5:47 PM Age: 77 years old Clinical indication: Abdominal pain; Localized; Left lower quadrant (llq); Prior surgery; Surgery date: 6+ months; Surgery type: Bowel removed TECHNIQUE: Imaging protocol: Computed tomography of the abdomen and pelvis without contrast. Radiation optimization: All CT scans at this facility use at least one of these dose optimization techniques: automated exposure control; mA and/or kV adjustment per patient size (includes targeted exams where dose is matched to clinical indication); or iterative reconstruction. COMPARISON: 1. CT abdomen pelvis w con* [id number] 12/23/2020 3:[address] 12/25/2022 3. PET/CT 12/30/21. 4. Chest/abdomen/pelvis CT 12/09/20. RADIATION DOSE METRICS: Total DLP (mGy-cm): 1221.73 FINDINGS: Lungs: < 1 cm, noncalcified, spiculated nodule at posterobasal right lower lobe just superior to right posterior hemidiaphragm is slightly increased from 12/09/20. A few, < 4 mm, noncalcified nodules at periphery of medial right middle lobe and superior lingula of left upper lobe are unchanged from 12/25/22 and new from 12/09/20. Mild, curvilinear and linear opacities at periphery of base of anterior right upper lobe and superior lingula of left upper lobe may reflect subsegmental atelectasis or scars. Mild, reticular opacities at dependent portions of bilateral lower lobes likely represent subsegmental atelectasis. Pleural spaces: No pleural effusions. Heart: Visualized heart is normal in size. Coronary arteries: Coronary arteries are moderately calcified. Liver: Grossly normal. Gallbladder and bile ducts: Grossly normal. No calcified stones. No intra or extrahepatic duct dilation. Pancreas: Grossly normal. No pancreatic duct dilation. Spleen: Grossly normal. No splenomegaly. Adrenal glands: Grossly normal. No mass. Kidneys and ureters: Grossly normal. No nephro or uroliths. No hydronephrosis. Stomach and bowel: Moderate outpouching arising from superior aspect of 3rd portion of duodenum is consistent with diverticulum. Surgical clips involving loop of mildly dilated small bowel with air-fluid level at right anterior mid abdomen suggest resection with reanastomosis. Several, air-fluid levels within nondilated colon suggest colonic ileus or diarrhea. Several outpouchings arising from colon, worse at sigmoid colon, are consistent with diverticula. Mild fat stranding and engorgement of vasa recta at proximal-mid sigmoid colon have developed. Appendix: Partially gas-filled, nondilated, leftward directed appendix is evident. Intraperitoneal space: No pneumoperitoneum. No free fluid. No loculated fluid collection. Retroperitoneal space: No free fluid. Vasculature: Visualized descending thoracic aorta is mildly tortuous. Visualized thoracic aorta is mildly calcified. Abdominal aorta and bilateral iliac arteries are mildly tortuous. Abdominal aorta and bilateral iliac arteries are moderately calcified. Splenic and left femoral arteries are mild-moderately calcified. Left peripheral renal and left femoral arteries and origin of celiac artery are mildly calcified. Lymph nodes: A few, calcified, right central hilar and azygoesophageal lymph nodes suggest remote granulomatous disease. A few, < 7 mm in short axis, paracolonic lymph nodes adjacent to proximal-mid sigmoid colon are nonspecific. Urinary bladder: See Reproductive section. Reproductive: Mildly enlarged median lobe of prostate indents bladder base. Left lobe of prostate contains a mild, central, solid calcification. Bones/joints: A few, < 1 cm, lobulated and oval, well-defined, sclerotic lesions at right posterior 9th rib and right superior pubic ramus statistically probably represent benign bone islands. Degenerative disc disease of mid-lower thoracic spine and degenerative disc and facet disease of several levels of lumbar spine are present, with associated vacuum discs at L1/2, L2/3, L3/4, L4/5 and L5/S1. Mild gas at left ventral extradural space at superior L3 vertebral level suggests extruded vacuum disc. There are mild-moderate osteoarthritis of bilateral sacroiliac and hip joints and mild degenerative changes at pubic symphysis. Soft tissues: Grossly unremarkable. CT/CT abdomen pelvis wo con [id number] IMPRESSION: 1. 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 S/P resection with reanastomosis involving loop of small bowel at right mid abdomen. Colonic ileus or diarrhea. Moderate colonic diverticula. Mild inflammation at proximal-mid sigmoid colon, suspicious for acute diverticulitis. As always, if not recently performed, colonoscopy after bout resolves would be helpful to exclude malignancy presenting as diverticulitis. 2. Slightly increased, < 1 cm, noncalcified, spiculated nodule at posterobasal right lower lobe from 12/09/20, suspicious for T1 primary lung carcinoma based on CT characteristics. A few, < 4 mm, noncalcified nodules at periphery of medial right middle lobe and superior lingula of left upper lobe, unchanged from 12/25/22 and new from 12/09/20. 3. Mildly enlarged median lobe of prostate indenting bladder base. 4. Atherosclerosis and coronary artery disease. THIS REPORT CONTAINS FINDINGS THAT MAY BE CRITICAL TO PATIENT CARE. The findings were verbally communicated via telephone conference with ELENITA PIEDRA at 06/05/2023, 6:39 PM CDT. The findings were acknowledged and understood.
[2023-06-05 17:30] VITALS: BP 131/80; PULSE 61; O2SAT 90
[2023-06-05 17:59] LABS: Basophils # 0.1 10^3/uL (0.0-0.1); Basophils % 0.6 %; Eosinophils # 0.2 10^3/uL (0.0-0.8); Eosinophils % 2.1 %; Hematocrit 40.2 % (37-53); Lymphocytes # 1.5 10^3/uL (0.8-4.8); Lymphocytes % 15.6 %; Mean Corpuscular HGB Conc 32.3 g/dL (30-55); Mean Corpuscular Hemoglobin 27.6 pg (27-33); Mean Corpuscular Volume 85.4 fl (82-101); Mean Platelet Volume 9.9 fL (7.4-10.4); Monocytes # 0.6 10^3/uL (0.2-0.9); Monocytes % 6.2 %; Neutrophils # 7.33 10^3/uL (1.8-7.7); Neutrophils % 75.1 %; Nucleated Red Blood Cells % 0 %; Platelet Count 195 10^3/cmm (157-399); Red Blood Count 4.71 10^6/uL (3.85-5.65); Red Cell Distribution Width 14.9 % (12.1-15.1); White Blood Count 9.75 10^3/uL (3.29-11.43)
[2023-06-05 18:23] LABS: Lactic Sepsis W/Reflex 1.5 mmol/L (0.5-2.2)
[2023-06-05 18:26] LABS: Alanine Aminotransferase 13 U/L (0-41); Alkaline Phosphatase 121 U/L (40-130); Anion Gap 16.4 (5-19); Aspartate Amino Transferase 15 U/L (0-40); Blood Urea Nitrogen 20 mg/dL (8-23); Calcium 9.5 mg/dL (8.5-10.5); Carbon Dioxide 26 mmol/L (22-29); Chloride 106 mmol/L (98-107); Creatinine Clr Calc Pharmacy 74.3196; Glucose 133 mg/dL (65-115); Lipase 22 U/L (13-60); Magnesium 1.8 mg/dL (1.7-2.3); Osmolality Calculated 305 mOsm/kg (285-295); Potassium 3.4 mmol/L (3.5-5.1); Sodium 145 mmol/L (136-145); Total Bilirubin 0.3 mg/dL (0.15-1.2)
[2023-06-05 18:58] LABS: Slide Review Slide Review Perform
[2023-06-05 19:00] VITALS: BP 124/56; PULSE 59; RESP 18; O2SAT 94
[2023-06-05 19:35] VITALS: BP 152/71; PULSE 56; RESP 15; O2SAT 95
[2023-06-05 20:18] VITALS: BP 158/71; PULSE 54; RESP 18; O2SAT 96
--- NOTE | 2023-06-05 20:25 | PM.HP ---
Providers/Chief Complaint Admitting Physician: Pooja Dc MD Primary Care Provider: Shawna England MD Chief Complaint: sob History of Present Illness Jamaal Sanchez is a 75-year-old male with past medical history of anxiety, ex-smoker COPD, CAD, hypertension, GERD, hyperlipidemia, obesity, JOHN, [facility], sees Dr. Aston Montejo for CAD and he does not think it is all cardiac related.Patient reported smoking1 pack/day For 50 years and quit in 2012. Patient underwent partial small bowel resection with reanastomosis for persistent bleeding AVMs at [facility] in October 2020 Patient is stating that he has history of diverticulosis, his colon surgery was done at [facility] 2 years ago which was related to a tumor which was nonmalignant, he had AV malformation and GI bleed as well. He has been suffering with diffuse diarrhea and diverticulitis for last 7 days his symptoms started last Saturday he has been on ciprofloxacin and Flagyl, stating that he has been having recurrent episodes of loose stools which are black in color. He does carry history of C. difficile. He has been afebrile. Now he started developing shortness of breath without chest pain. Shortness of breath prompted his visit to the ER In the ER he has been diagnosed with diverticulitis along right-sided community-acquired pneumonia requiring 1.5 L at the time of evaluation I have requested for C. difficile panel as well He does have spiculated nodule, BPH, For spiculated nodule he follows up with Dr. Mckinley Review of Systems Eyes: Denies: change in vision ENMT: Denies: throat pain Card: Denies: chest pain Resp: Reports: dyspnea GI: Reports: abdominal pain and nausea : Denies: flank pain Musc: Denies: neck pain Skin/Breast: Denies: rash Neuro: Denies: headache(s) Psych: Denies: anxiety Endo: Denies: polyuria Medications/Allergies Home Medications Medication Instructions Recorded Confirmed Last Taken Type aspirin 81 mg tablet,delayed 81 mg PO QAM 04/07/19 05/30/23 12/22/22 History release (Adult Low Dose Aspirin) docusate sodium 100 mg capsule 100 mg PO DAILY PRN Constipation 04/07/19 05/30/23 Unknown History mirtazapine 45 mg tablet 45 mg PO BEDTIME 04/07/19 05/30/23 12/21/22 History sertraline 100 mg tablet 100 mg PO QAM 04/07/19 05/30/23 12/22/22 History atorvastatin 80 mg tablet 40 mg PO BEDTIME 04/14/19 05/30/23 12/21/22 History pantoprazole 40 mg tablet,delayed 40 mg PO DAILY 04/14/19 05/30/23 12/22/22 History release hydrocodone 10 mg-acetaminophen 1 tab PO QID PRN Pain 03/16/20 05/30/23 12/09/20 History 325 mg tablet chlorthalidone 25 mg tablet 25 mg PO QAM 12/09/20 05/30/23 12/22/22 History cholecalciferol (vitamin D3) 50 50 mcg PO DAILY 12/09/20 05/30/23 12/21/22 History mcg (2,000 unit) capsule (Vitamin D3) polyethylene glycol 3350 17 17 g PO BEDTIME 12/09/20 05/30/23 12/21/22 History gram/dose oral powder (Miralax) tamsulosin 0.4 mg capsule 0.4 mg PO BID 12/09/20 05/30/23 12/22/22 History albuterol sulfate 90 mcg/actuation 2 puff inhalation Q4H PRN 12/27/20 05/30/23 Unknown Rx aerosol inhaler (ProAir HFA) Shortness Of Breath 30 days #8.5 grams tiotropium bromide 18 mcg capsule 1 cap inhalation DAILY #30 08/16/21 05/30/23 12/21/22 Rx with inhalation device (Spiriva inhalations with HandiHaler) fluticasone 250 mcg-salmeterol 50 1 inh inhalation BID #60 ea 10/23/21 05/30/23 12/22/22 Rx mcg/dose blistr powdr for inhalation (Wixela Inhub) gabapentin 300 mg capsule 300 mg PO BID .COMPLEX 11/09/21 05/30/23 12/22/22 History finasteride 5 mg tablet 5 mg PO QAM #90 tabs 05/03/22 05/30/23 12/22/22 Rx metformin 500 mg tablet See Rx Instructions .Route .COMPLEX 06/18/22 05/30/23 12/22/22 History Custom Copolymer inserts 1 Pair #1 ea 07/31/22 05/30/23 Unknown Rx ascorbic acid (vitamin C) 500 mg 500 mg PO DAILY 11/02/22 05/30/23 12/21/22 History tablet (Vitamin C) calcium carbonate 500 mg calcium 500 mg PO DAILY 11/02/22 05/30/23 12/21/22 History (1,250 mg) tablet cyanocobalamin (vitamin B-12) 50 25 mcg PO DAILY 11/02/22 05/30/23 12/21/22 History mcg tablet omega 8-dmx-qps-fish oil 60 mg-90 1 cap PO DAILY 11/02/22 05/30/23 12/21/22 History mg-500 mg capsule (Fish Oil) albuterol sulfate 90 mcg/actuation 2 inh inhalation Q4H PRN shortness 12/22/22 05/30/23 Unknown Rx aerosol inhaler of breath or wheezing #18 grams prednisone 20 mg tablet 20 mg PO TID #15 tabs 12/22/22 05/30/23 Unknown Rx metoprolol tartrate 25 mg tablet 12.5 mg (1/2 x 25 mg) PO BID 30 05/24/23 05/30/23 Unknown Rx days #30 tabs ciprofloxacin HCl 500 mg tablet 500 mg PO BID 05/30/23 05/30/23 Unknown History metronidazole 500 mg tablet 500 mg PO BID 05/30/23 05/30/23 Unknown History Allergies Allergy/AdvReac Type Severity Reaction Status Date / Time haloperidol [From Haldol] Allergy NA Verified 06/05/23 16:29 potassium chloride Allergy Vomiting Verified 06/05/23 16:29 PFSH Acute PFSH: Medical History Anemia Presence of arterial stent COPD (chronic obstructive pulmonary disease) Osteoarthritis PTSD (post-traumatic stress disorder) GERD (gastroesophageal reflux disease) CAD (coronary artery disease) Mixed hyperlipidemia Hypertension Bilateral carotid artery stenosis H/O: GI bleed Benign prostatic hyperplasia with lower urinary tract symptoms Surgical History S/P small bowel resection Family History Family/Other Diabetes CAD (coronary artery disease) Cancer Father , at age 98 Congestive heart failure (CHF) CAD (coronary artery disease) Mother , at age 80 Stroke Brother Diabetes Sister Diabetes Denies family history of Clotting disorder Dementia Chronic kidney disease (CKD) Suicide Anesthesia complication Bleeding disorder Lung disease Social History Smoking and tobacco/nicotine status: former use of tobacco/nicotine Quit status (tobacco/nicotine): has quit using Year quit tobacco: 2012 Former quit date comment: 1.5 ppd X 52 years Second hand smoke exposure: Yes Alcohol intake: never Substance/Drug Use: never Adopted: No Marital status: Current occupational status: retired Vitals/I&O/Wt Last Vital Signs Temp 97.9 F 06/05/23 16:26 Pulse 54 L 06/05/23 20:18 Resp 18 06/05/23 20:18 BP 158/71 06/05/23 20:18 Pulse Ox 96 06/05/23 20:18 O2 Del Method Nasal Cannula 06/05/23 19:35 O2 Flow Rate 2 06/05/23 19:35 Weight last 48 hrs Weight 117.934 kg Physical Exam Narrative: Patient is awake alert Laying supine Currently 1.5 L GCS 15 Left lower quadrant mild pain on deep palpation otherwise on remarkable After sign of heart failure Nonfocal neuroexam S1, S2 Laying supine Pleasant cooperative No signs of dehydration Data 06/05/23 17:27 06/05/23 17:27 Micro: Microbiology 06/05/23 17:35 Blood Culture - Preliminary Blood SPECIMEN COLLECTED 06/05/23 17:27 Blood Culture - Preliminary Blood SPECIMEN COLLECTED A&P Assessment and plan (1) Hypertension: Qualifiers: Hypertension type: essential hypertension Qualified Code(s): I10 - Essential (primary) hypertension (2) CAD (coronary artery disease): Qualifiers: Coronary Disease-Associated Artery/Lesion type: [place] artery [place] vs. transplanted heart: [place] heart Associated angina: without angina Qualified Code(s): I25.10 - Atherosclerotic heart disease of [place] coronary artery without angina pectoris (3) Bradycardia: (4) Diverticulitis: (5) Abdominal pain: Qualifiers: Abdominal location: left lower quadrant Qualified Code(s): R10.32 - Left lower quadrant pain (6) Benign prostatic hyperplasia with lower urinary tract symptoms: Qualifiers: Lower urinary tract symptom detail: weak urinary stream Qualified Code(s): N40.1 - Benign prostatic hyperplasia with lower urinary tract symptoms; R39.12 - Poor urinary stream (7) COPD (chronic obstructive pulmonary disease): (8) Pneumonia: Qualifiers: Laterality: right Lung location: lower lobe of lung Pneumonia type: due to unspecified organism Qualified Code(s): J18.9 - Pneumonia, unspecified organism (9) Obstructive sleep apnea: (10) Pulmonary nodule: (11) Hypoxia: Plan Acute diverticulitis Failed outpatient treatment Patient still having diarrhea Will rule out C. difficile Afebrile no leukocytosis Patient has history of C. difficile Started IV antibiotics for now along IV fluids Right sided middle lobe pneumonia Currently requiring 1.5 L Acute hypoxia Does not use oxygen at home Does have COPD with restrictive changes as well Follows up with Dr. Mckinley for pulmonary nodule, PET scan unremarkable for malignancy previous CT scan showed 9 x 6 mm nodule, Current CT scan showing mild increased in dimension History of BPH Monitor urine output, continue tamsulosin Hypokalemia: Replenish Check magnesium level Cardiac diet consistent carb Full code Insulin sliding scale Attestations Medical Necessity Statement*: More than 2 midnights anticipated Diagnoses Essential hypertension I10 Hypertension type: essential hypertension Coronary artery disease involving [place] coronary artery of [place] heart without angina pectoris I25.10 Coronary Disease-Associated Artery/Lesion type: [place] artery [place] vs. transplanted heart: [place] heart Associated angina: without angina Bradycardia R00.1 Diverticulitis K57.92 Abdominal pain R10.32 Abdominal location: left lower quadrant Benign prostatic hyperplasia with weak urinary stream N40.1; R39.12 Lower urinary tract symptom detail: weak urinary stream COPD (chronic obstructive pulmonary disease) J44.9 Pneumonia J18.9 Laterality: right Lung location: lower lobe of lung Pneumonia type: due to unspecified organism Obstructive sleep apnea G47.33 Pulmonary nodule R91.1 Hypoxia R09.02
[2023-06-05] MEDS: cefTRIAXone 2,000 MG in sodium chloride 0.9% (plus) 50 ML 100 MG IV (20:33)
[2023-06-05 20:49] VITALS: BP 125/62; PULSE 58; RESP 20; O2SAT 96
--- NOTE | 2023-06-05 20:56 | PC.PHAR ---
Harvinder Initial Dosing Patient Information Sex M M/F Last Name AR AGE 77 years First Name STEPH Ht 74 inches : 1945 ABW 117.93 kg Location: [facility] IBW 82.2 kg If loading dose given: DW 96.492 kg Loading DOSE: 1750 mg SCr 1.1 mg/dl This Dose = 18.1 mg/kg CrCl 63.3 ml/min 1st dose Cmax: 23.5 mcg/ml Vd 72.369 liters Time elapsed: 18.0 hrs Ke 0.057 hrs-1 Serum Conc. = 8.4 mcg/ml t1/2 12 hrs Hrs until 20 mcg/ml 3.8 hrs Hrs until 15 mcg/ml 8.9 hours Hrs until 10 mcg/ml 16.0 hours Dose Tau (Freq) Levels expected Standard 1750 18 Cmax 35.6 Targets 18.14 18.3 Cpeak 33.7 25 to 40 mg/kg hours Cmin 14.3 10 to 20
[2023-06-05 21:02] LABS: D Dimer 0.54 ug/mLFEU (0-0.59)
[2023-06-05 21:04] VITALS: BMI 33.7
[2023-06-05 21:05] LABS: Add Urine Microscopic? YES; Bilirubin Urine Neg (Negative); Blood Urine Neg (Negative); Glucose Urine UA Norm (Normal); Ketones Urine Negative (Negative); Leukocyte Esterase Urine Trace (Negative); Nitrate Urine Negative (Negative); Protein Urine Neg (Negative); Specific Gravity, Urine 1.025 (1.005-1.030); Urine Appearance Clear (CLEAR); Urine Color Yellow (Yellow); Urobilinogen Urine Norm (Negative); pH Urine 5 (5-7)
[2023-06-05 21:06] LABS: Add Urine Culture? No; Bacteria Urine TRACE /hpf; Hyaline Casts Urine 0-4 /lpf; Mucus Urine 1+ /hpf; Squamous Epithelial Cell Urine 0-4 /hpf (0-5); WBC Urine 0-4 /hpf (0-5)
[2023-06-05 21:16] LABS: Thyroid Stimulating Hormone 1.87 uIU/mL (0.27-4.20)
[2023-06-05] MEDS: enoxaparin 40 mg/0.4 mL Syringe SUBCUT (22:06)
[2023-06-05] MEDS: sodium chloride 0.9% 1,000 ML 75 ML IV (22:06)
[2023-06-05] MEDS: metroNIDAZOLE IV 500 MG/100 ML PREMIX 100 MG IV (22:07)
[2023-06-05] MEDS: cefepime 2,000 MG in sodium chloride 0.9% (plus) 50 ML 100 MG IV (22:20)
[2023-06-05] MEDS: potassium chloride ER 20 mEq Tablet 40 MEQ PO (22:20)
[2023-06-05] MEDS: piperacillin-tazobactam 3.375 GM in sodium chloride 0.9% (plus) 50 ML IV (23:09)
[2023-06-06] VITALS (7 sets, daily range): BP systolic 126–161; BP diastolic 56–81; PULSE 49–78; RESP 16–20; TEMP 36.6–36.8; O2SAT 92–96
[2023-06-06 05:46] LABS: Basophils # 0.1 10^3/uL (0.0-0.1); Basophils % 0.8 %; Eosinophils # 0.2 10^3/uL (0.0-0.8); Eosinophils % 2.9 %; Hematocrit 40.1 % (37-53); Lymphocytes # 1.3 10^3/uL (0.8-4.8); Lymphocytes % 16.8 %; Mean Corpuscular HGB Conc 30.2 g/dL (30-55); Mean Corpuscular Hemoglobin 26.5 pg (27-33); Mean Corpuscular Volume 87.9 fl (82-101); Mean Platelet Volume 9.3 fL (7.4-10.4); Monocytes # 0.5 10^3/uL (0.2-0.9); Monocytes % 6.9 %; Neutrophils # 5.63 10^3/uL (1.8-7.7); Neutrophils % 72.2 %; Nucleated Red Blood Cells % 0 %; Platelet Count 155 10^3/cmm (157-399); Red Blood Count 4.56 10^6/uL (3.85-5.65); Red Cell Distribution Width 14.9 % (12.1-15.1)
[2023-06-06 06:12] LABS: Blood Urea Nitrogen 15 mg/dL (8-23); C Reactive Protein 5.7 mg/L (0.0-4.9); Calcium 8.9 mg/dL (8.5-10.5); Carbon Dioxide 25 mmol/L (22-29); Chloride 106 mmol/L (98-107); Creatinine Clr Calc Pharmacy 91.3475; Glucose 112 mg/dL (65-115); Magnesium 1.9 mg/dL (1.7-2.3); Osmolality Calculated 298 mOsm/kg (285-295); Sodium 143 mmol/L (136-145)
[2023-06-06] MEDS: piperacillin-tazobactam 3.375 GM in sodium chloride 0.9% (plus) 50 ML IV ×3 (06:25→23:31)
[2023-06-06 06:53] LABS: Glucose Point of Care 122 mg/dL (70-110)
[2023-06-06] MEDS: tamsulosin 0.4 mg Capsule 0.400000000000000022 MG PO ×2 (09:01→17:22)
[2023-06-06] MEDS: chlorthalidone 25 mg Tablet 12.5 MG PO (09:01)
[2023-06-06] MEDS: cefepime 2,000 MG in sodium chloride 0.9% (plus) 50 ML 100 MG IV (09:02)
[2023-06-06] MEDS: metoprolol tartrate 25 mg Tablet 12.5 MG PO ×2 (09:02→22:32)
[2023-06-06] MEDS: pantoprazole 40 mg SDV IVP ×2 (09:02→17:22)
--- NOTE | 2023-06-06 09:53 | ECG_ITS ---
[facility] Test Date: 2023-06-06 Pat Name: Jamaal Sanchez Department: Room: 252 Gender: Male Media Relations Associate: : 1945 Requested By: Jer Ramachandran Order Number: [id number] [place] MD: Oliver Bourgeois M.D. Measurements Intervals [place] Rate: 52 P: 48 AR: 200 QRS: 32 QRSD: 105 T: 69 QT: 439 QTc: 411 Interpretive Statements SINUS BRADYCARDIA POSSIBLE RIGHT VENTRICULAR CONDUCTION DELAY [RSR (QR) IN V1/V2] Compared to ECG 06/05/2023 16:22:22 Sinus rhythm no longer present Electronically Signed On 06-06-2023 15:19:47 CDT by Oliver Bourgeois M.D. [id number]
[2023-06-06 10:48] LABS: Troponin(5th) Baseline 21 ng/L (0-15)
[2023-06-06 11:01] LABS: C.Diff PCR (Lab) NEGATIVE (Negative)
[2023-06-06] MEDS: sodium chloride 0.9% 1,000 ML 75 ML IV ×2 (11:13→23:32)
[2023-06-06] MEDS: insulin lispro 100 unit/1 mL SUBCUT (11:26)
[2023-06-06 11:27] LABS: Glucose Point of Care 149 mg/dL (70-110)
--- NOTE | 2023-06-06 11:33 | ECG_ITS ---
[facility] Test Date: 2023-06-06 Pat Name: Jamaal Sanchez Department: Room: 252 Gender: Male Prepress Operator: : 1945 Requested By: Jer Ramachandran Order Number: [id number] [place] MD: Oliver Bourgeois M.D. Measurements Intervals [place] Rate: 47 P: 104 AR: 200 QRS: 35 QRSD: 92 T: 64 QT: 455 QTc: 403 Interpretive Statements SINUS BRADYCARDIA Compared to ECG 06/06/2023 09:53:42 No significant changes Electronically Signed On 06-06-2023 15:22:10 CDT by Oliver Bourgeois M.D. [id number]
[2023-06-06] MEDS: HYDROcodone-acetaminophen 10-325 mg Tablet 1 TAB PO ×2 (12:32→17:22)
[2023-06-06 12:50] LABS: Troponin 5 2HR 19.34 ng/L (0-15); Troponin 5 2HR Delta -1.66 ABS# (0-10)
--- NOTE | 2023-06-06 13:47 | PM.PN ---
Subjective Subjective: Patient was seen this morning, he denies any fevers, no chills, no nausea, no vomiting, his abdominal pain has improved, Vitals/I&O/Wt Last Vital Signs Temp 98.0 F 06/06/23 12:00 Pulse 66 06/06/23 12:00 Resp 16 06/06/23 12:00 BP 161/81 06/06/23 12:00 Pulse Ox 95 06/06/23 12:00 O2 Del Method Nasal Cannula 06/06/23 12:00 O2 Flow Rate 2 06/06/23 09:02 06/05/23 06/06/23 06/06/23 22:59 06:59 14:59 Intake Total 320 / 320 370 / 690 1443.75 / 1443.75 Output Total 250 / 250 Balance 320 / 320 120 / 440 1443.75 / 1443.75 Weight last 48 hrs Weight 119.295 kg Weight 119.431 kg Weight 117.934 kg Physical Exam Const: COMMON NORMALS: no acute distress and patient oriented x3 Resp: COMMON NORMALS: normal respiratory effort, No retractions, No use of accessory muscles and clear to auscultation bilaterally AUSCULTATION: clear to auscultation bilaterally Cardio: COMMON NORMALS: regular rate, regular rhythm, S1 normal heart sound present and S2 normal heart sound present RATE: regular rate RHYTHM: regular rhythm HEART SOUNDS: S1 normal heart sound present and S2 normal heart sound present GI: OTHER: Abdomen soft, slightly distended, has diffuse tenderness to palpation, no guarding, no rebound, no rigidity Extremity: COMMON NORMALS: no pedal edema Neuro: COMMON NORMALS: patient oriented x3 Psych: COMMON NORMALS: mental status grossly normal Data 06/06/23 05:11 06/06/23 05:11 Micro: Microbiology 06/05/23 20:29 Blood Culture - Preliminary Blood SPECIMEN COLLECTED 06/05/23 20:25 Blood Culture - Preliminary Blood SPECIMEN COLLECTED 06/05/23 17:35 Blood Culture - Preliminary Blood SPECIMEN COLLECTED 06/05/23 17:27 Blood Culture - Preliminary Blood SPECIMEN COLLECTED A&P Assessment and plan (1) Hypertension: Qualifiers: Hypertension type: essential hypertension Qualified Code(s): I10 - Essential (primary) hypertension (2) CAD (coronary artery disease): Qualifiers: Coronary Disease-Associated Artery/Lesion type: [place] artery [place] vs. transplanted heart: [place] heart Associated angina: without angina Qualified Code(s): I25.10 - Atherosclerotic heart disease of [place] coronary artery without angina pectoris (3) Bradycardia: (4) Diverticulitis: (5) Abdominal pain: Qualifiers: Abdominal location: left lower quadrant Qualified Code(s): R10.32 - Left lower quadrant pain (6) Benign prostatic hyperplasia with lower urinary tract symptoms: Qualifiers: Lower urinary tract symptom detail: weak urinary stream Qualified Code(s): N40.1 - Benign prostatic hyperplasia with lower urinary tract symptoms; R39.12 - Poor urinary stream (7) COPD (chronic obstructive pulmonary disease): (8) Pneumonia: Qualifiers: Laterality: right Lung location: lower lobe of lung Pneumonia type: due to unspecified organism Qualified Code(s): J18.9 - Pneumonia, unspecified organism (9) Obstructive sleep apnea: (10) Pulmonary nodule: (11) Hypoxia: Plan Acute diverticulitis Failed outpatient treatment Patient still having diarrhea Serial abdominal exams C. difficile negative Afebrile no leukocytosis Patient has history of C. difficile Continue Zosyn Right sided middle lobe pneumonia Currently requiring 1.5 L Acute hypoxia Does not use oxygen at home Does have COPD with restrictive changes as well Follows up with Dr. Mckinley for pulmonary nodule, PET scan unremarkable for malignancy previous CT scan showed 9 x 6 mm nodule, Current CT scan showing mild increased in dimension History of BPH Monitor urine output, continue tamsulosin Hypokalemia: Replenish Check magnesium level CL diet Full code Insulin sliding scale Plan for today continue Zosyn, continue to monitor respiratory status, serial abdominal exams Attestations Medical Necessity Statement*: Patient requires hospitalization, inpatient, greater than 2 minutes, for diverticulitis, pneumonia, hypoxia Diagnoses Essential hypertension I10 Hypertension type: essential hypertension Coronary artery disease involving [place] coronary artery of [place] heart without angina pectoris I25.10 Coronary Disease-Associated Artery/Lesion type: [place] artery [place] vs. transplanted heart: [place] heart Associated angina: without angina Bradycardia R00.1 Diverticulitis K57.92 Abdominal pain R10.32 Abdominal location: left lower quadrant Benign prostatic hyperplasia with weak urinary stream N40.1; R39.12 Lower urinary tract symptom detail: weak urinary stream COPD (chronic obstructive pulmonary disease) J44.9 Pneumonia J18.9 Laterality: right Lung location: lower lobe of lung Pneumonia type: due to unspecified organism Obstructive sleep apnea G47.33 Pulmonary nodule R91.1 Hypoxia R09.02
--- NOTE | 2023-06-06 15:31 | ECG_ITS ---
[facility] Test Date: 2023-06-06 Pat Name: Jamaal Sanchez Department: Room: 252 Gender: Male Director Of Retail: : 1945 Requested By: Jer Ramachandran Order Number: [id number] [place] MD: Panda Rubio M.D. Measurements Intervals [place] Rate: 52 P: 107 HI: 203 QRS: 61 QRSD: 88 T: 78 QT: 450 QTc: 421 Interpretive Statements SINUS BRADYCARDIA Compared to ECG 06/06/2023 11:33:13 No significant changes Electronically Signed On 06-07-2023 8:16:40 CDT by Panda Rubio M.D. [id number]
[2023-06-06 17:12] LABS: Glucose Point of Care 112 mg/dL (70-110)
[2023-06-06] MEDS: gabapentin 300 mg Capsule PO (17:22)
[2023-06-06 21:03] LABS: Glucose Point of Care 106 mg/dL (70-110)
[2023-06-06] MEDS: atorvastatin 40 mg Tablet PO (22:32)
[2023-06-06] MEDS: mirtazapine 15 mg Tablet 45 MG PO (22:32)
[2023-06-06] MEDS: enoxaparin 40 mg/0.4 mL Syringe SUBCUT (22:33)
[2023-06-07] VITALS (7 sets, daily range): BP systolic 126–156; BP diastolic 58–78; PULSE 51–81; RESP 14–18; TEMP 36.6–37.1; O2SAT 90–95
[2023-06-07 05:26] LABS: Alanine Aminotransferase 11 U/L (0-41); Albumin Level 3.1 g/dL (3.5-5.2); Alkaline Phosphatase 95 U/L (40-130); Anion Gap 15.5 (5-19); Aspartate Amino Transferase 13 U/L (0-40); Blood Urea Nitrogen 10 mg/dL (8-23); C Reactive Protein 4.3 mg/L (0.0-4.9); Calcium 8.4 mg/dL (8.5-10.5); Carbon Dioxide 22 mmol/L (22-29); Chloride 106 mmol/L (98-107); Creatinine Clr Calc Pharmacy 91.4435; Globulin 3.1 g/dL (1.3-4.6); Glucose 103 mg/dL (65-115); Osmolality Calculated 289 mOsm/kg (285-295); Potassium 3.5 mmol/L (3.5-5.1); Sodium 140 mmol/L (136-145); Total Bilirubin 0.6 mg/dL (0.15-1.2); Total Protein 6.2 g/dL (6.6-8.7)
[2023-06-07 05:55] LABS: Procalcitonin 0.09 ng/mL (0-0.5)
[2023-06-07 06:11] LABS: Basophils # 0.1 10^3/uL (0.0-0.1); Basophils % 0.8 %; Eosinophils # 0.2 10^3/uL (0.0-0.8); Eosinophils % 2.6 %; Hematocrit 39.1 % (37-53); Lymphocytes # 1.1 10^3/uL (0.8-4.8); Mean Corpuscular HGB Conc 32.2 g/dL (30-55); Mean Corpuscular Hemoglobin 27.2 pg (27-33); Mean Corpuscular Volume 84.3 fl (82-101); Mean Platelet Volume 9.6 fL (7.4-10.4); Monocytes # 0.6 10^3/uL (0.2-0.9); Monocytes % 7.4 %; Neutrophils % 73.7 %; Nucleated Red Blood Cells % 0 %; Platelet Count 158 10^3/cmm (157-399); Red Blood Count 4.64 10^6/uL (3.85-5.65); Red Cell Distribution Width 14.7 % (12.1-15.1)
[2023-06-07] MEDS: piperacillin-tazobactam 3.375 GM in sodium chloride 0.9% (plus) 50 ML IV ×2 (06:31→15:26)
[2023-06-07] MEDS: finasteride 5 mg Tablet PO (06:31)
[2023-06-07] MEDS: sertraline 100 mg Tablet PO (06:31)
[2023-06-07] MEDS: aspirin 81 mg EC Tablet PO (06:32)
[2023-06-07 06:44] LABS: Glucose Point of Care 121 mg/dL (70-110)
[2023-06-07] MEDS: cholecalciferol (vitamin D3) 5,000 unit Tablet 5000 UNIT PO (08:10)
[2023-06-07] MEDS: tamsulosin 0.4 mg Capsule 0.400000000000000022 MG PO ×2 (08:10→17:21)
[2023-06-07] MEDS: HYDROcodone-acetaminophen 10-325 mg Tablet 1 TAB PO ×3 (08:10→17:22)
[2023-06-07] MEDS: sennosides-docusate Tablet 1 TAB PO (08:10)
[2023-06-07] MEDS: gabapentin 300 mg Capsule PO ×2 (08:10→17:21)
[2023-06-07] MEDS: pantoprazole 40 mg SDV IVP ×2 (08:11→17:21)
[2023-06-07] MEDS: chlorthalidone 25 mg Tablet 12.5 MG PO (08:11)
[2023-06-07] MEDS: metoprolol tartrate 25 mg Tablet 12.5 MG PO (08:11)
--- NOTE | 2023-06-07 09:40 | PC.SOCIAL ---
IMM Update Pg. 2 of IMM Updated and reviewed with patient, who verbalized understanding. Copy provided. Initialed, dated, timed, copy placed in chart.
[2023-06-07 11:33] LABS: Glucose Point of Care 124 mg/dL (70-110)
[2023-06-07] MEDS: sodium chloride 0.9% 1,000 ML 75 ML IV (12:00)
--- NOTE | 2023-06-07 13:11 | PM.PN ---
Subjective Subjective: Patient was seen this morning, continues to complain of left lower quadrant pain, does report liquid bowel movements, currently on 2 L nasal cannula Vitals/I&O/Wt Last Vital Signs Temp 97.8 F 06/07/23 11:46 Pulse 81 06/07/23 11:46 Resp 15 06/07/23 11:46 BP 132/77 06/07/23 11:46 Pulse Ox 95 06/07/23 12:01 O2 Del Method Nasal Cannula 06/07/23 11:46 O2 Flow Rate 2 06/07/23 08:19 06/06/23 06/07/23 06/07/23 22:59 06:59 14:59 Intake Total 410 / 2213.75 973.75 / 3187.50 1585 / 1585 Output Total 1200 / 1200 Balance 410 / 2213.75 -226.25 / 1987.50 1585 / 1585 Weight last 48 hrs Weight 119.55 kg Weight 119.295 kg Weight 119.431 kg Weight 117.934 kg Physical Exam Const: COMMON NORMALS: no acute distress and patient oriented x3 Resp: COMMON NORMALS: normal respiratory effort, No retractions and No use of accessory muscles AUSCULTATION: wheezes Cardio: COMMON NORMALS: regular rate, regular rhythm, S1 normal heart sound present and S2 normal heart sound present RATE: regular rate RHYTHM: regular rhythm HEART SOUNDS: S1 normal heart sound present and S2 normal heart sound present GI: COMMON NORMALS: Normal to inspection, nondistended, normoactive bowel sounds present and non-tender Extremity: COMMON NORMALS: no pedal edema Neuro: COMMON NORMALS: patient oriented x3 Psych: COMMON NORMALS: mental status grossly normal Data 06/07/23 05:12 06/07/23 04:15 Micro: Microbiology 06/05/23 20:29 Blood Culture - Preliminary Blood NEGATIVE TO DATE 06/05/23 20:25 Blood Culture - Preliminary Blood NEGATIVE TO DATE 06/05/23 17:27 Blood Culture - Preliminary Blood NEGATIVE TO DATE 06/05/23 17:35 Blood Culture - Preliminary Blood NEGATIVE TO DATE A&P Assessment and plan (1) Hypertension: Qualifiers: Hypertension type: essential hypertension Qualified Code(s): I10 - Essential (primary) hypertension (2) CAD (coronary artery disease): Qualifiers: Coronary Disease-Associated Artery/Lesion type: [place] artery [place] vs. transplanted heart: [place] heart Associated angina: without angina Qualified Code(s): I25.10 - Atherosclerotic heart disease of [place] coronary artery without angina pectoris (3) Bradycardia: (4) Diverticulitis: (5) Abdominal pain: Qualifiers: Abdominal location: left lower quadrant Qualified Code(s): R10.32 - Left lower quadrant pain (6) Benign prostatic hyperplasia with lower urinary tract symptoms: Qualifiers: Lower urinary tract symptom detail: weak urinary stream Qualified Code(s): N40.1 - Benign prostatic hyperplasia with lower urinary tract symptoms; R39.12 - Poor urinary stream (7) COPD (chronic obstructive pulmonary disease): (8) Pneumonia: Qualifiers: Laterality: right Lung location: lower lobe of lung Pneumonia type: due to unspecified organism Qualified Code(s): J18.9 - Pneumonia, unspecified organism (9) Obstructive sleep apnea: (10) Pulmonary nodule: (11) Hypoxia: Plan Acute diverticulitis Failed outpatient treatment Patient still having diarrhea Serial abdominal exams C. difficile negative Afebrile no leukocytosis Patient has history of C. difficile Continue Zosyn Right sided middle lobe pneumonia Currently requiring 1.5 L Acute hypoxia Does not use oxygen at home Does have COPD with restrictive changes as well Follows up with Dr. Mckinley for pulmonary nodule, PET scan unremarkable for malignancy previous CT scan showed 9 x 6 mm nodule, Current CT scan showing mild increased in dimension History of BPH Monitor urine output, continue tamsulosin Hypokalemia: Replenish Check magnesium level CL diet Full code Insulin sliding scale Plan for today continue Zosyn, continue to monitor respiratory status, serial abdominal exams Attestations Medical Necessity Statement*: Patient requires hospitalization for acute diverticulitis continued left lower quadrant pain requiring antibiotics, fluid therapy, pain control, pneumonia Diagnoses Essential hypertension I10 Hypertension type: essential hypertension Coronary artery disease involving [place] coronary artery of [place] heart without angina pectoris I25.10 Coronary Disease-Associated Artery/Lesion type: [place] artery [place] vs. transplanted heart: [place] heart Associated angina: without angina Bradycardia R00.1 Diverticulitis K57.92 Abdominal pain R10.32 Abdominal location: left lower quadrant Benign prostatic hyperplasia with weak urinary stream N40.1; R39.12 Lower urinary tract symptom detail: weak urinary stream COPD (chronic obstructive pulmonary disease) J44.9 Pneumonia J18.9 Laterality: right Lung location: lower lobe of lung Pneumonia type: due to unspecified organism Obstructive sleep apnea G47.33 Pulmonary nodule R91.1 Hypoxia R09.02
[2023-06-07 16:53] LABS: Glucose Point of Care 120 mg/dL (70-110)
[2023-06-07 19:56] LABS: C.Diff PCR (Lab) NEGATIVE (Negative)
[2023-06-07 21:18] LABS: Glucose Point of Care 95 mg/dL (70-110)
[2023-06-07] MEDS: atorvastatin 40 mg Tablet PO (21:40)
[2023-06-07] MEDS: enoxaparin 40 mg/0.4 mL Syringe SUBCUT (21:40)
[2023-06-07] MEDS: mirtazapine 15 mg Tablet 45 MG PO (21:41)
[2023-06-08] VITALS: BP 175/81; PULSE 55; RESP 18; TEMP 36.6; O2SAT 94
[2023-06-08] MEDS: piperacillin-tazobactam 3.375 GM in sodium chloride 0.9% (plus) 50 ML IV (00:54)
[2023-06-08] MEDS: sodium chloride 0.9% 1,000 ML 75 ML IV (00:55)
[2023-06-08 03:49] LABS: Basophils # 0.1 10^3/uL (0.0-0.1); Basophils % 0.8 %; Eosinophils # 0.2 10^3/uL (0.0-0.8); Eosinophils % 2.7 %; Hematocrit 39.5 % (37-53); Lymphocytes # 1.3 10^3/uL (0.8-4.8); Mean Corpuscular HGB Conc 31.4 g/dL (30-55); Mean Corpuscular Hemoglobin 26.8 pg (27-33); Mean Corpuscular Volume 85.3 fl (82-101); Mean Platelet Volume 9.3 fL (7.4-10.4); Monocytes # 0.6 10^3/uL (0.2-0.9); Monocytes % 7.2 %; Neutrophils # 6.19 10^3/uL (1.8-7.7); Neutrophils % 73.8 %; Nucleated Red Blood Cells % 0 %; Platelet Count 154 10^3/cmm (157-399); Red Blood Count 4.63 10^6/uL (3.85-5.65); Red Cell Distribution Width 14.7 % (12.1-15.1); White Blood Count 8.39 10^3/uL (3.29-11.43)
[2023-06-08 04:00] VITALS: BP 145/57; PULSE 52; RESP 18; TEMP 36.4; O2SAT 92
[2023-06-08 04:22] LABS: Alanine Aminotransferase 11 U/L (0-41); Albumin Level 3.6 g/dL (3.5-5.2); Alkaline Phosphatase 97 U/L (40-130); Anion Gap 12.1 (5-19); Aspartate Amino Transferase 13 U/L (0-40); Blood Urea Nitrogen 8 mg/dL (8-23); C Reactive Protein 4.2 mg/L (0.0-4.9); Calcium 8.8 mg/dL (8.5-10.5); Carbon Dioxide 27 mmol/L (22-29); Chloride 106 mmol/L (98-107); Creatinine Clr Calc Pharmacy 91.4435; Globulin 2.5 g/dL (1.3-4.6); Glucose 94 mg/dL (65-115); Magnesium 1.8 mg/dL (1.7-2.3); Osmolality Calculated 292 mOsm/kg (285-295); Phosphorus 2.9 mg/dL (2.5-4.5); Potassium 3.1 mmol/L (3.5-5.1); Sodium 142 mmol/L (136-145); Total Bilirubin 0.6 mg/dL (0.15-1.2); Total Protein 6.1 g/dL (6.6-8.7)
[2023-06-08] MEDS: sertraline 100 mg Tablet PO (06:02)
[2023-06-08] MEDS: aspirin 81 mg EC Tablet PO (06:02)
[2023-06-08] MEDS: finasteride 5 mg Tablet PO (06:02)
[2023-06-08 06:26] LABS: Glucose Point of Care 135 mg/dL (70-110)
[2023-06-08 08:00] VITALS: BP 153/80; PULSE 53; RESP 16; TEMP 36.6; O2SAT 94
[2023-06-08] MEDS: cholecalciferol (vitamin D3) 5,000 unit Tablet 5000 UNIT PO (08:57)
[2023-06-08] MEDS: sennosides-docusate Tablet 1 TAB PO (08:57)
[2023-06-08] MEDS: gabapentin 300 mg Capsule PO (08:58)
[2023-06-08] MEDS: tamsulosin 0.4 mg Capsule 0.400000000000000022 MG PO (08:58)
[2023-06-08] MEDS: pantoprazole 40 mg SDV IVP (08:58)
[2023-06-08] MEDS: metoprolol tartrate 25 mg Tablet 12.5 MG PO (08:59)
[2023-06-08] MEDS: chlorthalidone 25 mg Tablet 12.5 MG PO (09:01)
[2023-06-08] MEDS: HYDROcodone-acetaminophen 10-325 mg Tablet 1 TAB PO (09:02)
[2023-06-08 09:38] VITALS: PULSE 51; RESP 18; O2SAT 92
--- NOTE | 2023-06-08 10:35 | PM.DCS ---
Discharge Providers Date of Admission: 06/05/23 19:54 Date of Discharge: June 08, 2023 Attending Provider at Admission: Pooja Dc MD Attending Provider at Discharge: Jer Ramachandran MD Primary Care Provider: Shawna England MD Diagnoses at Discharge Discharge Diagnosis (1) Hypertension: Status: Acute Qualifiers: Hypertension type: essential hypertension Qualified Code(s): I10 - Essential (primary) hypertension (2) CAD (coronary artery disease): Status: Acute Qualifiers: Coronary Disease-Associated Artery/Lesion type: [place] artery [place] vs. transplanted heart: [place] heart Associated angina: without angina Qualified Code(s): I25.10 - Atherosclerotic heart disease of [place] coronary artery without angina pectoris (3) Bradycardia: Status: Acute (4) Diverticulitis: Status: Acute (5) Abdominal pain: Status: Acute Qualifiers: Abdominal location: left lower quadrant Qualified Code(s): R10.32 - Left lower quadrant pain (6) Benign prostatic hyperplasia with lower urinary tract symptoms: Status: Acute Qualifiers: Lower urinary tract symptom detail: weak urinary stream Qualified Code(s): N40.1 - Benign prostatic hyperplasia with lower urinary tract symptoms; R39.12 - Poor urinary stream (7) COPD (chronic obstructive pulmonary disease): Status: Acute (8) Pneumonia: Status: Acute Qualifiers: Laterality: right Lung location: lower lobe of lung Pneumonia type: due to unspecified organism Qualified Code(s): J18.9 - Pneumonia, unspecified organism (9) Obstructive sleep apnea: Status: Acute (10) Pulmonary nodule: Status: Acute (11) Hypoxia: Status: Acute Reason for Visit Reason for Visit: sob Hospital Course Hospital Course Jamaal Sanchez is a 75-year-old male with past medical history of anxiety, ex-smoker COPD, CAD, hypertension, GERD, hyperlipidemia, obesity, JOHN, [facility] sees Dr. Aston Montejo for CAD and he does not think it is all cardiac related.Patient reported smoking1 pack/day For 50 years and quit in 2012. Patient underwent partial small bowel resection with reanastomosis for persistent bleeding AVMs at [facility] in October 2020 Patient is stating that he has history of diverticulosis, his colon surgery was done at [place] 2 years ago which was related to a tumor which was nonmalignant, he had AV malformation and GI bleed as well. He has been suffering with diffuse diarrhea and diverticulitis for last 7 days his symptoms started last Saturday he has been on ciprofloxacin and Flagyl, stating that he has been having recurrent episodes of loose stools which are black in color. He does carry history of C. difficile. He has been afebrile. Now he started developing shortness of breath without chest pain. Shortness of breath prompted his visit to the ER In the ER he has been diagnosed with diverticulitis along right-sided community-acquired pneumonia requiring 1.5 L at the time of evaluation I have requested for C. difficile panel as well He does have spiculated nodule, BPH, For spiculated nodule he follows up with Dr. Mckinley Patient was admitted to [facility] for acute diverticulitis, failed outpatient treatment, manage as inpatient, C. difficile negative, managed with broad-spectrum antibiotic therapy, overall clinically improved, discharged on 10 remaining days of Augmentin, instructed to adhere to GI soft diet for 2 to 4 weeks, once his abdominal pain resolves, then can transition to high-fiber diet, follow-up with general surgery in [place] for consideration of colonoscopy For his right sided middle lobe pneumonia, required oxygen and required broad-spectrum antibiotic therapy, overall clinically proved, discharged on Augmentin as above For his pulmonary nodule, patient was advised to follow-up with Arun Physical Exam Const: COMMON NORMALS: no acute distress and patient oriented x3 Resp: COMMON NORMALS: normal respiratory effort, No retractions, No use of accessory muscles and clear to auscultation bilaterally AUSCULTATION: clear to auscultation bilaterally Cardio: COMMON NORMALS: regular rate, regular rhythm, S1 normal heart sound present and S2 normal heart sound present RATE: regular rate RHYTHM: regular rhythm HEART SOUNDS: S1 normal heart sound present and S2 normal heart sound present GI: COMMON NORMALS: Normal to inspection, nondistended, normoactive bowel sounds present, Soft to palpation and non-tender PALPATION: Yes Soft to palpation Extremity: COMMON NORMALS: no pedal edema Neuro: COMMON NORMALS: patient oriented x3 Psych: COMMON NORMALS: mental status grossly normal Discharge Data Studies Completed and Pending Completed Studies During Hospitalization Category Date Time Status CT abdomen pelvis wo con [id number] Stat Cat Scan 06/05/23 17:24 Completed XR chest 1V portable [id number] Stat Exams 06/05/23 16:24 Completed Pending at discharge Category Date Time Status Blood Culture Stat Lab 06/05/23 17:35 Results Blood Culture Stat Lab 06/05/23 20:29 Results C Reactive Protein AM LABS Lab 06/09/23 04:00 Ordered Complete Blood Count w/Auto AM LABS Lab 06/09/23 04:00 Ordered Comprehensive Metabolic Panel AM LABS Lab 06/09/23 04:00 Ordered Magnesium AM LABS Lab 06/09/23 04:00 Ordered Phosphorus AM LABS Lab 06/09/23 04:00 Ordered Procalcitonin AM LABS Lab 06/09/23 04:00 Ordered Sputum Culture and Gram Stain Routine Lab 06/05/23 21:04 Ordered Radiology Impressions Chest X-Ray 06/05/23 16:24 IMPRESSION: 1. Interval development of mild air-space opacities at right lower lung, suggesting atelectasis, aspiration, or pneumonia. Previously identified, noncalcified, spiculated nodule at posterobasal right lower lobe on CTs not well visualized on radiograph, but remains suspicious for lung carcinoma given CT characteristics. 2. Chronic, right acromioclavicular joint dislocation. Abdomen/Pelvis CT 06/05/23 17:24 IMPRESSION: 1. 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 S/P resection with reanastomosis involving loop of small bowel at right mid abdomen. Colonic ileus or diarrhea. Moderate colonic diverticula. Mild inflammation at proximal-mid sigmoid colon, suspicious for acute diverticulitis. As always, if not recently performed, colonoscopy after bout resolves would be helpful to exclude malignancy presenting as diverticulitis. 2. Slightly increased, < 1 cm, noncalcified, spiculated nodule at posterobasal right lower lobe from 12/09/20, suspicious for T1 primary lung carcinoma based on CT characteristics. A few, < 4 mm, noncalcified nodules at periphery of medial right middle lobe and superior lingula of left upper lobe, unchanged from 12/25/22 and new from 12/09/20. 3. Mildly enlarged median lobe of prostate indenting bladder base. 4. Atherosclerosis and coronary artery disease. THIS REPORT CONTAINS FINDINGS THAT MAY BE CRITICAL TO PATIENT CARE. The findings were verbally communicated via telephone conference with ELENITA PIEDRA at 06/05/2023, 6:39 PM CDT. The findings were acknowledged and understood. Laboratory Results WBC 8.39 10^3/uL (3.29-11.43) 06/08/23 02:52 RBC 4.63 10^6/uL (3.85-5.65) 06/08/23 02:52 Hgb 12.40 g/dL (11.27-16.99) 06/08/23 02:52 Hct 39.5 % (37-53) 06/08/23 02:52 MCV 85.3 fl (82-101) 06/08/23 02:52 MCH 26.8 pg (27-33) L 06/08/23 02:52 MCHC 31.4 g/dL (30-55) 06/08/23 02:52 RDW 14.7 % (12.1-15.1) 06/08/23 02:52 Plt Count 154 10^3/cmm (157-399) L 06/08/23 02:52 MPV 9.3 fL (7.4-10.4) 06/08/23 02:52 Neut % (Auto) 73.8 % 06/08/23 02:52 Lymph % (Auto) 15.0 % 06/08/23 02:52 [place] % (Auto) 7.2 % 06/08/23 02:52 Eos % (Auto) 2.7 % 06/08/23 02:52 Baso % (Auto) 0.8 % 06/08/23 02:52 Neut # (Auto) 6.19 10^3/uL (1.8-7.7) 06/08/23 02:52 Lymph # (Auto) 1.3 10^3/uL (0.8-4.8) 06/08/23 02:52 [place] # (Auto) 0.6 10^3/uL (0.2-0.9) 06/08/23 02:52 Eos # (Auto) 0.2 10^3/uL (0.0-0.8) 06/08/23 02:52 Baso # (Auto) 0.1 10^3/uL (0.0-0.1) 06/08/23 02:52 Nucleated RBC % (auto) 0 % 06/08/23 02:52 Nucleated RBCs # 0.0 /100WBC 06/08/23 02:52 D-Dimer 0.54 ug/mLFEU (0-0.59) 06/05/23 17:27 Sodium 142 mmol/L (136-145) 06/08/23 02:52 Potassium 3.1 mmol/L (3.5-5.1) L 06/08/23 02:52 Chloride 106 mmol/L (98-107) 06/08/23 02:52 Carbon Dioxide 27 mmol/L (22-29) 06/08/23 02:52 Anion Gap 12.1 (5-19) 06/08/23 02:52 BUN 8 mg/dL (8-23) 06/08/23 02:52 Creatinine 0.9 mg/dL (0.7-1.2) 06/08/23 02:52 GFR Calculation Not Reportable 06/08/23 02:52 Glucose 94 mg/dL (65-115) 06/08/23 02:52 POC Glucose 135 mg/dL (70-110) H 06/08/23 06:20 Calculated Osmolality 292 mOsm/kg (285-295) 06/08/23 02:52 Lactic Acid 1.5 mmol/L (0.5-2.2) 06/05/23 17:35 Calcium 8.8 mg/dL (8.5-10.5) 06/08/23 02:52 Phosphorus 2.9 mg/dL (2.5-4.5) 06/08/23 02:52 Magnesium 1.8 mg/dL (1.7-2.3) 06/08/23 02:52 Total Bilirubin 0.6 mg/dL (0.15-1.2) 06/08/23 02:52 AST 13 U/L (0-40) 06/08/23 02:52 ALT 11 U/L (0-41) 06/08/23 02:52 Alkaline Phosphatase 97 U/L (40-130) 06/08/23 02:52 Troponin T Baseline 21 ng/L (0-15) H 06/06/23 10:03 Troponin T 120 Minute 19.34 ng/L (0-15) H 06/06/23 12:04 Delta Troponin T -1.66 ABS# (0-10) L 06/06/23 12:04 Troponin T Hi Sens 6Hr 20.60 ng/L (0-15) H 06/06/23 16:05 Troponin T Hi Sens 6Hr Delta -0.40 ng/L (0-12) L 06/06/23 16:05 C-Reactive Protein 4.2 mg/L (0.0-4.9) 06/08/23 02:52 Total Protein 6.1 g/dL (6.6-8.7) L 06/08/23 02:52 Albumin 3.6 g/dL (3.5-5.2) 06/08/23 02:52 Globulin 2.5 g/dL (1.3-4.6) 06/08/23 02:52 Lipase 22 U/L (13-60) 06/05/23 17:27 Procalcitonin 0.10 ng/mL (0-0.5) 06/08/23 02:52 TSH 1.87 uIU/mL (0.27-4.20) 06/05/23 20:29 Urine Color Yellow (Yellow) 06/05/23 20:22 Urine Appearance Clear (CLEAR) 06/05/23 20:22 Urine pH 5 (5-7) 06/05/23 20:22 Ur Specific [place] 1.025 (1.005-1.030) 06/05/23 20:22 Urine Protein Neg (Negative) 06/05/23 20:22 Urine Glucose (UA) Norm (Normal) 06/05/23 20:22 Urine Ketones Negative (Negative) 06/05/23 20:22 Urine Blood Neg (Negative) 06/05/23 20:22 Urine Nitrate Negative (Negative) 06/05/23 20:22 Urine Bilirubin Neg (Negative) 06/05/23 20:22 Urine Urobilinogen Norm mg/dL (Negative) 06/05/23 20:22 Ur Leukocyte Esterase Trace (Negative) H 06/05/23 20:22 Urine RBC None /hpf (0-2) 06/05/23 20:22 Urine WBC 0-4 /hpf (0-5) H 06/05/23 20:22 Ur Squamous Epith Cells 0-4 /hpf (0-5) H 06/05/23 20:22 Amorphous Sediment Not Reportable 06/05/23 20:22 Urine Bacteria Trace /hpf (NONE) 06/05/23 20:22 Hyaline Casts 0-4 /lpf H 06/05/23 20:22 Urine Mucus 1+ /hpf 06/05/23 20:22 C. difficile (PCR) Negative (Negative) 06/07/23 17:51 Vitals Last Vital Signs Temp 97.8 F 06/08/23 08:00 Pulse 51 L 06/08/23 09:38 Resp 18 06/08/23 09:38 BP 153/80 06/08/23 08:00 Pulse Ox 92 06/08/23 09:38 O2 Del Method Room Air 06/08/23 09:38 O2 Flow Rate 2 06/07/23 08:19 Discharge Plan Discharge Patient Disposition: Home Condition: Stable Prescriptions: New amoxicillin-pot clavulanate 875-125 mg tablet 1 tab PO BID 10 Days Qty: 20 0RF Continued atorvastatin 80 mg tablet 40 mg PO BEDTIME pantoprazole 40 mg tablet,delayed release (DR/EC) 40 mg PO DAILY gabapentin 300 mg capsule 300 mg PO BID Rx Instructions: 1 tab qam and 3 tab qpm sertraline 100 mg tablet 100 mg PO QAM aspirin [Adult Low Dose Aspirin] 81 mg tablet,delayed release (DR/EC) 81 mg PO QAM mirtazapine 45 mg tablet 45 mg PO BEDTIME metoprolol tartrate 25 mg tablet 12.5 mg PO BID 30 Days Qty: 30 5RF hydrocodone-acetaminophen 10-325 mg tablet 1 tab PO QID PRN (Reason: Pain) Spiriva with HandiHaler 18 mcg capsule, w/inhalation device 1 cap inhalation DAILY Qty: 30 3RF Rx Instructions: puncture 1 cap using device; one dose = 2 inhalations metformin 500 mg tablet See Rx Instructions .ROUTE .COMPLEX Rx Instructions: 250 mg orally in the morning and 250 mg in the evening fluticasone propion-salmeterol [Wixela Inhub] 250-50 mcg/dose blister with device 1 inh inhalation BID Qty: 60 3RF (DME) Custom Copolymer inserts 1 Pair See Rx Instructions .Route .MEDSUPPLY Qty: 1 0RF Rx Instructions: As directed finasteride 5 mg tablet 5 mg PO QAM Qty: 90 3RF albuterol sulfate [ProAir HFA] 90 mcg/actuation Hfa Aerosol Inhaler 2 puff INHALATION Q4H PRN (Reason: Shortness Of Breath) 30 Days Qty: 8.5 0RF polyethylene glycol 3350 [Miralax] 17 gram/dose Powder 17 g PO BEDTIME cholecalciferol (vitamin D3) [Vitamin D3] 50 mcg (2,000 unit) Capsule 50 mcg PO DAILY chlorthalidone 25 mg tablet 25 mg PO QAM tamsulosin 0.4 mg capsule 0.4 mg PO BID albuterol sulfate 90 mcg/actuation HFA aerosol inhaler 2 inh INHALATION Q4H PRN (Reason: shortness of breath or wheezing) Qty: 18 0RF cyanocobalamin (vitamin B-12) 50 mcg Tablet 25 mcg PO DAILY calcium carbonate [Calcium 500] 500 mg calcium (1,250 mg) Tablet 500 mg PO DAILY Rx Instructions: IN EVENING ascorbic acid (vitamin C) [Vitamin C] 500 mg Tablet 500 mg PO DAILY omega 6-yha-tdu-fish oil [Fish Oil] 60-90-500 mg Capsule 1 cap PO DAILY Discontinued ciprofloxacin HCl 500 mg tablet 500 mg PO BID metronidazole 500 mg tablet 500 mg PO BID prednisone 20 mg tablet 20 mg PO TID Qty: 15 0RF Rx Instructions: 1 p.o. 3 times daily x3 days, 1 p.o. twice daily x2 days, 1 p.o. daily x2 days Discharge Orders: Discharge Order (Routine); Ordered 06/08/23 Ordered By: Jer Ramachandran Referrals: Shawna England MD [Primary Care Provider] - 06/13/23 3:00 pm Discharge Diet: GI Soft Discharge Activity: Resume usual activity Patient Instructions: Diverticulitis (DC), GI (Gastrointestinal) Soft Diet (DC), Opioid Safety Activity Restrictions/Additional Instructions: - For the next 2-4 weeks please adhere to GI soft diet, once your abdominal pain has resolved, then can resume a high-fiber diet -Continue antibiotics for the next 10 days -Please hydrate well -Please follow-up with pulmonary -Please follow-up with Arun for lung nodule Discharge Attestations Time Spent in Discharge Care*: greater than 30 min Quality Metrics Clinical Quality Measures [ No reported AMI, CVA or VTE this stay] Coding Level of Care Code Acute Code for Chg Fwd Diagnoses Essential hypertension I10 Hypertension type: essential hypertension Coronary artery disease involving [place] coronary artery of [place] heart without angina pectoris I25.10 Coronary Disease-Associated Artery/Lesion type: [place] artery [place] vs. transplanted heart: [place] heart Associated angina: without angina Bradycardia R00.1 Diverticulitis K57.92 Abdominal pain R10.32 Abdominal location: left lower quadrant Benign prostatic hyperplasia with weak urinary stream N40.1; R39.12 Lower urinary tract symptom detail: weak urinary stream COPD (chronic obstructive pulmonary disease) J44.9 Pneumonia J18.9 Laterality: right Lung location: lower lobe of lung Pneumonia type: due to unspecified organism Obstructive sleep apnea G47.33 Pulmonary nodule R91.1 Hypoxia R09.02
[2023-06-08 11:42] VITALS: BP 153/80; PULSE 58; RESP 18; TEMP 36.6; O2SAT 92
== END 2023-06-08 11:43 | disposition home or self-care (01) | DRG 391 ==
LOC: ER 19:35 → MEDSURG 19:54
PROVIDERS: Emergency Medicine; Family Medicine; Admitting Provider Internal Medicine; Emergency Provider Internal Medicine; PCP Family Medicine; Visit Provider Family Medicine
DX: K57.92 Diverticulitis of intestine, part unspecified, without perforation or abscess without bleeding (principal); J18.9 Pneumonia, unspecified organism; J44.0 Chronic obstructive pulmonary disease with (acute) lower respiratory infection; J44.9 Chronic obstructive pulmonary disease, unspecified; Z87.891 Personal history of nicotine dependence; E78.5 Hyperlipidemia, unspecified; K21.9 Gastro-esophageal reflux disease without esophagitis; Z79.82 Long term (current) use of aspirin; F41.9 Anxiety disorder, unspecified; E87.6 Hypokalemia; R00.1 Bradycardia, unspecified; I25.10 Atherosclerotic heart disease of native coronary artery without angina pectoris; R91.1 Solitary pulmonary nodule; Z95.5 Presence of coronary angioplasty implant and graft; N40.0 Benign prostatic hyperplasia without lower urinary tract symptoms; G47.33 Obstructive sleep apnea (adult) (pediatric); E66.9 Obesity, unspecified; Z68.33 Body mass index [BMI] 33.0-33.9, adult
CPT/HCPCS: 36415; 36416; 71045; 74176; 80048; 80053; 81001; 82962; 83605; 83690; 83735; 84100; 84145; 84443; 84484; 85025; 85378; 86140; 87040; 87493; 93005; 94760; 96365; 96367; 96372; 97116; 97161; 97166; 97530; 97535; 99285; C9113; J0692; J0696; J1650; J1815; J2543; J3490; J7030

== ENCOUNTER 2023-07-09 14:59 | Outpatient (CLI) | payer OTHER, SELFPAY ==
--- NOTE | 2023-07-09 16:00 | CT_ITS ---
WS: [id number] CT chest wo con [id number] HISTORY: R91.1 - Solitary pulmonary nodule TECHNIQUE: Axial imaging performed through the thorax. Coronal and sagittal reformats are submitted. All CT scans at [facility] use at least one of these dose optimization techniques: automated exposure control; mA and/or kV adjustment per patient size (includes targeted exams where dose is mat ched to clinical indication); or iterative reconstruction. CONTRAST: None DLP: 583.51 mGy.cm COMPARISON: 12/25/2022, 06/21/2022 Lungs and central airway: Poor inspiratory effort. There is mild breathing motion artifact and hazy a ttenuation from poor inspiration. Reidentified is a spiculated 9 mm nodule at the RIGHT lung base whi ch is not increasing in size. Also negative on a prior PET/CT. No new pulmonary nodule or mass. Pleura: Normal. No pleural effusion. Heart and pericardium: Mild cardiomegaly. Mild coronary artery atherosclerosis. Mediastinum and marion: Small mediastinal and hilar lymph nodes. No adenopathy. Reidentified is a cysti c mass conforming to the mediastinum in the LEFT upper thorax. 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 Vessels: Very mild atherosclerosis aorta. Dilated pulmonary artery. Chest wall and lower neck: Mild gynecomastia. Upper abdomen: Normal. Osseous structures: No destructive process. IMPRESSION: 1. No change in the spiculated 9 mm nodule in the RIGHT lung base. 2. No pneumonia. 3. No mediastinal or hilar adenopathy.
== END 2023-07-09 15:00 | disposition home or self-care (01) ==
LOC: RAD 15:00
PROVIDERS: PCP Family Medicine; Visit Provider Internal Medicine Pulmonary Disease
DX: R91.1 Solitary pulmonary nodule (principal)
CPT/HCPCS: 71250

== ENCOUNTER → 2023-08-27 10:32 | Outpatient (BNVA) | payer OTHER, SELFPAY | PROVIDERS: PCP Family Medicine; Visit Provider Podiatrist Foot & Ankle Surgery | DX: E11.42 Type 2 diabetes mellitus with diabetic polyneuropathy; Z79.4 Long term (current) use of insulin; G57.63 Lesion of plantar nerve, bilateral lower limbs | CPT/HCPCS: 99213 ==

== ENCOUNTER 2023-11-27 06:00 | Outpatient (CLI) | payer OTHER, SELFPAY | END 2023-11-27 06:01 | LOC: RAD 11-28 06:17 | PROVIDERS: PCP Family Medicine; Visit Provider Nurse Practitioner Family | DX: I65.23 Occlusion and stenosis of bilateral carotid arteries (principal); I25.10 Atherosclerotic heart disease of native coronary artery without angina pectoris; I10 Essential (primary) hypertension; Z87.891 Personal history of nicotine dependence | CPT/HCPCS: 99214 ==

== ENCOUNTER 2024-01-15 09:17 | Outpatient (CLI) | payer OTHER, SELFPAY ==
--- NOTE | 2024-01-15 09:26 | USCV_ITS ---
Jamaal Sanchez Age: 78 Gender: M : 1945 Exam Date: 01/15/2024 09:51 Ordering Phys: Evangelina Fortune Technologist: HUGO [place] [facility] [place]: [place] Risk Factors: Previous Vascular Surgery: Right Brachial BP: / Left Brachial BP: / Right Left Velocity (cm/s) Spectral Plaque Velocity (cm/s) Spectral Plaque Syst/Diast Broadening Syst/Diast Broadening 74.80/ 16.50 Prox CCA 110.70/ 16.90 85.90/ 20.40 Mid CCA 101.90/ 17.10 92.20/ 18.80 Distal CCA 67.30 / 13.40 56.20/ 9.40 Prox ICA 65.00 / 11.70 48.60/ 9.50 Mid ICA 61.50 / 12.90 72.50/ 20.80 Distal ICA 50.10 / 11.40 100.80 ECA 88.60 0.80 ICA/CCA 1.00 Antegrade Vertebral Antegrade 66.50/ 20.50 cm/s 57.70/ 15.00 cm/s Bi Subclavian [place] 102.1 130.3 0 0 CONCLUSIONS Right ICA stenosis <50%. Moderate atheromatous plaque right carotid bulb/ICA. Left ICA stenosis <50%. Mild atheromatous plaque left carotid bulb/ICA. Intimal thickening in the common carotid arteries and internal carotid arteries bilaterally. Normal antegrade Doppler flow noted in the right vertebral artery. Normal antegrade Doppler flow noted in the left vertebral artery. Carloz Elias MD (Electronically Signed) Final Date: 15 January 2024 16:18 S
== END 2024-01-15 09:18 | disposition home or self-care (01) ==
PROVIDERS: PCP Family Medicine; Visit Provider Nurse Practitioner Family
DX: I65.23 Occlusion and stenosis of bilateral carotid arteries (principal)
CPT/HCPCS: 93880

== ENCOUNTER → 2024-07-01 09:21 | Outpatient (BNVA) | payer OTHER, SELFPAY | PROVIDERS: PCP Family Medicine; Visit Provider Podiatrist Foot & Ankle Surgery | DX: G57.63 Lesion of plantar nerve, bilateral lower limbs (principal); M79.671 Pain in right foot; M79.672 Pain in left foot; E11.42 Type 2 diabetes mellitus with diabetic polyneuropathy; Z79.84 Long term (current) use of oral hypoglycemic drugs | CPT/HCPCS: 99213 ==

== ENCOUNTER → 2024-07-01 10:51 | Outpatient (BNVA) | payer OTHER, SELFPAY | PROVIDERS: PCP Family Medicine; Visit Provider Internal Medicine Cardiovascular Disease | DX: I25.10 Atherosclerotic heart disease of native coronary artery without angina pectoris (principal); I65.23 Occlusion and stenosis of bilateral carotid arteries; I10 Essential (primary) hypertension; Z87.891 Personal history of nicotine dependence; E78.2 Mixed hyperlipidemia; R00.1 Bradycardia, unspecified; Z98.61 Coronary angioplasty status; R07.9 Chest pain, unspecified | CPT/HCPCS: 93005; 99214 ==

== ENCOUNTER 2024-07-27 09:57 | Outpatient (CLI) | payer OTHER, SELFPAY ==
[2024-07-27 10:12] VITALS: BMI 35.9
--- NOTE | 2024-07-27 10:14 | ECG_ITS ---
Venmo Test Date: 2024-07-27 Pat Name: Jamaal Sanchez Department: Room: Gender: Male Internal Controls Specialist: : 1945 Requested By: Dane Clancy Order Number: [id number] Helena MD: Dane Clancy M.D. Interpretive Statements Lung unchanged pre/post procedure; Intraprocedure shortess of breath; Symptoms resoled by discharge PROCEDURE: At the baseline, the EKG revealed sinus bradycardia with a normal ST Ts. The baseline heart was 57 bpm with a blood pressue of 134/71 mm of Hg Lexiscan was infused over a period of 20 seconds. A total of 0.4 milligrams of Lexiscan was infused. The stress phase was continued for a total of 5 minutes. Heart rate at the end of the stress phase was 60 to bpm with a blood pressure 131/54 mm of Hg. The EKG at the peak infusion revealed no significant changes. Sestamibi was injected 20 seconds after the Lexiscan infusion. Heart rate at the end of the recovery phase was 65 bpm with a blood pressure of 132/65 mm of Hg. CONCLUSION: 1. No significant EKG changes with the LexiScan infusion 2. No LexiScan induced chest pain or cardiac arrhythmia 3. Normal blood pressure and heart rate response 4. Sestamibi/sestamibi perfusion scan pending; see separate report. Electronically Signed On 08-03-2024 14:50:44 CDT by Dane Clancy M.D. [email or web address]
--- NOTE | 2024-07-27 10:14 | NMCV_ITS ---
NM lucina perf SPECT r/s* [id number] Jamaal Sanchez Age: 78 Gender: M : 1945 Exam Date: 07/27/2024 11:13 Ordering Phys: Dane Clancy MD ([email or web address]) Technologist: GRISELDA Camara Exam Location: [facility] [place] Indications: cp STRESS TEST Please see separate stress test report in [facility] for full findings IMAGE PROTOCOL Rest/Stress 1 Lexiscan Day Radiopharmaceutical Dose (mCi) Administration Site Administered by Rest: Tc-99m 11 IV GRISELDA Camara Sestamibi Stress:Tc-99m 33 IV GRISELDA De Leon Sestamibi Rest: 27-Jul-2024 60 Discovery 630 Stress: 27-Jul-2024 30 Discovery 630 0.4mg Lexiscan. Supine position only as patient was unable to lay prone. SPECT RESULTS Technical Quality: Good Raw Data Analysis: Normal Image Corrections: No attenuation or motion correction applied Summed Stress Score: 0 Summed Rest Score: 0 Summed Difference Score: 0 PERFUSION FINDINGS Fairly uniform myocardial tracer uptake with no significant perfusion abnormalities FUNCTIONAL RESULTS (calculated via Gated SPECT) Stress Image LV EF (%): 64 Stress EDV (mL):129 TID: 1.21 Stress ESV (mL):46 FUNCTIONAL FINDINGS: Segmental wall motion analysis revealing no gross wall motion abnormalities IMPRESSIONS 1. Myocardial perfusion imaging revealing uniform myocardial tracer uptake with no significant Perfusion abnormalities 2. Normal LV ejection fraction of 64%. 3. LV wall motion analysis revealing no gross wall motion abnormalities. 4. Normal LV volume. Low probability for coronary ischemia, based on the above findings Compared to the study from 10/06/2020, there may not be a significant change Dr Dane Clancy MD [facility] (Electronically Signed) Final Date: 27 Jul 2024 13:51 S
[2024-07-27] MEDS: regadenoson 0.4 Mg/5 ml Syringe IVP (11:40)
[2024-07-27 12:01] VITALS: BP 136/68; PULSE 66
== END 2024-07-27 09:58 | disposition home or self-care (01) ==
PROVIDERS: PCP Family Medicine; Visit Provider Internal Medicine Cardiovascular Disease
DX: R07.9 Chest pain, unspecified (principal)
CPT/HCPCS: 36415; 78452; 93017; 96374; A9500; J2785

== ENCOUNTER 2024-10-10 19:40 | Emergency (ER) | payer OTHER, MEDICARE, SELFPAY ==
[2024-10-10 19:43] VITALS: BP 165/79; PULSE 66; RESP 16; TEMP 36.7; O2SAT 93; BMI 34.9
--- OUTSIDE RECORDS SUMMARY | 2024-10-10 19:59 | XMS_ITS | Clinical Summary ---
Author Organization [facility] Address [address] [place] [address] Phone Care Team Providers Care Track Patrol Name Role Phone Jadiel Chance MD Primary Care Provider Allergies Active Allergy Reactions Criticality Noted Date Comments Haloperidol Lactate Unknown 08/30/2015 Medications aspirin (ECOTRIN EC) 81 mg Tablet, Delayed Release (E.C.) Take 81 mg by mouth daily. Active ferrous gluconate 325 mg (36 mg iron) Tablet Take 325 mg by mouth 3 times daily with meals. Active docusate sodium (COLACE) 100 mg capsule Take 100 mg by mouth 2 times daily. Active sertraline (ZOLOFT) 100 mg tablet Take 100 mg by mouth daily. Active HYDROcodone-acet aminophen (NORCO) 5-325 mg tablet Take 1 Tablet by mouth every 4 hours as needed for Pain, Moderate. Active pantoprazole (PROTONIX) 40 mg Tablet, Delayed Release (E.C.) Take 1 Tablet (40 mg) by mouth daily before breakfast. 30 Tablet 0 08/31/2015 Active atorvastatin (LIPITOR) 80 mg tablet Take 80 mg by mouth daily with supper. Active OTHER Vitamin B 12, 1000 mcg daily . Active simethicone 80 mg Tablet, Chewable Take 80 mg by mouth every 6 hours as needed. Active gabapentin (NEURONTIN) 300 mg capsule Take 300 mg by mouth 3 times daily. Active peppermint oil (IBGARD) 90 mg Capsule, Delayed & Ext.ReleaseIndic ations:Intermitt ent generalized abdominal pain Take 90 mg by mouth every 8 hours as needed for Pain Take TID for first 2 days then PRN for abd pain. 08/06/2018 Active Active Problems Problem Noted Date Diagnosed Date Lower GI bleed 08/30/2015 CAD (coronary atherosclerotic disease) 6 Benign hypertension 08/30/2015 Generalized abdominal pain Rectal bleeding Right lower quadrant abdominal pain Chronic diarrhea Family History Medical History Relation Name Comments Colon Cancer Neg Hx Social History Tobacco Use Types Packs/Day Years Used Date Smoking Tobacco: Former Smokeless Tobacco: Former Alcohol Use Standard Drinks/Week Comments No 0 (1 standard drink = 0.6 oz pur e alcohol) Sex and Gender Information Value Date Recorded Sex Assigned at Not on file Legal Sex Male 11:10 AM CDT Gender Identity Not on file Sexual Orientation Not on file Last Filed Vital Signs Vital Sign Reading Time Taken Comments Blood Pressure 149/108 10/21/2018 8:25 AM CDT Pulse 50 10/21/2018 8:25 AM CDT Temperature 36.5 C (97.7 F) 08/31/2015 1:18 PM CDT Respiratory Rate 18 10/21/2018 8:25 AM CDT Oxygen Saturation 96% 10/21/2018 8:25 AM CDT Inhaled Oxygen Concentration - - Weight 129.3 kg (285 lb) 10/15/2018 3:55 PM CDT Height 188 cm (6' 2 ) 10/15/2018 3:55 PM CDT Body Mass Index 36.59 10/15/2018 3:55 PM CDT Plan of Treatment Health Maintenance Due Date Last Done Comments ZOSTER VACCINE (1 of 2) 10/09/1993 DTAP/TDAP/TD VACCINES (3 - T d or Tdap) 04/28/2018 04/28/2008, 08/14/1996 RSV VACCINE (60+ or ) (1 - 1-dose 75+ series) 10/09/2018 COLORECTAL SCREENING 09/05/2023 09/04/2018, 09/04/2018, 06/06/2015 INFLUENZA VACCINE (#1) 2024 0, 12/31/2017, 12/24/2013 PNEUMOCOCCAL VACCINE 50+ YEARS Completed 01/16/2016 , 12/22/2014 Procedures Procedure Name Priority Date/Time Associated Diagnosis Comments COLONOSCOPY REPORT 09/04/2018 8: 05 AM CDT from Last 3 Months or Most Recently Relevant to Health Maintenance Results * COLONOSCOPY REPORT (09/04/2018 8:05 AM CDT) Narrative Procedure Note Kwasi Elliott DO - 09/04/2018 8:04 AM CDT [facility] GI Patient Name: Jamaal Sanchez Procedure Date: 09/04/2018 Date of : 1945 Admit Type: Outpatient Age: 72 Attending MD: Kwasi Elliott MD Procedure: Colonoscopy Indications: Iron deficiency anemia Providers: Kwasi Elliott MD Referring MD: Medicines: Propofol per Anesthesia Complications: No immediate complications. Procedure: After I obtained informed consent, the scope was passed under direct vision. Throughout the procedure, the patient's blood pressure, pulse, and oxygen saturations were monitored continuously. The Colonoscope was introduced through the anus and advanced to the cecum, identified by appendiceal orifice and ileocecal valve. The colonoscopy was performed without difficulty. The patient tolerated the procedure well. The quality of the bowel preparation was adequate to identify polyps. Estimated Blood Loss: Estimated blood loss was minimal. Findings: A 3 mm polyp was found in the transverse colon. The polyp was sessile. The polyp was removed with a cold snare. Resection and retrieval were complete. Multiple small and large-mouthed diverticula were found in the entire colon. The terminal ileum appeared normal. - No stigmata or signs of recent or active bleeding. Internal hemorrhoids were found during retroflexion. The hemorrhoids were small. Impression: - One 3 mm polyp in the transverse colon, removed with a cold snare. Resected and retrieved. - Diverticulosis in the entire examined colon. - The examined portion of the ileum was normal. - Internal hemorrhoids. Recommendation: - Patient has a contact number available for emergencies. The signs and symptoms of potential delayed complications were discussed with the patient. Return to normal activities tomorrow. Written discharge instructions were provided to the patient. - Resume previous diet. - Continue present medications. - Repeat colonoscopy date to be determined after pending pathology results are reviewed for surveillance. Kwasi Elliott MD 09/04/2018 8:04:16 AM Number of Addenda: 0 Note Initiated On: 09/04/2018 7:43 AM Scope Withdrawal Time 0 hours 10 minutes 31 seconds Scope In: 7:45:28 AM Scope Out: 8:01:41 AM [address] [place] Kwasi Elliott DO GI PROCEDURE ORDERABLES Final Result from Last 3 Months or Most Recently Relevant to Health Maintenance Insurance MEDICARE PART A AND B [place] [id number] Advance Directives For more information, please contact: [phone] * Full Code (Latest Code Status on File) Date Activated Date Inactivated Comments 09/04/2018 6:38 AM 09/04/2018 11:25 AM * Full Code Date Activated Date Inactivated Comments 08/30/2015 6:46 PM 08/31/2015 5:54 PM Care Teams Track Patrol Relationship Specialty Start Date End Date Jadiel Chance MD [address] [place] [address] PCP - General Internal Medicine 12/30/19
--- OUTSIDE RECORDS SUMMARY | 2024-10-10 19:59 | XMS_ITS | Clinical Summary ---
Author Organization [facility], [facility] Address [address] [place] [address] Phone Care Team Providers Care Loan Servicing Specialist Name Role Phone Jadiel Chance MD Primary Care Provider [phone] Allergies Active Allergy Reactions Criticality Noted Date Comments Haloperidol 08/30/2015 Other reaction(s): Unknown Medications aspirin 81 MG tablet Take 81 mg by mouth 1 (one) time each day Active atorvastatin (LIPITOR) 80 MG tablet 80 mg Take 1/2 tablet by mouth daily Active docusate sodium (COLACE) 100 MG capsule Take 100 mg by mouth 2 (two) times a day Active gabapentin (NEURONTIN) 300 MG capsule Take 300 mg by mouth 1 (one) time each day Active hydroCHLOROthiaz pascual (HYDRODIURIL) 25 MG tablet Take 25 mg by mouth 1 (one) time each day Active HYDROcodone-acet aminophen (LORCET PLUS) 10-325 MG per tablet Take 1 tablet by mouth 4 (four) times a day if needed for moderate pain Active hydrocortisone (ANUSOL-HC) 25 MG suppository Insert 25 mg into the rectum 2 (two) times a day if needed for hemorrhoids Active lisinopril (PRINIVIL,ZESTRI L) 2.5 MG tablet Take 2.5 mg by mouth 1 (one) time each day Active mirtazapine (REMERON) 45 MG tablet Take 45 mg by mouth every night Active nitroglycerin (NITROSTAT) 0.[address] 0.4 mg under the tongue every 5 (five) minutes if needed for chest pain Active pantoprazole (PROTONIX) 40 MG EC tablet Take 40 mg by mouth 1 (one) time each day before breakfast Do not crush, chew, or split. Active sertraline (ZOLOFT) 100 MG tablet 100 mg Take 1/2 tablet by mouth daily Active tamsulosin (FLOMAX) 0.4 MG 24 hr capsule 0.4 mg Take 2 capsules by mouth daily Active Active Problems Problem Noted Date Diagnosed Date Chronic kidney disease, stage 4 (severe) 020 Essential (primary) hypertension 08/18/2019 Family History Medical History Relation Comments Diabetes Brother Heart disease Father Hypertension Mother Stroke Mother Diabetes Sister Relation Status Comments Brother Father Mother Sister Social History Tobacco Use Types Packs/Day Years Used Date Smoking Tobacco: Former Smokeless Tobacco: Former Alcohol Use Standard Drinks/Week Comments Never 0 (1 standard drink = 0.6 oz pur e alcohol) AUDIT-C Answer Date Recorded Q1: How often do you have a drink containing alc ohol? Never 08/18/2019 Average Number of Drinks Not on file 020 Frequency of Binge Drinking Not on file 07/24 Sex and Gender Information Value Date Recorded Sex Assigned at Not on file Legal Sex Male 10:13 AM EST Gender Identity Not on file Sexual Orientation Not on file Last Filed Vital Signs Vital Sign Reading Time Taken Comments Blood Pressure 130/70 08/18/2019 1:51 PM CDT Pulse 74 08/18/2019 1:51 PM CDT Temperature 37.3 C (99.1 F) 08/18/2019 1:51 PM CDT Respiratory Rate - - Oxygen Saturation - - Inhaled Oxygen Concentration - - Weight 128 kg (282 lb 14.4 oz) 08/18/2019 1:51 P M CDT Height 188 cm (6' 2 ) 08/18/2019 1:51 PM CDT Body Mass Index 36.32 08/18/2019 1:51 PM CDT Plan of Treatment Health Maintenance Due Date Last Done Comments Pneumococcal Vaccine: 50+ Ye ars (1 of 2 - PCV) 10/09/1962 Influenza Vaccine (#1) 2024 Hepatitis B Vaccine Aged Out No longe r eligible based on patient's age to complete this topic Insurance Veterans Care Teams Loan Servicing Specialist Relationship Specialty Start Date End Date Jadiel Chance MD [address] [place] [place] [address] PCP - General Internal Medicine 05/14/19
--- OUTSIDE RECORDS SUMMARY | 2024-10-10 19:59 | XMS_ITS | Clinical Summary ---
Author Organization [facility] Address [address] Attn: Epic Prelude ADT [place] [address] Care Team Providers Care Cellulose Insulation Helper Name Role Phone Jadiel Chance MD Primary Care Provider [phone] Allergies Active Allergy Reactions Criticality Noted Date Comments Haloperidol Lactate Unknown 08/30/2015 Medications gabapentin (NEURONTIN) 300 mg capsule Take 300 mg by mouth 3 times daily. 08/06/2018 Active OTHER Vitamin B 12, 1000 mcg daily . 08/06/2018 Active peppermint oiL 90 mg Capsule, Delayed & Ext.ReleaseIndic ations:Intermitt ent generalized abdominal pain Take 90 mg by mouth every 8 hours as needed for Pain Take TID for first 2 days then PRN for abd pain. 08/06/2018 Active atorvastatin (LIPITOR) 80 mg tablet Take 80 mg by mouth daily with supper. 08/06/2018 Active simethicone 80 mg Tablet, Chewable Take 80 mg by mouth every 6 hours as needed. 08/06/2018 Active pantoprazole (PROTONIX) 40 mg Tablet, Delayed Release (E.C.) Take 1 Tablet (40 mg) by mouth daily before breakfast. 30 Tablet 0 08/31/2015 Active sertraline (ZOLOFT) 100 mg tablet Take 100 mg by mouth daily. 08/30/2015 Active HYDROcodone-acet aminophen (NORCO) 5-325 mg tablet Take 1 Tablet by mouth every 4 hours as needed for Pain, Moderate. 08/30/2015 Active docusate sodium (COLACE) 100 mg capsule Take 100 mg by mouth 2 times daily. 08/30/2015 Active aspirin (ECOTRIN EC) 81 mg Tablet, Delayed Release (E.C.) Take 81 mg by mouth daily. 08/30/2015 Active ferrous gluconate 325 mg (36 mg iron) Tablet Take 325 mg by mouth 3 times daily with meals. 08/30/2015 Active Active Problems Problem Noted Date Diagnosed Date Lower GI bleed 08/30/2015 CAD (coronary atherosclerotic disease) 6 Benign hypertension 08/30/2015 Generalized abdominal pain Chronic diarrhea Rectal bleeding Right lower quadrant abdominal pain Family History Medical History Relation Name Comments Colon Cancer Neg Hx Social History Tobacco Use Types Packs/Day Years Used Date Smoking Tobacco: Former Smokeless Tobacco: Former Alcohol Use Standard Drinks/Week Comments No 0 (1 standard drink = 0.6 oz pur e alcohol) Sex and Gender Information Value Date Recorded Sex Assigned at Not on file 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 Gender Identity Not on file Sexual Orientation Not on file Last Filed Vital Signs Vital Sign Reading Time Taken Comments Blood Pressure 149/108 10/21/2018 8:25 AM CDT Pulse 50 10/21/2018 8:25 AM CDT Temperature 36.5 C (97.7 F) 08/31/2015 1:18 PM CDT Respiratory Rate 18 10/21/2018 8:25 AM CDT Oxygen Saturation - - Inhaled Oxygen Concentration - - Weight 129.3 kg (285 lb) 10/15/2018 3:55 PM CDT Height 188 cm (6' 2 ) 10/15/2018 3:55 PM CDT Body Mass Index 36.59 10/15/2018 3:55 PM CDT Plan of Treatment Health Maintenance Due Date Last Done Comments DTAP/TDAP/TD VACCINES (1 - Tdap) 10/09/1962 PNEUMOCOCCAL VACCINE 50+ YEA RS (1 of 1 - PCV) 10/09/1993 ZOSTER VACCINE (1 of 2) 10/09/1993 RSV VACCINE (60+ or ) (1 - 1-dose 75+ series) 10/09/2018 COLORECTAL SCREENING 09/05/2023 09/04/2018, 09/04/2018, 06/06/2015 INFLUENZA VACCINE (#1) 2024 Procedures Procedure Name Priority Date/Time Associated Diagnosis Comments COLONOSCOPY REPORT 09/04/2018 8:05 AM CDT from Last 3 Months or Most Recently Relevant to Health Maintenance Results * COLONOSCOPY REPORT (09/04/2018 8:05 AM CDT) us Kwasi Elliott DO GI PROCEDURE ORDERABLES Final Result from Last 3 Months or Most Recently Relevant to Health Maintenance Care Teams Cellulose Insulation Helper Relationship Specialty Start Date End Date Jadiel Chance MD [address] [facility] [place] [id number] PCP - General Internal Medicine 12/30/19
--- OUTSIDE RECORDS SUMMARY | 2024-10-10 19:59 | XMS_ITS | Patient Health Record ---
Author Organization [facility] Address [address] [place] [address] Care Team Providers Care Hands Parter Name Role Phone Shawna Shea MD Primary Care Provider Rudy Smiley Unavailable [phone] Results Component Value Reference Range Notes Schedule Confirmation (Not y et reviewed by provider) Interpretation: Performing Lab: Notes/Report: MRI Lumbar Spine w/o Cont Schedule Confirmation (Not y et reviewed by provider) Interpretation: Performing Lab: Notes/Report: MRI Lumbar Spine w/o Cont [facility] MRI Lumbar Spine w/o Con [id number] (Not yet reviewed by provider) Interpretation: Performing Lab: Notes/Report: See Below For Report MRI Lumbar Spine w/o Cont Patrice Stephie 09/07/2024 09:05:31 AM CDT > [facility] Auth Current Read See Below For Report Schedule Confirmation (Not y et reviewed by provider) Interpretation: Performing Lab: Notes/Report: MRI Lumbar Spine w/o Cont Schedule Confirmation (Not y et reviewed by provider) Interpretation: Performing Lab: Notes/Report: MRI Lumbar Spine w/o Cont MRI Lumbar Spine w/o [id number] (Not yet reviewed by provider) Interpretation: Performing Lab: Notes/Report: [id number] Reason For Referral No Information Problems Problem Type SNOMED Code ICD Code Onset Dates Problem Status W/U Status Risk Notes Problem Chronic pain syndrome (004883809) Chronic pain syndrome (G89.4) Active confirmed Problem 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) (55887131) Spondylosis without myelopathy or radiculopathy, lumbosacral region (M47.817) Active confirmed Problem Generalized osteoarthritis (222710163) Generalized osteoarthritis (M15.9) Active confirmed Problem Obesity (818715268) Obesity (E66.9) Active confirmed Problem Abnormality of gait and mobility (R26.9) Active confirmed Vital Signs Weight-kg 123.38 kg 09/04/2024 Weight 272 lbs 09/04/2024 Encounters Encounter Location Date Provider Diagnosis [facility] [place] [address] [place] [phone] 09/04/2024 Rudy Cain Chronic pain syndrom e G89.4 ; Spondylosis without myelopathy or radiculopathy, lumbosacral region M47.817 ; Generalized osteoarthritis M15.9 ; Abnormality of gait and mobility R26.9 ; Obesity E66.9 and detention current use of opioid Z79.891 Assessments Encounter Date Diagnosis (ICD Code) Assessment Notes Treatment Notes Treatment Clinical Notes Section Notes 09/04/2024 Chronic pain syndrome (ICD-10 - G89.4) I had a nice visit with the patient today regarding his chronic pain issues. Based on his history and physical exam, the worst of his symptoms appear consistent of lumbar spondylosis as well as intermittent radicular symptoms. He does have some cardiac pulmonary issues as well and polyosteoarthrit is, so certainly he has a lot going on and does benefit from the Hydrocode at the four times daily dosing. He has just filled a prescription a couple of weeks ago and has one more, so we'll plan to see him back in about six weeks, and we can discuss his treatment from there. We'll get that new updated lumbar MRI, and we can review that at that visit, and we will come up with a treatment plan from there likely targeting the facet joints. 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 Cain. I, Dr. Cain, personally performed the services described in this documentation, as scribed by Mariah Soares, and it is both accurate and complete. Plan Of Treatment Pending Test Test Name Order Date MRI Lumbar Spine w/o [id number] 09/05/19 Schedule Confirmation 09/28/2024 Schedule Confirmation 10/02/2024 Schedule Confirmation 10/02/2024 Schedule Confirmation 10/02/2024 [facility] MRI Lumbar Spine w/o [id number] 09/22 Next Appt Details Provider Name:Rudy Cain, 10/14/2024 03:20:00 PM, [address] [place], [address], Insurance Providers Payer Name Payer Address Payer Phone Subscriber Number Group Number Insured Name Patient Relationship to Insured Coverage Start Date Coverage End Date [employer] [address] [place] [phone] [id number] STEPH JOYNER Self - patient is the insured
--- OUTSIDE RECORDS SUMMARY | 2024-10-10 19:59 | XMS_ITS | Encounter Summary ---
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 [address] [place] [address] Phone: tel: fax: Referral ID Status Reason Start Date Expiration Date V isits Requested Visits Authorized [id number] Closed [facility] CTS to Schedule 12/28/2019 01/27/2021 1 1 Encounter Details Date Type Department Care Team (Late st Contact Info) Description 12/28/2019 Ancillary Orders [facility] Pre-Registration [facility] CALL TO MAKE APPOINTMENT ONLY [address] [place] [address] Ezra Craft MD [address] [address] AVM (arteriovenous malformation) of small bowel, acquired; Iron deficiency anemia due to chronic blood loss Social History Tobacco Use Types Packs/Day Years Used Date Smoking Tobacco: Former Smokeless Tobacco: Former Alcohol Use Standard Drinks/Week Comments No 0 (1 standard drink = 0.6 oz pur e alcohol) Sex and Gender Information Value Date Recorded Sex Assigned at Not on file Legal Sex Male 11:10 AM CDT Gender Identity Not on file Sexual Orientation Not on file COVID-19 Exposure Response Date Recorded In the last month, have you been in contact with someone who was confirmed or suspected to have Coronavirus / COVID-19? No / Unsure 12/30/2019 3:09 PM CDT documented as of this encounter Plan of Treatment Not on file documented as of this encounter Results * MRI ENTEROGRAPHY (01/01/2020 3:15 PM CDT) Anatomical Region Laterality Modality Abdomen Magnetic Resonan ce 01/01/2020 3:15 PM CDT Impressions 01/01/2020 5:48 PM CDT IMPRESSION: No apparent MRI evidence for significant small bowel pathology. Colonic diverticulosis. Low-grade hepatosplenomegaly. Narrative 01/01/2020 5:48 PM CDT Exam: MRI ENTEROGRAPHY Date/Time of Exam: 01/01/2020 3:15 PM Reason For Exam: See Diagnosis. Diagnosis: AVM (arteriovenous malformation) of small bowel, acquired; Iron deficiency anemia due to chronic blood loss. Technique: Enterography study performed. Contrast: 20 mL MultiHance Findings: Hepatomegaly. No apparent discrete hepatic lesion. Gallbladder unremarkable. Biliary tree within normal limits. Low-grade splenomegaly. Pancreas and adrenals unremarkable. Kidneys unremarkable. Bladder unremarkable. Mildly enlarged prostate gland. Colonic diverticulosis. Small bowel caliber within normal limits. No abnormal separation of bowel loops. Appendix grossly unremarkable. No lymphadenopathy by size criteria. No aneurysm of abdominal aorta. Procedure Note Ninfa Mcmanus MD - 01/01/2020 Exam: MRI ENTEROGRAPHY Date/Time of Exam: 01/01/2020 3:15 PM Reason For Exam: See Diagnosis. Diagnosis: AVM (arteriovenous malformation) of small bowel, acquired; Iron deficiency anemia due to chronic blood loss. Technique: Enterography study performed. Contrast: 20 mL MultiHance Findings: Hepatomegaly. No apparent discrete hepatic lesion. Gallbladder unremarkable. Biliary tree within normal limits. Low-grade splenomegaly. Pancreas and adrenals unremarkable. Kidneys unremarkable. Bladder unremarkable. Mildly enlarged prostate gland. Colonic diverticulosis. Small bowel caliber within normal limits. No abnormal separation of bowel loops. Appendix grossly unremarkable. No lymphadenopathy by size criteria. No aneurysm of abdominal aorta. IMPRESSION: No apparent MRI evidence for significant small bowel pathology. Colonic diverticulosis. Low-grade hepatosplenomegaly. 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
--- OUTSIDE RECORDS SUMMARY | 2024-10-10 19:59 | XMS_ITS | Encounter Summary ---
Author Organization [facility], [facility] Address [address] [place] [address] Phone Care Team Providers Care Information Assurance Name Role Phone Jadiel Chance MD Primary Care Provider [phone] Encounter Details Date Type Department Care Team (Late st Contact Info) Description 04/27/2019 Orders Only [facility] [address] [place] [address] Stalin Campos MD Chronic kidney disease, not otherwise specified Social History Tobacco Use Types Packs/Day Years Used Date Smoking Tobacco: Never Assessed Sex and Gender Information Value Date Recorded Sex Assigned at Not on file Legal Sex Male 10:13 AM EST Gender Identity Not on file Sexual Orientation Not on file documented as of this encounter Plan of Treatment Not on file documented as of this encounter Visit Diagnoses Diagnosis Chronic kidney disease, not otherwise specified documented in this encounter Care Teams Information Assurance Relationship Specialty Start Date End Date Jadiel Chance MD [address] [facility] [place] [address] PCP - General Internal Medicine 05/14/19 documented as of this encounter
--- OUTSIDE RECORDS SUMMARY | 2024-10-10 19:59 | XMS_ITS | Patient Health Record ---
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 Name Role Phone [facility] Primary Care Provider Marcela Capps MD, Bhavik Unavailable [phone] [place], [place] Unavailable Unavailable Haleigh Patel Unavailable [phone] Allergies No Known Allergies Reason For Referral Diagnosis 1 Other chronic pain ( G89.29) Referring Provider First Name Petros Desmond Referring Provider Last Name [place] Referred Organization [facility] Referred Provider Bhavik Capps Referred Address [address] [place], [id number], Referred Provider Specialty Pain Managem ent Referral Priority Routine Medications Medication SIG (Take, Route, Frequency, Duration) Notes Start Date End Date Status mirtazapine 45 mg 1 tab orally once a day (at bedtime) Active metFORMIN 500 mg 1 tab(s) orally 2 times a day for 30 day(s) Active gabapentin 300 mg 1 cap po orally as directed Active Wixela Inhub 250 mcg-50 mcg 1 INH inhaled 2 times a day for 30 day(s) Active finasteride 5 mg 1 tab(s) orally once a day for 30 day(s) Active Vitamin C 500 mg 1 tab(s) orally once a day for 30 day(s) Active docusate sodium 100 mg 1 softgel orally as directed Active Vitamin B-12 1000 mcg 1 tab(s) orally on ce a day for 30 day(s) Active acetaminophen-hydrocodon e 325 mg-10 mg 1 tab orally Q4H prn pain (max 4/day; hold within 4H of planned sleep) for 28 days ICD-10: G89.29 (auth as per 07/22/24 visit) 08/19/2024 Active cholecalciferol 50 mcg 1 tab orally once a day Active tamsulosin 0.4 mg 1 cap(s) orally once a day for 30 day(s) Active cetirizine 10 mg 1 tab orally once a day Active Spiriva Respimat 1.25 mcg/inh 2 puff(s) inhaled once a day for 30 day(s) Active acetaminophen-hydrocodon e 325 mg-10 mg 1 tab orally Q4H prn pain (max 4/day; hold within 4H of planned sleep) for 28 days Do not fill prior to 09/11/24. ICD-10: G89.29 (auth as per 07/22/24 visit) 07/21/2024 Active atorvastatin 80 mg 1/2 tab orally once a day Active sertraline 100 mg 1/2 tab orally once a day Active aspirin 81 mg 1 tab orally once a day Active polyethylene glycol 3350 - as directed orally once a day for 7 day(s) Active albuterol 2.5 mg/3 mL (0.083%) 3 mL inhaled every 6 hours Active pantoprazole 40 mg 1 tab orally once a day Active Narcan 4 mg/0.1 mL intranasally once Active Social History Tobacco Use: Social History Observation Description Date Details (start date - stop date) Former Smoker NA - NA Tobacco use: Question Answer Notes : former smoker When did you stop smoking? 2013 AUDIT-C (Standard) Question Answer Notes Did you have a drink containing alcohol in the p ast year? No Points 0 Interpretation Negative Problems Problem Type SNOMED Code ICD Code Onset Dates Problem Status W/U Status Risk Notes Problem Solitary sacroiliitis (480822012) Sacroiliitis, not elsewhere classified (M46.1) Active confirmed Problem Low back pain (999009809) Low back pain (M54.5) Active confirmed Problem Lumbosacral spondylosis without myelopathy (46300793) Spondylosis without myelopathy or radiculopathy, lumbar region (M47.816) Active confirmed Problem High risk drug monitoring status (408946009) correction (current) use of opiate analgesic (Z79.891) Active confirmed Problem Obstructive sleep apnea syndrome (62907399) Obstructive sleep apnea (adult) (pediatric) (G47.33) Active confirmed Problem Chronic pain (13365308) Other chronic pain (G89.29) Active confirmed Problem Disorder of lumbar disc (069798683) Other intervertebral disc disorders, lumbar region (M51.86) Active confirmed Problem Long-term current use of drug therapy (913977556) 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 (Z79.899) Active confirmed Problem Pain in lumbar spine (759731739) Vertebrogenic low back pain (M54.51) Active confirmed Vital Signs Temperature 97.1 degrees Fahrenheit 07/22/2024 Blood pressure diastolic 58 mm Hg 07/22/2024 Oximetry 92 % 07/22/2024 Height 74 in 07/22/2024 Blood pressure systolic 145 mm Hg 07/22/2024 Weight 278.6 lbs 07/22/2024 BMI 35.77 kg/m2 07/22/2024 Encounters Encounter Location Date Provider Diagnosis [facility] [address] [place], [place] [id number] 12/04/2023 Haleigh Gomez Vertebrogenic low ba ck pain M54.51 ; Other chronic pain G89.29 and Obstructive sleep apnea (adult) (pediatric) G47.33 [facility] [address] [place], [place] [id number] 02/05/2024 Bhavik Capps Vertebrogenic low ba ck pain M54.51 ; Other chronic pain G89.29 and Obstructive sleep apnea (adult) (pediatric) G47.33 [facility] [address] [place], [place] [id number] 04/01/2024 Bhavik Capps Vertebrogenic low ba ck pain M54.51 ; Other chronic pain G89.29 and Obstructive sleep apnea (adult) (pediatric) G47.33 [facility] [address] [place], [place] [id number] 05/27/2024 Bhavik Capps Vertebrogenic low ba ck pain M54.51 ; Other chronic pain G89.29 and Obstructive sleep apnea (adult) (pediatric) G47.33 [facility] [address] [place], [place] [id number] 07/22/2024 Bhavik Capps Vertebrogenic low ba ck pain M54.51 ; Other chronic pain G89.29 and Obstructive sleep apnea (adult) (pediatric) G47.33 [facility] [address] [place], [place] [id number] 11/06/2023 Bhavik Capps [facility] [address] [place], [place] [id number] 01/01/2024 Bhavik Capps [facility] [address] [place], [place] [id number] 03/04/2024 Bhavik Capps [facility] [address] [place], [place] [id number] 04/29/2024 Bhavik Capps [facility] [address] [place], [place] [id number] 06/24/2024 Bhavik Capps [facility] [address] [place], [place] [id number] 07/27/2024 Bhavik Capps [facility] [address] [place], [place] [id number] 08/05/2024 Bhavik Capps [facility] [address] [place], [place] [id number] 08/19/2024 Bhavik Capps Assessments Encounter Date Diagnosis (ICD Code) Assessment Notes Treatment Notes Treatment Clinical Notes Section Notes 04/01/2024 Vertebrogenic low back pain (ICD-10 - M54.51) Chronic axial lumbosacral spine pain. 07/22/2024 Vertebrogenic low back pain (ICD-10 - M54.51) Chronic axial lumbosacral spine pain. 05/27/2024 Vertebrogenic low back pain (ICD-10 - M54.51) Chronic axial lumbosacral spine pain. 12/04/2023 Vertebrogenic low back pain (ICD-10 - M54.51) Chronic axial lumbosacral spine pain. 02/05/2024 Other chronic pain (ICD-10 - G89.29) Patient reports that taking his pain medication allows him to take care of his dog. Plan to continue oral opioid medication management. 02/05/2024 Vertebrogenic low back pain (ICD-10 - M54.51) Chronic axial lumbosacral spine pain. 02/05/2024 Obstructive sleep apnea (adult) (pediatric) (ICD-10 - G47.33) Untreated sleep apnea; plan to continue to restrict opioid use in relation to sleep for safety concerns. 05/27/2024 Other chronic pain (ICD-10 - G89.29) Patient reports that taking his pain medication allows him to care for his new bird dog. Plan to continue oral opioid medication management. 12/04/2023 Obstructive sleep apnea (adult) (pediatric) (ICD-10 - G47.33) Untreated sleep apnea; plan to continue to restrict opioid use in relation to sleep for safety concerns. 12/04/2023 Other chronic pain (ICD-10 - G89.29) Patient reports that taking his pain medication allows him to spend time with family. Plan to continue oral opioid medication management. 07/22/2024 Other chronic pain (ICD-10 - G89.29) Patient reports that taking his pain medication allows him to enjoy his outdoor hobbies. Plan to continue oral opioid medication at today's visit. 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 Plan to continue oral opioid medication management. 04/01/2024 Obstructive sleep apnea (adult) (pediatric) (ICD-10 - G47.33) Untreated sleep apnea; plan to continue to restrict opioid use in relation to sleep for safety concerns. 07/22/2024 Obstructive sleep apnea (adult) (pediatric) (ICD-10 - G47.33) Plan to continue to restrict opioid use in relation to sleep for safety concerns. 05/27/2024 Obstructive sleep apnea (adult) (pediatric) (ICD-10 - G47.33) Untreated sleep apnea. Plan to continue to restrict opioid use in relation to sleep for safety concerns. 02/05/2024 Other Due to the [facility] inability to store more than 1 month of opioid prescriptions at a time, remaining eRx will be sent in 28 days. The service was provided by ANDREY Duran, as part of the ongoing care plan established by Bhavik Capps MD, who was present in the office for direct supervision during the encounter. 04/01/2024 Other Due to the [facility] inability to store more than 1 month of opioid prescriptions at a time, remaining eRx will be sent in 28 days. The service was provided by ANDREY Duran, as part of the ongoing care plan established by Bhavik Capps MD, who was present in the office for direct supervision during the encounter. 05/27/2024 Other Due to the [facility] inability to store more than 1 month of opioid prescriptions at a time, remaining eRx will be sent in 28 days. The service was provided by ANDREY Duran, as part of the ongoing care plan established by Bhavik Capps MD, who was present in the office for direct supervision during the encounter. 07/22/2024 Other The service was provided by ANDREY Duran, as part of the ongoing care plan established by Bhavik Capps MD, who was present in the office for direct supervision during the encounter. Patient was provided with a letter at today's visit informing patient that this clinic is closing due to Dr. Capps's care home; see scanned document. Terminal prescriptions were given to the patient along with tapering instructions. Due to the [facility] inability to store more than 1 month of opioid prescriptions at a time, the next eRx from this visit will be sent in 28 days and a printed prescription given to patient to fill in 56 days. 12/04/2023 Other Due to the [facility] inability to store more than 1 month of opioid prescriptions at a time, remaining eRx will be sent in 28 days. Plan Of Treatment No Information Insurance Providers Payer Name Payer Address Payer Phone Subscriber Number Group Number Insured Name Patient Relationship to Insured Coverage Start Date Coverage End Date [employer] [address] [place] [id number] Jamaal Sanchez Self - patient is the insured Medical (General) History Medical History History ICD Code Chronic pain Low back pain Lumbar spondyolosis and disc disease Sacroiliitis Bilateral knee pain Hypertension Kidney problems Tumor of small intestine Diabetes mellitus CAD, heart stents x 2 History of tobacco use, probable COPD (m ultiple inhalant medications noted) Obstructive sleep apnea, untreated Obesity, moderate Surgical History Surgery Date(Month/Year) Stent placement x 2013 Colonoscopy EGD, performed at [facility] in [facility], [place], 08/2017 Endoscopy, performed at [facility], 09/2018 Double balloon scope, performed at [facility], 11/2018 Removal of small bowel (partial), perfor med at [facility], 11/30/20 Excision of mass from left hand, perform ed at [place], 10/26/21 Hospitalization History Reason Date(Month/Year) Pneumonia and diverticulitis, treated at [facility], 06/05/23-06/07/23 COVID - 19, treated at [facility], 12/2020 Small bowel infection, treated at [facility], 11/28/20 Colon infection, treated at [facility], 06/2017 Blood in stool Loss of blood from nose bleed
--- OUTSIDE RECORDS SUMMARY | 2024-10-10 20:00 | XMS_ITS | Data Portability ---
Author Organization [place] [facility] [place], ADMIN Address [address] [place] [id number] Care Team Providers Care Physical Scientist Name Role Phone NORA HOLLEYSAN Primary Care Provider Assessment Encounter Date Assessment Date Assessment LastModified by Organization Details LastModified Time 01/30/2024 01/30/2024 78-year-old male patient. [email or web address] Not available 01/30/2024 14:57:06 02/18/2024 02/18/2024 78-year-old male patient. estonecipher Not available 02/18/2024 15:33:34 06/08/2024 06/08/2024 Impression: 1. History of dysphagia, resolved --Esophageal dilation 12/19/23 2. Nausea and vomiting 3. RUQ pain 4. Biliary dyskinesia 5. GERD --Protonix 40mg BID 6. Abdominal bloating 7. Altered bowel function, constipation versus diarrhea 8. Hematochezia, resolved 9. History of diverticulitis in August 2023, treated with antibiotics 10. History of iron deficiency anemia secondary to recurrent GI bleed 11. History of small bowel AVM, status post small bowel resection 12. No family history of esophageal, gastric or colon cancer Recommendation: 1. General surgery referral 2. Continue Protonix 40mg BID 3. Antireflux precautions 4. Low FODMAP diet 5. Start Miralax 1 capful daily 6. Follow-up in 3 months dot Not available 06/08/2024 19:21:42 08/28/2024 08/28/2024 78-year-old male presents to clinic for follow-up. Patient states overall he is doing well however he continues to report chronic constipation. He has previously tried and failed MiraLAX, Metamucil, docusate, magnesium citrate, enemas and suppositories. He states he has tried Linzess in the past which did not improve his constipation. Will prescribe Linzess 72 mcg daily. Patient states he is scheduled for a consultation with Dr. Hidalgo at [facility] for biliary dyskinesia. He reports a family history of gallbladder disease in his brother. Patient is known to GI clinic and was previously evaluated in 2019. Patient has a history of GAVE syndrome, colonic diverticulosis, H. pylori infection, GERD, iron deficiency anemia, and altered bowel function with diarrhea. Patient was recently diagnosed with diverticulitis in August 2023 and treated in [place]. Patient states he typically has constipation but after being treated for diverticulitis he has not been experiencing 2-4 episodes of watery diarrhea per day. Previous colonoscopy was completed approximately 4 years ago in [facility], report not available. Previous EGD unknown. 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 Patient denies family history of esophageal, gastric or colon cancer. He denies tobacco, alcohol or history of drug use. He denies excessive NSAID use. EGD 06/02/2017: Possible short segment Ngo's esophagus. Erythematous streaks distributed in a spoke wheal-like pattern in the gastric antrum suggestive of GAVE syndrome. Patchy small erythema thematous changes found in the second portion of duodenum. No active bleeding identified. Pathology: Stomach biopsy consistent with GAVE syndrome. Negative for H. pylori. GE junction biopsy negative for Ngo's esophagus. Small bowel biopsy revealed duodenitis. Colonoscopy 06/06/2015: Small to moderate size internal hemorrhoids, moderate to severe pandiverticular disease, otherwise normal exam to the TI EGD 12/19/2023: Resistance found at the upper esophageal sphincter. Distal esophageal acid peptic stricture. 20 mm TTS balloon dilation. Mild nonerosive gastritis. Otherwise normal exam to the duodenum. Pathology: GE junction biopsy revealed focal nonspecific acute inflammation, negative for Ngo's esophagus. Stomach biopsy negative for H. pylori. Duodenal biopsy unremarkable. Colonoscopy 12/19/2023: Small internal hemorrhoids. Moderate pandiverticulosis. Otherwise normal exam to the TI. Pathology: Random colon biopsy unremarkable. TI biopsy unremarkable Lab studies 12/11/2023: Alpha gal IgE negative, beef IgE negative, pork IgE negative, milk IgE negative, venison IgE negative Abdominal ultrasound 04/14/2024: Normal right upper quadrant ultrasound HIDA scan 04/14/2024: Normal appearance of tracer in the gallbladder and normal transit of tracer into the CBD, duodenum and small bowel. The gallbladder ejection fraction is 23%. Impression: 1. History of dysphagia, resolved --Esophageal dilation 12/19/23 2. Biliary dyskinesia --Referred to general surgery 3. GERD --Protonix 40mg BID 4. Abdominal bloating 5. Chronic idiopathic constipation, previously improved with Linzess --Has failed miralax, metamucil, docusate, mag citrate, suppositories and enemas 6. History of diverticulitis in August 2023, treated with antibiotics 7. History of iron deficiency anemia secondary to recurrent GI bleed 8. History of small bowel AVM, status post small bowel resection 9. No family history of esophageal, gastric or colon cancer Recommendation: 1. Follow up with general surgery 2. Start Linzess 72mcg daily 3. Continue Protonix 40mg BID 4. Antireflux precautions 5. Low FODMAP diet 6. Follow-up in 6 weeks [email or web address] Not available 08/28/2024 15:39:03 08/28/2024 08/28/2024 78-year-old male patient. [email or web address] Not available 08/28/2024 15:09:30 Plan of Treatment Reminders Order Date Submit Date Provider Last Modified By Organization Details Last Modified Time Details Appointments Establish ed Patient 2025 01:00P M CONRAD ELIAS, P.A. Not available Not available Not available Establish ed Patient 10 2025 03:20P Epifanio Villalta M.D. Not available Not available Not available Lab None recorded. Referral general surgeon referral 2024 025 [email or web address] 3 Rudy Hidalgo MD, [address], [place] [address], [place], [address], 07/17/2024 11:26:37 Procedures None recorded. Surgeries None recorded. Imaging None recorded. Medication Orders Linzess 72 mcg capsule 2024 025 RANDA Nascimento [facility], [address], [place], [address], 08/28/2024 19:56:46 Miralax 17 gram/dose oral powder 2024 025 [email or web address] [place] [facility], [address], [place], [address], 06/08/2024 20:17:24 Patient TargetsNo targets recorded. Patient Instructions Encounter Date Encounter Id Patient Instructions Last Modified By Organization Details Last Modified Time 01/30/2024 [id number] chronic obstructive pulmonary disease (COPD): care instructions [email or web address] Not available 01/30/2024 14:58:55 learning about copd and how to prevent lung infections [email or web address] Not available 01/30/2024 14:58:55 02/18/2024 [id number] chronic obstructive pulmonary disease (COPD): care instructions [email or web address] Not available 03/19/2024 16:00:18 learning about copd and how to prevent lung infections [email or web address] Not available 03/19/2024 16:00:17 08/28/2024 [id number] chronic obstructive pulmonary disease (COPD): care instructions [email or web address] Not available 09/18/2024 08:23:09 learning about copd and how to prevent lung infections malfaqih Not available 09/18/2024 08:23:09 Reason for Referral General Surgeon Referral for Biliary dyskinesia Referring Physician: Conrad Elias, Gastroenterology, Encounter Date: 06/08/2024 Results Created Date Observation Date Name Description Value Unit Range Abnormal Flag Note LastModifiedBy Organization Detail LastModifiedTime 03/19/20 24 02/18/2024 CT, chest , w/o contr ast [place] [facility] [address] [place] [address]- [phone] Delmi t: STEPH IRVIN [id number] : [id number] Sex:Ma le Locati on: MOBI CT Orderi ng Physic nishi: HIEN EDUARDO MD Comput ed Tomogr aphy Access ion Exam Date/T [facility] [id number] 2023 14:02 RAILROAD CRANE OPERATOR Reason for Exam R91.1 Solita ry pulmon henna nodule [id number] Report EXAM: CT CHEST WITHOU T CONTRA ST HISTOR Y: Solita ry pulmon henna nodule COMPAR DIEGO: None TECHNI QUE: Multi- slice transa xial helica l images are acquir ed throug h the thorax with shelton l and sagitt al recons tructe d images . All CT scans are perfor med using dose optimi zation techni ques as approp riate to the perfor med exam and includ es at least one of the follow ing: Automa isaiah exposu re contro l, adjust ment of the mA and/or kV accord ing to size, and the use of iterat gilles recons tructi on techni que. CONTRA ST: None FINDIN GS: There is a probab le duplic ation cyst within the cephal ic left side of the middle medias tinum measur ing 4.6 x 2.1 cm with simple featur es. Howeve r Space lymph node is 1.5 cm in short axis. A subcar inal lymph node is 1.7 cm in short axis. Additi onal smalle r medias tinal lymph nodes are noted. Assess ment of the marion is limite d withou t contra st. The ascend ing aorta is ectati c to 37.7 mm. The heart is mildly enlarg ed with left atrial dilata tion. Tri-ve ssel shelton ry calcif icatio ns are noted. No perica rdial or pleura l effusi ons. Aortic valve calcif icatio ns sugges t aortic valve stenos is. Calcif ied granul omas are noted in the right upper lobe. The lungs are mildly emphys ematou s. There is a solid spicul ated nodule in the right lower lobe measur ing 1.1 x 0.9 x 0.7 cm on series 2 image number 46. No other nodule s or acute infilt rates. There is sugges tion of hepati c surfac e contou r nodula rity. The paraum bilica l vein is recann ulated . The spleen is enlarg ed 13.6 cm. The solid organs otherw ise normal in their visual ized portio ns of the upper abdome n. Mild chroni c compre ssion deform ities are sugges isaiah at T3 and T4. No acute osseou s abnorm alitie s or suspic ious bone lesion s. IMPRES ALDEN: 1. Solid spicul ated nodule in the right lower lobe measur ing 1.1 x 0.9 x 0.7 cm. Recomm end correl ation with PET CT and/or biopsy . 2. Medias tinal lympha denopa thy could be reacti ve but could also reflec t metast atic diseas e. 3. Emphys edward. 4. No acute infilt rates. Comput ed Tomogr aphy Report 5. 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 6. Mild cardio megaly and tri-ve ssel shelton ry diseas e. 7. Sugges tion of aortic valve stenos is and ectasi a of the ascend ing aorta to 37.7 mm. 8. Sugges tion of cirrho sis with portal hypert ension manife sted by recann ulsushila n of the paraum bilica l vein and spleno megaly . . All CT scans are perfor med using dose optimi zation techni ques as approp riate to the perfor med exam and includ e at least one of the follow ing: Automa isaiah exposu re contro l, adjust ment of the mA and/or kV accord ing to size, and the use of iterat gilles recons tructi on techni que. Final Signed by: YOCASTA MCNULTY DO Signed (Elect woody Signat ure): 2023 01:53 pm RAILROAD CRANE OPERATOR estonecipher [facility] (Radiology) [address], [place], [address], 03/23/2024 11:06:27 03/19/20 24 02/18/2024 CT, chest , w/o contr ast No observ ation record ed. [facility] [address], [place], [address], 03/23/2024 11:05:18 04/14/19 25 04/14/2024 NM, hepat obili henna scan, w/pha rm [place] [facility] [place] [address] [place] [address]- Paticlaritza t: STEPH IRVIN [id number] : [id number] Sex:Ma le Locati on: MOPB US Orderi ng Physic nishi: LEIDY N, ANDREWS N PA [facility] ne Access ion Exam Date/T kvng [id number] [id number] 13:22 RAILROAD CRANE OPERATOR Reason for Exam Right upper quadra nt pain Report EXAM: HEPATO BILIAR Y SCAN. HISTOR Y: Right upper quadra nt pain. COMPAR DIEGO: None of this type. Ultras ound 2024. PROCED URE: The patien t was inject ed with 4.2 mCi of 99mTc mebrof enin intrav enousl y. Images of the abdome n were obtain ed at 5 min interv als for 1 hour. The patien t was then inject ed with 2 mcg of CCK by slow infusi on while images of the gallbl adder were obtain ed to assess gallbl adder contra ction. FINDIN GS: Sequen tial images demons trate normal uptake of tracer into the liver. Activi ty is seen in the intrah epatic biliar y ducts at about 15 minute s. The activi ty appear s in the gallbl adder at about 25 minute s. Subseq uent images demons trate increa sing activi ty in the gallbl adder. Activi ty first appear s in the small bowel follow ing CCK. The gallbl adder ejecti on fracti on is 23%. IMPRES ALDEN: 1. Normal appear ance of tracer in the gallbl adder and normal transi t of tracer into the common bile duct, duoden um and small bowel. 2. The gallbl adder ejecti on fracti on is 23% (low). Final Signed by: NOE CISNEROS MD Signed (Elect woody Signat ure): 2024 05:02 pm RAILROAD CRANE OPERATOR [email or web address] [place] [facility] (Radiology) [address], [place], [address], 06/08/2024 19:21:50 05/05/19 25 04/14/2024 US, abdom en, limit ed [place] [facility] [address] [place] [address]- [phone] Patien t: STEPH IRVIN [id number] : [id number] Sex:Ma le Locati on: MOPB US Orderi ng Physic nishi: ANDREWS DUBOSE PA Ultras ound Access ion Exam Date/T kvng [id number] 10:31 RAILROAD CRANE OPERATOR Reason for Exam Right upper quadra nt pain Report EXAM: ULTRAS OUND OF THE RIGHT UPPER QUADRA NT (LIMIT ED ABDOME N) HISTOR Y: Right upper quadra nt abdomi nal pain. TECHNI QUE: Sonogr aphy of the right upper quadra nt of the abdome n was perfor med. Color Dopple r imagin g and spectr al Dopple r imagin g of the portal vein was also perfor med. Images were obtain ed and stored in a [facility] ent archiv e. COMPAR DIEGO: None. FINDIN GS: Pancre as: Nonvis ualize d . Liver: Normal size and normal echoge nicity . Normal surfac e contou r. No focal hepati c lesion . Main portal vein: Normal hepato petal flow. Gallbl adder: No gallst ones in the gallbl adder. No gallbl adder wall thicke james. Negati ve sonogr aphic Arce 's sign. Common bile duct measur es 6 mm. Right Kidney : Measur es: 10.8 cm. No mass. No calcul us. No hydron ephros is. IVC: Patent on color dopple r. No abnorm ality on limite d alvarado scale image. Other: No ascite s. IMPRES ALDEN: 1. Normal right upper quadra nt abdome n ultras ound. Final Signed by: KULDIP VALENCIA MD Signed (Elect ronic Signat ure): 2024 04:40 pm RAILROAD CRANE OPERATOR [email or web address] [facility] (Radiology) [address], [place], [address], 06/08/2024 19:21:50 09/12/19 25 08/28/2024 CT, chest , w/o contr ast [place] [facility] [address] [place] [address]- Patien t: STEPH IRVIN [id number] : [id number] Sex:Ma le Locati on: MOBI CT Orderi ng Physic nishi: HIEN EDUARDO MD Comput ed Tomogr aphy Access ion Exam Date/T kvng [id number] 08/29/19 12:45 CDT Reason for Exam R91.1 Solita ry pulmon henna nodule Report EXAM: CHEST CT WITHOU T CONTRA ST HISTOR Y: Solita ry pulmon henna nodule TECHNI QUE: CT acquis ition of the chest from the thorac ic inlet to the upper abdome n withou t IV contra st admini strati on. CT Dose Reduct ion Techni ques Perfor med: Yes COMPAR DIEGO: [address] FINDIN GS: Lines, Tubes, Device s: None. Lung Parenc hyma and Airway s: Centra l airway s are patent withou t endobr onchia l lesion . A right lower lobe spicul ated pulmon henna nodule is identi fied on axial image 48 measur ing 0.7 x 1.3 cm. This is remeas ured at 0.7 x 1.1 cm on previo us axial image 46. This nodule measur es 1.[address] dimens ion on sagitt al image 45, unchan ged compar ed to the prior exam. On shelton l image 72 this measur es up to 0.[address] dimens ion, previo usly measur ing 0.8 cm. There is a new 0.3 cm left upper lobe pulmon henna nodule on axial image 17. Minima l multif ocal atelec tasis. No consol idatio n. Pleura l Space: No pleura l effusi on. No pleura l thicke james. No pneumo thorax . 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 Left-s ided upper medias tinal probab le duplic ation cyst again seen measur ing 4.6 x 2.0 cm, stable . Pretra cheal lymph nodes again seen measur ing up to 1.5 cm. Subcar inal lymph node again seen measur ing up to 1.6 cm. Heart, Vessel s, and Perica rdium: Heart size is normal . There is no perica rdial effusi on or perica rdial thicke james. Athero sclero tic calcif icatio ns are presen t includ ing shelton ry arteri es. Shelton ry artery stents are seen. Bones and Soft Tissue s: Remote bilate ral rib fractu res. Modera te thorac ic degene rative disc diseas e. There is mild bilate ral gyneco mastia . Upper Abdome n: No acute upper abdomi nal findin gs. IMPRES ALDEN: No acute cardio pulmon henna findin gs. Comput ed Tomogr aphy Report Possib le minima lly increa sed size of the right lower lobe spicul ated nodule versus differ ence in techni que. Recomm end furthe r evalua tion with PET-CT . Stable medias tinal adenop athy. All CT scans are perfor med using dose optimi zation techni ques as approp riate to the perfor med exam and includ e at least one of the follow ing: Automa isaiah exposu re contro l, adjust ment of the mA and/or kV accord ing to size, and the use of iterat gilles recons tructi on techni que. Final Signed by: SALBADOR SMITH MD Signed (Elect woody Signtc waggoner): 2024 02:35 pm CDT estonecipher [facility] (Radiology) [address], [place], [place], [address], 09/11/2024 15:38:35 Result Notes Documentation Provider Name and Address Organization Details Recorded Time Ct, Chest, W/o Contrast : [facility] [address] [facility] [place], [place] [address]- Patient: STEPH JOYNER : 1945 Sex:Male Location: [facility] CT Ordering Physician: FISH VILLALTA MD Computed Tomography Accession Exam Date/Time [id number] 02/18/2024 14:02 RAILROAD CRANE OPERATOR Reason for Exam R91.1 Solitary pulmonary nodule [id number] Report EXAM: CT CHEST WITHOUT CONTRAST HISTORY: Solitary pulmonary nodule COMPARISON: None TECHNIQUE: Multi-slice transaxial helical images are acquired through the thorax with coronal and sagittal reconstructed images. All CT scans are performed using dose optimization techniques as appropriate to the performed exam and includes at least one of the following: Automated exposure control, adjustment of the mA and/or kV according to size, and the use of iterative reconstruction technique. CONTRAST: None FINDINGS: There is a probable duplication cyst within the cephalic left side of the middle mediastinum measuring 4.6 x 2.1 cm with simple features. However Space lymph node is 1.5 cm in short axis. A subcarinal lymph node is 1.7 cm in short axis. Additional smaller mediastinal lymph nodes are noted. Assessment of the marion is limited without contrast. The ascending aorta is ectatic to 37.7 mm. The heart is mildly enlarged with left atrial dilatation. Tri-vessel coronary calcifications are noted. No pericardial or pleural effusions. Aortic valve calcifications suggest aortic valve stenosis. Calcified granulomas are noted in the right upper lobe. The lungs are mildly emphysematous. There is a solid spiculated nodule in the right lower lobe measuring 1.1 x 0.9 x 0.7 cm on series 2 image number 46. No other nodules or acute infiltrates. There is suggestion of hepatic surface contour nodularity. The paraumbilical vein is recannulated. The spleen is enlarged 13.6 cm. The solid organs otherwise normal in their visualized portions of the upper abdomen. Mild chronic compression deformities are suggested at T3 and T4. No acute osseous abnormalities or suspicious bone lesions. IMPRESSION: 1. Solid spiculated nodule in the right lower lobe measuring 1.1 x 0.9 x 0.7 cm. Recommend correlation with PET CT and/or biopsy. 2. Mediastinal lymphadenopathy could be reactive but could also reflect metastatic disease. 3. Emphysema. 4. No acute infiltrates. 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 6. Mild cardiomegaly and tri-vessel coronary disease. 7. Suggestion of aortic valve stenosis and ectasia of the ascending aorta to 37.7 mm. 8. Suggestion of cirrhosis with portal hypertension manifested by recannulation of the paraumbilical vein and splenomegaly. . All CT scans are performed using dose optimization techniques as appropriate to the performed exam and include at least one of the following: Automated exposure control, adjustment of the mA and/or kV according to size, and the use of iterative reconstruction technique. Final Signed by: ADAL YOUNG DO Signed (Electronic Signature): 03/19/2024 01:53 pm RAILROAD CRANE OPERATOR Cathy Higgins LPN [facility] [place] 03/23/2024 11:06:27 Nm, Hepatobiliary Scan, W/pharm : [address] [address]- Patient: STEPH JOYNER : 1945 Sex:Male Location: [facility] Ordering Physician: CONRAD ELIAS Nuclear Medicine Accession Exam Date/Time [id number] 04/14/2024 13:22 RAILROAD CRANE OPERATOR Reason for Exam Right upper quadrant pain Report EXAM: HEPATOBILIARY SCAN. HISTORY: Right upper quadrant pain. COMPARISON: None of this type. Ultrasound 04/14/2024. PROCEDURE: The patient was injected with 4.2 mCi of 99mTc mebrofenin intravenously. Images of the abdomen were obtained at 5 min intervals for 1 hour. The patient was then injected with 2 mcg of CCK by slow infusion while images of the gallbladder were obtained to assess gallbladder contraction. FINDINGS: Sequential images demonstrate normal uptake of tracer into the liver. Activity is seen in the intrahepatic biliary ducts at about 15 minutes. The activity appears in the gallbladder at about 25 minutes. Subsequent images demonstrate increasing activity in the gallbladder. Activity first appears in the small bowel following CCK. The gallbladder ejection fraction is 23%. IMPRESSION: 1. Normal appearance of tracer in the gallbladder and normal transit of tracer into the common bile duct, duodenum and small bowel. 2. The gallbladder ejection fraction is 23% (low). Final Signed by: NOE CISNEROS MD Signed (Electronic Signature): 04/14/2024 05:02 pm CAROL ZHANG [address] [facility], [place], [address], [facility] [place] 06/08/2024 19:21:50 Ct, Chest, W/o Contrast : [facility] [address] [facility] [place] [address]- Patient: STEPH JOYNER : 1945 Sex:Male Location: [facility] CT Ordering Physician: FISH VILLALTA MD Computed Tomography Accession Exam Date/Time [id number] 08/28/2024 12:45 CDT Reason for Exam R91.1 Solitary pulmonary nodule Report EXAM: CHEST CT WITHOUT CONTRAST HISTORY: Solitary pulmonary nodule TECHNIQUE: CT acquisition of the chest from the thoracic inlet to the upper abdomen without IV contrast administration. CT Dose Reduction Techniques Performed: Yes COMPARISON: 02/18/[address] FINDINGS: Lines, Tubes, Devices: None. Lung Parenchyma and Airways: Central airways are patent without endobronchial lesion. A right lower lobe spiculated pulmonary nodule is identified on axial image 48 measuring 0.7 x 1.3 cm. This is remeasured at 0.7 x 1.1 cm on previous axial image 46. This nodule measures 1.3 cm in greatest dimension on sagittal image 45, unchanged compared to the prior exam. On coronal image 72 this measures up to 0.9 cm greatest dimension, previously measuring 0.8 cm. There is a new 0.3 cm left upper lobe pulmonary nodule on axial image 17. Minimal multifocal atelectasis. No consolidation. Pleural Space: No pleural effusion. No pleural thickening. No pneumothorax. Thoracic Inlet, Mediastinum, and Marion: The left thyroid lobe is heterogeneous. Left-sided upper mediastinal probable duplication cyst again seen measuring 4.6 x 2.0 cm, stable. Pretracheal lymph nodes again seen measuring up to 1.5 cm. Subcarinal lymph node again seen measuring up to 1.6 cm. Heart, Vessels, and Pericardium: Heart size is normal. There is no pericardial effusion or pericardial thickening. Atherosclerotic calcifications are present including coronary arteries. Coronary artery stents are seen. Bones and Soft Tissues: Remote bilateral rib fractures. Moderate thoracic degenerative disc disease. There is mild bilateral gynecomastia. Upper Abdomen: No acute upper abdominal findings. IMPRESSION: No acute cardiopulmonary findings. Computed Tomography Report Possible minimally increased size of the right lower lobe spiculated nodule versus difference in technique. Recommend further evaluation with PET-CT. Stable mediastinal adenopathy. All CT scans are performed using dose optimization techniques as appropriate to the performed exam and include at least one of the following: Automated exposure control, adjustment of the mA and/or kV according to size, and the use of iterative reconstruction technique. Final Signed by: SHAWNA SMITH MD Signed (Electronic Signature): 09/11/2024 02:35 pm CDT Cathy Higgins LPN null, [address] 09/11/2024 15:38:35 Problems Name Problem SNOMED Code Status Onset Date Resolution Date Notes Provider Name and Address Organization Details Recorded Time Chest pain 51675855 Active Lacey Susan [employer]END[employer] null, [address] 6 14:13:16 Obesity 853200170 Active Lacey Susan [employer] null, [address] 6 14:13:16 Palpitations 44828643 Active Lacey Susan [employer] TEND[employer] null, [address] 6 14:13:16 Painful rectal bleeding 693021836 Active Lacey Susan [employer] TEND[employer] null, [address] 6 14:13:16 Hematochezia 277993051 Active Lacey Susan [employer]ING PR[employer] TENDER null, [address] 6 14:13:16 Anemia 813396007 Active Rodrigo sommer MD [address] [facility], [place], [address], [address] 6 20:40:20 Helicobacter-a ssociated gastritis 99546599 Active Lacey Susan [employer]ING PR[employer] TEND[employer] null, [address] 6 14:13:16 Chronic obstructive pulmonary disease 84942624 Active Lacey Susan [employer]ING PR[employer] TENDER null, [address] 6 14:13:16 Hyperlipidemia 98034213 Active Lacey Susan M[employer]ING PR[employer] TENDER [place] [facility] [place] 6 14:13:16 Posttraumatic stress disorder 66464046 Active Lacey Susan [employer]ING PR[employer] TENDER [place] [facility] [place] 6 14:13:16 Gastroesophage al reflux disease 363851545 Active Lacey Susan [employer]ING PR[employer] TENDER [place] [facility] [place] 6 14:13:16 Essential hypertension 19607446 Active Lacey Susan [employer]ING PR[employer] TENDER [place] [facility] [place] 6 14:13:16 Coronary arterioscleros is 22321328 Active Lacey Susan [employer]ING PR[employer] TENDER [place] [facility] [place] 6 14:13:16 History of gastrointestin al bleed 434396026 Active 2017 Ángela Parikh [place] [facility] [place] 8 15:56:53 Melena 7012545 Active 2017 Ángela Parikh [place] [facility] [place] 8 15:56:54 Diverticular disease 228220656 Active 2017 Ángela Parikh [place] [facility] [place] 8 15:57:36 Vascular ectasia of gastric antrum 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 Active 2017 Kelli [place] null[place] [facility] [place] 8 15:03:31 Iron deficiency anemia 27459148 Active 2017 Kelli Montoyag [place] [facility] [place] 8 15:03:33 Diarrhea 91328857 Active 2017 SHELDON MANCILLA N, [employer] ENG[employer]ER [address], [place], [address], [place] [facility] [place] 8 12:23:31 Dysphagia 89992136 Active 2023 CAROL SARABIA [address] [facility], [place], [address], [facility] - [facility] [place] 4 16:30:28 Right upper quadrant pain 301974290 Active 2023 CAROL SARABIA [address], [place], [address], [place] [facility] [place] 4 16:30:45 Gastroesophage al reflux disease without esophagitis 875196037 Active 2023 CAROL SARABIA [address], [place], [address], [place] [facility] [place] 4 14:14:31 Nausea and vomiting 94548191 Active 2023 CAROL SARABIA [address], [place], [address], [place] [facility] [place] 4 14:14:35 Altered bowel function 73823928 Active 2023 CAROL SARABIA [address], [place], [address], [place] [facility] [place] 4 14:14:41 Abdominal pain 65804472 Active 2023 CAROL SARABIA [address], [place], [address], [place] [facility] [place] 4 14:14:46 Biliary dyskinesia 416115686 Active 2024 CAROL SARABIA [address], [place], [address], [place] [facility] [place] 5 14:28:38 Chronic constipation 707179231 Active 2024 CAROL SARABIA [address], [place], [address], [place] [facility] [place] 5 14:29:20 Chronic idiopathic constipation 34237365 Active 2024 CAROL SARABIA [address], [place], [address], [place] [facility] [place] 5 14:54:57 Problem Notes None recorded. Procedures Surgical History Date Name Laterality Status Provider Name and Address Organization Details Recorded Time 12/18 esophagogastroduodenoscopy completed Mik Bliss RN [address] 4 13:53:49 12/18 colonoscopy completed Perla Bliss RN [address] 4 13:53:56 07/29 ENDOSCOPY, CAPSULE (SURG) completed Brian Quiroz [address] 6 16:08:37 06/05 Diagnostic colonoscopy completed Not Available [facility] 6 03:45:54 06/05 Egd biopsy single/multiple completed Not Available [facility] 6 03:45:54 06/05 ESOPHAGOGASTRODUODENOSCOPY (SURG) completed Samanta Santos [address] 6 11:51:29 03/25 Endoscopy completed [facility] [address] 6 15:06:36 resection of intesti ne for interposition completed Perla Bliss RN [address] 4 14:22:35 Cardiovascular Procedure completed Leena Vazquez lpn [address] 5 12:29:33 Imaging Results None recorded. Procedure Notes None recorded. Medical Equipment None Reported. Allergies Allergen ID Allergen Name Allergen Category Reaction Reaction Severity Criticality Documentation Date Start Date Code Code System Note Provider Name and Address Organization Details Recorded Time 43514 Haldol medicatio n Not available Not available Not available 05/21/2017 99578 9 RxNorm Crystal Chadwick dickson [address] 8 15:45:54 Medications Name Sig Start Date Stop Date Status Note LastModified by Organization Details LastModified Time Prescriptio n - New 06/18 completed Not Available Not Available Not Available Miralax 17 gram oral powder packet Take 1 packet every day by oral route. 08/28 completed Not Available Not Available Not Available Miralax 17 gram/dose oral powder Take 17 g every day by oral route as directed for 30 days. 2024 active Not Available Not Available Not Avai lable atorvastati n 40 mg tablet Take 1 tablet every day by oral route. 06/18 completed Not Available Not Available Not Available metformin 500 mg tablet Take 1 tablet twice a day by oral route. 08/28 completed Not Available Not Available Not Available atorvastati n 80 mg tablet Take 1 tablet every day by oral route. 08/28 completed Not Available Not Available Not Available sildenafil 50 mg tablet Take 1 tablet every day by oral route as needed. 08/28 completed Not Available Not Available Not Available azithromyci n 250 mg tablet TAKE 2 TABLETS BY MOUTH ON DAY 1, THEN TAKE 1 TABLET DAILY ON DAYS 2-5 10/07 completed Not Available Not Available Not Available prednisone 20 mg tablet TAKE TWO TABLETS BY MOUTH DAILY 10/07 completed Not Available Not Available Not Available sertraline 100 mg tablet Take 1 tablet every day by oral route as directed. 08/28 completed Not Available Not Available Not Available Biaxin 500 mg tablet Take 1 tablet twice a day by oral route as directed for 14 days. 2015 active Not Available Not Available Not Avai lable metronidazo le 500 mg tablet TAKE 1 TABLET BY MOUTH THREE TIMES DAILY 12/10 completed Not Available Not Available Not Available chlorthalid one 25 mg tablet Take 1 tablet every day by oral route. active Not Available Not Available No t Available Plavix 75 mg tablet Take 1 tablet every day by oral route as directed. 06/18 completed Not Available Not Available Not Available ciprofloxac in 500 mg tablet TAKE 1 TABLET BY MOUTH TWICE DAILY 10/07 completed Not Available Not Available Not Available hydrocodone 10 mg-acetamin ophen 325 mg tablet Take 1 tablet every 4 hours by oral route as needed. 08/28 completed Not Available Not Available Not Available omeprazole 40 mg capsule,del ayed release Take 1 capsule twice a day by oral route as directed for 14 days. 06/18 completed Not Available Not Available Not Available aspirin 81 mg tablet,gabriela yed release Take 1 tablet every day by oral route as directed. active Not Available Not Available No t Available amoxicillin 500 mg tablet Take 2 tablets twice a day by oral route as directed for 14 days. 2015 active Not Available Not Available Not Avai lable Zantac 150 mg tablet Take 1 tablet twice a day by oral route. 06/18 completed Not Available Not Available Not Available tamsulosin 0.4 mg capsule Take 1 capsule every day by oral route. active Not Available Not Available No t Available pantoprazol e 40 mg tablet,gabriela yed release Take 1 tablet twice a day by oral route before meal(s) for 30 days. 2023 active Not Available Not Available Not Avai lable simvastatin 20 mg tablet Take 1 tablet every day by oral route as directed. 06/18 completed Not Available Not Available Not Available ferrous sulfate 325 mg (65 mg iron) tablet Take 1 tablet 3 times a day by oral route as directed. 08/28 completed Not Available Not Available Not Available nitroglycer in 0.[address] 1 tablet by sublingua l route as needed. 2017 active Not Available Not Available Not Avai lable docusate sodium 100 mg capsule Take 1 capsule twice a day by oral route. 08/28 completed Not Available Not Available Not Available gabapentin 300 mg capsule Take 1 capsule 3 times a day by oral route. 08/28 completed Not Available Not Available Not Available magnesium citrate oral solution Take 10 mL every day by oral route as directed for 1 day. 06/18 completed Not Available Not Available Not Available mirtazapine 45 mg tablet Take 1 tablet every day by oral route. 08/28 completed Not Available Not Available Not Available lisinopril 5 mg tablet Take 1 tablet every day by oral route. 08/28 completed Not Available Not Available Not Available hydrochloro thiazide 25 mg tablet Take 1 tablet every day by oral route as needed. 08/28 completed Not Available Not Available Not Available Anusol-HC 25 mg rectal suppository Insert 1 supposito ry twice a day by rectal route as directed for 10 days. 2015 active Not Available Not Available Not Avai lable Celexa 40 mg tablet Take 1 tablet every day by oral route as directed. 06/18 completed Not Available Not Available Not Available amoxicillin 875 mg-potassiu m clavulanate 125 mg tablet TAKE 1 TABLET BY MOUTH TWICE DAILY FOR 10 DAYS 10/07 completed Not Available Not Available Not Available metoprolol tartrate 25 mg tablet Take 1 tablet twice a day by oral route. active Not Available Not Available No t Available finasteride active Not Available Not A vailable Not Available Maalox 08/28 completed Not Available Not Available Not Available MoviPrep 100 gram-7.5 gram-2.691 gram oral powder packet Take 1 packet by oral route. 12/31 completed Not Available Not Available Not Available ascorbic acid (vit C) 1,000 mg-multivit moyer with minerals no.18 tablet Take by oral route. 08/28 completed Not Available Not Available Not Available Suprep Bowel Prep Kit 17.5 gram-3.13 gram-1.6 gram oral solution Take 177 mL twice a day by oral route as directed for 1 day. 12/10 completed Not Available Not Available Not Available calcium carb, citrate-vit D3 active Not Available Not Available Not Available Spiriva Respimat 1.25 mcg/actuati on solution for inhalation Inhale 2 puffs every day by inhalatio n route. active Not Available Not Available No t Available Metamucil 3.4 gram/5.4 gram oral powder Take 1 tbsp every day by oral route as directed. 2023 active Not Available Not Available Not Avai lable Linzess 72 mcg capsule Take 1 capsule every day by oral route before meal(s). 2024 active Not Available Not Available Not Avai lable albuterol 90 mcg-budeson pascual 80 mcg/actuati on HFA aerosol inhaler Inhale by inhalatio n route. active Not Available Not Available No t Available Vitals Date Recorded Body height Oxygen saturation Oxygen saturation in Arterial blood by Pulse oximetry Heart rate Systolic And Diastolic Provider Name and Address Organization Details Last Updated DateTime 5 187.96 cm 96 % 96 % 67 /min 128/72 mm[Hg] Perla Bliss RN [place] - [facility] [place] 5 14:12:45 Date Recorded Body height Body mass index (BMI) Body weight Oxygen saturation Oxygen saturation in Arterial blood by Pulse oximetry Heart rate Systolic And Diastolic Provider Name and Address Organization Details Last Updated DateTime 5 187.96 cm 34.9 kg/m2 046604. 12 g 96 % 96 % 59 /min 117/57 mm[Hg] Perla Bliss RN [place] - [facility] [place] 5 14:37:04 Date Recorded Body height Body temperature Heart rate Oxygen saturation Oxygen saturation in Arterial blood by Pulse oximetry Systolic And Diastolic Provider Name and Address Organization Details Last Updated DateTime 5 187.96 cm 97.2 [degF] 55 /min 93 % 93 % 122/70 mm[Hg] Micheline Hannon LPN [address] 5 15:04:35 Date Recorded Body height Body mass index (BMI) Body weight Heart rate Oxygen saturation Oxygen saturation in Arterial blood by Pulse oximetry Systolic And Diastolic Provider Name and Address Organization Details Last Updated DateTime 4 187.96 cm 34.2 kg/m2 457605. 01 g 54 /min 96 % 96 % 131/85 mm[Hg] Awa Fonseca [address] 4 14:34:31 Date Recorded Body height Body mass index (BMI) Body weight Heart rate Oxygen saturation Oxygen saturation in Arterial blood by Pulse oximetry Systolic And Diastolic Provider Name and Address Organization Details Last Updated DateTime 4 187.96 cm 33.8 kg/m2 044621. 95 g 55 /min 94 % 94 % 131/68 mm[Hg] Micheline Hannon LPN [address] 4 15:30:27 Social History Question Answer Notes LastModified by Organizat ion Details LastModified Time Tobacco Smoking Status Former Smoker quit 2009 Awa Fonseca [facility] [address] 01/30/2024 14:35:12 Are You Blind Or Do You Have Difficulty Seeing? No [email or web address] Information not available 08/28/2024 What Is Your Level Of Caffeine Consumption? Moderate Information not available 08/28/2024 How Much Tobacco Do You Chew? None Information not available 09/18/2016 Are You Deaf Or Do You Have Serious Difficulty Hearing? No Information not available 08/28/2024 What Type Of Diet Are You Following? REGULAR Information not available 09/18/2016 Which Illicit Or Recreational Drugs Have You Used? Denied Information not available 09/18/2016 Have You Directly Handled Bats, Rodents, Or Primates From Ebola Endemic Areas? No [email or web address] Information not available 06/01/2014 Have You Had Contact With Blood, Bodily Fluids, Or Human Remains Of A Patient Known To Have Or Suspected To Have Ebola Virus Disease? No [email or web address] Information not available 06/01/2014 Do You Reside In Or Have You Traveled To An Area Where Ebola Virus Transmission Is Active? No [email or web address] Information not available 06/01/2014 When Did You Quit Smoking? 16+yearssinc elastcigaret te [email or web address] Information not available 08/28/2024 Live Alone Or With Others? Alone [email or web address] Information not available 06/01/2014 Fever (greater Than 38 C Or 100.4 F) No [email or web address] Information not available 06/01/2014 Severe Headache No Informati on not available 07/18/2015 Muscle Pain No [email or web address] Information n ot available 07/18/2015 Weakness No [email or web address] Information no t available 07/18/2015 Diarrhea No [email or web address] Information no t available 07/18/2015 Vomiting No [email or web address] Information no t available 07/18/2015 Abdominal (stomach) Pain No [email or web address] Information not available 07/18/2015 Unexplained Hemorrhage (bleeding Or Bruising) No Information not available 07/18/2015 Marital Status [email or web address] Informatio n not available 06/01/2014 What Was The Date Of Your Most Recent Tobacco Screening? 08/28/2024 [email or web address] Information not available 08/28/2024 What Is Your Current Pack Years? 30ormorepack years [email or web address] Information not available 08/28/2024 At What Age Did You Start Smoking Tobacco? 18 [email or web address] Information not available 02/18/2024 How Much Tobacco Do You Smoke? No Information not available 09/18/2016 General Stress Level Low Information not available 09/18/2016 How Many Years Have You Smoked Tobacco? 46 [email or web address] Information not available 02/18/2024 Do You Have Difficulty Walking Or Climbing Stairs? Yes [email or web address] Information not available 08/28/2024 Sex: Unknown Functional Status Question Answer Note LastModified by Organizat ion Details LastModified Time Do you use any illicit or recreational drugs? No [email or web address] Information not available 02/18/2024 Do you or have you ever used any other forms of tobacco or nicotine? No [email or web address] Information not available 02/18/2024 What is your level of alcohol consumption? None [email or web address] Information not available 06/01/2014 Do you have difficulty doing errands alone? Yes [email or web address] Information not available 08/28/2024 Are you able to care for yourself? Yes [email or web address] Information not available 08/28/2024 Do you have difficulty dressing or bathing? No [email or web address] Information not available 08/28/2024 What is your exercise level? None Information not available 09/18/2016 Mental Status Question Answer Note LastModified by Organization D etails LastModified Time Do you have difficulty concentrating, remembering or making decisions? Yes [email or web address] Information no t available 08/28/2024 Family History Relationship Description Onset Age of this Age Resolved Age Notes LastModified by Organization Details LastModified Time Father Myocardial infarction 68 [email or web address] Not available 09/26 14:13:16 Brother Diabetes mellitus [email or web address] Not available 2015 14:13:16 Sister Diabetes mellitus [email or web address] Not available 2015 14:13:16 Mother Cerebrovascu lar accident [email or web address] Not available 07/2015 14:13:16 Notes:mother had an absess o n her colon Medical History Condition Response ARTHRITIS Y USE OF BLOOD THINNERS Y HEADACHES Y STROKE N DIABETES N HIGH CHOLESTEROL Y COPD Y GASTROINTESTINAL BLEEDING Y HEPATITIS / LIVER DISEASE N ASTHMA N PULMONARY DISEASE Y SEIZURES N BOWEL PROBLEMS Y HAVE YOU BEEN HOSPITALIZED OR SEEN IN [facility] ER IN THE PAST YEAR ? N THYROID DISEASE N ULCERS N ANEMIA Y DIZZINESS Y GERD / HEARTBURN / REFLUX Y HYPERTENSION N ANEMIA/BLOOD DISORDER Y ANEURYSM Y PULMONARY EMBOLISM N HEART DISEASE Y CANCER N Past Encounters Encounter ID Performer Location Encounter Start Date Encounter Closed Date Diagnosis/Indication Diagnosis SNOMED-CT Code Diagnosis ICD10 Code Diagnosis Note [id number] AMBREEN LÓPEZ [facility] [address] [place] [address] 11/24/2013 11:12:42 11/24/2013 16:45:06 Essential hypertension 05255448 Coronary arteriosclerosis 13119757 S/P PCI LAD and RCA [id number] AMBREEN LÓPEZ MD PBPM_Card [facility] [place] [facility] [address] [place] [address] 06/01/2014 12:19:06 06/01/2014 13:06:14 Essential hypertension 08012596 Coronary arteriosclerosis 65111440 S/P PCI LAD and RCA Chest pain 66996747 [id number] AMBREEN LÓPEZ MD PBPM_Card [facility] [place] [facility] [address] [address] [place] [address] 07/22/2014 14:06:04 07/22/2014 17:55:33 Essential hypertension 95004174 Coronary arteriosclerosis 26931003 S/P PCI LAD and RCA Chest pain 09874635 [id number] AMBREEN LÓPEZ MD PBPM_Card [facility] [address] [place] [address] 10/21/2014 14:05:46 11/08/2014 11:34:26 Essential hypertension 84896628 Coronary arteriosclerosis 54658969 S/P PCI LAD and RCA Chest pain 60583904 Obesity 338228200 [id number] AMBREEN LÓPEZ MD PBPM_Card [place] [address] [place] [address] 01/20/2015 14:43:39 02/01/2015 03:47:53 Obesity 027261581 E66.9 Essential hypertension 92585495 I10 Coronary arteriosclerosis 65276318 I25.10 S/P PCI LAD and RCA [id number] AMBREEN LÓPEZ MD PBPM_Card [facility] [address] [place] [address] [place] [address] 04/21/2015 14:05:49 04/23/2015 03:47:52 Coronary arteriosclerosis 90159696 I25.10 S/P PCI LAD and RCA Essential hypertension 48917582 I10 Obesity 945505076 E66.9 Palpitations 17163331 R0 0.2 [id number] Rodrigo Spence MD [facility] [address] [place] [address] 05/30/2015 13:52:35 05/30/2015 18:59:16 Hematochezia 568486342 K92.1 Anemia 123594039 D64.9 [id number] AMBREEN LÓPEZ MD [facility] [address] [place] [address] 06/02/2015 11:34:00 06/03/2015 09:22:37 Palpitations 98156170 R00.2 Chest pain 74242189 R07. 9 Coronary arteriosclerosis 47510762 I25.10 S/P PCI LAD and RCA Hyperlipidemia 42735157 E78.5 Anemia 889833289 D64.9 Essential hypertension 27833832 I10 Obesity 079732725 E66.9 [id number] Rodrigo Spence MD [facility] [address] [place] [address] 07/18/2015 14:11:25 07/19/2015 19:52:19 Constipation 72174864 K59.00 Internal hemorrhoids 904 42350 K64.8 Diverticular disease 397 276286 K57.90 Lightheadedness 63217384 8 R42 Helicobact er-associat ed gastritis 21827163 B96.81 [id number] Rodrigo Spence MD [facility] [address] [place] [address] 08/08/2015 15:40:38 08/08/2015 19:49:31 Injury of small intestine 727686344 S36.409A Diarrhea 08200286 R19.7 Helicobact er-associat ed gastritis 44858022 B96.81 [id number] Rodrigo Spence MD [facility] [address] [place] [address] 08/24/2015 13:29:39 08/24/2015 17:56:38 Hematochezia 956548768 K62.5 Anemia 721633380 D64.9 [id number] AMBREEN LÓPEZ MD [facility] [address] [place] [address] 09/23/2015 13:15:39 10/14/2015 03:48:45 Palpitations 41416846 R00.2 Chest pain 66826495 R07. 9 Coronary arteriosclerosis 14761087 I25.10 S/P PCI LAD and RCA Hyperlipidemia 96100186 E78.5 Anemia 061781025 D64.9 Essential hypertension 24435179 I10 Obesity 691883755 E66.9 [id number] Rodrigo Spence MD [facility] [address] [place] [address] 09/27/2015 13:27:30 09/28/2015 17:25:32 Anemia 952252859 D64.9 [id number] AMBREEN LÓPEZ MD [facility]Card [place] [address] [place] [address] 06/07/2016 11:09:47 06/07/2016 14:35:35 Coronary arteriosclerosis 62890504 I25.10 S/P PCI LAD and RCA Essential hypertension 47076406 I10 Dyspnea on exertion 6084 5006 R06.09 [id number] AMBREEN LÓPEZ MD [facility] [place] [address] [place] [address] 09/18/2016 13:20:18 09/19/2016 08:50:55 Coronary arteriosclerosis 77491656 I25.10 S/P PCI LAD and RCA Essential hypertension 67390746 I10 [id number] AMBREEN LÓPEZ MD [facility]Card [place] [address] [place] [address] 03/28/2017 11:01:05 03/29/2017 08:55:45 Coronary arteriosclerosis 92136489 I25.10 S/P PCI LAD and RCA. Stable Essential hypertension 15624805 I10 Controlled with current medication s. [id number] Rodrigo Spence MD [facility] [address] [place] [address] 05/21/2017 15:16:16 05/22/2017 09:22:18 Gastroesophageal reflux disease 694467911 K21.9 Melena 8816770 K92.1 History of gastrointestinal bleed 322487633 Z87.19 H/o small bowel bleed Diverticular disease 397 537940 K57.90 [id number] Rodrigo Spence MD [facility] [address] [place] [address] 06/18/2017 14:22:44 06/18/2017 19:03:34 Vascular ectasia of gastric antrum 13545633 K31.819 Iron defic iency anemia 24410066 D50.9 Helicobact er-associat ed gastritis 22722597 B96.81 [id number] Rodrigo Spence MD [facility] [address] [place] [address] 07/05/2017 10:17:12 07/05/2017 14:48:33 Anemia 049893110 D64.9 --PCP monitoring per patient Vascular e ctasia of gastric antrum 68730218 K31.819 --EGD 06/19/2017 with argon plasma coagulatio n therapy performed successful ly--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 The patient has been advised to continue current cardiac medication s and life style modificati ons, including following a low fat diet and gentle exercise as tolerated. Dyslipidemia [id number] E 78.5 The patient has been advised to follow a low fat/low cholestero l diet and continue taking statin. The patient's PCP will follow his lipids. [id number] AMBREEN LÓPEZ MD PBPM_Card [facility] [address] [place] [address] [place] [address] 01/30/2018 11:26:29 03/05/2018 09:05:48 Chest pain [id number] R07.9 Patient has been experienci ng chest pain increasing in frequency. Stress test has been scheduled. Coronary arteriosclerosis 10188932 I25.10 abnormal clinical symptoms alvino stress test Dyspnea on exertion 6084 5006 R06.09 Ongoing. Stress test has been scheduled. [id number] AMBREEN LÓPEZ MD PBPM_Card [facility] [address] [place] [address] 02/04/2018 09:33:28 02/17/2018 11:48:02 Pre-surgery evaluation [id number] Z01.818 The patient is cleared for surgery. stress test showed no reversible ischemia Coronary arteriosclerosis 92319617 I25.10 Stable. The patient has been advised to continue current cardiac medication s and life style modificati ons, including following a low fat diet and gentle exercise as tolerated. Dyspnea on exertion 6084 5006 R06.09 Stable. [id number] AMBREEN LÓPEZ MD PBPM_Card [facility] [address] [place] [address] 06/17/2018 11:17:10 06/25/2018 10:45:00 Coronary arteriosclerosis 46204360 I25.10 Stable. The patient has been advised to continue current cardiac medication s and life style modificati ons, including following a low fat diet and gentle exercise as tolerated. Change HCTZ to PRN. Pre-surger y evaluation 343350043 Z01.818 The patient is cleared for surgery. Stress test reviewed with patient and it showed no reversible ischemia. Dyspnea on exertion 6084 5006 R06.09 Ongoing. Will continue to monitor. [id number] AMBREEN LÓPEZ MD PBPM_Card [facility] [address] [place] [address] 10/14/2018 14:53:18 10/17/2018 15:38:18 [id number] CAROL SARABIA [facility] [address] [place] [address] 10/08/2023 13:09:43 10/09/2023 09:32:01 Epigastric pain 77211235 R10.13 Melena 6464610 K92.1 Altered joselo wel function 45440520 R19.4 Diverticulitis 678291012 K57.92 Abdominal pain 56812723 R10.9 [id number] Rodrigo Spence MD [facility] [address] [place] [address] 12/11/2023 15:17:19 12/12/2023 13:20:44 Dysphagia 45077605 R13.10 Hematochezia 027404736 K 92.1 Right uppe r quadrant pain 287109455 R10.11 [id number] Rodrigo Spence MD [facility] [address] [place], [place] [address] 01/01/2024 13:37:17 01/01/2024 15:05:25 Gastroesophageal reflux disease without esophagitis 613529075 K21.9 Nausea and vomiting 1693 1999 R11.2 Altered joselo wel function 80220939 R19.4 Abdominal pain 66603447 R10.9 [id number] Fish Villalta MD [facility] [address] [place] [address] 01/30/2024 13:13:24 01/30/2024 15:00:32 Chronic obstructive pulmonary disease 61467340 J44.9 The patient has shortness of breath on exertion that is chronic and stable. This has been ongoing for the past few years. He is optimized on his inhalers. Will obtain the records from his previous pulmonolog ist. The plan is: 1. Albuterol inhaler 2 puffs every 4 hours as needed for shortness of breath. 2. Wixela inhaler 1 puff twice daily. 3. Spiriva inhaler 2 puffs daily. 4. Follow-up after CT chest, earlier if needed. Patient told to go to the emergency room if symptoms worsen. Solitary n odule of lung 793083635 R91.[address] a [address] abdomen done on June 05, 2023, it showed a 1.2 cm right lung nodule at image #15 series 3. I asked the patient to bring me those images, do not have the report. The patient will undergo a CT chest prior to his next appointmen t with me in the next 2 weeks. I stressed to the patient importance of follow-up, he confirmed understand ing. The plan is: 1. CT chest within the next 2 weeks. [id number] Fish Villalta MD [facility] [address] [place] [address] 02/18/2024 15:10:17 02/18/2024 16:03:57 Chronic obstructive pulmonary disease 56491407 J44.9 The patient has shortness of breath on exertion that is chronic and stable. This has been ongoing for the past few years. He is optimized on his inhalers. Will obtain the records from his previous pulmonolog ist. The plan is:1. Albuterol inhaler 2 puffs every 4 hours as needed for shortness of breath.2. Wixela inhaler 1 puff twice daily.3. Spiriva inhaler 2 puffs daily.4. Follow-up June 2024, earlier if needed. Patient told to go to the emergency room if symptoms worsen. Solitary n odule of lung 977778982 R91.[address] a [address] abdomen done on June 05, 2023, it showed a 1.2 cm right lung nodule at image #15 series 3. He had a CT chest that was done on 02/18/2024 . The right lung nodule appears to be stable compared to a CT chest that the patient brought on CD, it was done on July 09, 2023. The right lung nodule seen on the CT chest done on February 18, 2024 at image #46 measuring 1 cm, is stable on the CT chest done on July 09, 2023 at image #42. Given stability, will repeat CT chest in 6 months from now, if at that time stable, will repeat 1 year afterwards , if at that time stable no need for further follow-up. The plan is:1. CT chest June 2024. 2. Follow-up June 2024. Imaging re sult abnormal [id number] R93.89 CT chest done January 29, 2024 showed multiple findings including a mediastina l duplicatio n cyst. There was also suggestion of aortic valve stenosis, as well as suggestion of liver cirrhosis. I discussed the findings with the patient. I recommende d follow-up with his primary care. [id number] CAROL SARABIA [facility] [address] [place] [address] 06/08/2024 13:47:43 06/10/2024 11:30:57 Biliary dyskinesia 110894415 K82.8 Chronic constipation 236 378495 K59.09 [id number] CAROL SARABIA [facility] [address] [place] [address] 08/28/2024 14:10:36 09/01/2024 13:23:26 Chronic idiopathic constipation 38303836 K59.04 [id number] Fish Villalta MD [facility] [address] [place] [address] 08/28/2024 14:49:45 08/28/2024 15:51:31 Chronic obstructive pulmonary disease 38056911 J44.9 The patient has shortness of breath on exertion that is chronic and stable. This has been ongoing for the past few years. He is optimized on his inhalers. The plan is:1. Albuterol inhaler 2 puffs every 4 hours as needed for shortness of breath.2. Wixela inhaler 1 puff twice daily.3. Spiriva inhaler 2 puffs daily.4. Follow-up March 2025, earlier if needed. Patient told to go to the emergency room if symptoms worsen. Solitary n odule of lung 174725038 R91.[address] a [address] abdomen done on June 05, 2023, it showed a 1.2 cm right lung nodule at image #15 series 3. He had a CT chest that was done on 02/18/2024 . The right lung nodule appears to be stable compared to a CT chest that the patient brought on , it was done on July 09, 2023. The right lung nodule seen on the CT chest done on February 18, 2024 at image #46 measuring 1 cm, is stable on the CT chest done on July 09, 2023 at image #42. CT chest done on August 28, 2024 showed stable findings within the right lung nodule at image #48. The radiology report mentions that there might be some mild increase in this lung nodule size. There is also a new left lung nodule measuring 3 mm at image #17. At this time given this radiology report will repeat CT chest in 6 months which will be March 2025. The plan is:1. CT chest March 2025.2. Follow-up March 2025. Health Concerns Section Related Observation LastModified by Organization Detai ls LastModified Time None Recorded Concern Status LastModified by Organization Details LastModified Time None Recorded Advance Directives Directive None Recorded Payers Insurance Date Sequence Insurance Name Policy Number Policy Saldaña Covered Member ID Saldaña Member ID Guarantor Name 09/18/2024 2 [employer] (MEDICARE SUPPLEMENT) Steph Joyner [id number] Steph Joyner 08/25/2024 1 MEDICARE [place]: [employer] Steph Joyner [id number] Steph Joyner 09/18/2024 [employer] [facility] Steph Joyner [id number] Steph Joyner 06/08/2024 [employer] Steph Joyner [id number] Steph Joyner Notes Date Note Type Note Provider Name and Address Organization Details Recorded Time 4 text/html 78-year-old male patient with a past medical history that significant for COPD who presents for evaluation of lung nodule. The patient mentioned that he is to follow-up with a clipper machine operator in [place], but then he left. The patient today mentioned he has stable shortness of breath on exertion that has been ongoing for the past few years. The patient denies any cough, sputum production, chest pain, fever, chills, rigors, night sweats, or hemoptysis. He was admitted to [facility] in [facility] in May [address] ab the report mentions a right lower lobe nodule measuring 12 mm on series 3 image 15. The patient mentioned that he does have a history of lung nodules and needs to follow-up with a clipper machine operator. Patient is on albuterol inhaler, Spiriva and Wixela. The patient quit smoking he was 63 years old, he smoked for 40 years, 1.5 packs/day. The patient lives alone. Fish Villalta MD [address] [facility], [place], [address], [facility] [place] 01/30/2024 14:58:59 4 text/html 78-year-old male patient with a past medical history that significant for COPD who presents for follow up. He was last seen in office on 01/30/2024. Since I saw the patient last time, he had a CT chest done on February 18, 2024. The patient mentioned that his shortness of breath is at baseline. The patient denies any cough, sputum production, chest pain, fever, chills, rigors, night sweats, or hemoptysis. Patient used to follow-up with a clipper machine operator in [place], but then he left. He was admitted to [facility] in [facility] in May [address] ab the report mentions a right lower lobe nodule measuring 12 mm on series 3 image 15. The patient mentioned that he does have a history of lung nodules. Patient is on albuterol inhaler, Spiriva and Wixela. The patient quit smoking when he was 63 years old, he smoked for 40 years, 1.5 packs/day. The patient lives alone. IMAGING: ---> CT cvhest done on 02/18/2024:1. Solid spiculated nodule in the right lower lobe measuring 1.1 x 0.9 x 0.7 cm. Recommendcorrelation with PET CT and/or biopsy.2. Mediastinal lymphadenopathy could be reactive but could also reflect metastatic disease.3. Emphysema.4. 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 Mild cardiomegaly and tri-vessel coronary disease.7. Suggestion of aortic valve stenosis and ectasia of the ascending aorta to 37.7 mm.8. Suggestion of cirrhosis with portal hypertension manifested by recannulation of theparaumbilical vein and splenomegaly. Fish Villalta MD [facility] [place], [address], [facility] [place] 03/19/2024 16:00:21 5 text/html 78-year-old male presents to clinic for follow-up to discuss abdominal ultrasound and HIDA scan results. HIDA scan revealed biliary dyskinesia. Patient was referred to Dr. Parra to discuss cholecystectomy. Patient states however he would like to be referred to Dr. Hidalgo at [facility]. He continues to report intermittent right upper quadrant pain. He also reports chronic constipation. He states this is not improved since starting Metamucil. I advised patient to start MiraLAX 1 capful daily. He reports a family history of gallbladder disease in his brother. Patient is known to GI clinic and was previously evaluated in 2019. Patient has a history of GAVE syndrome, colonic diverticulosis, H. pylori infection, GERD, iron deficiency anemia, and altered bowel function with diarrhea. Patient was recently diagnosed with diverticulitis in August 2023 and treated in [place]. Patient states he typically has constipation but after being treated for diverticulitis he has not been experiencing 2-4 episodes of watery diarrhea per day. Previous colonoscopy was completed approximately 4 years ago in [facility], report not available. 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 Patient denies family history of esophageal, gastric or colon cancer. He denies tobacco, alcohol or history of drug use. He denies excessive NSAID use. EGD 06/02/2017: Possible short segment Ngo's esophagus. Erythematous streaks distributed in a spoke wheal-like pattern in the gastric antrum suggestive of GAVE syndrome. Patchy small erythema thematous changes found in the second portion of duodenum. No active bleeding identified.Pathology: Stomach biopsy consistent with GAVE syndrome. Negative for H. pylori. GE junction biopsy negative for Ngo's esophagus. Small bowel biopsy revealed duodenitis. Colonoscopy 06/06/2015: Small to moderate size internal hemorrhoids, moderate to severe pandiverticular disease, otherwise normal exam to the TI EGD 12/19/2023: Resistance found at the upper esophageal sphincter. Distal esophageal acid peptic stricture. 20 mm TTS balloon dilation. Mild nonerosive gastritis. Otherwise normal exam to the duodenum.Pathology: GE junction biopsy revealed focal nonspecific acute inflammation, negative for Ngo's esophagus. Stomach biopsy negative for H. pylori. Duodenal biopsy unremarkable.Colonoscopy 12/19/2023: Small internal hemorrhoids. Moderate pandiverticulosis. Otherwise normal exam to the TI.Pathology: Random colon biopsy unremarkable. TI biopsy unremarkableLab studies 12/11/2023: Alpha gal IgE negative, beef IgE negative, pork IgE negative, milk IgE negative, venison IgE negative Abdominal ultrasound 04/14/2024: Normal right upper quadrant ultrasoundHIDA scan 04/14/2024: Normal appearance of tracer in the gallbladder and normal transit of tracer into the CBD, duodenum and small bowel. The gallbladder ejection fraction is 23%. CAROL SARABIA [address] [facility], [place], [address], [facility] [place] 06/08/2024 19:22:15 5 text/html 78-year-old male patient with a past medical history that significant for COPD who presents for follow up. He was last seen in office on 02/18/2024. Patient is accompanied by his daughter Zeinab. Since I saw the patient last time, he had a CT chest done on August 28, 2024. The patient mentioned that his shortness of breath is at baseline. The patient denies any cough, sputum production, chest pain, fever, chills, rigors, night sweats, or hemoptysis. Patient used to follow-up with a clipper machine operator in [place], but then he left. He was admitted to [facility] in [facility] in May [address] ab the report mentions a right lower lobe nodule measuring 12 mm on series 3 image 15. The patient mentioned that he does have a history of lung nodules. Patient is on Albuterol inhaler, Spiriva and Wixela. The patient quit smoking when he was 63 years old, he smoked for 40 years, 1.5 packs/day. The patient lives alone. IMAGING: ---> CT chest on 08/28/2024:No acute cardiopulmonary findings.Possible minimally increased size of the right lower lobe spiculated noduleversus difference in technique. Recommend further evaluation with PET-CT.Stable mediastinal adenopathy. ---> CT chest done on 02/18/2024:1. Solid spiculated nodule in the right lower lobe measuring 1.1 x 0.9 x 0.7 cm. Recommendcorrelation with PET CT and/or biopsy.2. Mediastinal lymphadenopathy could be reactive but could also reflect metastatic disease.3. Emphysema.4. 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 Mild cardiomegaly and tri-vessel coronary disease.7. Suggestion of aortic valve stenosis and ectasia of the ascending aorta to 37.7 mm.8. Suggestion of cirrhosis with portal hypertension manifested by recannulation of theparaumbilical vein and splenomegaly. Fish Villalta MD [address] [facility], [place], [address], [place] [facility] [place] 09/18/2024 08:23:12 5 text/html 78-year-old male presents to clinic for follow-up. Patient states overall he is doing well however he continues to report chronic constipation. He has previously tried and failed MiraLAX, Metamucil, docusate, magnesium citrate, enemas and suppositories. He states he has tried Linzess in the past which did not improve his constipation. Will prescribe Linzess 72 mcg daily. Patient states he is scheduled for a consultation with Dr. Hidalgo at [facility] for biliary dyskinesia. He reports a family history of gallbladder disease in his brother. Patient is known to GI clinic and was previously evaluated in 2019. Patient has a history of GAVE syndrome, colonic diverticulosis, H. pylori infection, GERD, iron deficiency anemia, and altered bowel function with diarrhea. Patient was recently diagnosed with diverticulitis in August 2023 and treated in [place]. Patient states he typically has constipation but after being treated for diverticulitis he has not been experiencing 2-4 episodes of watery diarrhea per day. Previous colonoscopy was completed approximately 4 years ago in [facility], report not available. 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 Patient denies family history of esophageal, gastric or colon cancer. He denies tobacco, alcohol or history of drug use. He denies excessive NSAID use. EGD 06/02/2017: Possible short segment Ngo's esophagus. Erythematous streaks distributed in a spoke wheal-like pattern in the gastric antrum suggestive of GAVE syndrome. Patchy small erythema thematous changes found in the second portion of duodenum. No active bleeding identified.Pathology: Stomach biopsy consistent with GAVE syndrome. Negative for H. pylori. GE junction biopsy negative for Ngo's esophagus. Small bowel biopsy revealed duodenitis. Colonoscopy 06/06/2015: Small to moderate size internal hemorrhoids, moderate to severe pandiverticular disease, otherwise normal exam to the EGD 12/19/2023: Resistance found at the upper esophageal sphincter. Distal esophageal acid peptic stricture. 20 mm TTS balloon dilation. Mild nonerosive gastritis. Otherwise normal exam to the duodenum.Pathology: GE junction biopsy revealed focal nonspecific acute inflammation, negative for Ngo's esophagus. Stomach biopsy negative for H. pylori. Duodenal biopsy unremarkable.Colonoscopy 12/19/2023: Small internal hemorrhoids. Moderate pandiverticulosis. Otherwise normal exam to the TI.Pathology: Random colon biopsy unremarkable. TI biopsy unremarkableLab studies 12/11/2023: Alpha gal IgE negative, beef IgE negative, pork IgE negative, milk IgE negative, venison IgE negative Abdominal ultrasound 04/14/2024: Normal right upper quadrant ultrasoundHIDA scan 04/14/2024: Normal appearance of tracer in the gallbladder and normal transit of tracer into the CBD, duodenum and small bowel. The gallbladder ejection fraction is 23%. Impression:1. History of dysphagia, resolved--Esophageal dilation . Biliary dyskinesia--Referred to general surgery3. GERD--Protonix 40mg BID4. Abdominal bloating5. Chronic idiopathic constipation, previously improved with Linzess--Has failed miralax, metamucil, docusate, mag citrate, suppositories and enemas6. History of diverticulitis in August 2023, treated with antibiotics7. History of iron deficiency anemia secondary to recurrent GI bleed8. History of small bowel AVM, status post small bowel resection9. No family history of esophageal, gastric or colon cancerRecommendation:1. Follow up with general surgery2. Start Linzess 72mcg daily3. Continue Protonix 40mg BID4. Antireflux precautions5. Low FODMAP diet6. Follow-up in 6 weeks CAROL SARABIA [address] [place], [address], [facility] [place] 08/28/2024 15:39:32
--- NOTE | 2024-10-10 21:11 | XRR_ITS ---
PROCEDURE INFORMATION: Exam: XR Left Hand Exam date and time: 10/10/2024 9:22 PM Age: 79 years old Clinical indication: Injury or trauma; Other: Puncture; Finger; Patient drove a drill bit through base of left thumb. TECHNIQUE: Imaging protocol: Radiologic exam of the left hand. Views: 3 or more views. COMPARISON: No relevant prior studies available. FINDINGS: Bones/joints: Diffuse osteoarthritis. Soft tissues: Posttraumatic swelling of the 1st digit. No retained radiopaque foreign body. XR/XR hand LT min 3V* [id number] IMPRESSION: 1. Posttraumatic swelling of the 1st digit. 2. No acute osseous abnormality. 3. No retained radiopaque foreign body.
[2024-10-10] MEDS: tetanus-dipt-pertussis 0.5 mL SDV IM (22:13)
--- NOTE | 2024-10-10 22:30 | PC.NURSE ---
wound flushed out with 4 NS flushes. dressed with non adherent dressing and 4x4 and secured with coban. patient tolerated well.
[2024-10-10 23:05] VITALS: BP 185/92; PULSE 72; RESP 18; O2SAT 95
--- NOTE | 2024-10-11 00:41 | W.ED.WOUNDLC ---
HPI - Wound/Laceration General: Chief Complaint: Wound/Laceration Stated Complaint: drill bit through the thumb Time Seen by Provider: 10/10/24 20:31 Source: patient Mode of arrival: ambulatory Limitations: no limitations History of Present Illness: Patient is an 79-year-old male who presents after accidentally injuring himself with a drill bit. He states that he drilled a little bit into his left thumb, it caused bleeding that he has controlled prehospital with direct pressure. Tetanus not up-to-date. No pain or other symptoms reported at this time. Strength intact, sensations intact. Onset (ago): minute(s) Extremity Location: Left: hand (Thumb) Place: home Patient tetanus UTD: No Context: accidental Associated symptoms: Denies chills, fever(s), nausea or vomiting Related Data Home Medications ?Medication ?Instructions ?Recorded ?Confirmed aspirin 81 mg tablet,delayed 81 mg PO QAM 04/07/19 07/01/24 release (Adult Low Dose Aspirin) mirtazapine 45 mg tablet 45 mg PO BEDTIME 04/07/19 07/01/24 sertraline 100 mg tablet 100 mg PO QAM 04/07/19 07/01/24 atorvastatin 80 mg tablet 40 mg PO BEDTIME 04/14/19 07/01/24 pantoprazole 40 mg tablet,delayed 40 mg PO DAILY 04/14/19 07/01/24 release hydrocodone 10 mg-acetaminophen 1 tab PO QID PRN Pain 03/16/20 07/01/24 325 mg tablet chlorthalidone 25 mg tablet 25 mg PO QAM 12/09/20 07/01/24 cholecalciferol (vitamin D3) 50 50 mcg PO DAILY 12/09/20 07/01/24 mcg (2,000 unit) capsule (Vitamin D3) polyethylene glycol 3350 17 17 g PO BEDTIME 12/09/20 07/01/24 gram/dose oral powder (Miralax) tamsulosin 0.4 mg capsule 0.4 mg PO BID 12/09/20 07/01/24 gabapentin 300 mg capsule 300 mg PO BID .COMPLEX 11/09/21 07/01/24 metformin 500 mg tablet See Rx Instructions .Route .COMPLEX 06/18/22 07/01/24 ascorbic acid (vitamin C) 500 mg 500 mg PO DAILY 08/11/23 04/09/25 tablet (Vitamin C) calcium carbonate 500 mg PO DAILY 11/02/22 07/01/24 cyanocobalamin (vitamin B-12) 50 25 mcg PO DAILY 11/02/22 07/01/24 mcg tablet omega 9-jks-bdi-fish oil 60 mg-90 1 cap PO DAILY 11/02/22 07/01/24 mg-500 mg capsule (Fish Oil) Previous Rx's ?Medication ?Instructions ?Recorded tiotropium bromide 18 mcg capsule 1 cap inhalation DAILY #30 08/16/21 with inhalation device (Spiriva inhalations with HandiHaler) fluticasone 250 mcg-salmeterol 50 1 inh inhalation BID #60 ea 10/23/21 mcg/dose blistr powdr for inhalation (Wixela Inhub) finasteride 5 mg tablet 5 mg PO QAM #90 tabs 05/03/22 Custom Copolymer inserts 1 Pair #1 ea 07/31/22 albuterol sulfate 90 mcg/actuation 2 inh inhalation Q4H PRN shortness 12/22/22 aerosol inhaler of breath or wheezing #18 grams Diabetic shoes #1 ea 07/01/24 cephalexin 500 mg capsule 500 mg PO QID 5 days #20 caps 10/10/24 Allergies Allergy/AdvReac Type Severity Reaction Status Date / Time haloperidol (From Haldol) Allergy NA Verified 07/01/24 10:18 potassium chloride Allergy Vomiting Verified 07/01/24 10:18 Review of Systems General: Reports: 10 or more systems reviewed and unremarkable except in HPI and below Const: Denies: fever(s) or chills Card: Denies: chest pain Resp: Denies: dyspnea GI: Denies: abdominal pain, nausea, vomiting or diarrhea Musc: Denies: extremity pain or joint pain Skin/Breast: Reports: new lesions (Laceration/puncture wound left thumb); Denies: rash, skin pain or skin tenderness Neuro: Denies: headache(s) PFSH ED PFSH: Medical History Anemia Presence of arterial stent COPD (chronic obstructive pulmonary disease) Osteoarthritis PTSD (post-traumatic stress disorder) GERD (gastroesophageal reflux disease) CAD (coronary artery disease) Mixed hyperlipidemia Hypertension Bilateral carotid artery stenosis H/O: GI bleed Benign prostatic hyperplasia with lower urinary tract symptoms Surgical History S/P small bowel resection Family History Family/Other Diabetes CAD (coronary artery disease) Cancer Father , at age 98 Congestive heart failure (CHF) CAD (coronary artery disease) Mother , at age 80 Stroke Brother Diabetes Sister Diabetes Denies family history of Clotting disorder Dementia Chronic kidney disease (CKD) Suicide Anesthesia complication Bleeding disorder Lung disease Social History Smoking and tobacco/nicotine status: former use of tobacco/nicotine Quit status (tobacco/nicotine): has quit using Year quit tobacco: 2012 Former quit date comment: 1.5 ppd X 52 years Second hand smoke exposure: Yes Alcohol intake: never Substance/Drug Use: never Adopted: No Marital status: Current occupational status: retired Physical Exam Const: COMMON NORMALS: no acute distress, average body habitus, patient oriented x3, no limitations, healthy appearing, alert and well nourished HENMT: COMMON NORMALS: normocephalic and atraumatic HEAD & SCALP: normocephalic and atraumatic Neck/C-Spine: COMMON NORMALS: full ROM, no lymphadenopathy, supple and no meningeal signs Resp: COMMON NORMALS: normal respiratory effort, No use of accessory muscles and clear to auscultation bilaterally AUSCULTATION: clear to auscultation bilaterally Cardio: COMMON NORMALS: regular rate and regular rhythm RATE: regular rate RHYTHM: regular rhythm Extremity: COMMON NORMALS: full ROM and capillary refill normal NARRATIVE EXTREMITY EXAM: Sensations intact to left thumb, no weakness or strength deficit Neuro: COMMON NORMALS: patient oriented x3 SENSORIUM/ORIENTATION: Yes alert MENINGEAL SIGNS: Yes no meningeal signs Skin: COMMON NORMALS: no wounds and turgor normal NARRATIVE SKIN EXAM: Superficial, nonbleeding 1 cm laceration at webspace between the left 1st and 2nd digit. No foreign body or contamination. GENERAL SKIN EXAM: turgor normal Course Vital Signs: Vital signs: Vital Signs Temperature 98.0 F 10/10/24 19:43 Pulse Rate 72 10/10/24 23:05 Respiratory Rate 18 10/10/24 23:05 Blood Pressure 185/92 10/10/24 23:05 Pulse Oximetry 95 10/10/24 23:05 Oxygen Delivery Me thod Room Air 10/10/24 19:43 MDM - Wound/Laceration Medical Decision Making The puncture wound does not appear to require procedural closure, the x-ray was negative. Being that is a puncture wound, will treat with antibiotics and his tetanus is updated. There were no concerning physical exam findings he will be discharged at this time. Lab Data Radiology Impressions Hand X-Ray 10/10/24 21:11 IMPRESSION: 1. Posttraumatic swelling of the 1st digit. 2. No acute osseous abnormality. 3. No retained radiopaque foreign body. No radiology studies performed this visit Discharge Plan Discharge Patient Disposition: Home Clinical Impression: Puncture wound of left thumb Condition: Stable Prescriptions: New cephalexin 500 mg capsule 500 mg PO QID 5 Days Qty: 20 0RF No Action atorvastatin 80 mg tablet 40 mg PO BEDTIME pantoprazole 40 mg tablet,delayed release (DR/EC) 40 mg PO DAILY gabapentin 300 mg capsule 300 mg PO BID Rx Instructions: 1 tab qam and 3 tab qpm sertraline 100 mg tablet 100 mg PO QAM aspirin [Adult Low Dose Aspirin] 81 mg tablet,delayed release (DR/EC) 81 mg PO QAM mirtazapine 45 mg tablet 45 mg PO BEDTIME hydrocodone-acetaminophen 10-325 mg tablet 1 tab PO QID PRN (Reason: Pain) Spiriva with HandiHaler 18 mcg capsule, w/inhalation device 1 cap inhalation DAILY Qty: 30 3RF Rx Instructions: puncture 1 cap using device; one dose = 2 inhalations metformin 500 mg tablet See Rx Instructions .ROUTE .COMPLEX Rx Instructions: 250 mg orally in the morning and 250 mg in the evening fluticasone propion-salmeterol [Wixela Inhub] 250-50 mcg/dose blister with device 1 inh inhalation BID Qty: 60 3RF (DME) Custom Copolymer inserts 1 Pair See Rx Instructions .Route .MEDSUPPLY Qty: 1 0RF Rx Instructions: As directed (DME) Diabetic shoes See Rx Instructions .ROUTE .MEDSUPPLY Qty: 1 0RF Rx Instructions: With 3 pairs of inserts finasteride 5 mg tablet 5 mg PO QAM Qty: 90 3RF polyethylene glycol 3350 [Miralax] 17 gram/dose Powder 17 g PO BEDTIME cholecalciferol (vitamin D3) [Vitamin D3] 50 mcg (2,000 unit) Capsule 50 mcg PO DAILY chlorthalidone 25 mg tablet 25 mg PO QAM tamsulosin 0.4 mg capsule 0.4 mg PO BID albuterol sulfate 90 mcg/actuation HFA aerosol inhaler 2 inh INHALATION Q4H PRN (Reason: shortness of breath or wheezing) Qty: 18 0RF cyanocobalamin (vitamin B-12) 50 mcg Tablet 25 mcg PO DAILY calcium carbonate 500 mg calcium (1,250 mg) Tablet 500 mg PO DAILY Rx Instructions: IN EVENING ascorbic acid (vitamin C) [Vitamin C] 500 mg Tablet 500 mg PO DAILY omega 3-osr-vnv-fish oil [Fish Oil] 60-90-500 mg Capsule 1 cap PO DAILY Discharge Orders: Discharge ED (Routine); Ordered 10/10/24 Ordered By: Rafi Bains Referrals: Shawna England MD [Primary Care Provider, [facility]] Patient Instructions: Pain Management, Patient Portal & Prerna Instructions Activity Restrictions/Additional Instructions: Puncture Wound Discharge Discharge Instructions: Puncture Wound to Left Thumb Wound Care at Home - Keep the wound clean and covered: Change the dressing daily or if it becomes wet or dirty. Wash hands before and after touching the wound. Clean the area gently with soap and water; tap water is as effective as sterile saline for wound cleansing. - Do not use hydrogen peroxide or iodine: These can delay healing and are not more effective than water or saline. - Keep the wound dry for the first 24 hours: After that, it is safe to get the wound wet briefly during handwashing or showering, but avoid soaking (e.g., no swimming or dishwashing with the affected hand). - Monitor for signs of infection: Redness, swelling, warmth, pus, or increasing pain may indicate infection. Medications - Cephalexin 500 mg by mouth four times daily: Take as prescribed. Complete the full course even if the wound appears to be healing. This antibiotic is being used as a precaution due to the nature of the injury and location (hand puncture wounds are at higher risk for infection). - Pain control: Use acetaminophen or ibuprofen as needed for pain, unless otherwise instructed. Tetanus Immunization - Tetanus vaccine was updated in the emergency department. No further action is needed unless otherwise instructed. Activity - Elevate the hand: Keep the hand elevated above heart level as much as possible for the next 24?48 hours to reduce swelling. - Limit use: Avoid heavy use of the injured hand until cleared by a healthcare provider. Return Precautions Return to the emergency department or contact your healthcare provider if you experience any of the following: - Increasing redness, swelling, or warmth around the wound - Pus or foul-smelling drainage - Fever or chills - Severe or worsening pain - Numbness, tingling, or inability to move the thumb - Red streaks spreading from the wound up the hand or arm Follow-Up - If there is no improvement in 48 hours, or if symptoms worsen, seek medical attention promptly. Additional Notes - If you have a history of allergies to cephalexin or other antibiotics, or develop a rash, difficulty breathing, or swelling of the face or throat, stop the medication and seek emergency care. These instructions are based on current best practices for wound care, infection prevention, and tetanus prophylaxis as recommended by the [employer], the [place] [employer], the [employer] Society of Emergency Surgery, and the CDC. Print Language: Estonian Coding Level of Care Code ED Information [employer]
== END 2024-10-10 22:45 | disposition home or self-care (01) ==
PROVIDERS: Emergency Provider Physician Assistant; PCP Family Medicine
DX: S61.032A Puncture wound without foreign body of left thumb without damage to nail, initial encounter (principal); J44.9 Chronic obstructive pulmonary disease, unspecified; E78.2 Mixed hyperlipidemia; I25.10 Atherosclerotic heart disease of native coronary artery without angina pectoris; I10 Essential (primary) hypertension; Z87.891 Personal history of nicotine dependence; W29.8XXA Contact with other powered hand tools and household machinery, initial encounter; Z23 Encounter for immunization; Z79.82 Long term (current) use of aspirin; Z79.899 Other long term (current) drug therapy; Z79.84 Long term (current) use of oral hypoglycemic drugs
CPT/HCPCS: 73130; 90471; 90715; 99283; J9999

== ENCOUNTER 2024-12-27 11:27 | Emergency (ER) | payer OTHER, SELFPAY ==
--- OUTSIDE RECORDS SUMMARY | 2024-12-27 11:37 | XMS_ITS | Clinical Summary ---
Author Organization [facility] Sun Number, [facility] Address [address] [place] [address] Phone Care Team Providers Care Senior Category Manager Name Role Phone Jadiel Chance MD Primary Care Provider [phone] Allergies Active Allergy Reactions Criticality Noted Date [...] complete this topic Insurance Veterans Care Teams Senior Category Manager Relationship Specialty Start Date End Date Jadiel Chance MD [address] [facility] [place] [address] PCP - General Internal Medicine 05/14/19
--- OUTSIDE RECORDS SUMMARY | 2024-12-27 11:37 | XMS_ITS | Encounter Summary ---
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 [address] Phone: tel: fax: Referral ID Status Reason Start Date Expiration Date V isits Requested Visits Authorized [id number] Closed [facility] CTS to Schedule 12/28/2019 01/27/2021 1 1 Encounter Details Date Type Department Care Team (Late st Contact Info) Description 12/28/2019 Ancillary Orders [facility] Pre-Registration [place] CALL TO MAKE APPOINTMENT ONLY [address] [place] [address] Ezra Craft MD [address] [address] AVM (arteriovenous malformation) of small [...] (chronic) documented in this encounter Care Teams Manufacturing Industrial Engineer Relationship Specialty Start Date End Date Jadiel Chance MD [address] [place] [facility] [place] [address] PCP - General Internal Medicine 12/30/19 documented as of this encounter
--- OUTSIDE RECORDS SUMMARY | 2024-12-27 11:37 | XMS_ITS | Patient Health Record ---
Author Organization [facility] Address [address] [place] [address] Care Team Providers Care Crisis Worker Name Role Phone Shawna Shea MD Primary Care Provider Amie MendezTayoBerna Unavailable [phone] Payton Rudy Unavailable [phone] Juan Steiner Unavailable [phone] Results Component Value Reference Range Flag Notes Schedule Confirmation (Not y et reviewed by provider) Interpretation: Performing Lab: Notes/Report: MRI Lumbar Spine w/o Cont Schedule Confirmation (Not y et reviewed by provider) Interpretation: Performing Lab: Notes/Report: MRI Lumbar Spine w/o Cont IMH MRI Lumbar Spine w/o Con [id number] Reviewed date:10/14/2024 02:42:02 PM Interpretation: Performing Lab: Notes/Report: See Below For Report MRI Lumbar Spine w/o Cont Stephie Ibrahim 09/07/2024 09:05:31 AM CDT > [facility] Current Read See Below For Report Schedule Confirmation (Not y et reviewed by provider) Interpretation: Performing Lab: Notes/Report: MRI Lumbar Spine w/o Cont Schedule Confirmation (Not y et reviewed by provider) Interpretation: Performing Lab: Notes/Report: MRI Lumbar Spine w/o Cont Tox Results Reviewed date:11/10/2024 02:56:08 PM Interpretation: Performing Lab: Notes/Report: Urine Confirmation Panel (in strument) - [id number] Reviewed date:11/10/2024 01:27:10 PM Interpretation: Performing Lab: Notes/Report: 6-Acetylmorphine 0 <6 ng/mL N This alejandro t was developed and its performance characteristics determined by [facility]. It has not been cleared or approved by the U.S. Food and Drug Administration. 7-Aminoclonazepam 0 <60 ng/mL N This te st was developed and its performance characteristics determined by [facility]. It has not been cleared or approved by the U.S. Food and Drug Administration. Alprazolam 0 <60 ng/mL N This test was developed and its performance characteristics determined by [facility]. It has not been cleared or approved by the U.S. Food and Drug Administration. Amphetamine 0 <75 ng/mL N This test was developed and its performance characteristics determined by [facility]. It has not been cleared or approved by the U.S. Food and Drug Administration. aOH-Alprazolam 0 <60 ng/mL N This test was developed and its performance characteristics determined by [facility]. It has not been cleared or approved by the U.S. Food and Drug Administration. Buprenorphine 0.0 <7.5 ng/mL N This test w as developed and its performance characteristics determined by [facility]. It has not been cleared or approved by the U.S. Food and Drug Administration. Norbuprenorphine 0.0 <37.5 ng/mL N This te st was developed and its performance characteristics determined by [facility]. It has not been cleared or approved by the U.S. Food and Drug Administration. Carisoprodol 0 <75 ng/mL N This test wa s developed and its performance characteristics determined by [facility]. It has not been cleared or approved by the U.S. Food and Drug Administration. Codeine 0 <75 ng/mL N This test was developed and its performance characteristics determined by [facility]. It has not been cleared or approved by the U.S. Food and Drug Administration. EDDP 0 <75 ng/mL N This test was developed and its performance characteristics determined by [facility]. It has not been cleared or approved by the U.S. Food and Drug Administration. Fentanyl 0 <6 ng/mL N This test was developed and its performance characteristics determined by [facility]. It has not been cleared or approved by the U.S. Food and Drug Administration. Hydrocodone 2171 <75 ng/mL H This test was developed and its performance characteristics determined by [facility]. It has not been cleared or approved by the U.S. Food and Drug Administration. Hydromorphone 499 <75 ng/mL H This test w as developed and its performance characteristics determined by [facility]. It has not been cleared or approved by the U.S. Food and Drug Administration. Lorazepam 0 <60 ng/mL N This test was developed and its performance characteristics determined by [facility]. It has not been cleared or approved by the U.S. Food and Drug Administration. MDMA 0 <75 ng/mL N This test was developed and its performance characteristics determined by [facility]. It has not been cleared or approved by the U.S. Food and Drug Administration. Meperidine 0.0 <37.5 ng/mL N This test was developed and its performance characteristics determined by [facility]. It has not been cleared or approved by the U.S. Food and Drug Administration. Meprobamate 0 <75 ng/mL N This test was developed and its performance characteristics determined by [facility]. It has not been cleared or approved by the U.S. Food and Drug Administration. Methamphetamine 0 <75 ng/mL N This test was developed and its performance characteristics determined by [facility]. It has not been cleared or approved by the U.S. Food and Drug Administration. Methadone 0 <75 ng/mL N This test was developed and its performance characteristics determined by [facility]. It has not been cleared or approved by the U.S. Food and Drug Administration. Morphine 0 <75 ng/mL N This test was developed and its performance characteristics determined by [facility]. It has not been cleared or approved by the U.S. Food and Drug Administration. Nordiazepam 0 <60 ng/mL N This test was developed and its performance characteristics determined by [facility]. It has not been cleared or approved by the U.S. Food and Drug Administration. Norfentanyl 0 <6 ng/mL N This test was developed and its performance characteristics determined by [facility]. It has not been cleared or approved by the U.S. Food and Drug Administration. Normeperidine 0.0 <37.5 ng/mL N This test was developed and its performance characteristics determined by [facility]. It has not been cleared or approved by the U.S. Food and Drug Administration. O-desmethyltramadol 0 <75 ng/mL N This test was developed and its performance characteristics determined by [facility]. It has not been cleared or approved by the U.S. Food and Drug Administration. Oxazepam 0 <60 ng/mL N This test was developed and its performance characteristics determined by [facility]. It has not been cleared or approved by the U.S. Food and Drug Administration. Oxycodone 0.0 <37.5 ng/mL N This test was developed and its performance characteristics determined by [facility]. It has not been cleared or approved by the U.S. Food and Drug Administration. Oxymorphone 0 <75 ng/mL N This test was developed and its performance characteristics determined by [facility]. It has not been cleared or approved by the U.S. Food and Drug Administration. Phencyclidine 0.0 <7.5 ng/mL N This test w as developed and its performance characteristics determined by [facility]. It has not been cleared or approved by the U.S. Food and Drug Administration. Tapentadol 0.0 <37.5 ng/mL N This test was developed and its performance characteristics determined by [facility]. It has not been cleared or approved by the U.S. Food and Drug Administration. Temazepam 0 <60 ng/mL N This test was developed and its performance characteristics determined by [facility]. It has not been cleared or approved by the U.S. Food and Drug Administration. Tramadol 0 <75 ng/mL N This test was developed and its performance characteristics determined by [facility]. It has not been cleared or approved by the U.S. Food and Drug Administration. Norhydrocodone 3129 <75 ng/mL H This test was developed and its performance characteristics determined by [facility]. It has not been cleared or approved by the U.S. Food and Drug Administration. Noroxycodone 0 <38 ng/mL N This test wa s developed and its performance characteristics determined by [facility]. It has not been cleared or approved by the U.S. Food and Drug Administration. Pregabalin 0 <225 ng/mL N This test was developed and its performance characteristics determined by [facility]. It has not been cleared or approved by the U.S. Food and Drug Administration. Gabapentin >51894 <225 ng/mL > This test was developed and its performance characteristics determined by [facility]. It has not been cleared or approved by the U.S. Food and Drug Administration. Benzoylecgonine 0.0 <37.5 ng/mL N This alejandro t was developed and its performance characteristics determined by [facility]. It has not been cleared or approved by the U.S. Food and Drug Administration. 4-Hydroxy Xylazine 0 <25 ng/mL N This t est was developed and its performance characteristics determined by [facility]. It has not been cleared or approved by the U.S. Food and Drug Administration. Urine Drug Screen (cup read) - [id number] Reviewed date:11/05/2024 03:31:34 PM Interpretation: Performing Lab: Notes/Report: OPI + OXY + MRI Lumbar Spine w/o [id number] Reviewed date:10/14/2024 02:41:53 PM Interpretation: Performing Lab: Notes/Report: [id number] Reason For Referral No Information Medications Medication SIG (Take, Route, Frequency, Duration) Notes Start Date End Date Status HYDROcodone-Acetamin ophen 10-325 MG Tablet 1 Tablet Orally every 6 hrs; Duration: 30 days As needed Not to exceed 4 per day Fill on 12-15-2024 due to Shipping 12/15/2024 01/14/2025 Active Problems Problem Type SNOMED Code ICD Code Onset Dates Problem Status W/U Status Risk Notes Problem Chronic pain syndrome (147492565) Chronic pain syndrome (G89.4) Active confirmed Problem 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) (52182650) Spondylosis without myelopathy or radiculopathy, lumbosacral region (M47.817) Active confirmed Problem Generalized osteoarthritis (896919869) Generalized osteoarthritis (M15.9) Active confirmed Problem Obesity (956030033) Obesity (E66.9) Active confirmed Problem Abnormal gait (58949017) Abnormality of gait and mobility (R26.9) Active confirmed Vital Signs Weight-kg 120.2 kg 11/05/2024 Weight 265 lbs 11/05/2024 Encounters Encounter Location Date Provider Diagnosis [facility] [place] [address] [place] [address] 09/04/2024 Rudy Cain Chronic pain syndrom e G89.4 ; Spondylosis without myelopathy or radiculopathy, lumbosacral region M47.817 ; Generalized osteoarthritis M15.9 ; Abnormality of gait and mobility R26.9 ; Obesity E66.9 and oysterman current use of opioid Z79.891 [facility] [place] [address] [place] [phone] 10/14/2024 Rudy Zainabdanebrandi Chronic pain syndrom e G89.4 ; Spondylosis without myelopathy or radiculopathy, lumbosacral region M47.817 ; Generalized osteoarthritis M15.9 ; Abnormality of gait and mobility R26.9 ; Obesity E66.9 and senior living current use of opioid Z79.891 [facility] [place] [address] [place] [address] 11/05/2024 Berna Mendez Chronic pain syndrom e G89.4 ; Spondylosis without myelopathy or radiculopathy, lumbosacral region M47.817 ; Generalized osteoarthritis M15.9 ; Abnormality of gait and mobility R26.9 ; Obesity E66.9 and oysterman current use of opioid Z79.891 [facility] [address] [address] 11/05/2024 Rudy Cain Spondylosis without myelopathy or radiculopathy, lumbosacral region M47.817 [facility] [address] [address] 12/07/2024 Juan Jatin Spondylosis without myelopathy or radiculopathy, lumbosacral region M47.817 Assessments Encounter Date Diagnosis (ICD Code) Assessment [...] 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 He did get the MRI completed after we saw him at his last visit. He does have some facet arthropathy, but no severe stenosis. We discussed diagnostic LMBBs and rhizotomies, if successful. He says he would like to hold off for right now. We will continue a dialogue about this and follow up with him in about 1 month, and proceed accordingly. We will take over prescribing his hydrocodone at this point. 11/05/2024 Chronic pain syndrome (ICD-10 - G89.4) I had a nice discussion with the patient today regarding his chronic pain complaints. He continues with lower back pain as well as multiple joint pain. We did discuss interventional procedures again today including medial branch blocks and rhizotomies. I did review his lumbar MRI with him again today. The patient defers any interventional procedures stating he has tried them on before and they never really helped him much. He states he is doing very well on his current medication regimen and prefers to just stick with this as he knows that is what works. The patient states that he stays on his schedule and goes to bed every night at 7:00 after the wheel of [employer] and wakes up every morning at 430. He states his daddy did this and lived until he was 98. He denies any other changes in his health since we last seen him or any untoward side effects of the medication. I did discuss lifestyle modifications as well as a bowel regimen. He will continue his medication at present level and return to clinic in 2 months to monitor for treatment effectiveness and compliance. The patient continues with chronic pain requiring treatment to help restore function and improve quality of life. Risks of opioid therapy as well as interaction of opioids with alcohol, illicit drugs, muscle relaxers, and other sedative medications are reviewed briefly with patient again today. The patient has trialed all other reasonable treatment options and uses the medication to alleviate pain in order to remain active and rest with less pain. No clinically relevant medication side effects are noted. Last UDS and [place] SHADE MAKER reviewed today. Patient is advised that best long-term goals include increased activity, core strengthening, proper weight management, coping strategies, avoidance of painful triggers, and targeted interventional therapy. We will see the patient for routine follow up in accordance with all clinic policies. We did remind patient today of current guidelines to decrease opioid when possible. We will continue to stress nonopioid treatment. RECOMMEND URINE TESTING TODAY Urine drug screening will be performed today to monitor compliance with opioid therapy or to serve as a baseline screen for a patient who may be a candidate for opioid therapy in the future, pending UDS results. We will monitor with in-office testing (rapid testing) today and review the results prior to dispensing prescription. All positive results will be sent for quantitative analysis to ensure accuracy and quantify amounts. Any expected positive results that return negative will also be sent for quantitative analysis. Any questionable read or any medication we cannot test for in the office confidently will be sent for quantitative analysis, as well. Patient has been made aware of this policy and agrees to abide by our urine testing policy. 11/05/2024 Spondylosis without myelopathy or radiculopathy, lumbosacral region (ICD-10 - M47.817) 12/07/2024 Spondylosis without myelopathy or radiculopathy, lumbosacral region (ICD-10 - M47.817) 11/05/2024 Spondylosis without myelopathy or radiculopathy, lumbosacral region (ICD-10 - M47.817) 10/14/2024 Spondylosis without myelopathy or radiculopathy, lumbosacral region (ICD-10 - M47.817) 09/04/2024 Generalized osteoarthritis (ICD-10 - M15.9) 10/14/2024 Generalized osteoarthritis (ICD-10 - M15.9) 11/05/2024 Generalized osteoarthritis (ICD-10 - M15.9) 09/04/2024 Abnormality of gait and mobility (ICD-10 - R26.9) 10/14/2024 Abnormality of gait and mobility (ICD-10 - R26.9) 09/04/2024 Obesity (ICD-10 - E66.9) 11/05/2024 Abnormality of gait and mobility (ICD-10 - R26.9) 10/14/2024 Obesity (ICD-10 - E66.9) 09/04/2024 senior living current use of opioid (ICD-10 - Z79.891) 11/05/2024 Obesity (ICD-10 - E66.9) 10/14/2024 oysterman current use of opioid (ICD-10 - Z79.891) 11/05/2024 senior living current use of opioid (ICD-10 - Z79.891) 09/04/2024 Other I, Mariah Soares, jakob scribing for Dr. Cain. I, Dr. Cain, personally performed the services described in this documentation, as scribed by Mariah Soares, and it is both accurate and complete. 10/14/2024 Other Jonh, TREVER Dang, jakob scribing for Dr. Rudy Cain. I, Dr. Rudy Cain, personally performed the services described in this documentation, as scribed by TREVER Dang, and it is both accurate and complete. Plan Of Treatment Pending Test Test Name Order Date Schedule Confirmation 09/28/2024 Schedule Confirmation 10/02/2024 Schedule Confirmation 10/02/2024 Schedule Confirmation 10/02/2024 Next Appt Details Provider Name:Berna ramirez, 01/07/2025 12:40:00 PM, [address] [place], [address], Insurance Providers Payer Name Payer Address Payer Phone Subscriber Number Group Number Insured Name Patient Relationship to Insured Coverage Start Date Coverage End Date [employer] [address] [place] [phone] [id number] STEPH JOYNER Self - patient is the insured
--- OUTSIDE RECORDS SUMMARY | 2024-12-27 11:37 | XMS_ITS | Encounter Summary ---
Author Organization [facility], [facility] Address [address] [place] [address] Phone Care Team Providers Care Crackling Press Operator Name Role Phone Jadiel Chance MD Primary Care Provider [phone] Encounter Details Date Type Department Care Team (Late st Contact Info) Description 04/27/2019 Orders Only [facility] [address] [place] [address] Stalin Campos MD [address] [place] [address] Chronic kidney disease, not otherwise specified Social [...] specified documented in this encounter Care Teams Crackling Press Operator Relationship Specialty Start Date End Date Jadiel Chance MD [address] [place] [facility] [place] [address] PCP - General Internal Medicine 05/14/19 documented as of this encounter
--- OUTSIDE RECORDS SUMMARY | 2024-12-27 11:37 | XMS_ITS | Clinical Summary ---
Author Organization [facility] Address [address] [place] [address] Phone Care Team Providers Care Linoleum Printer Name Role Phone Jadiel Chance MD Primary Care Provider [phone] Allergies Active Allergy Reactions Criticality Noted Date [...] Elliott DO - 09/04/2018 8:04 AM CDT [facility] GI Patient Name: Jamaal Sanchez Procedure Date: [...] Scope Out: 8:01:41 AM [address] [place] Kwasi Elliott DO GI PROCEDURE ORDERABLES Final Result from Last 3 Months or Most Recently Relevant to Health Maintenance Insurance MEDICARE PART A AND B [place] [id number] Advance Directives For more information, please contact: [phone] * Full Code (Latest Code Status on File) Date Activated Date Inactivated Comments 09/04/2018 6:38 AM 09/04/2018 11:25 AM * Full Code Date Activated Date Inactivated Comments 08/30/2015 6:46 PM 08/31/2015 5:54 PM Care Teams Linoleum Printer Relationship Specialty Start Date End Date Jadiel Chance MD [address] [facility] [place] [address] PCP - General Internal Medicine 12/30/19
--- OUTSIDE RECORDS SUMMARY | 2024-12-27 11:37 | XMS_ITS | Clinical Summary ---
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
[2024-12-27 11:43] VITALS: BP 137/69; PULSE 64; RESP 18; TEMP 36.7; O2SAT 92; BMI 33.6
--- NOTE | 2024-12-27 12:17 | CTR_ITS ---
PROCEDURE INFORMATION: Exam: CT Abdomen And Pelvis With Contrast Exam date and time: 12/27/2024 12:55 PM Age: 79 years old Clinical indication: Abdominal pain; Prior surgery; Surgery date: 6+ months; Surgery type: Small bowel 8 removed, leaking ; Additional info: Abd pain TECHNIQUE: Imaging protocol: Computed tomography of the abdomen and pelvis with contrast. Radiation optimization: All CT scans at this facility use at least one of these dose optimization techniques: automated exposure control; mA and/or kV adjustment per patient size (includes targeted exams where dose is matched to clinical indication); or iterative reconstruction. Contrast material: OMNIPAQUE 350; Contrast volume: 100 ml; Contrast route: INTRAVENOUS (IV); COMPARISON: CT abdomen pelvis wo con [id number] 06/05/2023 5:47 PM RADIATION DOSE METRICS: Total DLP (mGy-cm): 1251.53 FINDINGS: Lungs: There is a 1.3 x 1.0 cm spiculated mass in the right lower lobe. It has increased in size since the prior CT and is suspicious for malignancy. There is a lymph node adjacent to the right lower lobe bronchus which measures 2.2 x 1.5 cm. It has calcification within it. It is stable in appearance. Coronary arteries: Atherosclerotic changes of the coronary arteries are noted. Liver: Unremarkable. No mass. Gallbladder and biliary ducts: Normal. No calcified stones. No ductal dilation. Pancreas: Normal. No ductal dilation. Spleen: Normal. No splenomegaly. Adrenal glands: Normal. No mass. Kidneys and ureters: There are benign-appearing left renal cysts with the largest measuring 1.0 cm. No further imaging is needed. Stomach and bowel: Status post anastomosis of small bowel loops in the right upper quadrant. There is abnormal thickening of the colonic wall involving the sigmoid colon with adjacent mild stranding of the adjacent fat. There is diverticulosis throughout the colon.. This could represent mild diverticulitis. No focal abscess is identified. No free air is identified. Appendix: No evidence of appendicitis. Intraperitoneal space: See Stomach and bowel finding. Vasculature: Mild atherosclerotic disease of the aorta and branch vessels is evident. No evidence of aneurysmal dilatation. Lymph nodes: Unremarkable. No enlarged lymph nodes. Urinary bladder: Unremarkable as visualized. Reproductive: Unremarkable as visualized. Bones/joints: There are moderate degenerative changes of the bony structures. There is a blastic lesion in the right 9th rib posteriorly. It appears stable Soft tissues: Unremarkable. CT/CT abdomen pelvis w con* [id number] IMPRESSION: 1. 1.3 cm spiculated mass right lower lobe which has increased in size and is suspicious for malignancy. Further evaluation is suggested with PET-CT and/or histologic sampling. 2. Thickening of the colonic wall especially involving the sigmoid colon which may represent mild diverticulitis. COMMENTS: Consistent with the [employer]'s Incidental Findings Committee white paper (J Am Ayla Radiol 2018): Any incidental renal lesion less than 1 cm or classified as too small to characterize, or any incidental cystic renal lesion characterized as simple-appearing, is likely benign. No follow-up imaging is recommended for these lesions per consensus recommendations based on imaging criteria.
--- NOTE | 2024-12-27 12:18 | W.ED.ABDPA2 ---
HPI - Abdominal Pain General: Chief Complaint: Abdominal Pain Stated Complaint: n/v/d, abd pain Time Seen by Provider: 12/27/24 12:10 Source: patient Mode of arrival: ambulatory Limitations: no limitations History of Present Illness: 79-year-old male states been having abdominal pain with nausea vomiting since yesterday. States pain is diffuse in nature and is cramping rates it a 7 out of 10. He denies any fevers or dysuria does have a history of constipation as well. States he had a history of bowel issues had a portion of his intestine removed 2 years ago at [facility]. He denies any fevers Associated Symptoms: Reports vomiting Related Data Home Medications ?Medication ?Instructions ?Recorded ?Confirmed aspirin 81 mg tablet,delayed 81 mg PO QAM 04/07/19 12/27/24 release (Adult Low Dose Aspirin) mirtazapine 45 mg tablet 45 mg PO BEDTIME 04/07/19 12/27/24 sertraline 100 mg tablet 100 mg PO QAM 04/07/19 12/27/24 atorvastatin 80 mg tablet 40 mg PO BEDTIME 04/14/19 12/27/24 pantoprazole 40 mg tablet,delayed 40 mg PO DAILY 04/14/19 12/27/24 release hydrocodone 10 mg-acetaminophen 1 tab PO QID PRN Pain 03/16/20 12/27/24 325 mg tablet chlorthalidone 25 mg tablet 25 mg PO QAM 12/09/20 12/27/24 cholecalciferol (vitamin D3) 50 50 mcg PO DAILY 12/09/20 12/27/24 mcg (2,000 unit) capsule (Vitamin D3) polyethylene glycol 3350 17 17 g PO BEDTIME 12/09/20 12/27/24 gram/dose oral powder (Miralax) tamsulosin 0.4 mg capsule 0.4 mg PO BID 12/09/20 12/27/24 gabapentin 300 mg capsule See Rx Instructions .Route 11/09/21 12/27/24 .COMPLEX .COMPLEX ascorbic acid (vitamin C) 500 mg 500 mg PO DAILY 11/02/22 12/27/24 tablet (Vitamin C) calcium carbonate 500 mg PO QPM 11/02/22 12/27/24 cyanocobalamin (vitamin B-12) 50 25 mcg PO DAILY 11/02/22 12/27/24 mcg tablet omega 8-ppi-wgv-fish oil 60 mg-90 1 cap PO DAILY 11/02/22 12/27/24 mg-500 mg capsule (Fish Oil) cetirizine 10 mg tablet 10 mg PO DAILY 12/27/24 12/27/24 lactulose 10 gram/15 mL oral 30 ml PO DAILY 12/27/24 12/27/24 solution (Constulose) melatonin 5 mg tablet 5 mg PO BEDTIME 12/27/24 12/27/24 metformin 1,000 mg tablet 500 mg PO BID 12/27/24 12/27/24 nitroglycerin 0.4 mg sublingual 0.4 mg sublingual Q5M PRN Chest 12/27/24 12/27/24 tablet (Nitrostat) Pain psyllium husk 3.4 gram/5.4 gram 1 tbsp PO DAILY PRN Constipation 12/27/24 12/27/24 oral powder (Metamucil) simethicone 80 mg chewable tablet 160 mg PO BID PRN Indigestion 12/27/24 12/27/24 Previous Rx's ?Medication ?Instructions ?Recorded tiotropium bromide 18 mcg capsule 1 cap inhalation DAILY #30 08/16/21 with inhalation device (Spiriva inhalations with HandiHaler) fluticasone 250 mcg-salmeterol 50 1 inh inhalation BID #60 ea 10/23/21 mcg/dose blistr powdr for inhalation (Wixela Inhub) finasteride 5 mg tablet 5 mg PO QAM #90 tabs 05/03/22 Custom Copolymer inserts 1 Pair #1 ea 07/31/22 albuterol sulfate 90 mcg/actuation 2 inh inhalation Q4H PRN shortness 12/22/22 aerosol inhaler of breath or wheezing #18 grams Diabetic shoes #1 ea 07/01/24 ondansetron 4 mg disintegrating 4 mg PO Q6H PRN nausea and 12/27/24 tablet vomiting #14 tabs Allergies Allergy/AdvReac Type Severity Reaction Status Date / Time haloperidol (From Haldol) Allergy NA Verified 07/01/24 10:18 potassium chloride Allergy Vomiting Verified 07/01/24 10:18 Review of Systems GI: Reports: abdominal pain and vomiting PFS ED PFSH: Medical History Anemia Presence of arterial stent COPD (chronic obstructive pulmonary disease) Osteoarthritis PTSD (post-traumatic stress disorder) GERD (gastroesophageal reflux disease) CAD (coronary artery disease) Mixed hyperlipidemia Hypertension Bilateral carotid artery stenosis H/O: GI bleed Benign prostatic hyperplasia with lower urinary tract symptoms Surgical History S/P small bowel resection Family History Family/Other Diabetes CAD (coronary artery disease) Cancer Father , at age 98 Congestive heart failure (CHF) CAD (coronary artery disease) Mother , at age 80 Stroke Brother Diabetes Sister Diabetes Denies family history of Clotting disorder Dementia Chronic kidney disease (CKD) Suicide Anesthesia complication Bleeding disorder Lung disease Social History Smoking and tobacco/nicotine status: former use of tobacco/nicotine Quit status (tobacco/nicotine): has quit using Year quit tobacco: 2012 Former quit date comment: 1.5 ppd X 52 years Second hand smoke exposure: Yes Alcohol intake: never Substance/Drug Use: never Adopted: No Marital status: Current occupational status: retired Physical Exam Const: COMMON NORMALS: no acute distress, patient oriented x3 and healthy appearing HENMT: COMMON NORMALS: normocephalic and atraumatic HEAD & SCALP: normocephalic and atraumatic Eye: COMMON NORMALS: Equal, round and reactive pupils present and EOMs intact bilaterally PUPIL: Yes Equal, round and reactive pupils present Neck/C-Spine: COMMON NORMALS: full ROM and supple Chest: COMMONS NORMALS: normal inspection of the chest Resp: COMMON NORMALS: normal respiratory effort Cardio: COMMON NORMALS: regular rate, regular rhythm and No murmurs present (Cardio) RATE: regular rate RHYTHM: regular rhythm GI: COMMON NORMALS: Normal to inspection, nondistended, normoactive bowel sounds present, Soft to palpation and no masses PALPATION: Yes Soft to palpation OTHER: diffuse mild tenderness Extremity: COMMON NORMALS: normal to inspection and full ROM Neuro: COMMON NORMALS: patient oriented x3, moves all extremities and no focal motor deficits Psych: COMMON NORMALS: mental status grossly normal, Normal thought process present and cooperative THOUGHT PROCESS: Normal thought process present Skin: COMMON NORMALS: no rashes or lesions noted and no wounds GENERAL SKIN EXAM: no rashes or lesions noted Course Vital Signs: Vital signs: Vital Signs Temperature 98.1 F 12/27/24 11:43 Pulse Rate 52 L 12/27/24 14:00 Respiratory Rate 16 12/27/24 12:35 Blood Pressure 143/66 12/27/24 14:00 Pulse Oximetry 90 12/27/24 14:00 Oxygen Delivery Me thod Room Air 12/27/24 14:00 MDM - Abdominal Pain Medical Decision Making Patient presents here with abdominal pain differential includes serious etiologies like diverticulitis small bowel obstruction bowel perforation bowel ischemia. Patient has no signs of these his white count here is normal his abdominal exam was benign CT scan of his abdomen showed no acute process no signs of bowel obstruction he has been able to tolerate p.o. here. Patient's blood work here was normal with a normal white count and normal electrolytes. CT scan did show an large spiculated mass I did speak to him and family about this he knows about this mass and has a instructor creeler he sees at [place] that he is actually has follow-up soon with for the mass. I did inform and family that they need to call the instructor creeler and let him know he is seen here so we can get the records I informed him that his abdominal CT here was negative blood work here was normal he does feel improved he is stable for discharge we will prescribe him Zofran he already has pain meds at home I informed both follow-up with his PCP and return if worsening he understands agrees to plan. Medical Records I reviewed the patient's medical records. Lab Data I reviewed the patient's lab results. 12/27/24 12:18 12/27/24 12:18 Labs/Radiology: Radiology Impressions Abdomen/Pelvis CT 12/27/24 12:17 IMPRESSION: 1. 1.3 cm spiculated mass right lower lobe which has increased in size and is suspicious for malignancy. Further evaluation is suggested with PET-CT and/or histologic sampling. 2. Thickening of the colonic wall especially involving the sigmoid colon which may represent mild diverticulitis. COMMENTS: Consistent with the [employer]'s Incidental Findings Committee white paper (J Am Ayla Radiol 2018): Any incidental renal lesion less than 1 cm or classified as too small to characterize, or any incidental cystic renal lesion characterized as simple-appearing, is likely benign. No follow-up imaging is recommended for these lesions per consensus recommendations based on imaging criteria. ADDENDUM: 12/27/24 1446 THIS REPORT CONTAINS FINDINGS THAT MAY BE CRITICAL TO PATIENT CARE. The findings were verbally communicated via telephone conference with NITIN PLATT at 2:44 PM CDT on 12/27/2024. The findings were acknowledged and understood. Laboratory Results WBC 10.65 10^3/uL (3.29-11.43) 12/27/24 12:18 RBC 4.73 10^6/uL (3.85-5.65) 12/27/24 12:18 Hgb 12.70 g/dL (11.27-16.99) 12/27/24 12:18 Hct 39.1 % (37-53) 12/27/24 12:18 MCV 82.7 fl (82-101) 12/27/24 12:18 MCH 26.8 pg (27-33) L 12/27/24 12:18 MCHC 32.5 g/dL (30-55) 12/27/24 12:18 RDW 14.4 % (12.1-15.1) 12/27/24 12:18 Plt Count 225 10^3/cmm (157-399) 12/27/24 12:18 MPV 8.9 fL (7.4-10.4) 12/27/24 12:18 Neut % (Auto) 83.9 % 12/27/24 12:18 Lymph % (Auto) 9.5 % 12/27/24 12:18 Jack % (Auto) 5.6 % 12/27/24 12:18 Eos % (Auto) 0.3 % 12/27/24 12:18 Baso % (Auto) 0.3 % 12/27/24 12:18 Neut # (Auto) 8.94 10^3/uL (1.8-7.7) H 12/27/24 12:18 Lymph # (Auto) 1.0 10^3/uL (0.8-4.8) 12/27/24 12:18 Jack # (Auto) 0.6 10^3/uL (0.2-0.9) 12/27/24 12:18 Eos # (Auto) 0.0 10^3/uL (0.0-0.8) 12/27/24 12:18 Baso # (Auto) 0.0 10^3/uL (0.0-0.1) 12/27/24 12:18 Nucleated RBC % (auto) 0 % 12/27/24 12:18 Nucleated RBCs # 0.0 /100WBC 12/27/24 12:18 Sodium 142 mmol/L (136-145) 12/27/24 12:18 Potassium 3.4 mmol/L (3.5-5.1) L 12/27/24 12:18 Chloride 103 mmol/L (98-107) 12/27/24 12:18 Carbon Dioxide 26 mmol/L (22-29) 12/27/24 12:18 Anion Gap 16.4 (5-19) 12/27/24 12:18 BUN 14 mg/dL (8-23) 12/27/24 12:18 Creatinine 0.9 mg/dL (0.7-1.2) 12/27/24 12:18 GFR Calculation Not Reportable 12/27/24 12:18 Glucose 160 mg/dL (65-115) H 12/27/24 12:18 Calculated Osmolality 298 mOsm/kg (285-295) H 12/27/24 12:18 Calcium 9.5 mg/dL (8.5-10.5) 12/27/24 12:18 Total Bilirubin 0.5 mg/dL (0.15-1.2) 12/27/24 12:18 AST 8 U/L (0-40) 12/27/24 12:18 ALT 9 U/L (0-41) 12/27/24 12:18 Alkaline Phosphatase 144 U/L (40-130) H 12/27/24 12:18 Total Protein 7.7 g/dL (6.6-8.7) 12/27/24 12:18 Albumin 4.3 g/dL (3.5-5.2) 12/27/24 12:18 Globulin 3.4 g/dL (1.3-4.6) 12/27/24 12:18 Lipase 13 U/L (13-60) 12/27/24 12:18 Urine Color Dark yellow (Yellow) A 12/27/24 12:34 Urine Appearance Clear (CLEAR) 12/27/24 12:34 Urine pH 5 (5-7) 12/27/24 12:34 Ur Specific [place] 1.020 (1.005-1.030) 12/27/24 12:34 Urine Protein Trace (Negative) 12/27/24 12:34 Urine Glucose (UA) Norm (Normal) 12/27/24 12:34 Urine Ketones Negative (Negative) 12/27/24 12:34 Urine Blood Neg (Negative) 12/27/24 12:34 Urine Nitrate Negative (Negative) 12/27/24 12:34 Urine Bilirubin 1+ (Negative) H 12/27/24 12:34 Urine Urobilinogen Neg mg/dL (Negative) 12/27/24 12:34 Ur Leukocyte Esterase Negative (Negative) 12/27/24 12:34 Urine RBC 0-4 /hpf (0-2) H 12/27/24 12:34 Urine WBC 0-4 /hpf (0-5) H 12/27/24 12:34 Ur Squamous Epith Cells 0-4 /hpf (0-5) H 12/27/24 12:34 Amorphous Sediment Not Reportable 12/27/24 12:34 Urine Bacteria Trace /hpf (NONE) 12/27/24 12:34 Hyaline Casts 0-4 /lpf H 12/27/24 12:34 Urine Mucus 1+ /hpf 12/27/24 12:34 All radiology interpretation(s) finalized by discharge Discharge Plan Discharge Patient Disposition: Home Clinical Impression: Lung mass Abdominal pain Qualifiers: Abdominal location: generalized Qualified Code(s): R10.84 - Generalized abdominal pain Condition: Stable Prescriptions: New ondansetron 4 mg tablet,disintegrating 4 mg PO Q6H PRN (Reason: nausea and vomiting) Qty: 14 0RF No Action atorvastatin 80 mg tablet 40 mg PO BEDTIME pantoprazole 40 mg tablet,delayed release (DR/EC) 40 mg PO DAILY gabapentin 300 mg capsule See Rx Instructions .ROUTE .COMPLEX Rx Instructions: Take 1 capsule by mouth in the morning and 3 capsules in the evening. sertraline 100 mg tablet 100 mg PO QAM aspirin [Adult Low Dose Aspirin] 81 mg tablet,delayed release (DR/EC) 81 mg PO QAM mirtazapine 45 mg tablet 45 mg PO BEDTIME hydrocodone-acetaminophen 10-325 mg tablet 1 tab PO QID PRN (Reason: Pain) Spiriva with HandiHaler 18 mcg capsule, w/inhalation device 1 cap inhalation DAILY Qty: 30 3RF Rx Instructions: puncture 1 cap using device; one dose = 2 inhalations fluticasone propion-salmeterol [Wixela Inhub] 250-50 mcg/dose blister with device 1 inh inhalation BID Qty: 60 3RF (DME) Custom Copolymer inserts 1 Pair See Rx Instructions .Route .MEDSUPPLY Qty: 1 0RF Rx Instructions: As directed (DME) Diabetic shoes See Rx Instructions .ROUTE .MEDSUPPLY Qty: 1 0RF Rx Instructions: With 3 pairs of inserts finasteride 5 mg tablet 5 mg PO QAM Qty: 90 3RF polyethylene glycol 3350 [Miralax] 17 gram/dose Powder 17 g PO BEDTIME cholecalciferol (vitamin D3) [Vitamin D3] 50 mcg (2,000 unit) Capsule 50 mcg PO DAILY chlorthalidone 25 mg tablet 25 mg PO QAM tamsulosin 0.4 mg capsule 0.4 mg PO BID albuterol sulfate 90 mcg/actuation HFA aerosol inhaler 2 inh INHALATION Q4H PRN (Reason: shortness of breath or wheezing) Qty: 18 0RF metformin 1,000 mg Tablet 500 mg PO BID lactulose [Constulose] 10 gram/15 mL solution 30 ml PO DAILY cetirizine 10 mg Tablet 10 mg PO DAILY nitroglycerin [Nitrostat] 0.4 mg Tablet, Sublingual 0.4 mg SUBLINGUAL Q5M PRN (Reason: Chest Pain) Rx Instructions: do not exceed 3 doses per episode simethicone 80 mg Tablet,Chewable 160 mg PO BID PRN (Reason: Indigestion) melatonin 5 mg Tablet 5 mg PO BEDTIME Metamucil 3.4 gram/5.4 gram Powder 1 tbsp PO DAILY PRN (Reason: Constipation) Rx Instructions: mix into at least 8 oz of water or juice before administering cyanocobalamin (vitamin B-12) 50 mcg Tablet 25 mcg PO DAILY calcium carbonate 500 mg calcium (1,250 mg) Tablet 500 mg PO QPM ascorbic acid (vitamin C) [Vitamin C] 500 mg Tablet 500 mg PO DAILY omega 1-cdc-wuj-fish oil [Fish Oil] 60-90-500 mg Capsule 1 cap PO DAILY Discharge Orders: Discharge ED (Routine); Ordered 12/27/24 Ordered By: Nitin Platt Referrals: Shawna England MD [Primary Care Provider, Family Practice] Discharge Diet: Advance as tolerated Discharge Activity: Resume usual activity Patient Instructions: Abdominal Pain (ED) Print Language: Scottish Coding Level of Care Code ED Dead Mail Checker for Maxi Clayton
[2024-12-27 12:24] LABS: Hematocrit 39.1 % (37-53); Hemoglobin 12.70 g/dL (11.27-16.99); Mean Corpuscular HGB Conc 32.5 g/dL (30-55); Mean Corpuscular Hemoglobin 26.8 pg (27-33); Mean Corpuscular Volume 82.7 fl (82-101); Nucleated Red Blood Cells % 0 %; Platelet Count 225 10^3/cmm (157-399); Red Blood Count 4.73 10^6/uL (3.85-5.65); White Blood Count 10.65 10^3/uL (3.29-11.43)
[2024-12-27 12:35] VITALS: RESP 16; O2SAT 92
[2024-12-27] MEDS: ondansetron 2 mg/ML SDV 2 mL 4 MG IVP (12:35)
[2024-12-27] MEDS: morphine 4 mg/mL SDV 1 mL IVP (12:35)
[2024-12-27 12:47] LABS: Add Urine Microscopic? YES; Glucose Urine UA Norm (Normal); Nitrate Urine Negative (Negative); Specific Gravity, Urine 1.020 (1.005-1.030); UA Manual Slide Review YES
[2024-12-27 12:49] LABS: Alanine Aminotransferase 9 U/L (0-41); Albumin Level 4.3 g/dL (3.5-5.2); Alkaline Phosphatase 144 U/L (40-130); Anion Gap 16.4 (5-19); Aspartate Amino Transferase 8 U/L (0-40); Blood Urea Nitrogen 14 mg/dL (8-23); Calcium 9.5 mg/dL (8.5-10.5); Carbon Dioxide 26 mmol/L (22-29); Chloride 103 mmol/L (98-107); Creatinine Clr Calc Pharmacy 88.1872; Globulin 3.4 g/dL (1.3-4.6); Glucose 160 mg/dL (65-115); Lipase 13 U/L (13-60); Osmolality Calculated 298 mOsm/kg (285-295); Potassium 3.4 mmol/L (3.5-5.1); Sodium 142 mmol/L (136-145); Total Protein 7.7 g/dL (6.6-8.7)
[2024-12-27] MEDS: iohexol 350 mg/mL 500 mL Btl (per mL) IV (12:59)
--- NOTE | 2024-12-27 13:33 | PC.PHAR ---
[facility] is [facility] for current med [facility] 1:30pm 12/27/24
[2024-12-27 14:00] VITALS: BP 143/66; PULSE 52; O2SAT 90
[2024-12-27 14:30] VITALS: BP 155/72; PULSE 60; O2SAT 91
[2024-12-27 15:12] VITALS: BP 155/72; PULSE 54; O2SAT 92
== END 2024-12-27 15:15 | disposition home or self-care (01) ==
PROVIDERS: Emergency Provider Emergency Medicine; PCP Family Medicine
DX: R91.8 Other nonspecific abnormal finding of lung field (principal); R10.84 Generalized abdominal pain; Z79.82 Long term (current) use of aspirin; Z79.84 Long term (current) use of oral hypoglycemic drugs; Z87.891 Personal history of nicotine dependence; I25.10 Atherosclerotic heart disease of native coronary artery without angina pectoris; E78.2 Mixed hyperlipidemia; I10 Essential (primary) hypertension
CPT/HCPCS: 36415; 74177; 80053; 81001; 83690; 85025; 96361; 96374; 96375; 99285; J2270; J2405; J7030

== ENCOUNTER → 2025-02-11 10:26 | Outpatient (BNVA) | payer OTHER, SELFPAY | PROVIDERS: PCP Family Medicine; Visit Provider Nurse Practitioner Family | DX: I25.10 Atherosclerotic heart disease of native coronary artery without angina pectoris (principal); I65.23 Occlusion and stenosis of bilateral carotid arteries; I10 Essential (primary) hypertension; E78.2 Mixed hyperlipidemia; R00.1 Bradycardia, unspecified; Z98.890 Other specified postprocedural states; Z79.82 Long term (current) use of aspirin; Z95.5 Presence of coronary angioplasty implant and graft; Z86.16 Personal history of COVID-19; Z87.891 Personal history of nicotine dependence | CPT/HCPCS: 99213 ==